=== PATIENT | female | born 1960 | race Caucasian/White ===

== ENCOUNTER 2020-09-14 18:38 | Inpatient (IN) | payer SELFPAY ==
--- NOTE | 2020-09-14 21:12 | RAD REPORT ---
EXAM DESCRIPTION: RAD - Chest Single View - 09/14/2020 9:05 pm CLINICAL HISTORY: Cough;SOB Chest pain. COMPARISON: CHEST SINGLE VIEW dated 09/28/2013; CTANGIO CHEST FOR PE dated 09/28/2013 FINDINGS: Portable technique limits examination quality. A large right pleural effusion is noted. The left lung is grossly clear. The heart is upper limit nor mal in size. No displaced fractures.
[2020-09-14 21:46] LABS: SARS-COV-2 RT PCR NEGATIVE (NEGATIVE)
[2020-09-14] MEDS ORDERED: CEFTRIAXONE/SWI 1gm 1 GM/10 ML SYR ONE (22:04)
[2020-09-14] MEDS ORDERED: NA CHLORIDE 0.9% 250 ML ONE (22:04)
[2020-09-14] MEDS ORDERED: ONDANSETRON 4 MG/2 ML VIAL IV PRN (22:19)
--- NOTE | 2020-09-14 22:19 | ER ---
Nurse's Notes [facility] Name: Amie Joseph Age: 60 yrs Sex: Female : 1960 Arrival Date: 09/14/2020 Time: 18:40 Bed 7 Private MD: Diagnosis: Pleural effusion in conditions classified elsewhere Presentation: 09/14 18:49 Chief complaint: Patient states: Cough for 3 weeks. SOB with exertion for 2-3 weeks. No ll1 fever. Coronavirus screen: Client denies travel out of the [place] in the last 14 days. cough unrelated to allergies, difficulty breathing, Client presents with at least one sign or symptom that may indicate coronavirus-19. Standard/surgical mask placed on the client. The client reports previous COVID testing was negative. Ebola Screen: Patient denies travel to an Ebola-affected area in the 21 days before illness onset. Initial Sepsis Screen: Does the patient meet any 2 criteria? HR > 90 bpm. No. Patient's initial sepsis screen is negative. Does the patient have a suspected source of infection? Yes: Productive cough/pneumonia. Risk Assessment: Do you want to hurt yourself or someone else? Patient reports no desire to harm self or others. Onset of symptoms was August 21, 2020. 18:49 Method Of Arrival: Ambulatory ll1 18:49 Acuity: JACEK 3 ll1 Triage Assessment: 22:30 General: Appears in no apparent distress. comfortable, Behavior is calm, cooperative. mg2 Respiratory: Reports shortness of breath Onset: The symptoms/episode began/occurred gradually, the patient has mild shortness of breath. Historical: - Allergies: 18:49 No Known Drug Allergies; ll1 - PMHx: 18:49 None; ll1 - PSHx: 18:49 Cholecystectomy; Hysterectomy; ; ll1 - Immunization history:: Flu vaccine is not up to date. - Social history:: Smoking status: Patient denies any tobacco usage or history of. Screenin:21 Abuse screen: Denies threats or abuse. Denies injuries from another. Nutritional mg2 screening: No deficits noted. Tuberculosis screening: No symptoms or risk factors identified. Fall Risk IV access (20 points). Assessment: 21:00 General: Appears in no apparent distress. comfortable, Behavior is calm, cooperative. mg2 Pain: Denies pain. Neuro: Level of Consciousness is awake, alert, obeys commands, Oriented to person, place, time, situation. Cardiovascular: Rhythm is regular. Respiratory: Airway is patent Respiratory effort is even, unlabored, Respiratory pattern is regular, symmetrical. GI: No signs and/or symptoms were reported involving the gastrointestinal system. : No signs and/or symptoms were reported regarding the genitourinary system. EENT: No signs and/or symptoms were reported regarding the EENT system. Derm: Skin is intact, is healthy with good turgor, Skin is pink, warm \T\ dry. normal. Musculoskeletal: Circulation, motion, and sensation intact. Capillary refill < 3 seconds. 21:00 Respiratory: Breath sounds with crackles. mg2 22:20 General: Dr Wyatt came and spoke to the patient about the plan for admission and she mg2 agreed. Vital Signs: 18:49 BP 130 / 80; Pulse 102; Resp 18; Temp 98.3; Pulse Ox 96% ; Weight 83.91 kg; Height 5 ll1 ft. 4 in. (162.56 cm); Pain 3/10; 22:30 BP 129 / 78; Pulse 98; Resp 18; Temp 98; Pulse Ox 97% on R/A; mg2 18:49 Body Mass Index 31.75 (83.91 kg, 162.56 cm) ll1 ED Course: 18:40 Patient arrived in ED. rg4 18:48 Arm band placed on. ll1 18:52 Triage completed. ll1 19:00 Patient has correct armband on for positive identification. Placed in gown. Bed in low rr5 position. Call light in reach. Side rails up X2. quality assurance monitor on. Pulse ox on. NIBP on. 19:00 Warm blanket given. rr5 19:46 Igor Glasgow MD is Attending Physician. tw4 21:05 CXR XRAY In Process Unspecified. EDMS 21:24 Corey Ibrahim RN is Primary Nurse. rr5 22:17 No provider procedures requiring assistance completed. Inserted saline lock: 20 gauge mg2 in left antecubital area, using aseptic technique. Blood collected. Patient maintains SpO2 saturation greater than 95% on room air. 22:18 Jon Wyatt MD is Hospitalizing Provider. tw4 22:30 Patient admitted, IV remains in place. mg2 Administered Medications: 22:17 Drug: Rocephin - (cefTRIAXone) 1 grams Route: IVPB; Infused Over: 30 mins; Site: left mg2 antecubital; 22:30 Follow up: IV Status: Completed infusion mg2 22:30 Drug: AZITHromycin 500 mg Route: IVPB; Infused Over: 1 hrs; Site: left antecubital; rr5 23:30 Follow up: IV Status: Completed infusion; IV Intake: 250ml mg2 Intake: 23:30 IV: 250ml; Total: 250ml. mg2 Outcome: 22:18 Decision to Hospitalize by Provider. tw4 23:19 Admitted to Med/surg accompanied by tech, via wheelchair, room 219, with chart, Report rr5 called to [facility] 23:19 Condition: stable 23:19 Instructed on the need for admit. 23:27 Patient left the ED. rr5 Signatures: Dispatcher [employer] Amanda Marmolejo rg4 Igor Glasgow MD MD tw4 Krishna Shepherd RN RN mg2 Corey Ibrahim RN RN rr5 Tabby Adams RN RN ll1 Corrections: (The following items were deleted from the chart) 09/15 07:35 0103 22:20 General: Dr Wyatt came and spoke to the patient about the plan for mg2 admission and she agreed. mg2
--- NOTE | 2020-09-14 22:19 | EDPHYS ---
Physician Documentation [facility] Name: Amie Joseph Age: 60 yrs Sex: Female : 1960 Arrival Date: 09/14/2020 Time: 18:40 Bed 7 Private MD: ED Physician Igor Glasgow HPI: 09/15 06:47 This 60 yrs old Female presents to ER via Ambulatory with complaints of tw4 Cough, Shortness Of Breath. 06:47 The patient or guardian reports cough. Onset: The symptoms/episode began/occurred 3 tw4 week(s) ago, and became worse yesterday. Severity of symptoms: At their worst the symptoms were moderate, in the emergency department the symptoms are unchanged. Modifying factors: The symptoms are alleviated by nothing, the symptoms are aggravated by nothing. The patient has not experienced similar symptoms in the past. Historical: - Allergies: 09/14 18:49 No Known Drug Allergies; ll1 - PMHx: 18:49 None; ll1 - PSHx: 18:49 Cholecystectomy; Hysterectomy; ; ll1 - Immunization history:: Flu vaccine is not up to date. - Social history:: Smoking status: Patient denies any tobacco usage or history of. ROS: 09/15 06:47 Constitutional: Negative for fever, chills, and weight loss, Eyes: Negative for injury, tw4 pain, redness, and discharge, Cardiovascular: Negative for chest pain, palpitations, and edema, Abdomen/GI: Negative for abdominal pain, nausea, vomiting, diarrhea, and constipation, Back: Negative for injury and pain, MS/Extremity: Negative for injury and deformity, Skin: Negative for injury, rash, and discoloration, Neuro: Negative for headache, weakness, numbness, tingling, and seizure. Respiratory: Positive for cough, shortness of breath. Exam: 06:47 Constitutional: This is a well developed, well nourished patient who is awake, alert, tw4 and in no acute distress. Head/Face: Normocephalic, atraumatic. Chest/axilla: Normal chest wall appearance and motion. Nontender with no deformity. No lesions are appreciated. Cardiovascular: Regular rate and rhythm with a normal S1 and S2. No gallops, murmurs, or rubs. Normal PMI, no JVD. No pulse deficits. 06:47 Respiratory: mild respiratory distress is noted, Respirations: normal, Breath sounds: decreased breath sounds, are heard in the right middle lobe, right lower lobe, right posterior upper lobe, right posterior middle lobe and right posterior lower lobe. 06:47 Skin: Warm, dry with normal turgor. Normal color with no rashes, no lesions, and no tw4 evidence of cellulitis. MS/ Extremity: Pulses equal, no cyanosis. Neurovascular intact. Full, normal range of motion. Neuro: Awake and alert, GCS 15, oriented to person, place, time, and situation. Cranial nerves II-XII grossly intact. Motor strength 5/5 in all extremities. Sensory grossly intact. Cerebellar exam normal. Normal gait. Vital Signs: 09/14 18:49 BP 130 / 80; Pulse 102; Resp 18; Temp 98.3; Pulse Ox 96% ; Weight 83.91 kg; Height 5 ll1 ft. 4 in. (162.56 cm); Pain 3/10; 22:30 BP 129 / 78; Pulse 98; Resp 18; Temp 98; Pulse Ox 97% on R/A; mg2 18:49 Body Mass Index 31.75 (83.91 kg, 162.56 cm) ll1 MDM: 20:59 Patient medically screened. 09/15 06:48 Data reviewed: vital signs, nurses notes. Data interpreted: Pulse oximetry: tw4 Interpretation: normal. Counseling: I had a detailed discussion with the patient and/or guardian regarding: the historical points, exam findings, and any diagnostic results supporting the discharge/admit diagnosis. Special discussion: I discussed with the patient/guardian in detail that at this point there is no indication for admission to the hospital. It is understood, however, that if the symptoms persist or worsen the patient needs to return immediately for re-evaluation. 09/14 21:09 Order name: Blood Culture Adult (2) 09/14 21:09 Order name: BMP 09/14 21:09 Order name: CBC with Diff 09/14 21:09 Order name: Ckmb 09/14 21:09 Order name: CPK 09/14 21:09 Order name: D-Dimer 09/14 21:09 Order name: Hepatic Function 09/14 21:09 Order name: Lipase tw4 09/14 21:09 Order name: Magnesium tw4 09/14 21:09 Order name: NT PRO-BNP tw4 09/14 21:09 Order name: PT-INR tw4 09/14 21:09 Order name: Ptt, Activated tw4 09/14 20:12 Order name: CXR XRAY tw4 09/14 21:09 Order name: CT Chest For PE Angio tw4 09/14 21:09 Order name: Troponin (emerg Dept Use Only) tw4 09/14 21:09 Order name: EKG; Complete Time: 21:10 tw4 09/14 21:09 Order name: Lactate tw4 09/14 21:46 Order name: COVID-19/FLU A+B EDMS 09/14 22:22 Order name: CBC with Automated Diff EDMS 09/14 22:22 Order name: CBC with Automated Diff EDMS 09/14 22:22 Order name: Comprehensive Metabolic Panel EDMS 09/14 22:22 Order name: Comprehensive Metabolic Panel EDMS 09/14 22:22 Order name: Protime (+INR) EDMS 09/14 22:22 Order name: Protime (+INR) EDMS 09/14 22:25 Order name: Thoracentesis w/ US Guide EDMS 09/14 19:47 Order name: Droplet/Contact Precautions; Complete Time: 20:58 tw4 09/14 19:47 Order name: Labs collected and sent; Complete Time: 20:58 tw4 09/14 19:47 Order name: O2 Per Protocol; Complete Time: 20:59 tw4 09/14 21:09 Order name: Cardiac monitoring; Complete Time: 22:17 tw4 09/14 21:09 Order name: EKG - Nurse/Tech; Complete Time: 22:30 tw4 09/14 21:09 Order name: IV Saline Lock; Complete Time: 22:17 tw4 09/14 21:09 Order name: O2 Sat Monitoring; Complete Time: 22:17 tw4 09/14 22:22 Order name: CONS Pharmacy Consult EDVA 09/14 22:22 Order name: NPO EDMS Administered Medications: 09/14 22:17 Drug: Rocephin - (cefTRIAXone) 1 grams Route: IVPB; Infused Over: 30 mins; Site: left mg2 antecubital; 22:30 Follow up: IV Status: Completed infusion mg2 22:30 Drug: AZITHromycin 500 mg Route: IVPB; Infused Over: 1 hrs; Site: left antecubital; rr5 23:30 Follow up: IV Status: Completed infusion; IV Intake: 250ml mg2 Disposition: 09/14/20 22:18 Hospitalization ordered by Jon Wyatt for Inpatient Admission. Preliminary diagnosis is Pleural effusion in conditions classified elsewhere. - Bed requested for Telemetry/MedSurg (Inpatient). - Status is Inpatient Admission. rr5 - Condition is Stable. - Problem is new. - Symptoms have improved. Signatures: Dispatcher [employer] EDMS Erin Arriola RN RN mw Igor Glasgow MD MD tw4 Krishna Shepherd RN RN mg2 Corey Ibrahim RN RN rr5 Tabby Adams RN RN ll1 Corrections: (The following items were deleted from the chart) 20:32 19:47 CORONAVIRUS+MR.LAB.BRZ ordered. [facility] ED[facility] 20:32 19:47 Influenza Screen (A \T\ B)+BA.LAB.BRZ ordered. [facility] 20:58 19:47 Document PUI# ordered. [facility] 20:59 19:47 Notify Health Dept [phone]/ ordered. [facility] 22:13 21:25 CORONAVIRUS+MR.LAB.BRZ ordered. [facility] 22:32 22:18 Hospitalization Ordered by Jon Wyatt MD for Inpatient Admission. Preliminary diagnosis is Pleural effusion in conditions classified elsewhere. Bed requested for Telemetry/MedSurg (Inpatient). Status is Inpatient Admission. Condition is Stable. Problem is new. Symptoms have improved. tw4 23:27 22:32 09/14/2020 22:18 Hospitalization Ordered by Jon Wyatt MD for Inpatient rr5 Admission. Preliminary diagnosis is Pleural effusion in conditions classified elsewhere. Bed requested for Telemetry/MedSurg (Inpatient). Status is Inpatient Admission. Condition is Stable. Problem is new. Symptoms have improved. mw
[2020-09-14 22:20] LABS: Hematocrit 43.8 % (36.0-45.0); Lymphocytes % 17.6 % (15.3-44.8); MPV 8.5 fL (7.6-11.3); RBC Red Blood Cell Count 5.01 M/uL (3.86-4.86)
[2020-09-14 22:21] LABS: Absolute Lymphocytes (CBC) 1.8 K/uL (0.7-4.9); Basophils % 0.6 % (0-1.3)
[2020-09-14] MEDS ORDERED: AZITHROMYCIN 500 MG INJ IVPB ONE (22:22)
--- NOTE | 2020-09-14 22:26 | P.HP ---
Certification for Inpatient Patient admitted to: Inpatient With expected LOS: >2 Midnights Practitioner: I am a practitioner with admitting privileges, knowledge of patient current condition, hospital course, and medical plan of care. Services: Services provided to patient in accordance with Admission requirements found in Title 42 Section 412.3 of the Code of Federal Regulations Patient History Date of Service: 09/14/20 Reason for admission: Cough and shortness of breath History of Present Illness: Patient is 60 years of age admitted with right-sided new pleural effusion has been complaining of 3 week onset of cough shortness of breath some chest discomfort denies any fever chills no home the prior medical history as not take any medication does not follow up with a regular physician Allergies No Known Drug Allergies Allergy (Unverified 01/14/15 09:46) Unknown No Known Allergies Allergy (Uncoded 02/06/16 15:26) Unknown Home Medications: cloNIDine HCL [Catapres*] 0.1 mg PO DAILY 09/28/13 - Past Medical/Surgical History Diabetic: No -: HTN -: Hysterectomy -: Cholecystectomy - Social History Alcohol use: Yes CD- Drugs: No Caffeine use: Yes Review of Systems 10-point ROS is otherwise unremarkable Physical Examination - Vital Signs Temperature: 98.3 F Blood Pressure: 130/80 Pulse: 102 Respirations: 18 Pulse Ox (%): 96 - Physical Exam General: Alert, Oriented x3, Mild distress Neck: Supple Respiratory: Diminished (Diminished air entry on the right side with dull percussion) Cardiovascular: No edema, Regular rate/rhythm, Normal S1 S2 Gastrointestinal: Normal bowel sounds, Soft and benign Musculoskeletal: No clubbing, No swelling - Studies Laboratory Data (last 24 hrs) 09/14/20 22:00: WBC 10.0, Hgb 14.5, Hct 43.8, Plt Count 231 Assessment and Plan - Problems (Diagnosis) (1) Pleural effusion Current Visit: Yes Status: Acute Plan: Patient is 60 years of age admitted with cough shortness of breath for the past 3 weeks no prior medical history does not have a regular doctor she has a significant right-sided pleural effusion patient will need a thoracentesis so far as CBCs unremarkable other lab tests are pending patient is white virus negative - Advance Directives Does patient have a Living Will: No Does patient have a Durable POA for Healthcare: No
[2020-09-14 22:32] LABS: ALT/SGPT 17 U/L (12-78); AST/SGOT 15 U/L (15-37); Albumin 3.7 g/dL (3.4-5.0); Alkaline Phosphatase 82 U/L (45-117); BUN Blood Urea Nitrogen 9 mg/dL (7-18); Bicarbonate 29 mmol/L (21-32); Bilirubin Direct < 0.1 mg/dL (0-0.2); Bilirubin Total 0.2 mg/dL (0.2-1.0); CKMB Creatine Kinase MB 4.1 ng/mL (0.3-3.6); Creatine Phosphokinase 72 U/L (26-192); Glucose Level 93 mg/dL (74-106); Lipase 86 U/L (73-393); Magnesium 2.3 mg/dL (1.8-2.4); NT PRO-BNP 94 pg/mL (<125); Protein, Total 8.1 g/dL (6.4-8.2); Sodium Level 138 mmol/L (136-145); Troponin (Emerg Dept Use Only) < 0.02 ng/mL (0.0-0.045)
[2020-09-14 22:40] LABS: Protime INR 1.08
[2020-09-15 00:04] VITALS: BMI 32.1
[2020-09-15] MEDS: D5 0.45 NS 1,000 ML IV SCH ×2 (00:25→11:35)
[2020-09-15 04:45] LABS: Absolute Lymphocytes (CBC) 2.1 K/uL (0.7-4.9); Basophils % 0.6 % (0-1.3); Hematocrit 39.3 % (36.0-45.0); Lymphocytes % 21.7 % (15.3-44.8); MPV 8.6 fL (7.6-11.3)
[2020-09-15 05:09] LABS: Protime INR 1.07
[2020-09-15 05:16] LABS: ALT/SGPT 17 U/L (12-78); AST/SGOT 16 U/L (15-37); Albumin 3.2 g/dL (3.4-5.0); Alkaline Phosphatase 74 U/L (45-117); BUN Blood Urea Nitrogen 7 mg/dL (7-18); Bicarbonate 27 mmol/L (21-32); Bilirubin Total 0.3 mg/dL (0.2-1.0); Glucose Level 108 mg/dL (74-106); Potassium 4.1 mmol/L (3.5-5.1); Protein, Total 7.2 g/dL (6.4-8.2); Sodium Level 139 mmol/L (136-145)
[2020-09-15] MEDS ORDERED: INFLUENZA VACCINE (for 3y+) 0.5 ML DOSE IMVAC ONE (10:00)
--- NOTE | 2020-09-15 10:29 | EKG ---
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
--- NOTE | 2020-09-15 10:47 | RAD REPORT ---
EXAM DESCRIPTION: CT Angiography Chest With Intravenous Contrast CLINICAL HISTORY: The patient is 60 years old and is Female; pneumonia TECHNIQUE: Axial computed tomographic angiography images of the chest with intravenous contrast. S agittal and coronal reformatted images were created and reviewed. This CT exam was performed using one or more of the following dose reduction techniques: automated exposure control, adjustment of t he mA and/or kV according to patient size, and/or use of iterative reconstruction technique. MIP reconstructed images were created and reviewed. COMPARISON: CTA of the chest September 28, 2013 FINDINGS: PULMONARY ARTERIES: The main pulmonary arteries and proximal segmental branches opacify normally and are without filling defect. Remainder of the pulmonary vessels are inadequately evaluate d secondary to motion artifact. AORTA: No acute findings. No thoracic aortic aneurysm. LUNGS: Associated collapse of the right upper lobe and atelectasis within the right middle and r ight lower lobes is noted. The right upper lobe is heterogeneous in appearance. The left lung is cl ear. No mass. PLEURAL SPACE: A large right pleural effusion is present. No pneumothorax. HEART: Unremarkable. No cardiomegaly. No significant pericardial effusion. No evidence of RV dysfunction. MEDIASTINUM: The mediastinum is shifted to the left. BONES/JOINTS: Mild multilevel degenerative change of the spine is present. No acute fracture. No dislocation. SOFT TISSUES: Unremarkable. LYMPH NODES: Unremarkable. No enlarged lymph nodes. GALLBLADDER AND BILE DUCTS: Surgical clips are present in the right upper quadrant, consistent w ith previous cholecystectomy. IMPRESSION: 1. The main pulmonary arteries and proximal segmental branches opacify normally and ar e without filling defect. Remainder of the pulmonary vessels are inadequately evaluated secondary to motion artifact. 2. Large right pleural effusion with associated compressive atelectasis throughout the right lung. The right upper lobe appears to be slightly heterogeneous. Necrotic pneumonia and/or underlying mass are within the differential. Electronically signed by: Adeola Jones MD 09/14/2020 11:20 PM RN MDS COORDINATOR Due to temporary technical issues with the PACS/Fluency reporting system, reports are being signed by the in house radiologist without review as a courtesy to ensure prompt reporting. The interpreting r adiologist is fully responsible for the content of the report.
--- NOTE | 2020-09-15 11:27 | RAD REPORT ---
EXAM DESCRIPTION: RAD - Chest Single View - 09/15/2020 11:22 am CLINICAL HISTORY: POST THORACENTESIS Chest pain. COMPARISON: Chest Single View dated 09/14/2020; CHEST SINGLE VIEW dated 09/28/2013; Chest For Pe Angio dated 09/14/2020 FINDINGS: Inspiratory and expiratory projections worse performed. No evidence of postprocedure pneumothorax. The right pleural effusion previously noted has significan tly reduced in size. There is airspace opacity in the right mid lower lung which could represent unde rlying pneumonia or mass.
--- NOTE | 2020-09-15 11:27 | RAD REPORT ---
EXAM DESCRIPTION: US - Thoracentesis w/ US Guide - 09/15/2020 10:29 am CLINICAL HISTORY: Pleural effusion. Right-sided pleural effusion COMPARISON: No comparisons FINDINGS: Preoperative diagnosis: Right pleural effusion Post operative diagnosis: Same Conscious Sedation: None. Estimated blood loss: Minimal Specimens:A small volume of fluid was sent for requested lab studies. The patient was placed in the upright recumbent position and the right posterior chest was prepped an d draped in the usual sterile fashion. 1% Lidocaine was infiltrated into the soft tissues for local anesthesia. Under sonographic guidance, a thoracentesis needle and 6 Turkmen catheter was advanced in to the right pleural space. Approximately 2.1 liters yellow fluid was aspirated. Samples were sent to pathology for requested analysis. The patient tolerated the procedure without immediate complication and transferred to the floor in stable condition. IMPRESSION: Successful ultrasound-guided thoracentesis as detailed.
[2020-09-15] MEDS: MORPHINE 2 MG/ML SYR IV PRN ×2 (11:40→22:27)
[2020-09-15 13:57] LABS: Body Fluid Source PLEURAL; Color of fluid Yellow (COLORLESS)
[2020-09-15 13:58] LABS: Appearance CLEAR (CLEAR); Body Fluid WBC 3132 /mm^3
--- NOTE | 2020-09-15 15:31 | P.PN ---
Subjective Date of Service: 09/15/20 Chief Complaint: Cough and shortness of breath Patient has no complain. She denies shortness of breath. She states she feels fine. Physical Examination - Vital Signs Temperature: 98.7 F Blood Pressure: 136/70 Pulse: 90 Respirations: 18 Pulse Ox (%): 95 - Physical Exam General: Alert, In no apparent distress Neck: Supple, JVD not distended Respiratory: Diminished (On the right, no crackles.) Cardiovascular: No edema, Regular rate/rhythm, Normal S1 S2 Gastrointestinal: Normal bowel sounds, Soft and benign, Non-distended, No tenderness Musculoskeletal: No swelling, No tenderness Integumentary: No rashes Neurological: Normal speech, Normal strength at 5/5 x4 extr - Studies Laboratory Data (last 24 hrs) 09/14/20 22:00: PT 12.7 H, INR 1.08, APTT 25.6 09/14/20 22:00: WBC 10.0, Hgb 14.5, Hct 43.8, Plt Count 231 09/14/20 22:00: Sodium 138, Potassium 4.0, BUN 9, Creatinine 0.71, Glucose 93, Magnesium 2.3, Total Bilirubin 0.2, AST 15, ALT 17, Alkaline Phosphatase 82, Lipase 86 Assessment And Plan - Current Problems (Diagnosis) (1) Pleural effusion Current Visit: Yes Status: Acute (2) Chest pain Current Visit: No Status: Active (3) Hypertension Current Visit: Yes Status: Acute - Plan Cause of pleural fluid is unknown. No cardiomegaly on the CT chest. Status post thoracentesis. Follow up pleural fluid analysis and culture. Lung mass or pneumonia not ruled out. Will start antibiotics and repeat imaging tomorrow.
[2020-09-15] MEDS ORDERED: Levofloxacin 750mg IV 750 MG/150 ML BAG IV SCH (16:00)
[2020-09-16 01:15] VITALS: O2SAT 95
[2020-09-16] MEDS: D5 0.45 NS 1,000 ML IV SCH ×2 (01:40→06:05)
[2020-09-16 05:47] LABS: Absolute Lymphocytes (CBC) 1.5 K/uL (0.7-4.9); Basophils % 0.6 % (0-1.3); Hematocrit 39.9 % (36.0-45.0); Lymphocytes % 16.2 % (15.3-44.8); MPV 8.6 fL (7.6-11.3); RBC Red Blood Cell Count 4.51 M/uL (3.86-4.86)
[2020-09-16 05:56] LABS: Magnesium 2.2 mg/dL (1.8-2.4)
[2020-09-16] MEDS: MORPHINE 2 MG/ML SYR IV PRN (06:09)
--- NOTE | 2020-09-16 06:46 | RAD REPORT ---
EXAM DESCRIPTION: Ilene Pa And Lat (2 Views)09/16/2020 6:06 am CLINICAL HISTORY: Pleural effusion COMPARISON: September 15, 2020 FINDINGS: No change in a small to moderate right pleural effusion 8 centimeter medial right lung opacity could represent pulmonary edema or probably less likely mass a nd should be followed. Mild additional bilateral interstitial opacities may represent interstitial pulmonary edema or pneumo elzbieta. Heart is normal size
[2020-09-16 12:04] VITALS: BP 115/55; TEMP 98.8
--- NOTE | 2020-09-16 22:29 | P.DS ---
Admission Date: 09/14/20 Discharge Date: 09/16/20 Disposition: ROUTINE DISCHARGE Discharge Condition: GOOD Reason for Admission: Cough and shortness of breath Procedures: CXR (09/14): large R pleural effusion. Left lung is grossly clear. heart is upper limit normal in size CTA Chest (09/14): large R pleural effusion w/ compressive atelectasis throughout the R lung. RUL appears to be slightly hterogeneous. Necrotic pneumonia and/or underlying mass are within the differential. Main PA and proximal segmental branches without filling defect. Remainder of pulm vessels are inadequately evaluated secondary to motion artifact. Thoracentesis (09/15): 2.1 L yellow fluid aspirated without complications CXR (09/15): R pleural effusion significantly reduce in size. airspace opacity in R mid lower lung, could represent pneumonia or mass CXR (09/16): no change in small-moderate R pleural effusion. 8cm medial R lung opacity could represent pulmonary edema or probably less likely mass. mild additional bilateral insterstitial opacities may represent pulmonary edema or pneumonia. Problem List: R pleural effusion Hypertension Brief History of Present Illness: 60yo F, presented with 3 week onset of cough, SOB, and some chest discomfort. She was found to have a new, large right sided pleural effusion and requiring oxygen supplementation. Hospital Course: Patient was admitted, underwent thoracentesis yielding 2.1 L yellow fluid with samples sent to pathology / lab for further analysis. Initial results were negative for infectious etiology. She was breathing much more comfortably but st ill requriing oxygen after the thoracentesis. Her case was briefly reviewed with pulmonology, and they recommended discharge home with home oxygen and Augmentin for 1 week. She is to f/u with Pulmonology in the next 1-2 weeks where they will review the pleural fluid samples (send outs). Vital Signs/Physical Exam: Temp Pulse Resp BP Pulse Ox 98.8 F 83 16 115/55 L 94 09/16/20 12:00 09/16/20 12:00 09/16/20 12:00 09/16/20 12:00 09/16/20 12:00 General: Alert, In no apparent distress, Oriented x3 Respiratory: Diminished (at R base, otherwise clear) Cardiovascular: No edema, Regular rate/rhythm Gastrointestinal: Soft and benign, No tenderness Integumentary: No tenderness/swelling Neurological: Normal speech, Normal affect Laboratory Data at Discharge: WBC 9.4 K/uL (4.3-10.9) 09/16/20 05:30 Hgb 13.0 g/dL (12.0-15.0) 09/16/20 05:30 Hct 39.9 % (36.0-45.0) 09/16/20 05:30 Plt Count 213 K/uL (152-406) 09/16/20 05:30 PT 12.6 SECONDS (9.5-12.5) H 09/15/20 04:10 INR 1.07 09/15/20 04:10 APTT 25.6 SECONDS (24.3-36.9) 09/14/20 22:00 Sodium 138 mmol/L (136-145) 09/16/20 05:30 Potassium 4.0 mmol/L (3.5-5.1) 09/16/20 05:30 BUN 7 mg/dL (7-18) 09/16/20 05:30 Creatinine 0.69 mg/dL (0.55-1.3) 09/16/20 05:30 Glucose 121 mg/dL (74-106) H 09/16/20 05:30 Magnesium 2.2 mg/dL (1.8-2.4) 09/16/20 05:30 Total Bilirubin 0.3 mg/dL (0.2-1.0) 09/15/20 04:10 AST 16 U/L (15-37) 09/15/20 04:10 ALT 17 U/L (12-78) 09/15/20 04:10 Alkaline Phosphatase 74 U/L (45-117) 09/15/20 04:10 Lipase 86 U/L (73-393) 09/14/20 22:00 Home Medications: Amox/Clavulanate [Augmentin 875-125 Tab] 875 mg PO BID 7 Days #14 tab 09/16/20 traMADol HCL [Ultram*] 50 mg PO Q6H PRN #10 tab 09/16/20 New Medications: Amox/Clavulanate [Augmentin 875-125 Tab] 875 mg PO BID 7 Days #14 tab traMADol HCL [Ultram*] 50 mg PO Q6H PRN #10 tab PRN Reason: Pain Patient Discharge Instructions: Follow up with Pulmonology (Dr. Wyatt) in 1-2 weeks to review your labs that were sent out. New prescriptions - augmentin (antibiotic) twice a day for 7 days, and tramadol for pain. Follow up with your PCP as well in the next few weeks. Diet: Regular Activity: No lifting more than 10 lbs (for 1 week) Followup: Jon Wyatt MD [ACTIVE - CAN ADMIT] - 1-2 Weeks (Follow up in office. Call to schedule an appointment.) Time spent managing pt's care (in minutes): 40
== END 2020-09-16 12:12 | disposition home or self-care (01) | DRG 188 ==
LOC: ER 18:38 → ERHOLD 22:20 → 2ND 22:55
PROVIDERS: ADMIT Internal Medicine Sleep Medicine; ATTEND Hospitalist
PROC: 0W993ZZ Drainage of Right Pleural Cavity, Percutaneous Approach (ICD-10-PCS; principal; 2020-09-15)
DX: J90 Pleural effusion, not elsewhere classified (principal); I10 Essential (primary) hypertension; Z90.49 Acquired absence of other specified parts of digestive tract; Z90.710 Acquired absence of both cervix and uterus; Z79.899 Other long term (current) drug therapy; Z20.828 Contact with and (suspected) exposure to other viral communicable diseases
CPT/HCPCS: 0240U; 32555; 36415; 71045; 71046; 71275; 80048; 80053; 80076; 82550; 82553; 83605; 83690; 83735; 83880; 84484; 85025; 85379; 85610; 85730; 87015; 87040; 87070; 87102; 87116; 87206; 88108; 88305; 89050; 93005; 94760; 96365; 96375; 99285; J0456; J0696; J2270; J7050; J7799; Q9967

== ENCOUNTER 2020-10-14 16:41 | Emergency (ER) | payer SELFPAY ==
[2020-10-14] MEDS ORDERED: FENTANYL CITR 100 MCG/2 ML ONE (20:22)
[2020-10-14] MEDS ORDERED: ONDANSETRON 4 MG/2 ML VIAL ONE (20:22)
--- NOTE | 2020-10-14 20:32 | RAD REPORT ---
EXAM DESCRIPTION: RAD - Chest Single View - 10/14/2020 8:07 pm CLINICAL HISTORY: Cough;SOB COMPARISON: Two view chest September 16 TECHNIQUE: AP portable chest image was obtained 10/14/2020 8:07 pm . FINDINGS: Large right pleural effusion is present occupying the majority of the right hemithorax. Th is has substantially enlarged since the prior examination. Trachea remains in the midline. No measura ble pleural effusion on the left. There is a small amount of aerated lung parenchyma in the upper rig ht chest. Heart size is stable. Right heart border is obscured by the pleural fluid. No pneumothorax. No acute bony abnormality seen. No acute aortic findings suspected. IMPRESSION: Large right pleural effusion occupying majority of the right hemithorax. This has substa ntially enlarged since September.
[2020-10-14 20:55] LABS: Absolute Lymphocytes (CBC) 2.2 K/uL (0.7-4.9); Basophils % 0.7 % (0-1.3); Hematocrit 43.9 % (36.0-45.0); Lymphocytes % 16.5 % (15.3-44.8); MPV 8.5 fL (7.6-11.3); Protime INR 0.99; RBC Red Blood Cell Count 5.05 M/uL (3.86-4.86)
[2020-10-14 21:13] LABS: ALT/SGPT 13 U/L (12-78); AST/SGOT 11 U/L (15-37); Albumin 3.4 g/dL (3.4-5.0); Alkaline Phosphatase 80 U/L (45-117); BUN Blood Urea Nitrogen 7 mg/dL (7-18); Bicarbonate 27 mmol/L (21-32); Bilirubin Direct < 0.1 mg/dL (0-0.2); Bilirubin Total 0.3 mg/dL (0.2-1.0); Glucose Level 89 mg/dL (74-106); Magnesium 2.2 mg/dL (1.8-2.4); NT PRO-BNP 68 pg/mL (<125); Potassium 4.1 mmol/L (3.5-5.1); Protein, Total 7.8 g/dL (6.4-8.2); Sodium Level 138 mmol/L (136-145); Troponin (Emerg Dept Use Only) < 0.02 ng/mL (0.0-0.045)
--- NOTE | 2020-10-14 21:18 | EDPHYS ---
Physician Documentation [facility] Name: Amie Joseph Age: 60 yrs Sex: Female : 1960 Arrival Date: 10/14/2020 Time: 16:43 Bed 14 Private MD: ED Physician Roman Law HPI: 10/14 18:43 This 60 yrs old Female presents to ER via Ambulatory with complaints of cp Shortness Of Breath, Side Pain. 18:43 The patient has shortness of breath with light activity. Onset: The symptoms/episode cp began/occurred gradually. Duration: The symptoms are continuous, and are steadily getting worse. Associated signs and symptoms: Pertinent positives: right side lateral lower chest and right lateral upper abdomen pain. 18:43 The patient has experienced a previous episode, last month, but today's symptoms are cp not as bad as this previous episode, patient reports she was diagnosed with a right side pleural effusion. Historical: - Allergies: 18:36 No Known Allergies; ca1 - PSHx: 18:36 Cholecystectomy; Hysterectomy; ; ca1 - Immunization history:: Pneumococcal vaccine is not up to date, Flu vaccine is not up to date. - Social history:: Smoking status: Patient denies any tobacco usage or history of. ROS: 18:50 Constitutional: Negative for body aches, chills, fever, poor PO intake. cp 18:50 Eyes: Negative for injury, pain, redness, and discharge. cp 18:50 Cardiovascular: Positive for chest pain, of the right lateral chest, Negative for edema. 18:50 Respiratory: Positive for cough, with white sputum, dyspnea on exertion, shortness of breath, on exertion. Negative for wheezing. 18:50 Abdomen/GI: Positive for abdominal pain, of the right upper abdomen and right upper lateral abdomen, Negative for nausea, vomiting, and diarrhea. 18:50 Back: Negative for injury or acute deformity. 18:50 : Negative for urinary symptoms. 18:50 Neuro: Negative for altered mental status, headache, weakness. 18:50 All other systems are negative. Exam: 18:53 Constitutional: The patient appears in no acute distress, alert, awake, cp non-diaphoretic, non-toxic, well developed, well nourished, uncomfortable. 18:53 Head/Face: Normocephalic, atraumatic. cp 18:53 Eyes: Periorbital structures: appear normal, Conjunctiva: normal, no exudate, no injection, Sclera: no appreciated abnormality, Lids and lashes: appear normal, bilaterally. 18:53 ENT: External ear(s): are unremarkable, Nose: is normal, Mouth: Lips: moist, Oral mucosa: pink and intact, moist, Posterior pharynx: Airway: no evidence of obstruction, patent. 18:53 Chest/axilla: Inspection: normal, Palpation: crepitus, is not appreciated, tenderness, that is moderate, of the right lower lateral chest. 18:53 Cardiovascular: Rate: normal, Rhythm: regular, Edema: is not appreciated, JVD: is not appreciated. 18:53 Respiratory: the patient does not display signs of respiratory distress, Respirations: labored breathing, that is mild, intercostal retractions, are absent, shallow respirations, that is mild, Breath sounds: decreased breath sounds, that are severe, are heard in the right posterior middle lobe and right posterior lower lobe, stridor, is not appreciated, Respiratory rate: 19 18:53 Abdomen/GI: Inspection: abdomen appears normal, Bowel sounds: active, all quadrants, Palpation: soft, in all quadrants, moderate abdominal tenderness, in the right upper quadrant and lateral right abdomen, rebound tenderness, is not appreciated, involuntary guarding, is not appreciated. 18:53 Skin: no rash present. 18:53 Neuro: Orientation: to person, place \T\ time. Mentation: is normal. Vital Signs: 18:24 BP 141 / 100; Pulse 96; Resp 22; Pulse Ox 97% on R/A; ll2 18:25 BP 141 / 100; Pulse 93; Resp 19 S; Temp 98.1(O); Pulse Ox 96% on R/A; Weight 83.91 kg ca1 (R); Height 5 ft. 4 in. (162.56 cm) (R); Pain 8/10; 19:30 BP 139 / 94; Pulse 91; Resp 18; Pulse Ox 95% on R/A; ll2 20:37 BP 112 / 97; Pulse 93; Resp 24; Pulse Ox 95% on R/A; ll2 18:25 Body Mass Index 31.75 (83.91 kg, 162.56 cm) ca1 MDM: 18:43 Patient medically screened. cp 19:30 Differential diagnosis: Myocardial Infarction pneumonia, Pneumothorax pulmonary edema, cp Pulmonary Embolism Sepsis Unstable Angina pleural effusion. 20:45 Physician consultation: Evens OLIVEIRA was contacted at 20:40, regarding admission, cp to the telemetry unit. after a discussion of the case, a recommendation for transfer for higher level of care is made, reports DR Wyatt requests transfer for VATS procedure due to recurrent right lung pleural effusion . 21:15 Data reviewed: vital signs, nurses notes, lab test result(s), EKG, radiologic studies, cp plain films, I have discussed the patient's presentation/case with the attending Emergency Department Physician; and as a result, I will administer antibiotics Zosyn, transfer patient. 22:10 Physician consultation: was contacted at 22:10, regarding regarding transfer, to [facility]. patient's condition, accepting physician will be DR Garcia, cardiothoracic surgeon. 22:15 Counseling: I had a detailed discussion with the patient and/or guardian regarding: the cp historical points, exam findings, and any diagnostic results supporting the discharge/admit diagnosis, lab results, radiology results, the need to transfer to another facility, for higher level of care, [facility] does not immediately have the required specialist. 10/14 19:20 Order name: Basic Metabolic Panel cp 10/14 19:20 Order name: CBC with Diff 10/14 19:20 Order name: LFT's cp 10/14 19:20 Order name: Magnesium cp 10/14 19:20 Order name: NT PRO-BNP cp 10/14 19:20 Order name: PT-INR; Complete Time: 21:13 cp 10/14 19:20 Order name: Troponin (emerg Dept Use Only); Complete Time: 21:15 cp 10/14 19:21 Order name: Basic Metabolic Panel; Complete Time: 21:15 EDMS 10/14 19:21 Order name: CBC with Automated Diff; Complete Time: 21:13 EDMS 10/14 21:13 Interpretation: Normal except: WBC 13.30; RBC 5.05; NEUT A 9.8. cp 10/14 19:21 Order name: Liver (Hepatic) Function; Complete Time: 21:15 EDMS 10/14 21:15 Interpretation: Normal except: AST 11; GLOB 4.4; A/G 0.8. cp 10/14 19:21 Order name: Magnesium; Complete Time: 21:15 EDMS 10/14 19:21 Order name: NT PRO-BNP; Complete Time: 21:15 EDMS 10/14 21:15 Order name: Blood Culture Adult (2) 10/14 21:15 Order name: Lactate 10/14 19:20 Order name: XRAY Chest (1 view); Complete Time: 20:37 10/14 19:20 Order name: Cardiac monitoring 10/14 19:20 Order name: EKG - Nurse/Tech 10/14 19:20 Order name: IV Saline Lock 10/14 19:20 Order name: Labs collected and sent 10/14 19:20 Order name: O2 Per Protocol 10/14 19:20 Order name: O2 Sat Monitoring 10/14 20:39 Order name: CT Chest For PE Angio 10/14 21:15 Order name: Procalcitonin 10/14 21:16 Order name: Blood Culture EDMS Administered Medications: 20:40 Drug: fentaNYL (PF) 25 mcg Route: IVP; Site: right antecubital; ll2 21:40 Follow up: Response: No adverse reaction ll2 20:40 Drug: Zofran (Ondansetron) 4 mg Route: IVP; Site: right antecubital; ll2 21:40 Follow up: Response: No adverse reaction ll2 22:11 Drug: Zosyn 3.375 grams Route: IVPB; Infused Over: 60 mins; Site: left antecubital; ll2 23:20 Follow up: Response: No adverse reaction; IV Status: Completed infusion; IV Intake: ll2 100ml Disposition: 10/14/20 21:17 Transfer ordered to [facility]. Diagnosis are Pleural effusion in other conditions classified elsewhere - recurrent, Right Lung, Shortness of breath. - Reason for transfer: Higher level of care. - Accepting physician is DR Garcia. - Condition is Stable. - Problem is an ongoing problem. - Symptoms have improved. Addendum: 10/20/2020 19:17 Co-signature as Attending Physician, Roman cottrell a2 Signatures: Dispatcher [employer] EDMS Evens Colón, PROSPER-C MANAGER [employer]1 Darien Narayan PA PA cp Alzahri, Mohammad, MD MD ma2 Fariba Johnson RN RN ca1 Jessica Vincent RN RN ll2 Corrections: (The following items were deleted from the chart) 10/14 21:21 21:17 10/14/2020 21:17 Transfer ordered to [facility]. cp Diagnosis is Pleural effusion in other conditions classified elsewhere. Reason for transfer: Higher level of care. Accepting physician is Doctor. Condition is Stable. Problem is an ongoing problem. Symptoms have improved. cp 22:13 21:21 10/14/2020 21:17 Transfer ordered to [facility]. cp Diagnosis is Pleural effusion in other conditions classified elsewhere - recurrent, Right Lung; Shortness of breath. Reason for transfer: Higher level of care. Accepting physician is Doctor. Condition is Stable. Problem is an ongoing problem. Symptoms have improved. cp 23:18 22:13 10/14/2020 21:17 Transfer ordered to [facility]. ll2 Diagnosis is Pleural effusion in other conditions classified elsewhere - recurrent, Right Lung; Shortness of breath. Reason for transfer: Higher level of care. Accepting physician is DR Garcia. Condition is Stable. Problem is an ongoing problem. Symptoms have improved. cp
--- NOTE | 2020-10-14 21:18 | ER ---
Nurse's Notes [facility] Name: Amie Joseph Age: 60 yrs Sex: Female : 1960 Arrival Date: 10/14/2020 Time: 16:43 Bed 14 Private MD: Diagnosis: Pleural effusion in other conditions classified elsewhere-recurrent, Right Lung;Shortness of breath Presentation: 10/14 18:25 Chief complaint: Patient states: Been coughing since August 2020. In the beginning of ca1 September they drained fluid from my R lung, I felt better. 2 - 3 days ago, SOB with exertion. Increasing coughing for days. Also has R side pain started 3 days ago. Coronavirus screen: Client denies travel out of the [place] in the last 14 days. cough unrelated to allergies, shortness of breath, Client presents with at least one sign or symptom that may indicate coronavirus-19. Standard/surgical mask placed on the client. Provider contacted for isolation considerations. Ebola Screen: Patient negative for fever greater than or equal to 101.5 degrees Fahrenheit, and additional compatible Ebola Virus Disease symptoms Patient denies exposure to infectious person. Patient denies travel to an Ebola-affected area in the 21 days before illness onset. No symptoms or risks identified at this time. Initial Sepsis Screen: Does the patient meet any 2 criteria? No. Patient's initial sepsis screen is negative. Does the patient have a suspected source of infection? No. Patient's initial sepsis screen is negative. Risk Assessment: Do you want to hurt yourself or someone else? Patient reports no desire to harm self or others. Onset of symptoms was October 14, 2020. 18:25 Method Of Arrival: Ambulatory ca1 18:25 Acuity: JACEK 3 ca1 Triage Assessment: 18:36 General: Appears in no apparent distress. comfortable, Behavior is calm, cooperative, ca1 appropriate for age. Pain: Complains of pain in posterior aspect of right lateral abdomen and anterior aspect of right lateral abdomen Pain does not radiate. Pain currently is 8 out of 10 on a pain scale. Quality of pain is described as squeezing, Pain began 2-3 days ago. Is intermittent. EENT: No signs and/or symptoms were reported regarding the EENT system. Neuro: Level of Consciousness is awake, alert, obeys commands, Oriented to person, place, time, situation. Cardiovascular: Heart tones S1 S2 present Capillary refill < 3 seconds Patient's skin is warm and dry. Rhythm is sinus rhythm. Respiratory: Reports shortness of breath on exertion since 2 - 3 days cough that is productive, Breath sounds are diminished in right posterior middle lobe and right posterior lower lobe Onset: The symptoms/episode began/occurred gradually, the patient has mild shortness of breath. GI: Abdomen is round non-distended, Bowel sounds present X 4 quads. Abd is soft and non tender X 4 quads. : No signs and/or symptoms were reported regarding the genitourinary system. Urine is cloudy. Derm: Skin is intact, is healthy with good turgor, Skin is pink, warm \T\ dry. Musculoskeletal: Circulation, motion, and sensation intact. Capillary refill < 3 seconds. Historical: - Allergies: 18:36 No Known Allergies; ca1 - PSHx: 18:36 Cholecystectomy; Hysterectomy; ; ca1 - Immunization history:: Pneumococcal vaccine is not up to date, Flu vaccine is not up to date. - Social history:: Smoking status: Patient denies any tobacco usage or history of. Screenin:38 Abuse screen: Denies threats or abuse. Denies injuries from another. Nutritional ca1 screening: No deficits noted. Tuberculosis screening: No symptoms or risk factors identified. Fall Risk IV access (20 points). Assessment: 18:38 Reassessment: see triage notes. Cardiovascular: Heart tones S1 S2 present Capillary ca1 refill < 3 seconds Patient's skin is warm and dry. 19:40 Reassessment: Patient and/or family updated on plan of care and expected duration. Pain ll2 level reassessed. Patient is alert, oriented x 3, equal unlabored respirations, skin warm/dry/pink. attempted to call report, asked to call back. 22:48 Reassessment: Patient and/or family updated on plan of care and expected duration. Pain ll2 level reassessed. Patient is alert, oriented x 3, equal unlabored respirations, skin warm/dry/pink. 23:30 Reassessment: Patient and/or family updated on plan of care and expected duration. Pain ll2 level reassessed. Patient is alert, oriented x 3, equal unlabored respirations, skin warm/dry/pink. Vital Signs: 18:24 BP 141 / 100; Pulse 96; Resp 22; Pulse Ox 97% on R/A; ll2 18:25 BP 141 / 100; Pulse 93; Resp 19 S; Temp 98.1(O); Pulse Ox 96% on R/A; Weight 83.91 kg ca1 (R); Height 5 ft. 4 in. (162.56 cm) (R); Pain 8/10; 19:30 BP 139 / 94; Pulse 91; Resp 18; Pulse Ox 95% on R/A; ll2 20:37 BP 112 / 97; Pulse 93; Resp 24; Pulse Ox 95% on R/A; ll2 18:25 Body Mass Index 31.75 (83.91 kg, 162.56 cm) ca1 ED Course: 16:43 Patient arrived in ED. ds1 18:21 Fariba Johnson RN is Primary Nurse. ca1 18:27 Darien Narayan PA is PHCP. cp 18:28 Roman Law MD is Attending Physician. cp 18:36 Triage completed. ca1 18:36 Arm band placed on right wrist. ca1 18:38 Patient has correct armband on for positive identification. Placed in gown. Bed in low ca1 position. Call light in reach. Side rails up X2. vehicle monitor technician on. Pulse ox on. NIBP on. Warm blanket given. 19:35 Report given to NINA Lopez. ca1 19:45 Inserted saline lock: 20 gauge in right antecubital area, using aseptic technique. ll2 20:09 XRAY Chest (1 view) In Process Unspecified. EDMS 21:[address] [facility] with Diya. Stated she would call back after checking.tt3 21:48 CT Chest For PE Angio In Process Unspecified. EDMS 22:09 Diay called back with their cardiothoracic surgeon to speak with JACKIE Dallas, tt3 regarding the transfer request. 23:20 No provider procedures requiring assistance completed. Patient transferred, IV remains ll2 in place. Administered Medications: 20:40 Drug: fentaNYL (PF) 25 mcg Route: IVP; Site: right antecubital; ll2 21:40 Follow up: Response: No adverse reaction ll2 20:40 Drug: Zofran (Ondansetron) 4 mg Route: IVP; Site: right antecubital; ll2 21:40 Follow up: Response: No adverse reaction ll2 22:11 Drug: Zosyn 3.375 grams Route: IVPB; Infused Over: 60 mins; Site: left antecubital; ll2 23:20 Follow up: Response: No adverse reaction; IV Status: Completed infusion; IV Intake: ll2 100ml Intake: 23:20 IV: 100ml; Total: 100ml. ll2 Outcome: 21:17 ER care complete, transfer ordered by MD. shah 23:18 Patient left the ED. ll2 23:20 Transferred by ground EMS to [facility]. ll2 23:20 Condition: stable 23:20 Instructed on the need for transfer. Signatures: Dispatcher [employer] EDMA Shalonda Stone ds1 Darien Narayan PA PA cp Acob, Cheryl RN RN ca1 Jessica Vincent RN RN ll2 Maninder Sterling tt3
[2020-10-14] MEDS ORDERED: PIPER/TAZO/NS 3.375gm 3.375 GM/100 ML BAG ONE (21:40)
[2020-10-14 23:44] VITALS: TEMP 98.1
[2020-10-14 23:45] VITALS: O2SAT 95
[2020-10-14 23:47] VITALS: BP 112/97
--- NOTE | 2020-10-15 10:58 | RAD REPORT ---
EXAM DESCRIPTION: CT Angiography Chest With Intravenous Contrast CLINICAL HISTORY: The patient is 60 years old and is Female; right side pleural effusion TECHNIQUE: Axial computed tomographic angiography images of the chest with intravenous contrast. T his CT exam was performed using one or more of the following dose reduction techniques: automated e xposure control, adjustment of the mA and/or kV according to patient size, and/or use of iterative re construction technique. MIP reconstructed images were created and reviewed. Oblique reformatted images were created and reviewed. DLP: 416 mGy*cm COMPARISON: CTA chest dated 09/14/2020. FINDINGS: PULMONARY ARTERIES: Unremarkable. No pulmonary embolism. AORTA: No acute findings. No thoracic aortic aneurysm. LUNGS: See below. PLEURAL SPACE: Unchanged large right pleural effusion/atelectasis. Associated interlobular septal thickening and right lung base opacity. No pneumothorax. HEART: Unremarkable. No cardiomegaly. No significant pericardial effusion. No evidence of RV dysfunction. MEDIASTINUM: Leftward mediastinal shift. BONES/JOINTS: Diffuse osteopenia. No acute fracture. No dislocation. SOFT TISSUES: Unremarkable. LYMPH NODES: Unremarkable. No enlarged lymph nodes. IMPRESSION: 1. No pulmonary embolism. 2. Large right pleural effusion with questionable loculations and unchanged leftward mediastinal sh ift. Underlying consolidation cannot be excluded. Electronically signed by: Liu Alegria DO 10/14/2020 10:03 PM [employer] Due to temporary technical issues with the PACS/Fluency reporting system, reports are being signed by the in house radiologist without review as a courtesy to ensure prompt reporting. The interpreting r adiologist is fully responsible for the content of the report.
== END 2020-10-14 23:18 | disposition short-term general hospital (02) ==
LOC: ER 16:41
DX: J90 Pleural effusion, not elsewhere classified (principal)
CPT/HCPCS: 36415; 71045; 71275; 80048; 80076; 83735; 83880; 84145; 84484; 85025; 85610; 87040; 96365; 96375; 99285; J2405; J2543; J3010; Q9967; U0003

== ENCOUNTER 2020-12-01 20:50 | Emergency (ER) | payer SELFPAY ==
--- OUTSIDE RECORDS SUMMARY | 2020-12-01 20:53 | XMS REPORT | Continuity of Care Document ---
:1960 Author Organization [facility] t Address [address] [place] [address] Care Team Providers Name Role Phone Radha IBARRA Attending Clinician Albert Sewell MD Attending Clinician ALBERT SEWELL Attending Clinician Unavailable Jak Quick MD Attending Clinician Jennifer Sommer Attending Clinician Unavailable ALBERT SEWELL Admitting Clinician Unavailable Payers Payer Name Policy Type Policy Effective Date Expiration Date Sour ce Number SPECIAL [address] [facility] HANDLINGSELF PAY 00:00:00 - Medica l OP DIAGNSTC IMGING Center [id number] 2020-P resent Problems Condition Condition Condition Status Onset Resolution Last Treating Co mments Source Name Details Category Date Date Treatment Clinician Date Malignant Malignant Disease Active [facility] - effusion effusion 00:00: Medica l s/p R VATS s/p R VATS 00 Ce nter pleural pleural biopsy, biopsy, PleurX PleurX catheter catheter placement placement 10/18/2020 10/18/2020 Allergies, Adverse Reactions, Alerts This patient has no known allergies or adverse reactions. Family History Family Member Diagnosis Comments Start Date Stop Date Source Natural father COPD [facility] Maternal grandfather Drug abuse [facility] Social History Social Habit Start Date Stop Date Quantity Comments Source History SDOH [facility] - Alcohol Std Drinks Medica l Center History SDOH [facility] - Alcohol Binge Medical Ce ter Sex Assigned At [facility] Alcohol intake 2020-10-20 2020-10-20 Ex-drinker [facility] Chet es - 00:00:00 00:00:00 (finding) [facility] Tobacco use and 2020-10-20 2020-10-20 Never used [facility] Mariam guerin - exposure 00:00:00 00:00:00 Medical Center History SDOH 2020-10-15 2020-10-15 [address] [facility] [address] [facility] - Alcohol Frequency 00:00:00 00:00:00 Medical Center Smoking Status Start Date Stop Date Source Never smoker [facility] M edical Center Medications Ordered Filled Start Stop Current Ordering Indication Dosage Frequency Signature Comments Components Source Medication Medication Date Date Medication? Clinician (SIG) Name Name benzonatate Yes 100mg Take [address] (TESSALON) 2-07 mg by [facility] - 100 MG 15:40: mouth 3 Medical capsule 28 (three) Center times daily as needed for Cough. acetaminoph 2020- No 650mg Take [address] en 10-19 tablets [facility] - (TYLENOL) 00:00: 23:59 (650 mg Medi nathen 325 MG 00 :00 total) by Center tablet mouth every 6 (six) hours for 14 days. gabapentin 2020- No 200mg [id number] Take [address] (NEURONTIN) 10-19 [id number] capsules [facility] - 100 MG 00:00: 23:59 3D (200 mg Medical capsule 00 :00 total) by Center mouth 3 (three) times daily for 14 days. ibuprofen 2020- No 400mg [id number] Take [address] (ADVIL,MOTR 10-19 [id number] tablet [facility] - IN) 400 MG 00:00: 23:59 3D (400 mg Med ical tablet 00 :00 total) by Center mouth 3 (three) times daily for 10 days. traMADoL 2020- No 50mg Take [address] (ULTRAM) 50 10-19 tablet (50 L ukes - mg tablet 00:00: 23:59 mg total) Me dical 00 :00 by mouth Center every 6 (six) hours for 7 days. Max Daily Amount: 200 mg Vital Signs Vital Name Observation Time Observation Value Comments Source Systolic blood 2020-10-19 12:00:00 94 mm[Hg] [facility] Diastolic blood 2020-10-19 12:00:00 58 mm[Hg] [facility] Heart rate 2020-10-19 12:00:00 90 /min [facility] Body temperature 2020-10-19 12:00:00 36.61 Hannah [facility] Respiratory rate 2020-10-19 12:00:00 18 /min [facility] Oxygen saturation in 2020-10-19 12:00:00 96 /min [facility] Arterial blood by Medical Ce nter Pulse oximetry Body weight 2020-10-17 05:25:00 82.373 kg [facility] BMI 2020-10-17 05:25:00 31.17 kg/m2 [facility] Body height 2020-10-15 11:11:00 162.6 cm [facility] Procedures Procedure Date / Time Performed Performing Clinician Sour e XR CHEST 1 VIEW 2020-10-17 18:53:00 Derek Souza [facility] PORTABLE/BEDSIDE [facility] TISSUE EXAM 2020-10-17 15:40:00 Keshawn Sewell [facility] CYTOLOGY REQUEST 2020-10-17 15:36:29 Keshawn Sewellncer [facility] CYTOLOGY 2020-10-17 15:36:00 Keshawn Sewell [facility] THORACOSCOPY 2020-10-17 14:31:00 Keshawn Sewell [facility] (VATS),BIOPSY OF PLEURA [facility] INSERTION,PLEURX 2020-10-17 14:31:00 Keshawn Sewell [facility] CATHETER [facility] ABORH, MANUAL 2020-10-17 14:09:00 Peyton Doherty [facility] TYPE AND SCREEN 2020-10-17 13:53:00 Keshawn Sewell [facility] CT BRAIN WITH & WITHOUT 2020-10-16 17:07:00 Ewa Bhakta [facility] CONTRAST [facility] CT ABDOMEN/PELVIS WITH 2020-10-15 17:47:00 Ewa Bhakta [facility] CONTRAST [facility] SARS-COV2/RT-PCR ([facility] & 2020-10-15 16:44:00 Derek Souza [facility] - REF LABS) [facility] 2D ECHO W/ DOPPLER 2020-10-15 14:23:00 Ry[facility]yler hospitalEwa [facility] (CW/PW/COLOR) [facility] BASIC METABOLIC PANEL 2020-10-15 05:21:00 Neyda Ravi [facility] (7) [facility] HEPATIC FUNCTION PANEL 2020-10-15 05:21:00 Trav [facility] HEMOGLOBIN A1C 2020-10-15 05:21:00 [facility] MAGNESI[facility] 2020-10-15 05:21:00 [facility] PHOSPHORUS 2020-10-15 05:21:00 Trav [facility] CBC W/PLT COUNT & AUTO 2020-10-15 05:21:00 Trav [facility] PROTHROMBIN TIME/INR 2020-10-15 05:20:00 Neyda Ravi I [facility] ECG 12-LEAD 2020-10-15 04:48:55 [facility] XR CHEST 1 VIEW 2020-10-15 04:22:00 [facility] Plan of Care Planned Activity Planned Date Details Comments Source Future Scheduled 2020-05-13 INFLUENZA VACCINE [facility] - Test 00:00:00 (#1) [code = Medical Center INFLUENZA VACCINE (#1)] Future Scheduled 2012 SHINGLES VACCINES ([address] [facility] - Test 00:00:00 of 2) [code = [facility] SHINGLES VACCINES (1 of 2)] Future Scheduled [address] [facility] Test 00:00:00 (procedure) [code = [facility] 52904750] Future Scheduled [address] [facility] Test 00:00:00 malignant neoplasm Medical C enter of cervix (procedure) [code = 398826549] Future Scheduled 1981 DTAP/TDAP/TD [facility] Test 00:00:00 VACCINES (1 - Tdap) [facility] [code = DTAP/TDAP/TD VACCINES (1 - Tdap)] Future Scheduled [address] [facility] - Test 00:00:00 SCREENING [code = [facility] nt HEPATITIS C SCREENING] Future Scheduled [address] [facility] - Test 00:00:00 malignant neoplasm Medical C enter of breast (procedure) [code = 104455336] Future Scheduled [address] [facility] - Test 00:00:00 malignant neoplasm Medical C enter of colon (procedure) [code = 629268383] Encounters Start End Encounter Admission Attending Care Care Encounter Source Date/Time Date/Time Type Type Clinicians Facility Department ID 2020-11-06 2020-11-06 Office RHIANNON Sewell [id number] 14:12:20 16:46:04 Visit Keshawn AMBULATOR [id number] Y [id number] Results Test Description Test Time Test Comments Results Result Comments Source Tissue Exam 2020-11-17 13:59:00 Test Item Value Reference Range Interpretation Comme nts Case Report (test code = 104) Surgical Pathology Report Case: [id number] Authorizing Provider: Keshawn Sewell MD Collected: 10/17/2020 03:40 PM Ordering Location: [facility] Received: 10/17/2020 03:48 PM PERIOPERATIVE SERVICES Pathologist: Pauly Quick MD Specimens: A) - Pleura, Right Corinal Pleura B) - Pleura, Right Corinal Pluera ADDENDUM 2 (test code = 3382) q9wbpPTaNYXmoQN5JgMwSRNxe3xho4FgmEFmj GF oQDvezQQihaFpuj35nBQ2vV44NI8vDJCkYbT8XU YdxnG1Rre5CHBsSBZcfBUkP948u3sdy4tuqtJqh PA2bDwfGRRmHUYqIVfwQEFgZfJuDZdlciYgOESv ayL3mIZwrlNcVHhcRoGwp2V0UFQfwB8rvpTfe5B 5JEPwq3PmmVWef5QqJTZdcKRfc81hoYW5JSW5jq TyKALup5SnYEXlYALuFiUfO4Gnt21nI4GeOPHba 9ZwnZ6tlAWkRwSssZZySIZchuZDCNRPEGS8LFtd UQFtoTTnJMNPAzKqWMX6GEZmz18kFDMzwcHOR0A SUAT2r55vLVkaITDpYCZlVDXsOLJhJg11RWOjeR YgbAHtMPAsacHBS2SDQRC6t57gNQvjPNHuJCTrE YKzSBNnRx31EORnqOZktGXmPUXpeeMPS0CRSTD1 o86wPxFrMQf2YL6mUGLmZTKsVEUtKX1skRCBUXH vT1NiQEllQHWaYFsORjOAbT7pIHYgSD85yDPsJQ 85sMS9sI4mgmHgRYQpMLFnUSLzNQJMd0HxWXP9L CI0IXXgkYQhQMFXJoQnSPjtizDpUMGpWQPiWJOr ICAgICAgICAgICAgICAgICAgICAgIERFVEVDVEV GXVBkRTWpYZZkEPglRRKtcNEpQPUQYdWeG0CrCV XFRMMbclUeE8JvTT02UtNJj9PuZQZ0GHH2RVAxF G6eO4Q1mZBjSOorZKLiMlSOEhMWsJZwdVkkurgj IZRtEUXxHLVfZGSfMPDaDIJgOYZsBG4ocHKOZCY hM7MiFAozAIViLPsHYWZhBNRgOU9eKG2limY3RZ MoSTNcMSPkDBGtNIVXi0ScGXX3FLL8RBQawVAtL BKlmlmeBDToMZHlKOCmMVCrWKMqGZS1PMVvPENb x5Pjlm7rOZGaULRjshYoNi3aWLT0neUpBANtFCT 3IRgewn1mLWVziw6= ADDENDUM (test code = 3381) t4farRXoVIHacEG2VoOpYVXur6jue7KciNGwmUF xYJmbqLRduiIlqs28xDK8cQ94HC3lXZJrNdZ5PF JmroT4Hbb1BAMoOLPiyHGqQ083r8lzj1lggmOzc DR0mPyaWYVaHTRoETgsHSNiXpPjWYiwtwVsIHXq kpM7cGWbayExBZzjBiCyu6A3FHVvwH0bulDxi3S 5YZUsa0NncVBpc0AoCSOIWVZtqC9ufV6ra7CdhD 2peRAsSo7zwHXaLQF2OH1ru0lgxd8gpBSkJLzeF e0gRDDixbgqsx3lxDHeAIGxsaXBZGUIVCF8OZrw cAOhn5R3YMtsRKSyrjKUQBwuOUPlBrLWPvBadP4 dZXw3OMnMH0pxMWyCDpEAT0pCDlJntBUeLAY7pL 5bMQOxt4StxvFgn94rO0XjjeW2DCXyHKUgiVNzU YdrgGZdz4g4wYrrLpdoCGKhyjxpPBRpJQzvNMRa ZZYwTODvvLCnP4jsTXVsB7FjwaXtXYTiqH1qcYR tp3NyFcMcbGbfjnZrNHUzcCzyCdltFAX9 DIAGNOSIS (test code = 3220) n8zgmNOiFGMfy3enGQRdqCHySgBtPmXwGeYdFc p cdWMxIHtccnRmMVxlcGljOTIwMFxhbnNpXHNwbH EzG5DjbmngXHfoJB0uAT0wtQpxnSQefKPeQFCxJ hKkl9hjs935kVMbm9liMUXIjzlyqZs7fUonC70y t8R2CgwqR38cjHKdWRqfwXQxxqjkmuEnRRWpECF SFJRWPErsFfcNVFUiG8QXHC2QSRwaQIzZHKVRI5 30CLSefvVbUHFsTCSHZe1UODBHNL5AHZMuN8SVG 0LEKZcUYFTZAqNCFU5RKRHNIC9JNjvfXMHBDAKP V47XMC6RYJsoVRXndDCaHWBsKBKHYQJEJYkpEhb YXGMhC3NQDA1CPHlgYBeKXVVTT605TCKsneXfER MlQNOZUj0BPRICQC4JPJEyT6JYA8DOXSpFTJXTG nLvXXORRzRHWgvVYRJIRBpEBPGdK08ZABUINRwh zDCepWxcoqSoPGtcj2PmICnsZOMpHG9dgDacDZM lBP0tRSYnC8wnzR4duir9VjAgZWCuZxK1KCOqve K3Xns3ZMGpRHzpe8pls8IrKDHqBLc9tNrrKcVvB IZom1dzqvIzEbFkORPyUICbSWHymKWdC760w9az k7dwnhSeoHR4RCUbOGW8WHqxssDhkmK3PQynoAT oWuU4QNqispYqOOttkgAeleXrBfk9AQNwI263LR B1kIrwg5usKHQ0SAIrKGBgYwFoCa3qaRWfG321M QZkHLKEWJLtxZk7STZlsqDkfmDkrVANm001R028 r4phTYQdftXhtBqApzbdz2tlJ303VGYhkRRknyZ sYlKzESHscLIveKG5BWEuER5mokfjJLktSMveDS ZldbB4THAjbYDsC8EbCTBiWR4fofefSUN5AFkxA IGfMGC6NcSgITYsx9Kpjdw3IuClpq2crv00KMF0 f5IwhKysLAG5SAF7SzRrLk1hsOKuMECdKF5gExD vpTXuDHAjou21rNfwYNxcKUI6EKWyjxHau4Srh3 sqMxXvntStK5bpR8IlOOAlZKWyDRJsSdDrqjNqx 9Dai1MwuMUpmKe0i0buFTTzWHOxlPtgy1txPPW4 SMUplLRfX2bafA2hWWHaGC9uulokj1ecWHceWVd zIHEnbXE2gqF4VNDkkDMlJ2NcsD9gZKHlWPwfXF Fubcv4WwUqZi6tyNXyfZvfSPpkPxpwLSszGSTar mNvbnRccGduZGVjXHBsYWluXHBsYWluXGYwXGZz MjRccWxcbGFuZzEwMzNcaGljaFxmMVxkYmNoXGY pTVfzL2yrBkXcYzMtAcj4SVUeiWDeUULoCux3NE WktQZcGWVMmDcowO2pJDVeoXbvaL3aeME7JBIhe tZlqJTPlT8oRDIPxH7xEcC8ZiKrEwB4OQw9VpKl cGFyfX0= COMMENT (test code = 3359) z0tfqWDgKIYblXQ8KrRvDQBqs1bbi0IyuFQzbWQ eZMlusXFceuIozr63gYX3qW44IX0mWJOxNnZ9UM DtyjR2Les1RKMlUBZmdKWlV610n6fld8mefeNno KF2sYnbIJYjKHAiHCqjHXGsIyPoK4hyzapjIGyq F40mpcBuHQUen40jmBDucwJxj06yUQ2cXFBpOMU hcn0= CPT Code(s) (test code = 3357) w1urcQBtQYOtcSU0GjDkHXCnj5vbm0FmqQIj cGF iOHnnxVWsacBdvy84nWE3cT01ZG4dHGPiMvY3ZF JsmuK2Dmd4YEFyHYFsoORsI403s2lhj0fcgrOcu EJ8hCalZKCuYXDfKWqpWTKnIoJrPIvgCDAaPAZb VJH4NLErLMjnRRciTYBqXJq5YvHvMXygGByqIDo zMTNccGFyfQ== CLINICAL HISTORY (test code = 3356) l7lwvQOrXHAwbGO3PmUyPJRfb6etk0C sdHBncGF fLZqylZXfhhQaqm85aHL1fX27CZ2wMMItVkK1QV TheyP7Hio9VWSoEGEetMZfA090b3oeq5qxlePwf FN1lQjoHPKpFRRyWNxtALAhQpPlRFLrs8OaNJqv S00ot4lyHgMpNVkmvNOqOVWgJwRdtH8lYIYlqc0 = SPECIMEN SOURCE (test code = 3377) u2rqiVAxBLWxfYA5OkVgEZYvs5ree6Na dHBncGF oMEjmrRCoxzZnzc31lOD5tC14II8yYDLmWuV3KP FbfpG6Zwo3IPCePMQgaJIoF213i5dre8eqqlYol AI5tGvhUAVoWCWjATdvUKSpUxCqGU7zATolnUCw LgGOKcIQaFA4wzTqmDFovV== GROSS DESCRIPTION (test code = 3366) v0ngyUGeLLEkbIQ5OsMdRBIju8xem2 BsdHBncGF kUJmenJSoitUjzx66nLC5oD17DI8uQMHxFeW4FZ IkhgB7Grf3IQBwAPOgjHKyT524s9nim6dkdqNlt JQ7tAhyXVTuDWTlVBtsDBKmZvJjPU7bAtQxWYj1 NCWvYoUgy2ggKv1lZKbknBApi8SboiI1eMGbMZB vutM0hJAjzCoexkPgayUemHcxLQQwig3flL2zCE TrWqVtvQlsp8GwVLLsAUefZS32lb6wGXggBDDkg oV9SS7gQTM5ulDyKERtZiS2IDIfAMW6MEVeDcUp rV5hROghZVZmJ10yTVMwDTVivRIjzbUgXnzihJQ xJqDheVAcUpHhX96lDKFctC21Z6qkgTUhgLJiof YsJOMog1FtLAWuv0n2iMF2gDIqtVGzO1PuKHMtm gLcl98sa5Vek75eqGB7wYZteFZsBWNiDBPbqTPq iF3usyUlqbNqihExauZvdAGcaCCgoBT2WHDiq9q 6uOAsa71dAQCulrJbx69oOR3lINJqOzUfgKuqa7 TcFCTyhrIhip60KW5vt5MxkJewhpFvrpJuiOU0j J8dFAEhMJQoHPZ3Co7kxUHnZSCfb9VzeMBzpSWa UN42LDPnH8Rlg54osE8nHhDKLC8nAI3RA2NpXNX jgirmLAWxHd5wZxYtDLb1RUPyiM4tPs9emSIcrB 5axCTpMAhfZEU9rEOgUHAmTDKnATEmKJ79G1Wra sFwMOocDLFiLUKvaI3xVP05bXIrmyZtqnGplVYu aWNhbCByZWNvcmQgbnVtYmVyIGFuZCAicGxldXJ uAuQpkpAbfqwdLKY4HQ4ql4xdvHUjt45aiQV1lU RavPHlYpXuE30xpeGsTHQyfnmlclirzU8vi7f6M FCwwz2fVNTrTjI5jyZvFyHdV34duQ9gGGqtkcCk PFHtIaVNwAZpaMX4ZYZeGN53mPHwwWjngK9eR9Z kb0A5hEMmFyYjwFztc1ZkuIYWIm5qPX6NB9RsQI Bhcn0= INTRAOPERATIVE CONSULTATION (test code = x8ugnMByJUEgw LQ5SpTfXSQrk8lcd9ReePYkoDM 3369) tZOslbZQosjRpvq58yQN4aZ93OM6bNWMmCuY0HM AuduJ3Phf9UWEmESBavQRmK497p4gym1cjnpEle RE4kTeeYUEhPUQiZBdeXSIsBrZiFqUHGzHFJVUZ A4SJK66cDAjWZ73BJ2uFMnTnyEBpUFYCGRBgQNE WCVRVXNosWcaLYNNoVYNRR5UHVBwlxOEzOIXnOR 7qTDMACRjHOW1WZM3AC5GPHMEZTnHJCU4YVEBMQ V4DLW8SXJUTHQuKGC9BVKhrM1ZEDQuGNp4tLOPS RUwLYN9XFJjyONSVVTEXEKelHaURZLIFJQVMOJN pjsMlNBDwXBMoVMZBE3VkHZVJDNRHTM1XDmloGY UjkMTeMOIjrHNsi9SfIVVxzU4giPHxFMT0DRJkF mIOjDZzvW7bQ0CNKs21WUE4RFD7IFCyrT4pFfFt cuQCDQBiEHgwChTpVZ8vTUYhll8= MICROSCOPIC DESCRIPTION (test code = k5pxoJEfMZBduJC8PzNsQEQkx7lqz4 [facility] 3371) kYNqxzNMffdBjvg44eES7vK93MV4oPOAoPbM8NN CopfU2Xdr8YBIuGOHbuNFhY519i9bdu0lzezTgk RT6pQojAQXsKGDhOZcwHUMcGpKbMUVbIl7ptMWh LlxwYXJ9 SPECIAL STUDIES (test code = 3376) n7cvfYKsTNNgxHK8RyFkKTVgl2mdb9Oo dHBncGF uPOjmlABtshItnb04jCO1wE39MA8tKGWyHwY0KQ JsybL7Cxk9LNJzQGPmlNUjZ139QRMiMXVotLepc gb1eD92GMFgkK2faBFwZWw8SUYcdfWfgWyrbJ1c KpXcXrFjWcSWmZEkxU98JUDmkoM2TDAfn26hn6G bjMagcgFsZVFiMMhhS3z5XSYcXGSdJJZ2h7Yid7 DqpS2irT3psLtvkZ5jcZKmdTZ3nmkll7Kxo2PuC 2lhbCBzdGFpbnMuXHBhciBXdDEtbmVnYXRpdmVc lMQcQERecOWhuOyrkU5nkjIoBAQjpzLjkJIcFQO mNBHzFEUcCUwikGc1DCuyAHTwQX5STlGihD4szY CbfvGrlQRyWFGZWcCgCNOoc5b3fBLbHGYdgDQeq PAzCDDbulQwEEEfqQZqca8xhaQ5DSXpe4c5qLNi VIIoetXMj635ho5pGKPkqTWmyyWUzTShbJ8jPOe qADveNNpupVZxEClhe9niUUVhn7q7sEIoQWSjfo Edp6ylMPbmfrQkPQZryBRcxJLwBDEkm23tVCizy AwudUdgEROwu1QaqSqsv3ZuVvOePObfy6JgQ10l fHCasMNbeDdtKRNkaqWcHSGln19yw7vzIGVfSqP 1pGBciRE2uPKgoPJvx6AtvOsgGCOhf4neJPTwco 9zgougwQDba1ChqS8mjcldHAynhGYeveVdATLtz 3y8qCNfNISiOHFxHNczvQf2DUDta281qt4wuaP7 rXRjBTQ9SWzcDBJlPJTbyoMgLVKirQFlvNUdPFL pvoByZHNwlmJUhZ13ob5zqZC8u3PiGN9bu2BrkX I2PXIlyxdrPWqgyVGxiJlhYcI0BXTdyVRiPm9nn KNfHTW8CGQrfQblucAVzW0eBDTaMNd0ZBAdJeUc MbjepsSSBOZrA4TyTOMvtqEmlsplSPK5dJ5ux3h 6VTquFc2gHRGxldnxj4zzvjXegDNrz9RfGSXkqu Vbj6PaQLSdbhYpxSOoSZNbaxLnzn1nhrKkHIUxN WIyR2VecfzybPaefdE6ISToMXInuTFewKpoUWXf TQm7SXsvpgLck6ApInNvnoCbmCXvrxFeML7qDNC glKYztwVlTDL5BIFyYVJBDbFyRGKfq1JxCY0bRV EneKwuTZDwzQ4ou9VuAAAji23nFBVnHNOKCEYfz GFzIGRldGVybWluZWQgdGhhdCBzdWNoIGNsZWFy IV2iFFUjqeUbcKGzr3ZxvZIpnjBpu1RiraUhLLM sOTC8LyJGnWAbjHAejRAcxhC2s1VvGZZxysCxwP wjqJGqkLYhfHVzk9Lmaf2gSKZuu9esjCzqQC5xn QEfSUZsSLywodPbNXBvnwAlquGuu0XfH9P5jG5s IEpzn1GvTc9gSGXtw2EbytXjIrYBuFvpBSfdYj3 qDLDwvwfvzRVeS3HoxVqmuAVrGJFzHHJhJMIpLK UFzZunzJXvsPAVAVNcodV0a8Y4KAhlpNCvejEjX R56BRDlLZ6gcTFdcZYcj9HcACq3YLXoT3qNZA29 OPdkDONlvILjgXgsmHEsHJPgYILkybGyix8kfIg hbYIjh66hgPU8yGE1CCDzrR9pG3KbHZfnZy9lGP OsrcimgCCdzJmiDo3lnLAdfN== Gross assessment was performed at (test [facility] enter, code = 2777) Department of Pathology, [address] [place] [id number], Technical component was performed at [facility] er, (test code = 2778) Department of Pathology, [address] [place] [address], Professional component was performed at [facility] enter, (test code = 2779) Department of Pathology, [address] [place] [address], [facility] [id number] 13:59:00Surgical Pathology Report Case: [id number] Authorizing Provider: Keshawn Sewell MD Collected: 10/17/2020 03:40 PM Ordering Location: [facility] Received: 10/17/2020 03:48 PM PERIOPERATIVE SERVICES Pathologist: Pauly Quick MD Specimens: A) - Pleura, Right Corinal Pleura B) -Pleura, Right Corinal Pluera This addendum is being issued to report results of additional tests performed at [facility]. RESULT: EGFR Mutation EGFR Exon 18 Not DetectedEGFR Exon 19 Not DetectedEGFR Exon 20 T790M Not DetectedEGFR Exon 20 Other Mutations Not DetectedEGFR Exon 21 DETECTED ROS1 Gene Rearrangement: Not Detected (Negative)BRAF Mutation; Not DetectedALK Rearrangement: Not DetectedPlease see attached scannedreport for further details. Addendum electronically signed by Pauly Quick MD on 11/17/2020 at 1:59 PMThis addendum is being issued to report results of PDL-1 immunostain performed at [facility].RESULT: Immunostain for PDL-1 (22C3 clone): HIGH EXPRESSION Tumor Proportion Score: 50% Intensity: 2+ Please see attached scanned report for further details.Addendum electronically signed by Pauly Quick MD on 11/13/2020 at 12:22 PMA. PLEURA, RIGHT CARINAL, EXCISION:- ADENOCARCINOMA SUGGESTIVE OF LUNG PRIMARY (SEE COMMENT)B. PLEURA, RIGHT CARINAL, EXCISION:- ADENOCARCINOMA SUGGESTIVE OF LUNG PRIMARY (SEE COMMENT) Signing Pathologist Direct Phone Line: [phone] signed byHannah Mendoza MD on 10/25/2020 at 3:09 PMClinical correlation is recommended.05970 X 2, 28380, 80199, 80005 X 4, 46744Teckr diagnosis: Pleura effusionA. Pleura; B. PleuraA. Received fresh for intraoperative consultation are two canas-pink soft tissue fragments. The first measures 1.3 x 0.5 x 0.3 cm. The second measures 0.8 x 0.4 x 0.2 cm. A touch prep is performed with the larger portion of soft tiss ue. The specimen is entirely submitted with bone portions of soft tissue for frozen section evaluation and resubmitted for permanent section in FSA1. MP/plB. Received in formalin labeled with the patient's name, accession number and medical record number and "pleura" are nine canas-white soft tissue fragments ranging in size from 0.7 to 1.2 cm in aggregate. Submitted entirely in cassette B1 through B2. MP/plFROZEN SECTION DIAGNOSIS: FSA1. PLEURA, RIGHT, BIOPSY: - MALIGNANT NEOPLASM; FINAL PENDING ADDITIONAL STUDIES. ADDITIONAL MATERIAL REQUESTED FOR PERMANENT.This was reported by Dr. Ruiz CVOR-9 at 4:05 p.m. on Oct 17, 2020. Performed.The interpretation of this case included the use ofimmunohistochemistry or special stains.Aq6-esnbrwkzZynzpqodlf-yqqkepmhF4-40- lfjqmnzpWCQ36-oqzklhumTEO5- Positive, diffuse Mucicarmine: positiveControl Slides Examined: In-house known positive controls were evaluated along with the test tissue. These control slides run alongside of the patients sample show appropriate staining. Internal positive and negative controls when available are evaluated Immunohistochemistry technical testing was performed at [facility], Pathology Laboratory where it was developed and its performance characteristics were determined. It has not been cleared or approved by the U.S. Food and Drug Administration. The FDA has determined that such clearance or approval is not necessary. The test is used for clinical purposes. It should not be regarded asinvestigational or for research. This laboratory is certified under the Clinical Laboratory Improvement Amendments of 1988 (CLIA-88) as qualified to perform high complexity clinical laboratory testing.[facility], Department of Pathology, [address] [place] [id number], [facility], [address] [place] [id number], [facility], [address] [place] [id number], [id number] 11:55:00 Test Item Value Reference Range Interpretation Comments Case Report (test code Medical Cytology = 104) Report Case: [id number] Authorizing Provider: Keshawn Sewell MD Collected: 10/17/2020 03:36 PM Ordering Location: [address] Received: 10/20/2020 11:27 AM Service Pathologist: Kevon Ott MD Specimen: Pleural, Right DIAGNOSIS (test code = [id number] 3220) Lyw0lkw5GnoEHfxRFhESrw wPWhhtCgbs27pOA9uX96WA 5oMXPiTkT4EQCkdpL0Csh5 KZOjXLNrkOOvC168o0uhw6 hdiwDxfPK9zCjxLWIbKUHk YWluXGZzMjAgUklHSFQgUE eEIFPFZBMQTJQEWHSxF9iZ O5JIVZ7OFRIVNHHNGWbCWJ GUX8QXRJdgtJwoYRYkDUBn GAJCF5uYYUNCLFEYIhQGDZ eGJ04JNjTLHYBcedTpHPDy EPIRM7LWYFQPNEXEGNAUGb FLCJULLNYILFLBI2ZVJfOQ Is9PLRxiLM9KOOTLD36WRD RJQkxFIFdJVEggTFVORyBB WTSAL0UNYlHZYk1BWZbaCS RhMdWnIdx7IMNvhTCgXYKj Jin1RUZmdFTqTSSOwUxylE 5cRJMzgOuvjR1vaIC0YKHk djDkoPMGbN0zPSHTkE4tWq T4OmRsGkO0HUC8SLHaeHPd fQ== COMMENT (test code = j2uhyAPyLWNppFL7QySrEV 3356) Ocw0gtc2QicGTadRSmTTrm fWAcvjPnnr18bYK5vV50NH 7oSPQvUcP7MIVnigG3Otv2 GOLaQLMbpJUuS691d0vef0 sitdTffFI5uZhyONJyCHHb YWluXGZzMjAgVGhlIGltbX Syy4Myg9MtyEIhc3PaW8Bv oWRpVHMatj3kFJAmlD4uqW K1XMBewbRRZ2CMGEpCQZQc dHQqbwtxCdzdJYKWBw0tDN ATL9SnMdMvtEVqJX6LP0WE CINNTPU8OCiwjQ5vShFpD3 RxfbS3bS2mhpynE2BHOTYc UWQYFdnxH8EQUiCqEMPDMW 03FDHQCLFnYIyqZ2XPAHUp FZnGKGSxACG3FEpoIiPky3 luIEEuXHBhciBUaGUgTXVj cELjso9ntbVot0IkiB3peL MaqlAuMXYbeaJzcJ8wvTec YNG8uG1uSPImkNjpDfPxGO AenjFBuVCyk0Ajx0LjECI4 dsuqF9WuOJUsnKznzY5meA LyZFHdTMWgEH9oGYZdKIHv cn0= CPT Code(s) (test code l9hwdLYmRKRywHA8WtUqEL = 3357) Bxq1pon6EozZMatAXhEDal vQTilkVdql70rTK2xO53IF 6pRXBjRgL9JRYagtH3Sdo2 HIWtTCUxxFAcA578a7chn6 koelFvvSW4tPaqFLJkLWHw YWluXGZzMjAgODgxMDgsID n8EoS3KIU8OGW6LzlgDHwd NDEgeCAxMSwgODgzMTNccG FyfQ== CLINICAL DATA (test j9wkyZFuWZSyvWV1EiSyTJ code = 3355) Nqk2chp1QssJNdnPViAFqj jOLtrlFoff40lEI9tG46EZ 3kMIUgJfY3FUZegiN3Osh0 SVNzMZVamYBvX161e1udl8 wtprSusQP7zCyzVVTlZIZl YWluXGZzMjAgUmlnaHQgcG dndECfzVBmGwW9a2ftoqfg cHJldmlvdXMgcGxldXJhbC UddBUnXBEcfDXahK1jtALp tQ70KPSuhAAmfBzjTK13LF HcmUmmGZCpi32ijNR1AV81 EMrleXddzBM6UPX7BEIoQq GfAIYtrQ7gsDEmEMBvmb2= SPECIMEN SOURCE (test d3zzlXUtMAMtvMY5IgVsGE code = 3377) Gzb4vxw1CbzZRjdOQyWKan lZXlckFoeh31aPF9iD33IZ 2bGZPrCbM6GNJkquP6Hmx6 MTHsIEKjxYQpJ962x7bof7 svolFdvXA3lIslWIYpMPSk YWluXGZzMjAgUklHSFQgUE xFVVJBTCBGTFVJRFxwYXJ9 GROSS DESCRIPTION (test w7jwdHJsXKPojTM2FjRuDS code = 3366) Iav0dsz1XhvOBanODqRJsh xUUliyZwys27fYF2mA50RE 3lVRIpMlE8PPMtxyA2Bvf2 WNTrAKGauWLhM425t8cbz4 fzpgUplWU1sXcqSQUyFQUe YWluXGZzMjAgMjQwMCBtbH HrWhIii49pZzh9mIH4UWIb L3j2h3ShvM0bMBOeTTpdRR Xlt9RtBImVMgdyDBQngIrs ZGlvbiBiYWcpXHBhcn0= MICROSCOPIC DESCRIPTION c6nrmGKfSKDmyAS6QrYwJM (test code = 3371) Qnq7uen6UdfBMalNXqDYcr wHZgwgZsvk51aQK2eF45OB 8vVMYrEkK2ARUpcvO7Msv9 KRYoKOAynQZkM163b0swv5 wanuFzbKX6rPmzYCIzGTGp IRsvUQNqAvCcOSBaUs3glY VkLiBccGFyfQ== STATEMENT OF ADEQUACY Satisfactory (test code = 2757) SPECIAL STUDIES (test s5akrWOvDASlh9xaWFHqfV code = 3376) FuZzEwMzNcZnRuYmpcdWMx IXtzoaNwHRhpt6TyS0NqAl AwMFxhbnNpXGRlZmxhbmcx OUSyYNT8ixMwCAEeEJvrPE DeRHwyUd2siUVqcJluCvSz QPDaj0xnzoAKmlysvUc4c4 vhOCTtEvD1sPQcUWbjV6aw yiBlvVIxN8JfeMWsjCy3m4 gnXoKrMcS8uOXdJGsfX3ni huHpcBWoWBWiYUh0qG65QE XfiG5sgLIaBYfpioNzVpS8 JOqcZQMwMsF0CBVbsOPiMW QwX4ikODLpIJhiBLKaBLog hGUzEIP5wGjnr7P9hKAwsF DvbWdbVpRgBzYyPdEGl1Xg BUg7oArcU8KvQSQhHaY8bG QgUGFyYWdyYXBoIEZvbnQ7 yJfffdYis11eoOLpSYDbZJ IfSyIfrQkjEUDqTTHVk3Am jKeaNYE2nCi9eGubBrexFE L4Gop9RN9uqj83kph5nUsz KTHgfnrxPwM1JOzeHATstg qwRJi6HDizAKMgdKV9JHAl eWYsZ4TiTWXeGP1unxu3TL C9OGraJEDdLfK0RJDrhVBm ZJXvsIubOKjrb475CUF8Oc ZlOR4nE6App3F3wN4mhPGe TZFruURnHqKqBIPigq9etH YtROdph4LnNES0cdZ2xGEw rDVmNTVlLT68Veoxx2KaTo dmk3GtL34ytMF3DTbtm2vg ZT3xJmH7elDdSRbik9jceW 4lSqU0IUymFO0oCZ4uPIEc qU1fimugJFTmYvQikgnrVL NhwBwzqeUlSh4csHeoEMN2 EBcyH1ilcU8bQjP7IQkyK2 qxoZ3jHVa0OZlefUH2LHTp jM2jBX4mifvfq7dtPPorHQ doQSVvthA0zwO5MLDjjWGp A8WorT2rNFOlIH7pyeyuc6 clROX0XAfvEBPtHTM9SvLn SJXqs4Ntbym4WqSlv6FhrT ZbSKsgL25hp600BKWxvxWx K9rnwAPqgaecxIXujpdhHN alafO5KTGpHMAjVLzlLJJa XGZzMjJcbGFuZzEwMzNcaG ljaFxmMVxkYmNoXGYxXGxv F7byEuNpW0BlOTIaIoEtBP daYUpsbDJagLPbeLW0hJ6s OR5gTURegXQoB6ZfGJGqql TwjVIaSIR0qGJkcYIwFO8z LYgbhOHxp0clb4QdZ0nmjA nisER5NK3pOROxAQFvNCio g2DjeC9uZoypsESmppwtFN xmczIyXGxhbmcxMDMzXGhp B5ftUrSbVMYuaJzcNYdrh9 NoXGYxXGNmMlxmczIyXGx0 cmNoXHBhclxwYXJccGxhaW 4rKnKaTaDlLaefKV0dLTKu X2arwKVsCPIbDNMmZ1wsZh WsbZ2ohXvlJBdbKdTcMxQz AjZVv662ii5dSDIwlNOvit MKrUIftP4kNTglHOfbOFay aCWxWKyyr4viMOPwj0t3pQ IdRRKbfhZkl0xlAKyjzjHe PYVrcCPnmZTrLLIdr24wXK wouNhtfGrbKQRiz4QjrVmk x9SnSeRjXSrcm2XbY81umW JvbCBzbGlkZXMgcnVuIGFs m49fk9mdJUSkKzL5zIKurJ E9aARqqHEzg4HqsBhwSWUt b9qsZUTvnj5taenfiRAdx1 ItrD2zmddwCEdcbUDqxiQh ZXNmz6u9ePHdDUCaLTAmBE efpNm5ULWiz411jr0yvuQ6 dKOnZLD3XIewWZLpFWKtmq UgZXZhbHVhdGVkXHBsYWlu XGYxXGZzMjJcbGFuZzEwMz NcaGljaFxmMVxkYmNoXGYx CGfnY8ipVkWmX3VzVOUxWj ZdrHGuT0bzyBRiTDZdRFsg XGYxXGZzMjJcbGFuZzEwMz NcaGljaFxmMVxkYmNoXGYx NKgoQ6lrUzRfK5BlETRpNh IgIFxwbGFpblxmMVxmczIy HKqibhsnVVYjXKcsI1nzCh FwVNGhhXgbUSvxy3QbIXQe BEPwBbormoXcSOl1mvWpAH BhclxwbGFpblxmMVxmczIy OYakhaojUGZkYUimZ0ciXr SpMIFvqHfxFPccm1HvPPMx XGNmMlxmczIyIEltbXVub2 uws1YbW1tguLnfxSL4CXDe P5pzpJEvkBA5WOS8dW7lHG yxhkUoCUDdv4LsPBDgWFIm BdM7dJ7iBRC0MwIUhApsBA BsYWluXGYxXGZzMjJcbGFu ZzEwMzNcaGljaFxmMVxkYm GqKNBwCJjcW4jrJtTlH4Bg ARJaKdFcfZhzYQcqCRy1Ho xwbGFpblxmMVxmczIyXGxh wyxnSFUoTUmaZ9fuScXwVH ZirVkoBLkcq9FnLHDdVAEr MlxmczIyIHMgTWVkaWNhbC QKYA92IGAePUEoeGpzuI1n kMHVNYBdlvR2u5T0QJboAD JrIOb9XTjoanWwRRXxoJ1d HGEwRE6eXVv1gkZtUXCut3 UfPN3eRWIdoMHcSVE6ZQWe k9SbL9Ecv1DrBBNyETDhzh 3kalZrXdXKzJZtVVZbgm92 DKYwWU5iE2uiSBQlHGUnai FemHVdo9CjTYOtgEP8fSSs HC4FVkKHz33gKADlHCPZgy TyKKVurGqykPU1jkA9xD6y LiBUaGUgRkRBIGhhcyBkZX Jwdv0ippRkZPHnDEZjd7Di vLMyfISgevAkK3Ftp8NzZH Vzzy85GMlldMGqgh46KG9g X0Yyg0YooI8wJJeuOXTeh7 FscJBoaLLtEGJlh5IgY6mw gajtUMwgmKNkgP7xIZXuST v7CJIfq2WrASKeu5DuSgCk lpQtMKPeJLQhSETkuT17UL P2eNdjvGbquvTxRX9tVWFt yqSyBKRqMZWxrM0rYAghio NgUSXpqkQ3c4Z9LMgjUJRl iwTyIwlnPFH8dvPknzK7uW WsW8rlqfzlUPyvRVZxr6Cm zJ0mvEKSoCGad0PnvBHnqX BEcJFwBU0lnhYqPQ1eMFI3 ODggKENMSUEtODgpIGFzIH V9MUrgJypqFCK1csNgCPAu c4AyQQsgH3laY25twYopcB u3aXQvdIelnZAsnDPsMGWa bmG3l1W9JLHcv3MefjlhGF BsYWluXGYyXGZzMjJcbGFu ZzEwMzNcaGljaFxmMlxkYm NtMAZvURgnV6ktIwWqTlMs CvcjZXH5jT== Gross assessment was [facility] performed at ([facility], = 2777) Department of Pathology, [address] [place] [address], Technical component was [facility] performed at ([facility], = 2778) Department of Pathology, [address] [place] [address], Professional component [facility] was performed at ([facility], code = 2779) Department of Pathology, [address] [place] [address], [facility]21[facility] 11:55:00Medical Cytology Report Case: [id number] Aut horizing Provider: Keshawn Sewell MD Collected: 10/17/2020 03:36 PM Ordering Location: [address] Received: 10/20/2020 11:27 AM Service Pathologist: Kevon Ott MD Specimen: Pleural, Right RIGHT PLEURAL FLUID (CYTOSPINS AND CELL BLOCK): - POSITIVE FOR MALIGNANCY POORLY DIFFERENTIATED ADENOCARCINOMA, MOST COMPATIBLE WITH LUNG ADENOCARCINOMA Signing Pathologist Direct Phone Line: [phone] signed by Kevon Ott MD on 10/23/2020 at 11:55 AMPreliminary result electronically signed by Kevon Ott MD on 10/21/2020 at 1:51 PMThe immunoprofile suggests adenocarcinoma:POSITIVE staining: TTF-1, MOC-31NEGATIVE staining: Calretinin, KAHLIL 3, ER, GCDFP, PAX- 8, S-100, CDX-2, WT-1, p40, Napsin A.The Mucicarmine stain is negative in the tumor cells. Please see surgical pathology case [id number], [id number], 52298, 30703 x 11, 44252Eqomm pleural effusion, previous pleural fluid cytology showed malignant cells, consistent with metastatic carcinoma RIGHT PLEURAL [id number] mls brown fluid; 4 cytospins, cell block (A2) (collodion bag)Performed. SatisfactoryThe interpretation of this case included the use of immunohistochemistry or special stains.Control Slides Examined: In-house known positive controls were evaluated along with the test tissue. These control slides run alongside of the patients sample show appropriate staining. Internal positive and negative controls when available are evaluated Immunohistochemistry technical testing was performed at [facility], Pathology Laboratory where it was developed and its performance characteristics were determined. It has not been cleared or approved by the U.S. Food and Drug Administration. The FDAhas determined that such clearance or approval is not necessary. The test is used for clinical purposes. It should not be regarded as investigational or for research. This laboratory is certified underthe Clinical Laboratory Improvement Amendments of 1988 (CLIA-88) as qualified to perform high complexity clinical laboratory testing.[facility], Department of Pathology, [address] [place] [address], [facility] of [facility]ology, [address] [place] [address], [facility], Department of [facility]ology, [address] [place] [address], ZPPIEPDU [id number] 13:00:00 Test Item Value Reference Range Interpretation Comments Cytology (test code = See Separate Report 2629) [facility]ST, 1 VIEW, NON [id number] 02:24:00 Reason for exam:->s/p pleurx catheter placementShould this be performed at the bedside?->Yes [facility] 1960 Sex: FFINAL REPORT History: Status post Pleurx catheter placement. Comparis on: 10/15/2020 Findings: A single view of the chest is submitted. The cardiomediastinal contours are unremarkable. A large right pleural effusion has significantly decreased in size after placement of aright chest tube. Opacity in the right lung may reflect a combination of layering effusion and atelectasis. Pneumonitis should be excluded clinically. The left lung is clear. There is no pneumothoraxor acute bony abnormality. Signed: Parmjit [facility] Verified Date/Time: 10/18/2020 02:24:00 XR chest 1 view portable / [id number] 02:24:00 Interface, External Ris In - 10/18/2020 2:26 AM CSTFINAL REPORT History: Status post Pleurx catheter placement. Comparison: 10/15/2020 Findings: A single view of the chest is submitted. The cardiomediastinal contours are unremarkable. A large right pleural effusion has significantly decreased in size after placement of a right chest tube. Opacity in the right lung may reflect a combination of layering effusion and atelectasis. Pneumonitis should be excluded clinically. The left lung is clear. There is no pneumothorax or acute bony abnormality. Signed: Parmjit Still MDReport Verified Date/Time: 10/18/2020 02:24:00 [facility] 2020-10-17 15:01:00 Test Item Value Reference Range Interpretation Comments Ab Scrn (test code = 890-4) NEGATIVE peg ABO Grouping (test code = 2588) AB Rh Factor (test code = 2589) POS [facility] HospitalABORH, [id number] 14:22:00 Test Item Value Reference Range Interpretation Comments ABO Grouping (test code = 2588) AB Rh Factor (test code = 2589) POS [facility] HospitalCT, BRAIN, [id number] 20:23:00Unlisted Reason for Exam - Click Yes and Enter Reason Below->No [facility] 1960 Sex: FFINAL REPORT CT, BRAIN, WITHOUT \\T\\ WITH CONTRAST INDICATION: Unlisted Reason for Exam TECHNIQUE: Pre and postcontrast axial imaging was obtained from the vertex to the skull base. Axial images were reconstructed using a bone algorithm. DOSE REDUCTION: Dose modulation, iterative reconstruction, and/or weight-based adjustment of the mA/kV was utilized to reduce the radiation dose to as low as reasonably achievable. COMPARISON: Data Conversion Operator images from attempted MRI 10/15/2020 FINDINGS: Intracranial: No intracranial hemorrhage or abnormal extra- axial collection. No evidence of acute territorial infarct. No mass effect. No hydrocephalus. No abnormal postcontrast enhancement. Osseous structures: No fracture. No suspicious lesion. There is a 2 mm linear metallic density and better aerated within the left frontal scalp, likely accounting for the artifact is seen on attempted MRI images. Paranasal sinuses and mastoid air cells: No evidence of sinusitis. Mastoids are clear. Orbital contents: Globes are intact. IMPRESSION: 1.No acute intracranial hemorrhage, mass effect, or CT evidence of territorial infarct.2.Linear 2 mm metallic density embedded within the left frontal scalp likely accounts for the artifact seen on attempted MRI. Signed: Teressa Espinoza Verified Date/Time: 10/16/2020 20:23:04 CT brain without & with IV [id number] 20:23:00Interface, External Ris In - 10/16/2020 8:[address], BRAIN, WI THOUT \\T\\ WITH CONTRAST INDICATION: Unlisted Reason for Exam TECHNIQUE: Pre and postcontrast axial imaging was obtained from the vertex to the skull base. Axial images were reconstructed using a bone algorithm. DOSE REDUCTION: Dose modulation, iterative reconstruction, and/or weight-based adjustment of the mA/kV was utilized to reduce the radiation dose to as low as reasonably achievable. COMPARISON:Data Conversion Operator images from attempted MRI 10/15/2020 FINDINGS: Intracranial: No intracranial hemorrhage or abnormal extra-axial collection. No evidence of acute territorial infarct. No mass effect. No hydrocephalus. No abnormal postcontrast enhancement. Osseous structures: No fracture. No suspicious lesion. Thereis a 2 mm linear metallic density and better aerated within the left frontal scalp, likely accounting for the artifact is seen on attempted MRI images. Paranasal sinuses and mastoid air cells: No evidence of sinusitis. Mastoids are clear. Orbital contents: Globes are intact. IMPRESSION: 1.No acute intracranial hemorrhage, mass effect, or CT evidence of territorial infarct.2.Linear 2 mm metallic density embedded within the left frontal scalp likely accounts for the artifact seen on attempted MRI. Signed: Teressa Espinoza Verified Date/Time: 10/16/2020 20:23:04 [facility] CT, [id number] 08:19:00Unlisted Reason for Exam - Click Yes and Enter Reason Below->YesUnlisted Reason for Exam->preop planningWill this procedure require oral contrast?->No [facility] : 1960 Sex: FFINAL REPORT TECHNIQUE: CT of the abdomen and pelvis WITH intravenous contrast and WITHOUT oral contrast. Dose modulation, iterative reconstruction, and/or weight-based adjustment of the mA/kV was utilized to reduce the radiation dose to as low as reasonably achievable. INDICATION: Preoperative planning. COMPARISON: None. FINDINGS: LOWER THORAX: Partially visualized massive right- sided pleural effusion with collapse of the right lung. There is leftward shift of the mediastinum. There is left basilar atelectasis.. HEPATOBILIARY: No focal hepatic lesions. Prior cholecystectomy.. No biliary ductal dilatation.SPLEEN: No splenomegaly.PANCREAS: No focal masses or ductal dilatation. ADRENALS: No adrenal nodules.KIDNEYS/URETERS: No hydronephrosis, stones, or solid mass lesi ons.PELVIC ORGANS/BLADDER: Prior hysterectomy. Hyperdense material within the urinary bladder likelyrelated to excretion of previously administered intravascular contrast.. PERITONEUM/RETROPERITONEUM:Trace free intraperitoneal fluid..LYMPH NODES: No lymphadenopathy.VESSELS: Mild atherosclerotic changes in the abdominal aorta. No evidence of aneurysmal dilation.. GI TRACT: No distention or wall thickening. Appendix is normal. There is colonic diverticulosis without CT evidence of acute diverticulitis BONES AND SOFT TISSUES: Degenerative changes in the spine with mild levoconvex curvature of the spine at the thoracolumbar junction.. No suspicious osseous lesion.. IMPRESSION:Massive right-sided pleural effusion with collapse of the right lung.. No acute intra-abdominal or intrapelvic adenopathy. Colonic diverticulosis without CT evidence of acute diverticulitis. Trace free pelvic fluid. Signed: Debo Martinez MDReport Verified Date/Time: 10/16/2020 08:19:04 Reading Location: [facility] Diagnostic Imaging Reading Room - [place] [id number] abdomen/pelvis with IV [id number] 08:19:00Interface, External Ris In - 10/16/2020 8:21 AM CSTFINAL REPORT TECHNIQUE: CT of the abdomen and pelvis WITH intravenous contrast and WITHOUT oral contrast. Dose modulation, iterative reconstruction, and/or weight-based adjustment of the mA/kV was utilized to reduce the radiation dose to as low as reasonably achievable. INDICATION: Preoperative planning. COMPARISON: None. FINDINGS: LOWER THORAX: Partially visualized massive right-sided pleural effusion with collapse of the right lung. There is leftward shift of the mediastinum. There is left basilar atelectasis.. HEPATOBILIARY: No focal hepatic lesions. Prior cholecystectomy.. No biliary ductal dilatation.SPLEEN: No splenomegaly.PANCREAS: No focal masses or ductal dilatation. ADRENALS: No adrenal nodules.KIDNEYS/URETERS: No hydronephrosis, stones, or solid mass lesions.PELVIC ORGANS/BLADDER: Prior hysterectomy. Hyperdense material within the urinary bladder likely related to excretion of previously administered intravascular contrast.. PERITONEUM/RETROPERITONEUM: Trace free intraperitoneal fluid..LYMPH NODES: No lymphadenopathy.VESSELS: Mild atherosclerotic changes in the abdominal aorta. No evidence of aneurysmal dilation.. GI TRACT: No distention or wall thickening. Appendix is normal. There is colonic diverticulosis without CT evidence of acute diverticulitis BONES AND SOFT TISSUES: Degenerative changes in the spine with mild levoconvex curvature of the spine at the thoracolumbar junction.. No suspicious osseouslesion.. IMPRESSION:Massive right-sided pleural effusion with collapse of the right lung.. No acuteintra-abdominal or intrapelvic adenopathy. Colonic diverticulosis without CT evidence of acute diverticulitis. Trace free pelvic fluid. Signed: Debo Martinez MDReport Verified Date/Time: 10/16/2020 08:19:04 Reading Location: [facility] Diagnostic Imaging Reading Room - [place] [address] [facility] Echo W/Doppler(CW/PW/Color)2020-10-16 07:42:56Ejection FractionSLEH ECHO HEARTLAB MKCKESSON CPACSInterface, External Ris In - 10/16/2020 7:43 AM CSTTransthoracic Echocardiography Report (TTE) Demographics Patient Name KAYKAY FERRIS Date of Study 10/15/2020 CARLOS Gender Female Visit Number [id number] Race Unknown Room Number 1154 Number Date of 1960 Referring Physician Ewa Bhakta NP Age 60 year(s) [employer] Home [employer] Carol Charles, [facility] Interpreting Yasmany Lopez MD Physician Procedure Type of Study TTE procedure:2DECHO W DOPPLE R(CW/PW/COLOR) (Routine) Indications:Pre-op.Clinical HistoryAFIB, DM, HTN, Stroke, Thyroid disease, Pleural effusionHGB 13.6HCT 44.0 %Height: 64 inches Weight: 82.55 kg (182 lbs) BSA: 1.88 m^2 BMI: 31.24 kg/m^2HR: 98 bpm BP: 136/69 mmHg Summary The left ventricle is chamber size (by PSLAX dimension) is normal (female - LVIDd 3.8-5.2cm) . Mild septal hypertrophy is present. All of the LV segments contract normally . Estimated LVEF by qualitative assessment is normal (>60%) . Grade 1 diastolic dysfunction (impaired relaxation and low-normal LA pressure). Estimated peak systolic PA pressure is 40-45 mmHg . Signature Findings Technical Quality: Good visualization Left Ventricle The left ventricle is chamber size (by PSLAX dimension) is normal (female - LVIDd 3.8-5.2cm) . Mild septal hypertrophy is present. All of the LV segments contract normally . Estimated LVEF by qualitative assessment is normal (>60%) . Grade 1 diastolic dysfunction (impaired relaxation and low-normal LA pressure). Left Atrium LA size isnormal (16- 34 ml/m2) . Right Ventricle The right ventricular chamber size and systolic function are within normal limits. Right Atrium RA size is normal. Aortic Valve Normal AoV structure. Mitral Valve Normal MV structure. Tricuspid Valve TV structure is normal. A trace of tricuspid regurgitation. Estimated peak systolic PA pressure is 40-45 mmHg . Pulmonic Valve Normal PV structure and function by limited views and Doppler. Pericardium Nopericardial effusion is visualized. IVC/SVC/PA/PV/Pleural The estimated RA pressure by IVC dynamics 5-10mmHg . A right pleural effusion is noted. Chambers/Structures Left Atrium LA Dimension: 3.12 cm LA Area: 15.85 cm^2 LA Volume: 41.4 ml LA Vol. Index: 22 ml/m^2 Left Ventricle LVIDd: 4.35 cm LVEDV:73.81 ml LVIDs: 3.2 cm LV Septum Diastolic: 1.24 cm LV PW Diastolic: 1.01 cm LV FS: 26.4 % LVOT Diameter: 1.92 cm Aorta Ao Root S of Amisha.: 3.14 cm Doppler/Quantitative Measurements Mitral Valve MV Peak E-Wave: 0.65 m/s MV Peak A-Wave: 0.76 m/s E/A Ratio: 0.86 Peak Gradient: 1.71 mmHg Deceleration Time: 194.6 msec MV Man. Peak: Aortic Valve Peak Velocity: 1.44 m/s Mean Velocity: 0.91 m/s Peak Gradient: 8.28 mmHg Mean Gradient: 4.06 mmHg AV Area (continuity): 2.91 cm^2 AV VTI: 21.74 cm AV DVI: 1 LVOT Peak Velocity: 1.35 m/s Peak Gradient: 7.31 mmHg Mean Velocity: 0.76 m/s Mean Gradient: 3 mmHg LVOT Diameter: 1.92 cm LVOT VTI: 21.84 cm LVOT Area: 2.9 cm^2 LVOT SV:63.2 ml LVOT CO: 6.19 l/min LVOT CI: 3.29 l/min/m^2 Tricuspid Valve TR Velocity: 2.82 m/s TR Gradient: 31.91 mmHgMorningside HospitalECG 12 lead 2020-10-16 07:12:53Interface, External Ris In - 10/16/2020 7:12 AM CSTVentricular Rate 96 BPMAtrial Rate 96 BPMP-R Interval 124 msQRS Duration 96 msQ-T Interval 360 msQTC Calculation(Bazett) 454 msP [place] 40 degreesR [place] 43 degreesT [place] 77 degreesNormal sinus rhythm with sinus arrhythmiaNormal ECGNo previous ECGs availableConfirmed by MD KODY, YASMANY Reagan ([id number]) on 10/16/2020 7:12:49 [facility]Asymptomatic ONLY[facility] 2020-10-15 21:51:00 Test Item Value Reference Range Interpretation Comments SARS-COV2/RT-PCR Negative Not Detected, (test code = Negative, See 91727-6) external report for linked test SARS-COV-2 [facility] PERFORMING LAB (test code = 18358-8) LINDSAY (test code = Negative result for this LINDSAY) test determines that SARS-CoV-2 RNA was not present in the specimen above the Limit of Detection (LOD). However, Negative results do not preclude SARS-CoV-2 infection and should not be used as the sole basis for treatment or patient management decisions. Negative results must be combined with clinical observations, patient history, and epidemiological information. A false negative result may occur if a specimen is improperly collected, transported or handled. A false negative result should be considered if patient's recent exposures or clinical presentation indicate that COVID-19 (SARS-CoV-2) is likely and diagnostic tests for other causes of illness are negative. Re-testing should be considered in cases of suspected false negatives. The limit of detection for this assay is 800 copies/mL. This SARS CoV-2 test is a real-time RT-PCR test intended for the qualitative detection of nucleic acid from SARS-CoV-2 in a nasopharyngeal swab specimen collected from individuals suspected of COVID-19 by their healthcare provider. This test has not been Food and Drug Administration (FDA) cleared or approved. This is a modified version of an approved Emergency Use Authorization (EUA) and is in the process of review by the FDA. Once authorized by the FDA, the issued EUA will be effective until the declaration that circumstances exist justifying the authorization of the emergency use of in vitro diagnostic tests for detection and/or diagnosis of COVID-19 is terminated under Section 564(b)(2) of the Act or the EUA is revoked under Section 564(g) of the Act. Fact Sheet for Healthcare Providers:https://www.[employer]/sites/default/f chandrika/product/documents/F act_Sheet_HC_Providers_L swt_XLWQ-AhX-4.pdf Fact Sheet for Healthcare Patients:https://www.[employer]/sites/default/fi les/product/documents/Fa ct_Sheet_Patients_Lyra_S ARS-CoV-2.pdf Performing Laboratory:[facility] [place] [address] [facility] ([facility])2020-10-15 21:51:00 Test Item Value Reference Range Interpretation Comments SARS-COV2/RT-PCR (test Negative Not Detected, Negative, code = 3564125) See external report for linked test SARS-COV-[address] [facility] (test code = 7583956) Negative result for this test determines that SARS-CoV-2 RNA was not present in the specimen above the Limit of Detection (LOD). However, Negative results do not preclude SARS-CoV-2 infection and should not be used as the sole basis for treatment or patient management decisions. Negative results mustbe combined with clinical observations, patient history, and epidemiological information. A false negative result may occur if a specimen is improperly collected, transported or handled. A false negative result should be considered if patient's recent exposures or clinical presentation indicate that COVID-19 (SARS-CoV-2) is likely and diagnostic tests for other causes of illness are negative. Re-testing should be considered in cases of suspected false negatives.The limit of detection for this assay is 800 copies/mL.This SARS CoV-2 test is a real-time RT-PCR test intended for the qualitative detection of nucleic acid from SARS-CoV-2 in a nasopharyngeal swab specimen collected from individuals susp ected of COVID-19 by their healthcare provider.This test has not been Food and Drug Administration (FDA) cleared or approved. This is a modified version of an approved Emergency Use Authorization (EUA) and is in the process of review by the FDA. Once authorized by the FDA, the issued EUA will be effective until the declaration that circumstances exist justifying the authorization of the emergency use of in vitro diagnostic tests for detection and/or diagnosis of COVID-19 is terminated under Section 564(b)(2) of the Act or the EUA is revoked under Section 564(g) of the Act.Fact Sheet for Healthcare Providers:https://www.[employer]/sites/default/files/product/documents/Fact_Shee h_CP_Xogwbfcec_Guks_CKGH-XvC-0.pdfFact Sheet for Healthcare Patients:https://www.[employer]/sites/default/files/product/ documents/Lacf_Sobac_Dvvlmfyt_Qria_OJHA-OuU-4.pdfPerforming Laboratory:[facility], [place] [address]Ixfoqqmnir A1c 2020-10-15 09:19:00 Test Item Value Reference Range Interpretation Comments Hemoglobin A1C (test code = 4548-4) 5.8 % 4.3-6.1 Lab Interpretation (test code = Normal 89178-1) [facility] HospitalHEMOGLOBIN [id number] 09:19:00 Test Item Value Reference Range Interpretation Comments HEMOGLOBIN A1C (BEAKER) (test code = 5.8 % 4.3-6.1 368) RAD, CHEST, 1 VIEW, NON [id number] 07:47:00Reason for exam:->pleural effusionIs the patient ?->NoShould this be performed at the b edside?->Yes[facility] : 1960 Sex: FFINAL REPORT RAD, CHEST, 1 VIEW, NON DEPT INDICATION: pleural effusion COMPARISON: None FINDINGS: Portable frontal view of the chest. IMPRESSION: Support Lines: None Lungs and pleura: Near complete opacification of the right hemithorax. Left lung is clear. No pneumothorax.Heart and mediastinum: Visible contours are unremarkable.Additional findings: None. Signed: JR Rowley Robert MDReport Verified Date/Time: 10/15/2020 07:47:34 Reading Location: [facility] Radiology Reading Room Basic metabolic [id number] 07:10:00 Test Item Value Reference Range Interpretation Comments Sodium (test code = 137 meq/L 665-248 1122-2) Potassium (test code = 4.1 meq/L 3.5-5.1 2823-3) Chloride (test code = 104 meq/L 98-107 2075-0) CO2 (test code = 26 meq/L 22-29 8-9) BUN (test code = 6 mg/dL 7-21 L 3094-0) Creatinine (test code 0.64 mg/dL 0.57-1.25 = 2160-0) Glucose (test code = 96 mg/dL 70-105 2345-7) Calcium (test code = 8.7 mg/dL 8.4-10.2 20858-0) EGFR (test code = 95 mL/min/1.73 [place] [address]-2) NOT ACCURATE CREATININE CLEARANCE IN PREDICTING GLOMERULAR FILTRATION RATE . ESTIMATED GFR I S NOT APPLICABLE FOR DIALYSIS PATIENTS. LINDSAY (test code = LINDSAY) Community Relations Assistant ID - EDASI Lab Interpretation Abnormal (test code = 80444-6) [facility] [id number] 07:10:00 Test Item Value Reference Range Interpretation Comments Protein, Total (test 6.7 See_Comment [Autom ated code = 2885-2) message] The system which generated this result transmit spencer reference range : 6.0 - 8.3 gm/dL . The reference range was not u sed to interpret th is result as normal/abnormal . Albumin (test code = 3.5 g/dL 3.5-5 68844-4) Total Bilirubin (test 0.4 mg/dL 0.2-1.2 code = 1975-2) Bilirubin, Direct 0.2 mg/dL 0.1-0.5 (test code = 1967-7) Alkaline Phosphatase 67 U/L 40-150 (test code = 6768-6) AST (test code = 9 U/L 5-34 1920-8) ALT (test code = 7 U/L 6-55 1742-6) LINDSAY (test code = LINDSAY) Community Relations Assistant ID - EDASI Lab Interpretation Normal (test code = 46764-2) [facility]10:00 Test Item Value Reference Range Interpretation Comments Magnesium (test code = 1.9 mg/dL 1.6-2.6 48630-6) LINDSAY (test code = LINDSAY) Community Relations Assistant ID - EDASI Lab Interpretation (test Normal code = 08762-5) [facility] 07:10:00 Test Item Value Reference Range Interpretation Comments Phosphorus (test code = 3.7 mg/dL 2.3-4.7 2777-1) LINDSAY (test code = LINDSAY) Community Relations Assistant ID - EDASI Lab Interpretation (test Normal code = 77618-6) [facility]OLIC [id number] 07:10:00 Test Item Value Reference Range Interpretation Comments SODIUM (BEAKER) 137 meq/L 136-145 (test code = 381) POTASSIUM (BEAKER) 4.1 meq/L 3.5-5.1 (test code = 379) CHLORIDE (BEAKER) 104 meq/L 98-107 (test code = 382) CO2 (BEAKER) (test 26 meq/L 22-29 code = 355) BLOOD UREA NITROGEN 6 mg/dL 7-21 L (BEAKER) (test code = 354) CREATININE (BEAKER) 0.64 mg/dL 0.57-1.25 (test code = 358) GLUCOSE RANDOM 96 mg/dL 70-105 (BEAKER) (test code = 652) CALCIUM (BEAKER) 8.7 mg/dL 8.4-10.2 (test code = 697) EGFR (BEAKER) (test 95 mL/min/1.73 ESTIMA SPENCER GFR IS code = 1092) sq m NOT ACCURATE CREATININE CLEARANCE IN PREDICTING GLOMERULAR FILTRATION RATE . ESTIMATED GFR I S NOT APPLICABLE FOR DIALYSIS PATIEN TS. Community Relations Assistant ID - [id number] 07:10:00 Test Item Value Reference Range Interpretation Comments MAGNESIUM (BEAKER) (test code = 1.9 mg/dL 1.6-2.6 627) Community Relations Assistant ID - [id number] 07:10:00 Test Item Value Reference Range Interpretation Comments PHOSPHORUS (BEAKER) (test code = 3.7 mg/dL 2.3-4.7 604) Community Relations Assistant ID - EDASIHEPATIC FUNCTION [id number] 07:10:00 Test Item Value Reference Range Interpretation Comments TOTAL PROTEIN (BEAKER) (test code = 6.7 gm/dL 6.0-8.3 770) ALBUMIN (BEAKER) (test code = 1145) 3.5 g/dL 3.5-5.0 BILIRUBIN TOTAL (BEAKER) (test code 0.4 mg/dL 0.2-1.2 = 377) BILIRUBIN DIRECT (BEAKER) (test 0.2 mg/dL 0.1-0.5 code = 706) ALKALINE PHOSPHATASE (BEAKER) (test 67 U/L 40-150 code = 346) AST (SGOT) (BEAKER) (test code = 9 U/L 5-34 353) ALT (SGPT) (BEAKER) (test code = 7 U/L 6-55 347) Community Relations Assistant ID - EDASIProthrombin time/[id number] 06:59:00 Test Item Value Reference Interpretation Comments Range Protime (test code = 12.8 See_Comment [Autom ated 5902-2) message] The system which generated this result transmitted reference range : 11.9 - 14.2 seconds. The reference range was not used to interpret this result as normal/abnormal . INR (test code = 0.99 See_Comment [Automated 7575-6) message] The system which generated this result transmitted reference range : <=5.90. The reference range was not used to interpret this result as normal/abnormal . LINDSAY (test code = Effective 02/07/2019: LINDSAY) PT Reference Range ChangeNew: 11.9-14.2 Previous: 11.7-14.7 RECOMMENDED COUMADIN/WARFARIN INR THERAPY RANGESSTANDARD DOSE: 2.0-3.0 Includes: PROPHYLAXIS for venous thrombosis, systemic embolization; TREATMENT for venous thrombosis and/or pulmonary embolus.HIGH RISK: Target INR is 2.5-3.5 for patients wiht mechanical heart valves. Lab Interpretation Normal (test code = 86891-3) [facility]PROTHROM[facility] [id number] 06:59:00 Test Item Value Reference Range Interpretation Comments PROTIME (BEAKER) (test code = 12.8 seconds 11.9-14.2 759) INR (BEAKER) (test code = 370) 0.99 <=5.90 Effective 02/07/2019: PT Reference Range ChangeNew: 11.9-14.2 Previous: 11.7- 14.7RECOMMENDED COUMADIN/WARFARIN INR THERAPY RANGESSTANDARD DOSE: 2.0-3.0 Includes: PROPHYLAXIS for venous thrombosis, systemic embolization; TREATMENT for venous thrombosis and/or pulmonary embolus.HIGH RISK: Target INR is2.5-3.5 for patients wiht mechanical heart valves.CBC with platelet count + automated [id number] 06:49:00 Test Item Value Reference Range Interpretation Comments WBC (test code = 6690-2) 9.7 See_Comment [A utomated message] The system [employer] generated this result transmitted ref erence range: 3.5 - 10 .5 K/L. The refe rence range was not u sed to interpret this result as normal/abnor mal. RBC (test code = 789-8) 4.85 See_Comment [Au tomated message] The system [employer] generated this result transmitted ref erence range: 3.93 - 5 .22 M/L. The refe rence range was not u sed to interpret this result as normal/abnor mal. MCHC (test code = 786-4) 30.9 See_Comment L [A utomated message] The system [employer] generated this result transmitted ref erence range: 32.2 - 3 5.5 GM/DL. The refe rence range was not u sed to interpret this result as normal/abnor mal. Hematocrit (test code = 44.0 % 34.1-44.9 4544-3) MCV (test code = 787-2) 90.7 fL 79.4-94.8 MCH (test code = 785-6) 28.0 pg 25.6-32.2 RDW (test code = 788-0) 12.9 % 11.7-14.4 Platelets (test code = 261 See_Comment [Aut omated message] 777-3) The system [employer] generated this result transmitted ref erence range: 150 - 45 0 K/CU MM. The referen ce range was not u sed to interpret this result as normal/abnor mal. MPV (test code = 9.9 fL 9.4-12.3 97338-3) nRBC (test code = 413) 0 See_Comment [Aut omated message] The system [employer] generated this result transmitted ref erence range: 0 - 0 /1 00 WBC. The refere nce range was not u sed to interpret this result as normal/abnor mal. % Neutros (test code = 63 % 429) % Lymphs (test code = 24 % 430) % Monos (test code = 10 % 431) % Eos (test code = 432) 2 % % Baso (test code = 437) 1 % # Neutros (test code = 6.16 See_Comment H [Aut omated message] 670) The system [employer] generated this result transmitted ref erence range: 1.56 - 6 .13 K/L. The refe rence range was not u sed to interpret this result as normal/abnor mal. # Lymphs (test code = 2.35 See_Comment [Auto mated message] 414) The system [employer] generated this result transmitted ref erence range: 1.18 - 3 .74 K/L. The refe rence range was not u sed to interpret this result as normal/abnor mal. # Monos (test code = 0.94 See_Comment H [Autom ated message] 415) The system [employer] generated this result transmitted ref erence range: 0.24 - 0 .36 K/L. The refe rence range was not u sed to interpret this result as normal/abnor mal. # Eos (test code = 416) 0.18 See_Comment [Au tomated message] The system [employer] generated this result transmitted ref erence range: 0.04 - 0 .36 K/L. The refe rence range was not u sed to interpret this result as normal/abnor mal. # Baso (test code = 417) 0.05 See_Comment [A utomated message] The system [employer] generated this result transmitted ref erence range: 0.01 - 0 .08 K/L. The refe rence range was not u sed to interpret this result as normal/abnor mal. Immature 0 % 0-1 Granulocytes-Relative (test code = 2801) Lab Interpretation (test Abnormal code = 23379-0) [facility] [place] W/PLT COUNT & AUTO [id number] 06:49:00 Test Item Value Reference Range Interpretation Comments WHITE BLOOD CELL COUNT (BEAKER) 9.7 K/ L 3.5-10.5 (test code = 775) RED BLOOD CELL COUNT (BEAKER) 4.85 M/ L 3.93-5.22 (test code = 761) HEMOGLOBIN (BEAKER) (test code = 13.6 GM/DL 11.2-15.7 410) HEMATOCRIT (BEAKER) (test code = 44.0 % 34.1-44.9 411) MEAN CORPUSCULAR VOLUME (BEAKER) 90.7 fL 79.4-94.8 (test code = 753) MEAN CORPUSCULAR HEMOGLOBIN 28.0 pg 25.6-32.2 (BEAKER) (test code = 751) MEAN CORPUSCULAR HEMOGLOBIN CONC 30.9 GM/DL 32.2-35.5 L (BEAKER) (test code = 752) RED CELL DISTRIBUTION WIDTH 12.9 % 11.7-14.4 (BEAKER) (test code = 412) PLATELET COUNT (BEAKER) (test 261 K/CU MM 150-450 code = 756) MEAN PLATELET VOLUME (BEAKER) 9.9 fL 9.4-12.3 (test code = 754) NUCLEATED RED BLOOD CELLS 0 /100 WBC 0-0 (BEAKER) (test code = 413) NEUTROPHILS RELATIVE PERCENT 63 % (BEAKER) (test code = 429) LYMPHOCYTES RELATIVE PERCENT 24 % (BEAKER) (test code = 430) MONOCYTES RELATIVE PERCENT 10 % (BEAKER) (test code = 431) EOSINOPHILS RELATIVE PERCENT 2 % (BEAKER) (test code = 432) BASOPHILS RELATIVE PERCENT 1 % (BEAKER) (test code = 437) NEUTROPHILS ABSOLUTE COUNT 6.16 K/ L 1.56-6.13 H (BEAKER) (test code = 670) LYMPHOCYTES ABSOLUTE COUNT 2.35 K/ L 1.18-3.74 (BEAKER) (test code = 414) MONOCYTES ABSOLUTE COUNT (BEAKER) 0.94 K/ L 0.24-0.36 H (test code = 415) EOSINOPHILS ABSOLUTE COUNT 0.18 K/ L 0.04-0.36 (BEAKER) (test code = 416) BASOPHILS ABSOLUTE COUNT (BEAKER) 0.05 K/ L 0.01-0.08 (test code = 417) IMMATURE GRANULOCYTES-RELATIVE 0 % 0-1 PERCENT (BEAKER) (test code = 6837)
[2020-12-01 23:45] LABS: Protime INR 2.81
[2020-12-01 23:53] LABS: Absolute Lymphocytes (CBC) 1.3 K/uL (0.7-4.9); Hematocrit 35.1 % (36.0-45.0); Lymphocytes % 17.6 % (15.3-44.8); MPV 8.5 fL (7.6-11.3); RBC Red Blood Cell Count 4.12 M/uL (3.86-4.86)
[2020-12-02] LABS: ALT/SGPT 15 U/L (12-78); AST/SGOT 9 U/L (15-37); Albumin 2.5 g/dL (3.4-5.0); Alkaline Phosphatase 94 U/L (45-117); BUN Blood Urea Nitrogen 6 mg/dL (7-18); Bicarbonate 29 mmol/L (21-32); Bilirubin Direct < 0.1 mg/dL (0-0.2); Bilirubin Total 0.2 mg/dL (0.2-1.0); Glucose Level 100 mg/dL (74-106); Magnesium 2.1 mg/dL (1.8-2.4); NT PRO-BNP 202 pg/mL (<125); Potassium 3.8 mmol/L (3.5-5.1); Protein, Total 7.5 g/dL (6.4-8.2); Sodium Level 140 mmol/L (136-145)
--- NOTE | 2020-12-02 02:28 | ER ---
Nurse's Notes [facility] Name: Amie Joseph Age: 60 yrs Sex: Female : 1960 Arrival Date: 12/01/2020 Time: 20:51 Bed 6 Private MD: Diagnosis: Pleural condition, unspecified-Right Presentation: 12/01 21:01 Chief complaint: Patient states: R chest tube since 2020 for lung CA. Tube ll1 stopped draining last Tuesday, hasn't gotten it to drain properly since. Slight pain, no SOB. Coronavirus screen: Client denies travel out of the [place] in the last 14 days. At this time, the client does not indicate any symptoms associated with coronavirus-19. Ebola Screen: Patient denies travel to an Ebola-affected area in the 21 days before illness onset. Initial Sepsis Screen: Does the patient meet any 2 criteria? HR > 90 bpm. No. Patient's initial sepsis screen is negative. Does the patient have a suspected source of infection? Yes: Other: chest tube. Risk Assessment: Do you want to hurt yourself or someone else? Patient reports no desire to harm self or others. Onset of symptoms was November 27, 2020. 21:01 Method Of Arrival: Ambulatory ll1 21:01 Acuity: JACEK 3 ll1 Triage Assessment: 23:00 Respiratory: Reports shortness of breath Onset: The symptoms/episode began/occurred wh gradually, the patient reports symptoms have resolved. Historical: - Allergies: 21:04 No Known Drug Allergies; ll1 - PMHx: 21:04 lung CA; ll1 - PSHx: 21:04 Cholecystectomy; Hysterectomy; ; ll1 - Immunization history:: Flu vaccine is not up to date. - Social history:: Smoking status: Patient denies any tobacco usage or history of. - Family history:: not pertinent. Screenin:00 Abuse screen: Denies threats or abuse. Denies injuries from another. Nutritional wh screening: No deficits noted. Tuberculosis screening: No symptoms or risk factors identified. Fall Risk None identified. Assessment: 23:00 General: Appears in no apparent distress. Behavior is calm, cooperative, appropriate wh for age. Pain: Denies pain. Neuro: Level of Consciousness is awake, alert, obeys commands, Oriented to person, place, time, situation, Appropriate for age. Cardiovascular: Heart tones S1 S2 Rhythm is regular. Respiratory: Airway is patent Respiratory effort is even, unlabored, Respiratory pattern is regular, symmetrical, Breath sounds are diminished. Respiratory: Chest tube in left chest. GI: Abdomen is flat, non-distended. : No signs and/or symptoms were reported regarding the genitourinary system. EENT: No signs and/or symptoms were reported regarding the EENT system. Derm: Skin is intact, is healthy with good turgor, Skin is pink, warm \T\ dry. normal. Musculoskeletal: Circulation, motion, and sensation intact. 12/02 00:17 Reassessment: Notified Provider regarding order for Chest tube to be connected to suction, Pt chest tube is not compatible with our suction system and Pt just asked family member to bring the suction system here, MD aware. 01:30 Reassessment: Patient appears in no apparent distress at this time. Patient and/or family updated on plan of care and expected duration. Pain level reassessed. Patient is alert, oriented x 3, equal unlabored respirations, skin warm/dry/pink. 02:30 Reassessment: Patient appears in no apparent distress at this time. Patient and/or family updated on plan of care and expected duration. Pain level reassessed. Patient is alert, oriented x 3, equal unlabored respirations, skin warm/dry/pink. Vital Signs: 12/01 21:01 BP 108 / 76; Pulse 106; Resp 18; Temp 97.6; Pulse Ox 100% ; Weight 78.02 kg; Height 5 ll1 ft. 4 in. (162.56 cm); Pain 4/10; 12/02 00:25 BP 112 / 64; Pulse 93; Resp 18; Pulse Ox 96% on R/A; 02:00 BP 118 / 78; Pulse 73; Resp 18; Pulse Ox 96% on R/A; 12/01 21:01 Body Mass Index 29.52 (78.02 kg, 162.56 cm) ll1 ED Course: 12/01 20:51 Patient arrived in ED. cl3 21:03 Triage completed. ll1 21:04 Arm band placed on. ll1 23:00 Patient has correct armband on for positive identification. Bed in low position. Call light in reach. Side rails up X 1. monitoring manager on. Pulse ox on. NIBP on. 23:00 Inserted saline lock: 20 gauge in left antecubital area, using aseptic technique. Blood collected. 23:01 Roman Law MD is Attending Physician. [facility] 23:04 Ariel De Oliveira, RN is Primary Nurse. 23:56 XRAY Chest (1 view) In Process Unspecified. EDMS 03 01:17 CT Chest W/ Con In Process Unspecified. EDMS 02:36 No provider procedures requiring assistance completed. IV discontinued, intact, bleeding controlled, No redness/swelling at site. Administered Medications: No medications were administered Outcome: 02:28 Discharge ordered by . [facility] 02:37 Discharged to home ambulatory. 02:37 Condition: stable 02:37 Discharge instructions given to patient, Instructed on discharge instructions, follow up and referral plans. POC Demonstrated understanding of instructions, follow-up care, POC 02:37 Patient left the ED. Signatures: Dispatcher [employer] EDMT Ariel De Oliveira, RN RN Roman Law MD MD ma2 Krishna Shepherd, RN RN mg2 Leobardo Adams cl3 Tabby Adams RN RN ll1 Corrections: (The following items were deleted from the chart) 02:36 01:56 Pulse 73bpm; Resp 18bpm; Pulse Ox 96% RA; mg2
--- NOTE | 2020-12-02 02:28 | EDPHYS ---
Physician Documentation [facility] Name: Amie Joseph Age: 60 yrs Sex: Female : 1960 Arrival Date: 12/01/2020 Time: 20:51 Bed 6 Private MD: ED Physician Roman Law HPI: 12/01 23:52 This 60 yrs old Female presents to ER via Ambulatory with complaints of Chest ma2 Tube not Draining. 12/02 02:21 Onset: The symptoms/episode began/occurred gradually. Onset: The symptoms/episode ma2 began/occurred 1 day(s) ago. Associated signs and symptoms: Pertinent negatives: productive cough, dizziness, fever, loss of consciousness, nausea. Severity of symptoms: At their worst the symptoms were moderate in the emergency department the symptoms are unchanged. The patient has not experienced similar symptoms in the past. patient has right sided pleural effusion, with lung ca, was at [facility] 2 weeks ago and had a chest tube placed and she has been draining 200-400 ml of purulent discharge twice a week since then at home. she is here today because the tube is not draining today, she want to know if it is obstructed or if the effusion is cleared, she does not have any pain or sob or any new symptoms. she states that her breathing today is better compared to last few days. . Historical: - Allergies: 12/01 21:04 No Known Drug Allergies; ll1 - PMHx: 21:04 lung CA; ll1 - PSHx: 21:04 Cholecystectomy; Hysterectomy; ; ll1 - Immunization history:: Flu vaccine is not up to date. - Social history:: Smoking status: Patient denies any tobacco usage or history of. - Family history:: not pertinent. ROS: 12/02 02:21 Constitutional: Negative for fever, chills, and weight loss. ma2 All other systems are negative. Exam: 02:21 Constitutional: This is a well developed, well nourished patient who is awake, alert, ma2 and in no acute distress. Head/Face: Normocephalic, atraumatic. Eyes: Pupils equal round and reactive to light, extra-ocular motions intact. Lids and lashes normal. Conjunctiva and sclera are non-icteric and not injected. Cornea within normal limits. Periorbital areas with no swelling, redness, or edema. ENT: Nares patent. No nasal discharge, no septal abnormalities noted. Tympanic membranes are normal and external auditory canals are clear. Oropharynx with no redness, swelling, or masses, exudates, or evidence of obstruction, uvula midline. Mucous membranes moist. Neck: Trachea midline, no thyromegaly or masses palpated, and no cervical lymphadenopathy. Supple, full range of motion without nuchal rigidity, or vertebral point tenderness. No Meningismus. Chest/axilla: Normal chest wall appearance and motion. Nontender with no deformity. No lesions are appreciated. Cardiovascular: Regular rate and rhythm with a normal S1 and S2. No gallops, murmurs, or rubs. Normal PMI, no JVD. No pulse deficits. Respiratory: Lungs have equal breath sounds bilaterally, clear to auscultation and percussion. No rales, rhonchi or wheezes noted. No increased work of breathing, no retractions or nasal flaring. chest tube is in good conditioin, i have flushed the tube wtih ns and it is going through with no obstruction Abdomen/GI: Soft, non-tender, with normal bowel sounds. No distension or tympany. No guarding or rebound. No evidence of tenderness throughout. Back: No spinal tenderness. No costovertebral tenderness. Full range of motion. Skin: Warm, dry with normal turgor. Normal color with no rashes, no lesions, and no evidence of cellulitis. MS/ Extremity: Pulses equal, no cyanosis. Neurovascular intact. Full, normal range of motion. Neuro: Awake and alert, GCS 15, oriented to person, place, time, and situation. Cranial nerves II-XII grossly intact. Motor strength 5/5 in all extremities. Sensory grossly intact. Cerebellar exam normal. Normal gait. Vital Signs: 12/01 21:01 BP 108 / 76; Pulse 106; Resp 18; Temp 97.6; Pulse Ox 100% ; Weight 78.02 kg; Height 5 ll1 ft. 4 in. (162.56 cm); Pain 10; 12/02 00:25 BP 112 / 64; Pulse 93; Resp 18; Pulse Ox 96% on R/A; wh 02:00 BP 118 / 78; Pulse 73; Resp 18; Pulse Ox 96% on R/A; wh 03/22 21:01 Body Mass Index 29.52 (78.02 kg, 162.56 cm) ll1 MDM: 12/01 23:01 Patient medically screened. [facility] 12/02 02:21 Differential diagnosis: Bronchitis CHF exacerbation, pneumonia, Pneumothorax reactive ma2 airway disease. Data reviewed: vital signs, nurses notes. Counseling: I had a detailed discussion with the patient and/or guardian regarding: the historical points, exam findings, and any diagnostic results supporting the discharge/admit diagnosis, the presence of at least one elevated blood pressure reading (>120/80) during this emergency department visit, the need for outpatient follow up. ED course: ct is non critical shows tube in good location however there is multiloculated effusion and likely the pocket that has the tube in is drained. she does not have symptoms or signs of pneumonia, she will call [facility] tomorrow and follow up with them for further evaluation. vs wnl no emergent condition at this time . 12/01 23:01 Order name: Basic Metabolic Panel [facility] 12/01 23:01 Order name: CBC with Diff [facility] 12/01 23:01 Order name: LFT's [facility] 12/01 23:01 Order name: Magnesium [facility] 12/01 23:01 Order name: NT PRO-BNP; Complete Time: 02:28 [facility] 12/01 23:01 Order name: PT-INR; Complete Time: 23:55 [facility] 12/01 23:01 Order name: XRAY Chest (1 view) [facility] 12/01 23:01 Order name: EKG; Complete Time: 23:02 [facility] 12/01 23:01 Order name: Cardiac monitoring; Complete Time: 23:24 [facility] 12/01 23:02 Order name: Basic Metabolic Panel; Complete Time: 02:28 EDMS 12/01 23:02 Order name: CBC with Automated Diff; Complete Time: 23:55 EDFL 12/01 23:02 Order name: Liver (Hepatic) Function; Complete Time: 02:28 EDMS 12/01 23:02 Order name: Magnesium; Complete Time: 02:28 EDMS 12/01 23:48 Order name: CT Chest W/ Con [facility] 12/01 23:01 Order name: EKG - Nurse/Tech; Complete Time: 23:24 [facility] 12/01 23:01 Order name: IV Saline Lock; Complete Time: 23:24 [facility] 12/01 23:01 Order name: Labs collected and sent; Complete Time: 23:24 [facility] 12/01 23:01 Order name: O2 Per Protocol; Complete Time: 23:24 [facility] 12/01 23:01 Order name: O2 Sat Monitoring; Complete Time: 23:24 nc2 Administered Medications: No medications were administered Disposition: 12/02/20 02:28 Discharged to Home. Impression: Pleural condition, unspecified - Right . - Condition is Stable. - Discharge Instructions: Pleural Effusion. - Medication Reconciliation Form, Thank You Letter, Antibiotic Education, Prescription Opioid Use form. - Follow up: Private Physician; When: Tomorrow; Reason: Continuance of care. Signatures: Dispatcher [employer] EDAriel Aguirre RN RN Roman Law MD MD nc2 Tabby Adams RN RN ll1 Corrections: (The following items were deleted from the chart) 02:16 12/01 23:48 Suction ordered. [facility] 12/02 02:37 02:28 12/02/2020 02:28 Discharged to Home. Impression: Pleural condition, unspecified - wh Right . Condition is Stable. Forms are Medication Reconciliation Form, Thank You Letter, Antibiotic Education, Prescription Opioid Use. Follow up: Private Physician; When: Tomorrow; Reason: Continuance of care. nc2
[2020-12-02 02:43] VITALS: TEMP 97.6
[2020-12-02 02:44] VITALS: O2SAT 96
[2020-12-02 02:46] VITALS: BP 118/78
--- NOTE | 2020-12-02 06:20 | EKG ---
Test Date: 2020-12-01 Test Time: 22:15:19 Irrigator Overhead: MEASUREMENT RESULTS: Intervals: Rate: 97 AL: 136 QRSD: 94 QT: 356 QTc: 452 [place]: P: 41 AL: 136 QRS: 58 T: 29 INTERPRETIVE STATEMENTS: Normal sinus rhythm Incomplete right bundle branch block Cannot rule out Inferior infarct, age undetermined Cannot rule out Anterior infarct, age undetermined Abnormal ECG Compared to ECG 09/14/2020 22:17:46 Myocardial infarct finding now present T-wave abnormality no longer present Electronically Signed On 12-02-20 06:19:13 CDT by Saulo Agustin
--- NOTE | 2020-12-02 07:50 | RAD REPORT ---
EXAM DESCRIPTION: RAD - Chest Single View - 12/01/2020 11:56 pm CLINICAL HISTORY: chest tube not draining COMPARISON: Portable November 11 TECHNIQUE: AP portable chest image was obtained 12/01/2020 11:56 pm . FINDINGS: Right-sided chest tube is in place. Tip is in the medial right lung base. Right-sided pleu ral and parenchymal opacification are not substantially different from the comparison. Trachea is in the midline. Left lung field is clear of an acute lung parenchymal process. Heart and vasculature are normal. No pneumothorax is present. No acute bony abnormality seen. No acute aortic findings suspect ed. IMPRESSION: Right-sided chest tube is in place with tip in the medial right lung base. Pleural and parenchymal opacification are present. With the pleural components more pronounced in the right base and right apex. These collections may be loculated.
--- NOTE | 2020-12-02 11:40 | RAD REPORT ---
EXAM DESCRIPTION: CT - Thorax W/ Con - 12/02/2020 6:56 am CLINICAL HISTORY: Chest tube not draining, ? Positioning TECHNIQUE: Contiguous axial images obtained through the chest following the uneventful administratio n of IV contrast. Coronal and sagittal reformatted images provided. This exam was performed according to our departmental dose-optimization program, which includes autom ated exposure control, adjustment of the mA and/or kV according to patient size and/or use of iterati ve reconstruction technique. COMPARISON: 10/14/2020 FINDINGS: Lungs: Right-sided volume loss. Heterogeneous consolidation throughout the right upper lob e. There are scattered gas foci within the area of consolidation. Additional consolidative changes, l inear opacities and interstitial thickening within the right middle and lower lobes. Right-sided airw ays are mildly attenuated. Left basilar subsegmental atelectasis/pleural parenchymal scar. Pleura: Significant interval decrease in size of the right pleural effusion, now small to moderate wi th loculated components, mild wall thickening and scattered gas foci. A right-sided chest tube termin ates at the posterior basilar aspect of the pleural space. Small left pleural effusion new from the p rior. No pneumothorax. Heart and pericardium: The heart is enlarged. Small pericardial effusion. Mediastinum and aye: Mildly enlarged mediastinal lymph nodes measuring up to 13 mm in short axis. Lower neck and chest wall: Unremarkable Vessels: Unremarkable Upper abdomen: Unremarkable Bones: Multilevel spondylosis. No acute fracture. IMPRESSION: 1. Significant interval decrease in size of the right pleural effusion, now small to m oderate with loculated components, mild wall thickening and scattered gas foci. A right-sided chest t ube terminates at the posterior basilar aspect of the pleural space. 2. Heterogeneous consolidation throughout the right upper lobe with scattered gas foci. Additional consolidative changes, linear opacities and interstitial thickening within the right middle and lower lobes. Findings may be related to combination of atelectasis and/or infiltrate. Superimposed necroti zing pneumonia within the right upper lobe is not excluded. Additionally, given the volume loss and a irway attenuation, underlying malignancy cannot be excluded. 3. Small left pleural effusion new from the prior. 4. Other findings as above. Electronically signed by: Houston Magallanes MD 12/02/2020 1:52 AM CDT Due to temporary technical issues with the PACS/Fluency reporting system, reports are being signed by the in house radiologists without review as a courtesy to insure prompt reporting. The interpreting radiologist is fully responsible for the content of the report.
== END 2020-12-02 02:37 | disposition home or self-care (01) ==
LOC: ER 20:50
DX: T85.698A Other mechanical complication of other specified internal prosthetic devices, implants and grafts, initial encounter (principal); C34.90 Malignant neoplasm of unspecified part of unspecified bronchus or lung
CPT/HCPCS: 36415; 71045; 71260; 80048; 80076; 83735; 83880; 85025; 85610; 93005; 99284; Q9967

== ENCOUNTER 2020-12-22 11:40 | Emergency (ER) | payer OTHER, SELFPAY ==
--- OUTSIDE RECORDS SUMMARY | 2020-12-22 11:42 | XMS REPORT | Continuity of Care Document ---
:1960 Author Organization [facility] t Address [address] [place] [address] Care Team Providers Name Role Phone SYSTEM, NOT IN Attending Clinician Unavailable Radha IBARRA Attending Clinician Albert Sewell MD Attending Clinician ALBERT SEWELL Attending Clinician Unavailable Jak Quick MD Attending Clinician Jennifer Sommer Attending Clinician Unavailable ALBERT SEWELL Admitting Clinician Unavailable Payers Payer Name Policy Type Policy Effective Date Expiration Date Sour ce Number SPECIAL 1234 2020 [facility] HANDLINGSELF PAY 00:00:00 - Medica l OP DIAGNSTC IMGING Center [id number] 2020-P resent Problems Condition Condition Condition Status Onset Resolution Last Treating Co mments Source Name Details Category Date Date Treatment Clinician Date 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 Family History Family Member Diagnosis Comments Start Date Stop Date Source Natural father COPD [facility] Maternal grandfather Drug abuse [facility] Social History Social Habit Start Date Stop Date Quantity Comments Source Sex [facility] History SDOH [facility] St[facility] Dr[facility] History SDOH [facility] Alcohol Binge Medical Ce ter Tobacco use and 2020-10-20 2020-10-[address] [facility] - exposure 00:00:00 00:[facility]:00 [facility] Center Alcohol intake 2020-10-20 2020-10-20 [facility] History SDOH 2020-10-15 2020-10-[address] [facility] - Alcohol Frequency 00:00:00 00:00:00 Medical Center Smoking Status Start Date Stop Date Source Never smoker [facility] Medications Ordered Filled Start [...] for 14 days. gabapentin 2020- No 200mg [id number] Take [address] (NEURONTIN) 10-19- [id number] [facility] - 100 MG 00:00: 23:59 3D (200 mg Medical capsule 00 :00 total) by Center mouth 3 (three) times daily for 14 days. ibuprofen 2020- No 400mg [id number] Take [address] (ADVIL,MOTR 10-19 [id number] tablet [facility] - [place]) 400 MG 00:00: [...] Source Systolic blood 2020-10-19 12:00:00 94 mm[Hg] [facility] Diastolic blood 2020-10-19 12:00:00 58 mm[Hg] [facility] Heart rate 2020-10-19 12:00:00 90 /min [facility] Body temperature 2020-10-19 12:00:00 36.61 Hannah [facility] Respiratory rate 2020-10-19 12:00:00 18 /min [facility] Oxygen saturation in 2020-10-19 12:00:00 96 /min [facility] Arterial blood by Medical Ce nter Pulse oximetry Body weight 2020-10-17 05:25:00 82.373 kg [facility] BMI 2020-10-17 05:25:00 31.17 kg/m2 [facility] Body height 2020-10-15 11:11:00 162.6 cm [facility] Procedures Procedure Date / Time Performed Performing Clinician Sour e XR CHEST 1 VIEW 2020-10-17 18:53:00 Derek Souza [facility] PORTABLE/BEDSIDE [facility] TISSUE EXAM 2020-10-17 15:40:00 Keshawn Sewell [facility] CYTOLOGY REQUEST 2020-10-17 15:36:[address] [facility] CYTOLOGY 2020-10-17 15:36:00 Keshawn Sewell [facility] THORACOSCOPY 2020-10-17 14:31:00 Keshawn Sewell [facility] (VATS),BIOPSY OF PLEURA [facility] INSERTION,PLEURX 2020-10-17 14:31:00 Keshawn Sewell [facility] CATHETER [facility] ABORH, MANUAL 2020-10-17 14:09:00 Peyton Doherty [facility] TYPE AND SCREEN 2020-10-17 13:53:00 Keshawn Sewell [facility] CT BRAIN WITH & WITHOUT 2020-10-16 17:07:00 Ewa Bhakta [facility] CONTRAST [facility] CT ABDOMEN/PELVIS WITH 2020-10-15 17:47:00 Ewa Bhakta [facility] CONTRAST [facility] SARS-COV2/RT-PCR ([facility] & 2020-10-15 16:44:00 Derek Souza [facility] - REF LABS) [facility] 2D ECHO W/ DOPPLER 2020-10-15 14:23:00 Ewa Bhakta [facility] (CW/PW/COLOR) [facility] BASIC METABOLIC PANEL 2020-10-15 05:21:00 Neyda Ravi [facility] (7) [facility] HEPATIC FUNCTION PANEL 2020-10-15 05:21:00 [facility]EM[facility]C 2020-10-15 05:21:00 [facility] MAGNESIUM 2020-10-15 05:21:00 Neyda Ravi [facility] PHOSPHORUS 2020-10-15 05:21:00 [facility] CBC W/PLT COUNT & AUTO 2020-10-15 05:21:00 Neyda Ravi [facility] PROTHROMBIN TIME/INR 2020-10-15 05:20:00 Neyda Ravi [facility] ECG 12-LEAD 2020-10-15 04:48:55 [facility] CHEST 1 VIEW 2020-10-15 04:22:00 Neyda Ravi [facility]/BEDSIDE Medical Center PERMANENT LAB REPORT - 2020-10-15 00:00:00 Provider, Default [facility] SCAN Scanning [facility] Plan of Care Planned Activity Planned Date Details Comments Source Future Scheduled 2021-05-[address] [facility] - Test 00:00:00 (Season Ended) [code Medical Center = INFLUENZA VACCINE (Season Ended)] Future Scheduled 2012 SHINGLES VACCINES ([address] [facility] - Test 00:00:00 of 2) [code = Medical Center SHINGLES VACCINES (1 of 2)] Future Scheduled [address] [facility] Test 00:00:00 (procedure) [code = [facility] 80900501] Future Scheduled [address] [facility] Test 00:00:00 malignant neoplasm Medical C enter of cervix (procedure) [code = 135469702] Future Scheduled 1981 DTAP/TDAP/TD [facility] 00:[facility]:00 VACCINES (1 - Tdap) [facility] [code = DTAP/TDAP/TD VACCINES (1 - Tdap)] Future Scheduled [address] [facility] - Test 00:00:00 SCREENING [code = [facility] nt HEPATITIS C SCREENING] Future Scheduled [address] [facility] - Test 00:00:00 malignant neoplasm Medical C enter of breast (procedure) [code = 545762940] Future Scheduled [address] [facility] - Test 00:00:00 malignant neoplasm Medical C enter of colon (procedure) [code = 969088654] Encounters Start End Encounter Admission Attending Care Care Encounter Source Date/Time Date/Time Type Type Clinicians Facility Department ID 2020-12-04 Outpatient SYSTEM, [facility] [id number] 21:57:16 PROVIDER Aniket solo floyd 2020-11-06 2020-11-06 Office RHIANNON Sewell [id number] 14:12:20 16:46:04 Visit Keshawn AMBULATOR [id number] Y [id number] Results Test Description Test Time Test Comments Results Result Comments Source Tissue Exam 2020-12-02 11:53:00 Test Item Value Reference Range Interpretation Comme nts Case Report (test code = 104) Surgical Pathology Report Case: [id number] Authorizing Provider: Keshawn Sewell MD Collected: 10/17/2020 03:40 PM Ordering Location: [facility] Received: 10/17/2020 03:48 PM PERIOPERATIVE SERVICES Pathologist: Pauly Quick MD Specimens: A) - Pleura, Right Corinal Pleura B) - Pleura, Right Corinal Pluera ADDENDUM 3 (test code = 3383) f4fobMPdCDZuxEN8TaJaAHMat3kvp1TskXDqn GF xCTfavQTopzDfew37qZK3yB25AA4fINDtHtF1GP CrrjV0Wru6MOWzSQUbxSQsF927j9qkm8frbkTun KA2bBjsZCInCZXkLIegZCKaJgLqLHaxjaVoINNf wvU3vJZkipAim2U3ZXWdlO8dxsSfh5D8NRIkZIy 5zM5jKXwfpzTeaHr0rcavdEWfFa2qlTTbBNK5NL 6ji0luzk7itLEaYBvcBc8hSETdrhpnsr9eGOIyg lxwYXIgUkVTVUxUUzpccGFyXHBhciBNRVQgRXhv vtQrYIJYWHvapCkcseWUlcLfcYFaxsGfFQ2alLF CNYTtC0LuGN6ctIUeQNICM4l3LJJtoDZpDVHjLc i7OFNuFr35CHHcuPHehRHfLvlbSODjBzRETRw7M BJpvWHkNCShJqm4LFJpHk44CIFmgUMjnYNrIqvw FWDjKaKTWxIjxLAuMTXaAqg5XMTiaNTgFG7meNQ ISSHpN5RvAR0qxVSjIY5DXqewLIQaAbe5LJAsbF FrGITgRkVEf7VgTNF6RTV1GBPiLRFftlOPXGZGI 1y6BIQszDKlLMVkOhm3VXDlQt57EJXapZLzkNVs SdmyFWSrRlJDWOLdEom9FNKdoNHxQILdNkLBl9N pTYC8KCA0MPElERJuvfIXP2PzGDPnDdb0QPVhbI ZmEBQzXjZTx4ZgZJM2MZU2ZJWiBBJazjcdYCJeM ZuaTNPeVSPbQGUgmYUuH2ukHCNbU5KvtnJjQQZa mX0qcDMci7DcZiLvjWwdytFlNYCmnHiqOkOixHJ yfQ== ADDENDUM 2 (test code = 3382) j7keyPKmMTSocQQ5MyKkAWFtt3pza9LnuHIyd GF nYPbukPBjujEzrq56kQM3hB16NQ8fYTDuAgS5UC FvzpU6Dfz3ASQbBNWodYJbO835t4snd0avhvHxm XV4iSvcSDBkJPMaRMfhVHEpOqSaMJinpzSwILAz ptA0wBGnrmVbFPovFtQyu6K1UUVuaL8narVrx9S 8SPXmp0RogOKpb9LhEDKsrKFpf46kmIG1ZGD2op AgDCDiu8XvAXRxVMPcZsHmU6Ehe26wF9ZvVVEnv 5SpjO5ciNSpXfKofWFjBTTlnxSFJADJBMD6IKeb YTHkmVNyAPBRRrBwCWR5GFBgx63qLMWlisYTY0J VUJF1h78rGUztROBpPVTfYWQhEEVbYb32SRQyoY FldZElEKZawvTJW7PAORA4y08rSQyhAKLdZOBdK OEdZAJqUg01FCRgmLVptGLfIHMxghXMC2WROQW8 m65xWqKuEEs2HF7jIHSuWPFuJMIsZL4gzEVJAAX bI1DdQRquJLJjJTzSYxMJgE7cIIPvHJ82zPAoEX 86gIZ9nS0vqjGtMDBpHZUfZFUxSPBWv2XgJGS3D OB8MZDqlTRoCVWQOpHbOJntzrGsTDMlTKVjLBKx ICAgICAgICAgICAgICAgICAgICAgIERFVEVDVEV JRBOlAPQqVOIjBEaeTFWdkCGdINDIArPuP1EhUE OLKESyafIoB3YpYB56HwRDf9VoWFK6TLS3RJWxI H4qB9G7aFSoPGilIOXsNdLEMdFVnVSiuFrtepse ZAOsOCBfYDMoHZZxDMQmBAByAXOhAQ8prFMDSJK mE6JeQOoxNFIsQPiAAIXyGKSxFV5rDL6sloU1MW CvHGYgGPPpBGDvUGLRo7TvRVJ5UFZ0WFBhoXXrD WTtorkaTPAfESNmFRQrWURwBONvQCS7KFJaSOXw t1Usmj7hFUIyTQIztkWmGw5yGNB2qqYcTOCaEUB 0YScnqc5cWPFtka8= ADDENDUM (test code = 3381) w2kctPGoEBAiyBZ6CyJvPOQft2asr2KsuLSixRH bMKljzZYdddYjfg64jOH2aE01MS3bDSKlArI4KE HpooN5Ofj9CSLySTWxwUTvF527k9hbc7yjjhDju AX0iIdiISWqZUVrJLejCRUxDwIaCOonyoPdXZKu jeL5uWDerrPtXUfxKaQfa1X4GTEnaP5bpmIwk9V 8ZBEja4CpnRIbb5ZzUXYNYKSffZ2mwO6nh2DhcV 1crOWrGo3ytTRoVNX5QC3vc6jiwx2xqAFwXRagH u8hGDDxwighnz2nhUNeZJEkfkKYQLEMFRQ7ADzr dMShm9C6QDdjRLNwbhLEKUblOJSpSkMFGmAfcT5 uYDd5ABmSD9tpEUeLHwXSD0sCEwFohOTkOME2kE 7uJABds0TdefBxv80oL7IvwdV3XZMuMSEwhTIcI VtwvSHvm0k9cMpeDidxNNLxeesjDZRtMKdrAIOe LVSuLNWrbKHzZ7owVGTxQ4GzwdHhVJBcwN7fsQG nc2HhGeEdnNfhzhXqIZVnnYwaOffnAGG7 DIAGNOSIS (test code = 3220) x7werZTiELWwm2sdXLTutQNzVtOcYqUjFpEuRh p cdWMxIHtccnRmMVxlcGljOTIwMFxhbnNpXHNwbH DgP2SggqrfHCuuDI9fPT0ctLcgfWZtsQDuAIUzW gVhj7wde668iMTfu8unXMKEvqitzTl8iEleS67w f6Q2SnnrH95toMBxXQrijBAhtkoxfsSuQZJmCWU IYJSBJPvaIpqUMFTtL3XMIT1FONkpKBrVIDNMV2 48LLOdiuBfBHNcZJALUp4SLTVDVV9RKYWdR4HSS 3ANUUbLVXFDLpYNBD0IEMKLON4JWkroLJCBZARS H85UXR4UYQksDGBilJXiPXPsESPAZWAXYUidGgj BVCQrH9LLUE9WBJkhYSrYZCXWS425QZNiicIvLD TxUHSKGf0FBRAJCC5YTCDaD6SAV0MIDLtLYBHFM hXmOOSKCuFWOneNWHLXEBbFZJUgX62VLSZWPZne zGHkwMudfsDdVVcov8CeKZtjGZQvTB1jmGbeKVQ pXM4oGAHwU3mczE7wvyb4LtGyCONuTfK4DXMbqt S7Ioq6LPGtCRjjz2afs1RvFDCpIQi8oEedJrZpN SGej7ftzfCsHjHxLOLnAHWtVBSooTXhN355l9hx l3jvusBylJB6OSUhDCL3JAcskvCvznS7DKjwqWM nAiE7WTohisZvDYbwgoJvbwYmQxi2UVNwT096OM L4dTgwu4wrGDJ5QINmBFYqMwZbQo9ekTVjM004K QKvURFNMKVwnCd3POTshjVaglVufRRMg403K039 g1alKUMeuoZdgSbQqxxop4rdN716SADnmJWzwlU iTvSlZLJaaFPxkVJ3KJZkIP0houuuUAnaPQqtVA NnogB0ZSTopMWmF4PgGPEeMS7bcsteOAD8BPmjR IGwQSV7OwMnJQZnq3Hrznb7YcBlwt6xde09NAN8 b2BqgXhlNZN2NRX8PmPdJi7jeTRpHFTfTU4vJvT ddIFlIODleh94nCqvVLxrPPB1DWBvghArf5Yfp8 arUwKuohYzM3viY4KbNGKiREPwCNIuLoGpliUgh 0Rdp6JqvTJabGy2x0feVIXrNZPrnKbzo9pwIHE1 XRKukJTxW0ppbZ1zOTPwLO1znfccp8blNFjeCNe xHXUpgIZ7pgP6JFJcvRGuH9NzkU3lZAMpELawFW Ylmai8NjCmCr1frRQntJslXYmyYqhbBZxnLWAoq mNvbnRccGduZGVjXHBsYWluXHBsYWluXGYwXGZz MjRccWxcbGFuZzEwMzNcaGljaFxmMVxkYmNoXGY oFMtsZ5lsTrOkJwUwDxr0ZKPblZIdKFQqKox4CQ YmdTRrIMFDzUiyjS2vXPJycYrflZ1ewPB1ERPtb sEdcCFRgQ6tGBBCwJ0hAbY3IaLzSiM0HOs3UgOc cGFyfX0= COMMENT (test code = 3359) n5gdmTSdMABysCS8DlMmUJTnw9xbf5RbjHCheGU iJDmesVRjfmTzom58wJI8pK09KT1rBWWsWbP0LB FwbvX2Mex1AAIfWWHqtMMfW658m3eoe1wrfwUdo IT2vCekTXWvQNGpLYreVINwXbRwR5wjjtqdNTsq Q72amoCvTWNyb60klYHudbFvu04zMT8bSVXyPAR hcn0= CPT Code(s) (test code = 3357) b7ciiNFiNTVnaSQ7KgNrMHBsc1vlk2DrlERo cGF vLGspnJUlmuUqvc40iDY0zN32GN5mSHFhNmA7OH EttbX3Twl4TUDaIKGyoAFxL333y7kfd4foqhQpv RL9kYadBXHgVNHcEImnZHJnZbIjYTogRPKqITPs EXD0IIRpEDkiXYiyUDLdSQy9QuMoLTsuGLoqYCz zMTNccGFyfQ== CLINICAL HISTORY (test code = 3356) p8sfnVFlUVTwbEG4ZzCyXDEql6tco2I sdHBncGF hKKagvXAoblOaxr19iVL7uR96RK7zTWAyUlU2NQ HhpxS8Jqo7VPJtFWEncIDaU219j0igb7tofrXkm WB1pMgrUSIuRHZzFMfzTHVbKwUsDNIvk8UkRSyq T17fs1gbDrJoOTlsqWSgTMIyUcVnuR5oJQYsds2 = SPECIMEN SOURCE (test code = 3377) l4yzvUApFEObyQC3PfSvYTRun7cgw9Ri dHBncGF aPZfzoQMrlkGdho95jQP7gS50CM7jTXNkExR9CK BqelJ0Rte9GEUhNWQylXNuC746w0qzg9qowtYfl XH9bItxXEDeWSRkHHccXPLtWkOfVA4dWTebfHKa HmVKKrZRqFE1yzHnsUDaqT== GROSS DESCRIPTION (test code = 3366) w1ktcNYdMKNehTJ0UfWfQVPwg5xgt7 BsdHBncGF sOVujjVQsjeRvcm52qTK8aN41SP1uCDKwDpC0AU QrkvI7Anb1JZZzXJQelBIbT469e1men9wgajFcu ZP9hSnlEEZpHIJuUUxdROEjHeGrHL9mNoBuVXu6 AFDxPbUvz2xoIc3cKJbvcRGhh8PgjaR6bPTvUOK obbW0aRKbwRwulpLfvqEkkRahGFZpfh9coN9xQZ OoBcCppAcrz1DqSNLtFSesRW78th9pYTroSAVmg yX7IL4xAKU8ikJbTIWySyC3QPFcHCE7WIRiWmGb sE1jKQboUFTdZ37kAUMjHWKdlSFfhfSvQhubcRU cFzEjfDXeZoGbQ30xKRGqnE95S9zhdTKqnUNzmb HnNYJlg1GjAXIzo5y8rSE2aMZgaIVvH1LpQDCqy oYai89qq1Zkj78fsKS2lTOryFWwINRzYWHweLFj mO0cxpYjlqPsdbBtdwClwHAqfPZaqLM9ONGkb9u 5xZXwf57pXXEgdpRmx86aXL2nOBArJkHtiSwhj7 QcXDBykjOurg79NX1tk6KvsAncsbGeboTwdZQ7x D2cHTHvRWJbFIR1Cc1muMYnQLPzd8NwlKCiwNAv HD01TCGmN9Jij76lxE5eZhBASV1vAC3KT3KbMAJ fcrigKNZoNs7dByThQHi2WRUkvY9yIt3zxGLilN 1riHLhOGwlVWP7fZRaIDRkPFLtZGUbQW05A1Str jHuASkkCECeLCDnxL7dIB52jGUposRzuqKdqZHe aWNhbCByZWNvcmQgbnVtYmVyIGFuZCAicGxldXJ nLiFhgxPrfvsePHF6VK9ew5limPXxe19hcLX6bT OubDKmIpXoV39udgMaOXAicepfcidbzY5wb7p8P JWmpr0sFQOhGyV9iiIcQsSqN35qnA7sHJeigbUt SJPfWuBFrDDbwMN0KCYuNW38hYLkvKmbvS1zE6L zh7B4uNEcUsRlxQkgj6DryDZZHe4wFT0AN4FrFI Bhcn0= INTRAOPERATIVE CONSULTATION (test code = m1eqnKYtPWBls US6KlMuPSWnp7jjz5CvnTBzfJS 3369) iLQolnAYajlScfc83dVT9dJ16JW3tWQRzXiH0KC IqirP5Yeb6SJZnPMCyhUPdR378u4oxg4vjgaKle NR6uIrgYGErAAMzQZnfHVMpCwVkWdYUKdSBCSIW K1AWB05rARzUM56ZB2jYRwSfpXZsYIEGHJKzEGJ UOEZNOChvAswNDCScYKRHX2RTNGcpiKQzZGQmXZ 2pLKJPZZzJQD4IOV0MZ1ZVHSFHPwYFYU5BBGFPS A4ILN0IRLHOQIxZHU9KHHrtQ9KSUOsGUr9tAKBM JIoDDT3VJQgbQCSNUXIOWMulLmUXODLGNWPCTRS hhaAfMYJdNYRvEMVCW4NoQNRMCLFSAZ4ATrtdHC AnoLFaPKXvkYXsv8IvDFOidR2ajSIsFUE2QENsF lGRhTUlgJ9vF9OAFb92GUB2OGC5HPNuwD9jAzDj lxJRLEOzTAflFtMeAF3kQZMbyj3= MICROSCOPIC DESCRIPTION (test code = u9ajsZQlLPXalOI0KeAnRUEsm9xbe7 BsdHBncGF 3371) aQQnncPRnviEpnd73tVZ3fZ29XD1mIMAeQzY3NO AbakX4Hpj3YSVuQMNzbMQaW919j4pwp0oraiUty ZZ6sHczDGLvSQTmXAyaRQDdDaJiPWOlYs5ldKQf LlxwYXJ9 SPECIAL STUDIES (test code = 3376) e4mpwBAgLGAltGW9MbGhACFin2lkc4Bi dHBncGF dFGmgqMMiqzNobn04yFY1jE49DW2tJKAwWuW3QG YdppQ2Maq0USSmNRLcmSSqU578SCUnVSEirZuhu hx7fP16GHOviG4heWQvPVc8NYTgvlLrnIsyrA0t UnJfNnBgOrUWtKTprP68ZDAnghW1QMOad81xt6I iuUzissPtFWThEWrgF4r4TTStPGXoGFA1c9Fkr7 PocS3hvC1sqEmbnT9jgUMomBF0snecz6Udf0JcW 2lhbCBzdGFpbnMuXHBhciBXdDEtbmVnYXRpdmVc rFJqOUIryDEdbOkdeF4gylXqOTDtcvJzwHPjXPP sLQXfFEWvCBhawRp5AQujDKSdXT8CGfIgqD3iqM FaesSqzEBdJHUOOeOcIBSss6x5oURaNNVqvXHks FAnXFIeimVgOJLzgQHtmo2zncK4RHLsb1g3oZLo NBEppeVPx395uw0qKQBhrIPjchLJiQVyxL1oQMm aOVtvVOcanLNpJOcca4rkQNGpx1q9hZSpPBXtkh Uid9rqNExmwsVwJPUnjMDboFIsVABfs89hGXeog WusrTpoWHThu2VmnLfxy7MgPwMiEMxyh7JuF65a aBUduUUcrRahHBHkatKbERKqp68lo4onLTQmOfM 8bEKwuKR1aQTqqRGya3HfmSunUDVin6kfJGEjiy 6vwswntXGbo9QajD3xsadvNNyqvLSuzfWuSBAuh 0b0oSFnHOXaWAGdTUxuvLi8QYJzd582nt7qtuM7 iUCzJFG4PUiwKSEvPNNxohTzPOGcwQHptPMgVXJ pghWnJWIdnvXLaC68eb2ibJV8d3TeFS1wn4OkoX U7BSKtjkjaTQramFCfiZumYnF1VKUoqDMoPj3hl YFrEIW3YGCilMokmiQSoA9tJBDsFBv1MNLnIbJu OjaneoMCVOGlO7DfXQUjbqActsrbLLW1jO9rj4c 5JXkeDl5mLUIhdrovs6axdtSyxDFod5QcZLGihv Etu0KfYOJnooNxmOYsRVAdvpAvoc1kpxAzNMPdN HWnN2WeonqwjLjubvJ0DNKxSACljGVulHwiCPYs EIk6DLvbptLhk8ZvYbTrmyDbfPPazqSzTI6fXQU rxYNehuBsOKM5KWWyPVFUYzKfNCTxj1UtYB9eMH GuzLuyETSkvB1rl0FaLNCdx38bZXTkGACJGRUda GFzIGRldGVybWluZWQgdGhhdCBzdWNoIGNsZWFy RW2lPHCzvnDkjENjh9RxgQZzukUam2ReywIhUYG zAEQ4NySUdKFofFWicYTccvR0p4YwRGOpglNhqG otvLOlgCZyjRNdq4Yygx4vGVLfs1htgAdfOR3mq BGtMHYeIMmzdtBmWWOzxuYyanMbi1DnL1X5wW5q CFryb4QuKj3eQMAkt9QrmpAaLyKZzRmyXPajSz5 bTULjloipqJVjM4XpbPvfbXFoVHFgYNRxDJNvJO YViSpzyWUucFWKIJQebvX7x4V6DTtldCVrxwXuH M52TFVhDQ9vaXYkyRYtv2BsUDc3EGRkZ2aSIY21 RUtvUAUznGQjnPteaTYtMOXyBOCbtbKsij9neUb gpKGhp72hmLJ6rEB9PUJqqU2yC9OnKEyxOq9sMP ZyjcwewCEplMkcBt9kvYWbdC== Gross assessment was performed at (test [facility] enter, code = 2777) Department of Pathology, [address] [place] [address], Technical component was performed at [facility] er, (test code = 2778) Department of Pathology, [address] [place] [id number], Professional component was performed at [facility] enter, (test code = 2779) Department of Pathology, [address] [place] [address], [id number] 11:53:00Surgical Pathology Report Case: [id number] Authorizing Provider: Keshawn Sewell MD Collected: 10/17/2020 03:40 PM Ordering Location: [facility] Received: 10/17/2020 03:48 PM PERIOPERATIVE SERVICES Pathologist: Pauly Quick MD Specimens: A) - Pleura, Right Corinal Pleura B) -Pleura, Right Corinal Pluera This addendum is issued to report additional results, performed at [facility]. RESULTS:MET Exon 14 DeletionAnalysis Not Detected.ALK Not Detected.NRG1 Not Detected.NTRK1 Not Detected.NTRK2 Not Detected.NTRK3 Not Detected.RET Not Detected.ROS1 Not Detected.Please see attached scanned report for further details. Addendum electronically signed by Pauly Quick MD on 12/02/2020 at 11:53 AMThis addendum is being issued to report results of additional tests performed at [facility]. RESULT: EGFR Mutation EGFR Exon 18 Not DetectedEGFR Exon 19 Not DetectedEGFR Exon 20 T790M Not DetectedEGFR Exon 20 Other Mutations Not DetectedEGFR Exon 21 DETECTED ROS1 Gene Rearrangement: Not Detected (Negative)BRAF Mutation; Not DetectedALK Rearrangement: Not DetectedPlease see attached scanned report for further details. Addendum electronically signed by Pauly Quick MD on 11/17/2020 at 1:59 PMThis addendum is being issued to report results of PDL-1 immunostain performed at [facility].RESULT: Immunostain for PDL-1 (22C3 clone): HIGH EXPRESSION Tumor ProportionScore: 50% Intensity: 2+ Please see attached scanned report for further details.Addendum electronically signed by Pauly Quick MD on 11/13/2020 at 12:22 PMA. PLEURA, RIGHT CARINAL, EXCISION:- ADENOCARCINOMA SUGGESTIVE OF LUNG PRIMARY (SEE COMMENT)B. PLEURA, RIGHT CARINAL, EXCISION:- ADENOCARCINOMA SUG GESTIVE OF LUNG PRIMARY (SEE COMMENT) Signing Pathologist Direct Phone Line: [phone] signed by Hannah Mendoza MD on 10/25/2020 at 3:09 PMClinical correlation is recommended.43396 X 2, 05775, 36123, 73025 X 4, [id number] diagnosis: Pleura effusionA. Pleura; B. PleuraA. Received fresh for intraoperative consultation are two canas-pink soft tissue fragments. The first measures 1.3 x 0.5 x 0.3 cm. The second measures 0.8 x 0.4 x 0.2 cm. A touch prep is performed with the larger portion of soft tissue. The specimen is entirely submitted with bone [...] DIAGNOSIS: FSA1. PLEURA, RIGHT, BIOPSY: - MALIGNANT NEOPLA SM; FINAL PENDING ADDITIONAL STUDIES. ADDITIONAL MATERIAL REQUESTED FOR PERMANENT.This was reported by Dr. Mendoza to [facility] at 4:05 p.m. on Oct 17, 2020. Performed.The interpretation of this case included the use of immunohistochemistry or special stains.Yj8-kkydrkmbFhcvgjkgvb-unippmxxK6-40- cdgjqdyzXHZ34-htfkrteuMEB0- Positive, diffuse Mucicarmine: positiveControl Slides Examined: In-house known positive controls were evaluated along with the test tissue. These control slides run alongside of the patients sample show appropriate staining. Internal positive and negative controls when available are evaluated Immunohistochemistry technical testing was performed at [facility], Pathology Laboratory where it was developed and its performance characteristics were determined. It has not been cleared or approved by the U.S. Food and Drug Administration. The FDA has determined that such clearance or approval is not necessary. The test is used for clinical purposes. It shouldnot be regarded as investigational or for research. This laboratory is certified under the Clinical Laboratory Improvement Amendments of 1988 (CLIA-88) as qualified to perform high complexity clinical laboratory testing.[facility], Department of Pathology, [address] [place] [address], [facility], [address] [place] [address], Ncvbqf[facility], Department of Pathology, [address] [place] [address], [id number] 11:55:00 Test Item Value Reference Range Interpretation Comments Case Report (test code Medical Cytology = 104) Report Case: [id number] Authorizing Provider: Keshawn Sewell MD Collected: 10/17/2020 03:36 PM Ordering Location: [address] Received: 10/20/2020 11:27 AM Service Pathologist: Kevon Ott MD Specimen: Pleural, Right DIAGNOSIS (test code = b0xdrWFtMRZiiOW1LpHeVM 3220) Nzp0jxu2WxgIMitXNmXByt oGBasfFqtn60qKJ2iR05DL 4eFANhOzF1KSGawxV4Omd6 PKHmZAMwqBTzQ703u1nyu4 egxkKgeUA8mRjmVMLjNCXz YWluXGZzMjAgUklHSFQgUE rJXFGFNSYDCHPDXEPwO4nU U8WTYX8LCASTASPAQAxHRK QPU5TMEFobwAvnEMWiJAHl CRLRE2iDAXTTESPBItFVIR fPP85NAtKVRZZwvuHlUAIb UDTAI9EEIZZXTIYZDSGJMs PVWUFILTHBXEETF8CPCqZS Ck3JYYkbJN5TKPJNS02HXQ RJQkxFIFdJVEggTFVORyBB BEGFQ6CPGyRKYl0IJQzuDB MbZrHvMvp6RPNzvUXkGXQt Pvv4QIGzzXEjWMDHwRhjpY 8fMHThwLjbsP4bcFN7SGVb awOsyMESmI1aHWJIoC6rJa Z5OkJbIvE9ZBE7FGAxqGYc fQ== COMMENT (test code = h5itkJNhZJTwaXP0ReIoQW 6180) Muc5jlu3AfmYJcgWRwYAjp dUKetlVsge15fSR8pG38AR 0nIOZsAbM5RMYaspJ4Pyq6 ZDEwZIXqpMDxU523q6geu8 axlcKbvLU9yIqqJFBpPJZb YWluXGZzMjAgVGhlIGltbX Cqx3Tne8BqpKUdf1OrA2Cj wYZyVOWhay1tMIHwxN7efQ X2QUUxytEJC8XMSLgXPKPs kAZickhrGfxeQNSAEr3wSQ GKN2BxZbOpcYCyZE4SF3SX KIDPUYD9GEfqgU6pCiIrM0 NuvwB3oH4hksilZ3IYILLr VWLSChmmT1KHZqOqKJSOQL 49CMGJHQSwDMruR0OKYXQd YCqNKJOqPOJ1ULshCtFqz7 luIEEuXHBhciBUaGUgTXVj qKGdqg9pifKha1OeiF2eiY FvjjFcQRZchbVpuT6riLyf SKJ7nT4qHKXzcNwjIzBiHI YgmtPHbTUdu6Xit8SzFHX3 eokpK3HjZNZmgCoshD9xeT UgTELnBHXvKW3iFURfWWNh cn0= CPT Code(s) (test code e3araJKnVXOshNX9HmZtOS = 3357) Hbu8dvo2EvyFFalQUhELuh dKZvepXjud66kWD4wO52YM 1jPQXpXgU0OGJjjqQ2Bsv9 XOWaNHWocNGrD198y5ano6 odnlKahCW5zSuvFHVdMNKr YWluXGZzMjAgODgxMDgsID k3KxT2FZS7AYZ1JbmoHOmo NDEgeCAxMSwgODgzMTNccG FyfQ== CLINICAL DATA (test y2rsfKLoRARdhAM1NbLxLU code = 3355) Jsc8jeg8UklJIqtHBcHPph mIQnurOxbl48tJJ3pK66YW 5aQVSiRyQ8KMXxohU7Fbl1 KEPkURFzzQWeU962h0oeg3 zdxqQtnPA8nLlsVCPyDTSu YWluXGZzMjAgUmlnaHQgcG qsrWMrtLBmZaK2w7pbhpdj cHJldmlvdXMgcGxldXJhbC ImbIUzHTHljSJbmA8wxVVk rL38VIZikWCwlQxrNX29VT ZvbZzfHGLyp81vxRJ8DP11 WDgehQxoaSM0JTV1HCXyId SwKZBosU7ypCUcKXLtgx2= SPECIMEN SOURCE (test l9xadYInJROzlVY5YnQdIK code = 3377) Osm1bro1YulALvdFYfIGib oGNrxvWqsh87iBR8qJ60JK 8iZQPeKdC9TFZzfpL0Oxj3 LZVvHQPbkGDxY165i4vle5 nvfsFkpFH0oCzaXLHmZHWm YWluXGZzMjAgUklHSFQgUE xFVVJBTCBGTFVJRFxwYXJ9 GROSS DESCRIPTION (test u4fsrBCsNRQvpYF6OtPeHW code = 3366) Gfm3jwx0RanMNgrZWhHZyr bABwtwYrdv97wNV7qW35PJ 5jFOSgFjC0ADHdobQ1Wpq3 CKDvOZDfdGRsY995h4acc5 rthnImzUY3rXyaVKTaCJNr YWluXGZzMjAgMjQwMCBtbH DoAaVif15lYiz4eFW0UKMf C5d9m3QhbZ7pOUXkMEzgMN Qrc6PqRAqEQoueVFGonPwl ZGlvbiBiYWcpXHBhcn0= MICROSCOPIC DESCRIPTION o3rdyRBqSACfhRC1LnIfME (test code = 3371) Jqq3smj6ViuSLjtMZaOSxn bXZwdtTwzo57eLI5hC92UG 9bBOJkCuQ0PVLiwwI3Heu1 LKHeVBEbbLBlT693v7kpu5 uxreKcnFL3oXciIWIaBGGc JZwaBMGzCvGyWGQtNl0etZ VkLiBccGFyfQ== STATEMENT OF ADEQUACY Satisfactory (test code = 2757) SPECIAL STUDIES (test k1treTIcLBBnd1weOSPodA code = 3376) FuZzEwMzNcZnRuYmpcdWMx HGimmaQfIRqwe6AtJ0XtYb AwMFxhbnNpXGRlZmxhbmcx QDHlMGN7veCiLNCkOGznWF UsIVcbAr7bjGWguGeoQbRb XNKtj5hpghCGynijoJq1h7 ypLRQiVrD7tWIeFJosN5bo naDrcHYiM1HfaITmuFx6o1 zaDnEvDtR7eKFuICgfB1sn pnHaaWDdWZMsMAz9iH15PT GrqX8xgEIaCJmrwhOuMtQ4 MSqvEKGmAvE3TITnzQJiXE UyW9uzTCZaYZhhCKQlAMbe nQFhKDC7kZkoe3X4xLFhkZ OjiMfuQnHeCtGcIlBSr9Od VLr0jKoxO9LqVWTbUnD9gX QgUGFyYWdyYXBoIEZvbnQ7 kEyxkzOvm71cvIZyLUXkXZ ScLvByzTwkIUDmVJDOe1Sz cEgkJBL5cYz1yPdcYzizQB M5Cuh5ZI5nik71wga9oToi OULsexbpXjV8QFnzEVVlby gqDRz7GLueSAKsyHX4BUWi zWWbD9JsTQCmKL2hoiv9OX X4REhoJNCzPzI2XSImwBNv JZJezCjmHYjqg288IFF6Ns UeAX7oC6Mba9F1dD0jfBHk VNYzwIVzWzGyEMMsql3dyL AlTSqpi0OoFWA8txO0oNSv oJWaNLFlAV40Bkvmo2KpAj pjv0KlM07cjCO5MIbsd7qe ET3zTpU5tqOcIVruq4rloB 9pWiU6EVysWR2vCM1rZTEm eK7rpjifABCjTcEcfvyqWN NixQjppcVeHa7dvFkwIJS2 AGrdG8zwkV6sSeQ9AMlzT9 drpT9aLBi9JItmwNP2XWRy wL5xOH2xilckk3mgZKfkVR upGCJzdnS8ntJ2GPTytXUv K8MtqX5iXHXmUJ0bguxgr1 bpBWX4LKiaRECvSYG2AhYg RNVrn8Atlao8ZaBaj1LrqS RvVCunH97uq183OADmccFz P6raaUIvbfaczYVqyhfjZW mscwS8BXZoUSSuJJblLQTi XGZzMjJcbGFuZzEwMzNcaG ljaFxmMVxkYmNoXGYxXGxv Y8zwDrHpH6NsVQHjJuWjJF epJPpiyREucPLtyAV7tX8m RF9lONUbvUYaS6CtHIThtb UbyMIyYJJ9wQZniWLcGX9a CYnlhJQji2jlm4KvV1smcV jzxFF2BF0jXOBtFOYmHWdb e3BkkM7vNfgexBVlbjecUH xmczIyXGxhbmcxMDMzXGhp T7vlPfEpJEEthIilAKwfd1 NoXGYxXGNmMlxmczIyXGx0 cmNoXHBhclxwYXJccGxhaW 9aAyVmGgFoBctzUR7mNUVw T2nopCXoBVFuAGWpS2iiIu KsjE0uoVomKCrfHqHbEbVm WyAAu984cr7kIRAvtVXnve UJnAKgdJ6dEEouGAdrQWbt yKIgJUjag1uzXDPtj4u9hV KoIJGzkhIkw5dpCDarxgJx AHZsaLAezXGqIOAio89uEJ hffPsiwSuaSNAeg8VomLvg q6SrGgBcYNgko6ZlL87hjR JvbCBzbGlkZXMgcnVuIGFs d80qt2elGWJpUwH7cIDwgW Q7xSEceKMtv0EbgLcgNDDj x9gySDTyza3bwkumgRDaz7 EytU8ccbzxYNokvEMicvPg FNMwi6r2zKFoHDHcKOViIA nooHh6CNRgv095cz8nsuB4 iNHdNCD7WQviEVVpDACxft UgZXZhbHVhdGVkXHBsYWlu XGYxXGZzMjJcbGFuZzEwMz NcaGljaFxmMVxkYmNoXGYx RVfcV8mtDhWoT7ZgZQYpHa TsuVZrT9rylEXxPDOqZLkf XGYxXGZzMjJcbGFuZzEwMz NcaGljaFxmMVxkYmNoXGYx PKkkS8rtEdLcU1OeSSLaAf IgIFxwbGFpblxmMVxmczIy GMddtkjcSWJdLVpwU5tfBi ZgYFKssNrdETyvm6CdFKSd QEUuHzldezEtNDn2voZdYY BhclxwbGFpblxmMVxmczIy ETprnzovWXCbQYztM0kfIt HjZNBcxYfaWEnmd9RoNRWj XGNmMlxmczIyIEltbXVub2 uqs1MtQ0xuvBqotZT5JRHs Z0fvhDDheUZ2NIE9lI1xIP aezcOxWCHkk8HyXGOoOIPl CeV4xW4dNCU8HwPJoVecKI BsYWluXGYxXGZzMjJcbGFu ZzEwMzNcaGljaFxmMVxkYm AcNIGuRKjaF2qwQsZhU9Vv AAGbIfBssDxmGUreFUv5Iv xwbGFpblxmMVxmczIyXGxh vhcdEFImNWbdE6ctQrNxOJ OnxEfpSVxmi1JjXUThLMAy MlxmczIyIHMgTWVkaWNhbC JVLR86CJZhTYSxjEurxU8m pFLFDGKmloX6r1O7YBcsJZ YlFHc3WNyowbQwWBRszA2t UBXtMU4xNKi5eqCgVLOoj2 LnPN6fHCObpRJoZAS2LYBh y1NoM6Fdg1LyOMCaMSHime 9vowHwUjWFjATwPIBuhr96 USKhZL4pD9mpHMOmBNOqrx XiqEGea3CrVLTldET9cEQs JS8MLbZOv90yLOYaMOFMoo BwWYPtoFqezMP2hzI1nC0d LiBUaGUgRkRBIGhhcyBkZX Saek3xdyGqFHYkBBIrz6Pg hPXfzOZfvxCpK2Wqu8LkZM Wktd99FSeloJYyji76CE4p Z6Mem2EweB6pIQfrMFVfo4 WbqAYcdEXlUVLyc4JnP1uv yaebSWtodJLeqZ9aAURtBH o2ODPmy1GpEMAsf5SyWgCv mzDaYMZaPXFvWCPcuU82RF M2vKwucUlsepCfAQ9wWSAf quIaXRHjQHPctK5lGVjkdt BeWDDpbhT8x6R1WXliZBFa jzDcWxoySUO5jiMdcxO9dE PtZ6bzyoviTNymWIEjm1Pu xW0orABKzTXfw0DqqPAudO UWwEXyJE8jrsOrZQ6mFCQ1 ODggKENMSUEtODgpIGFzIH X6CJowCfkhABT5jeZkXEUb z9OoCIhyP4uaA78jbXgddT t4lBBriVugrHVzmIXpIPAi joI7h4T0AUBtx5KycekhOT BsYWluXGYyXGZzMjJcbGFu ZzEwMzNcaGljaFxmMlxkYm JvZNEhFTfnO8dcZzJpZbCq TaneRFX8gX== Gross assessment was [facility] performed at ([facility], = 2777) Department of Pathology, [address] [place] [address], Technical component was [facility] performed at ([facility], = 2778) Department of Pathology, [address] [place] [address], Professional component [facility] was performed at ([facility], code = 2779) Department of Pathology, [address] [place] [address], [facility] 11:55:00Medical Cytology Report Case: [id number] Aut horizing Provider: Keshawn Sewell MD Collected: 10/17/2020 03:36 PM Ordering Location: [address] Received: 10/20/2020 11:27 AM Service Pathologist: Kevon Ott MD Specimen: Pleural, Right RIGHT PLEURAL FLUID (CYTOSPINS AND CELL BLOCK): - POSITIVE FOR MALIGNANCY POORLY DIFFERENTIATED ADENOCARCINOMA, MOST COMPATIBLE WITH LUNG ADENOCARCINOMA Signing Pathologist Direct Phone Line: [phone] signed by Kevon Ott MD on 10/23/2020 at 11:55 AMPreliminary result electronically signed by Kevon Ott MD on 10/21/2020 at 1:51 PMThe immunoprofile suggests adenocarcinoma:POSITIVE staining: TTF-1, MOC-31NEGATIVE staining: Calretinin, KAHLIL 3, ER, GCDFP, PAX- 8, S-100, CDX-2, WT-1, p40, Napsin A.The Mucicarmine stain is negative in the tumor cells. Please see surgical pathology case [id number], [id number], 72327, 01237 x 11, 88904Jxdgx pleural effusion, previous pleural fluid cytology showed malignant cells, consistent with metastatic carcinoma RIGHT PLEURAL XRVPI1990 mls brown fluid; 4 cytospins, cell block (A2) (collodion bag)Performed. SatisfactoryThe interpretation of this case included the use of immunohistochemistry or special stains.Control Slides Examined: In-house known positive controls were evaluated along with the test tissue. These control slides run alongside of the patients sample show appropriate staining. Internal positive and negative controls when available are evaluated Immunohistochemistry technical testing was performed at [facility], Pathology Laboratory where it was developed and [...] qualified to perform high complexity clinical laboratory testing.[facility], Department of Pathology, [address] [place] [address], [facility], [facility] of [facility]ology, [address] [place] [address], [facility], [facility] of [facility]ology, [address] [place] [address], JCABZYQD [id number] 13:00:00 Test Item Value Reference Range Interpretation Comments Cytology (test code = See Separate Report 2629) [facility]ST, 1 VIEW, NON [id number] 02:24:00 Reason for exam:->s/p pleurx catheter placementShould this be performed at the bedside?->Yes [facility] 1960 [...] no pneumothoraxor acute bony abnormality. Signed: Parmjit Still Verified Date/Time: 10/18/2020 02:24:00 XR chest 1 view portable / [id number] 02:24:00 Interface, External Ris In - 10/18/2020 [...] Parmjit Still MDReport Verified Date/Time: 10/18/2020 02:24:00 [facility] 2020-10[facility]17 15:01:00 Test Item Value Reference Range Interpretation Comments Ab Scrn (test code = 890-4) NEGATIVE peg ABO Grouping (test code = 2588) AB Rh Factor (test code = 2589) POS [facility] HospitalABORH, [id number] 14:22:00 Test Item Value Reference Range Interpretation Comments ABO Grouping (test code = 2588) AB Rh Factor (test code = 2589) POS [facility] HospitalCT, BRAIN, [id number] 20:23:00Unlisted Reason for Exam - Click Yes [...] to as low as reasonably achievable. COMPARISON: Key Worker images from attempted MRI 10/15/2020 FINDINGS: Intracranial: [...] 20:23:04 CT brain without & with IV [id number] 20:23:00Interface, External Ris In - 10/16/2020 8:25 [...] dose to as low as reasonably achievable. COMPARISON:Key Worker images from attempted MRI 10/15/2020 FINDINGS: Intracranial: [...] Signed: Teressa Espinoza Verified Date/Time: 10/16/2020 20:23:04 [facility] CT, [id number] 08:19:00Unlisted Reason for Exam - Click Yes and Enter Reason Below->YesUnlisted Reason for Exam->preop planningWill this procedure require oral contrast?->No [facility] : 1960 [...] MDReport Verified Date/Time: 10/16/2020 08:19:04 Reading Location: [facility] Diagnostic Imaging Reading Room - [place] [address] CT abdomen/pelvis with IV [id number] 08:19:00Interface, External Ris In - 10/16/2020 8:21 [...] MDReport Verified Date/Time: 10/16/2020 08:19:04 Reading Location: [facility] Diagnostic Imaging Reading Room - [place] [address] [facility]2D Echo W/Doppler(CW/PW/Color)2020-10-16 07:42:56Ejection FractionSLE ECHO HEARTLAB MKCKESSON CPACSInterface, External Ris In - 10/16/2020 7:43 AM CSTTransthoracic Echocardiography Report (TTE) Demographics Patient Name KAYKAY FERRIS Date of Study 10/15/2020 CARLOS Gender Female Visit Number [id number] Race Unknown Room Number 1154 Number Date of 1960 Referring Physician Ewa Bhakta NP Age 60 year(s) [employer] Carol Charles RDCS Interpreting Yasmany Lopez MD Physician Procedure Type [...] TR Velocity: 2.82 m/s TR Gradient: 31.91 mmHgEl Camino HospitalECG 12 lead 2020-10-16 07:12:53Interface, External Ris In - 10/16/2020 7:12 AM CSTVentricular Rate 96 BPMAtrial Rate 96 BPMP-R Interval 124 msQRS Duration 96 msQ-T Interval 360 msQTC Calculation(Bazett) 454 msP [place] 40 degreesR [place] 43 degreesT [place] 77 degreesNormal sinus rhythm with sinus arrhythmiaNormal ECGNo previous ECGs availableConfirmed by MD KODY, YASMANY Reagan ([id number]) on 10/16/2020 7:12:49 [facility] (Asymptomatic ONLY) 2020-10-15 21:51:00 Test Item Value Reference Range Interpretation Comments SARS-COV2/RT-PCR Negative Not Detected, (test code = Negative, See 63775-2) external report for linked test SARS-COV-2 [facility] PERFORMING LAB (test code = 58497-4) LINDSAY (test code = Negative result for [...] of the Act. Fact Sheet for Healthcare Providers:https://www.[employer]l.[employer]/sites/default/f chandrika/product/documents/F act_Sheet_HC_Providers_L yin_WDTX-YaM-3.pdf Fact Sheet for Healthcare Patients:https://www.[employer]/sites/default/fi les/product/documents/Fa ct_Sheet_Patients_Lyra_S ARS-CoV-2.pdf Performing Laboratory:[facility] [place] [address] [facility] ([facility])2020-10-15 21:51:00 Test Item Value Reference Range Interpretation Comments SARS-COV2/RT-PCR (test Negative Not Detected, Negative, code = 9126875) See external report for linked test SARS-COV-2 PERFORMING LAB [facility] (test code = 1574893) Negative result for this test determines that [...] 564(g) of the Act.Fact Sheet for Healthcare Providers:https://www.[employer].com/sites/default/files/product/documents/Fact_Shee u_DR_Ewvyoinpk_Vjfx_OQVK-TeJ-5.pdfFact Sheet for Healthcare Patients:https://www.[employer].com/sites/default/files/product/ documents/Ltkm_Bcahj_Wxjjjlfx_Enmz_DQXA-KoS-3.pdfPerforming Laboratory:[facility], [place] [address]Yjacsvvrvw A1c 2020-10-15 09:19:00 Test Item Value Reference Range Interpretation Comments Hemoglobin A1C (test code = 4548-4) 5.8 % 4.3-6.1 Lab Interpretation (test code = Normal 92308-8) [facility] HospitalHEMOGLOBIN [id number] 09:19:00 Test Item Value Reference Range Interpretation Comments HEMOGLOBIN A1C (BEAKER) (test code = 5.8 % 4.3-6.1 368) RAD, CHEST, 1 VIEW, NON [id number] 07:47:00Reason for exam:->pleural effusionIs the patient ?->NoShould [facility]?->[facility] : 1960 Sex: [...] MDReport Verified Date/Time: 10/15/2020 07:47:34 Reading Location: [facility] Radiology Reading Room Basic metabolic [id number] 07:10:00 Test Item Value Reference Range Interpretation Comments Sodium (test code = 137 meq/L 672-402 3500-2) Potassium (test code = 4.1 meq/L 3.5-5.1 2823-3) Chloride (test code = 104 meq/L 98-107 2075-0) CO2 (test code = 26 meq/L 22-29 2028-9) BUN (test code = 6 mg/dL 7-21 L 3094-0) Creatinine (test code 0.64 mg/dL 0.57-1.25 = 2160-0) Glucose (test code = 96 mg/dL 70-105 2345-7) Calcium (test code = 8.7 mg/dL 8.4-10.2 13797-0) EGFR (test code = 95 mL/min/1.73 [place] [address]-7) NOT ACCURATE CREATININE CLEARANCE IN PREDICTING GLOMERULAR FILTRATION RATE . ESTIMATED GFR I S NOT APPLICABLE FOR DIALYSIS PATIENTS. LINDSAY (test code = LINDSAY) Stna ID - EDASI Lab Interpretation Abnormal (test code = 26204-3) [facility] HospitalHepatic function [id number] 07:10:00 Test Item Value Reference Range Interpretation Comments Protein, Total (test 6.7 See_Comment [Autom ated code = 2885-2) message] The system which generated this result transmit spencer reference range : 6.0 - 8.3 gm/dL . The reference range was not u sed to interpret th is result as normal/abnormal . Albumin (test code = 3.5 g/dL 3.5-5 25085-2) Total Bilirubin (test 0.4 mg/dL 0.2-1.2 code = 1974-2) Bilirubin, Direct 0.2 mg/dL 0.1-0.5 (test code = 1967-7) Alkaline Phosphatase 67 U/L 40-150 (test code = 6768-6) AST (test code = 9 U/L 5-34 1920-8) ALT (test code = 7 U/L 6-55 1742-6) LINDSAY (test code = LINDSAY) Stna ID - EDASI Lab Interpretation Normal (test code = 23985-8) [facility] HospitalMagnesium2021-02-03 07:10:00 Test Item Value Reference Range Interpretation Comments Magnesium (test code = 1.9 mg/dL 1.6-2.6 73928-9) LINDSAY (test code = LINDSAY) Stna ID - EDASI Lab Interpretation (test Normal code = 83852-2) [facility] HospitalPhosphorus2021-02-03 07:10:00 Test Item Value Reference Range Interpretation Comments Phosphorus (test code = 3.7 mg/dL 2.3-4.7 2777-1) LINDSAY (test code = LINDSAY) Stna ID - RENU Lab Interpretation (test Normal code = 85775-6) [facility] HospitalMAGNESIUM2021-02-03 07:10:00 Test Item Value Reference Range Interpretation Comments MAGNESIUM (BEAKER) (test code = 1.9 mg/dL 1.6-2.6 627) Stna ID - [id number] 07:10:00 Test Item Value Reference Range Interpretation Comments PHOSPHORUS (BEAKER) (test code = 3.7 mg/dL 2.3-4.7 604) Stna ID - RENUHEPATIC FUNCTION [id number] 07:10:00 Test Item Value Reference Range Interpretation [...] (test code = 7 U/L 6-55 347) Stna ID - RENUBASIC METABOLIC [id number] 07:10:00 Test Item Value Reference Range Interpretation [...] S NOT APPLICABLE FOR DIALYSIS PATIEN TS. Stna ID - EDASIProthrombin time/[id number] 06:59:00 Test Item Value Reference Interpretation Comments Range Protime (test code = 12.8 See_Comment [Autom ated 5902-2) message] The system which generated this result transmitted reference range : 11.9 - 14.2 seconds. The reference range was not used to interpret this result as normal/abnormal . INR (test code = 0.99 See_Comment [Automated 6301-6) message] The system which generated this result [...] valves. Lab Interpretation Normal (test code = 76158-9) [facility] HospitalPROTHROMBIN TIME/[id number] 06:59:00 Test Item Value Reference Range Interpretation [...] heart valves.CBC with platelet count + automated ipsv1003-72-30 06:49:00 Test Item Value Reference Range Interpretation Comments WBC (test code = 6690-2) 9.7 See_Comment [A utomated message] The system Presentain generated this result transmitted ref erence range: 3.5 - 10 .5 K/L. The refe rence range was not u sed to interpret this result as normal/abnor mal. RBC (test code = 789-8) 4.85 See_Comment [Au tomated message] The system Presentain generated this result transmitted ref erence range: 3.93 - 5 .22 M/L. The refe rence range was not u sed to interpret this result as normal/abnor mal. MCHC (test code = 786-4) 30.9 See_Comment L [A utomated message] The system Presentain generated this result transmitted ref erence range: [...] See_Comment [Aut omated message] 777-3) The system Presentain generated this result transmitted ref erence range: 150 - 45 0 K/CU MM. The referen ce range was not u sed to interpret this result as normal/abnor mal. MPV (test code = 9.9 fL 9.4-12.3 51411-4) nRBC (test code = 413) 0 See_Comment [Aut omated message] The system Presentain generated this result transmitted ref erence range: [...] H [Aut omated message] 670) The system Presentain generated this result transmitted ref erence range: 1.56 - 6 .13 K/L. The refe rence range was not u sed to interpret this result as normal/abnor mal. # Lymphs (test code = 2.35 See_Comment [Auto mated message] 414) The system Presentain generated this result transmitted ref erence range: 1.18 - 3 .74 K/L. The refe rence range was not u sed to interpret this result as normal/abnor mal. # Monos (test code = 0.94 See_Comment H [Autom ated message] 415) The system Presentain generated this result transmitted ref erence range: 0.24 - 0 .36 K/L. The refe rence range was not u sed to interpret this result as normal/abnor mal. # Eos (test code = 416) 0.18 See_Comment [Au tomated message] The system Presentain generated this result transmitted ref erence range: 0.04 - 0 .36 K/L. The refe rence range was not u sed to interpret this result as normal/abnor mal. # Baso (test code = 417) 0.05 See_Comment [A utomated message] The system Presentain generated this result transmitted ref erence range: 0.01 - 0 .08 K/L. The refe rence range was not u sed to interpret this result as normal/abnor mal. Immature 0 % 0-1 Granulocytes-Relative (test code = 2801) Lab Interpretation (test Abnormal code = 96583-1) [facility] W/PLT COUNT & AUTO [id number] 06:49:00 Test Item Value Reference Range Interpretation [...] % 0-1 PERCENT (BEAKER) (test code = 2801) PERMANENT LAB REPORT - [id number] 00:00:00Ordered by an unspecified provider.[facility]
--- NOTE | 2020-12-22 13:38 | RAD REPORT ---
EXAM DESCRIPTION: RAD - Chest Single View - 12/22/2020 1:23 pm CLINICAL HISTORY: Chest pain;Dyspnea, known lung cancer COMPARISON: CT chest December 02, portable chest December 01 TECHNIQUE: AP portable chest image was obtained 12/22/2020 1:23 pm . FINDINGS: Lung volumes are relatively low particularly of the right hemithorax. This is a pattern si milar to comparison. Chest tube remains in the right lung base. Extensive apical, lateral and lung ba se opacification present. Right hemithorax opacification is not clearly different than represents a c ombination of pleural fluid, atelectatic lung and mass lesion. Slight right shift of the trachea is present. No overall shifting in the mediastinum. No new mass or infiltrate in the left lung field. Heart size is normal. Pulmonary vasculature within normal limits. No pneumothorax. IMPRESSION: Extensive right hemithorax pleural and parenchymal opacification stable from December 01. O verall chest is not significantly different from December 02 imaging. Chest tube remains in the right lung base.
[2020-12-22 13:45] LABS: Absolute Lymphocytes (CBC) 1.5 K/uL (0.7-4.9); Basophils % 0.5 % (0-1.3); Hematocrit 29.7 % (36.0-45.0); Lymphocytes % 9.4 % (15.3-44.8); MPV 8.4 fL (7.6-11.3)
[2020-12-22 13:48] LABS: Protime INR 1.64
[2020-12-22 13:51] LABS: Urine Blood Negative (Negative); Urine Glucose Negative (Negative); Urine Protein 2+ (Negative); Urine Specific Gravity >=1.030 (1.005-1.030); Urine pH 5.5 (5.0-7.0)
[2020-12-22 14:01] LABS: ALT/SGPT 52 U/L (12-78); AST/SGOT 131 U/L (15-37); Albumin 2.3 g/dL (3.4-5.0); Alkaline Phosphatase 121 U/L (45-117); BUN Blood Urea Nitrogen 9 mg/dL (7-18); Bicarbonate 25 mmol/L (21-32); Bilirubin Direct 0.2 mg/dL (0-0.2); Bilirubin Total 0.4 mg/dL (0.2-1.0); Glucose Level 136 mg/dL (74-106); Lipase 64 U/L (73-393); Magnesium 2.2 mg/dL (1.8-2.4); NT PRO-BNP 225 pg/mL (<125); Potassium 4.2 mmol/L (3.5-5.1); Protein, Total 7.8 g/dL (6.4-8.2); Sodium Level 134 mmol/L (136-145); Troponin (Emerg Dept Use Only) < 0.02 ng/mL (0.0-0.045)
[2020-12-22] MEDS ORDERED: ASPIRIN 81 MG CHEWABLE TABLET ONE (14:12)
[2020-12-22] MEDS ORDERED: NA CHLORIDE 0.9% 1,000 ML ONE (14:12)
[2020-12-22] MEDS ORDERED: FAMOTIDINE 20 MG/2 ML VIAL IV ONE (14:12)
--- NOTE | 2020-12-22 14:43 | EDPHYS ---
Physician Documentation [facility] Name: Amie Joseph Age: 60 yrs Sex: Female : 1960 Arrival Date: 12/22/2020 Time: 11:42 Bed 2 Private MD: YAHAIRA Physician Darien Will HPI: 12/22 14:35 This 60 yrs old Female presents to ER via Wheelchair with complaints of Chest delicia Pain, Shortness Of Breath, hx of lung cancer. 14:35 This 60 yrs old Female presents to ER via Wheelchair with complaints of Chest delicia Pain, Shortness Of Breath, hx of lung cancer. 14:35 The patient or guardian reports chest pain that is located primarily in the anterior delicia chest wall. Onset: this morning. The pain does not radiate. Associated signs and symptoms: Pertinent positives: cough, shortness of breath. The chest pain is described as a pressure. Duration: The patient or guardian reports a single episode, that is still ongoing, but improving. Severity of pain: At its worst the pain was mild in the emergency department the pain has improved. The patient has experienced similar episodes in the past, multiple times. Historical: - Allergies: 11:56 No Known Allergies; ca1 - PMHx: 11:56 Lung CA; ca1 - PSHx: 11:56 Cholecystectomy; Hysterectomy; ; ca1 - Immunization history:: Adult Immunizations not up to date. - Social history:: Smoking status: Patient denies any tobacco usage or history of. - Family history:: not pertinent. ROS: 14:35 Constitutional: Negative for fever, chills, and weight loss, Eyes: Negative for injury, delicia pain, redness, and discharge, ENT: Negative for injury, pain, and discharge, Neck: Negative for injury, pain, and swelling, Abdomen/GI: Negative for abdominal pain, nausea, vomiting, diarrhea, and constipation, Back: Negative for injury and pain, : Negative for injury, bleeding, discharge, and swelling, MS/Extremity: Negative for injury and deformity, Skin: Negative for injury, rash, and discoloration, Neuro: Negative for headache, weakness, numbness, tingling, and seizure, Psych: Negative for depression, anxiety, suicide ideation, homicidal ideation, and hallucinations, Allergy/Immunology: Negative for hives, rash, and allergies, Endocrine: Negative for neck swelling, polydipsia, polyuria, polyphagia, and marked weight changes, Hematologic/Lymphatic: Negative for swollen nodes, abnormal bleeding, and unusual bruising. 14:35 Cardiovascular: Positive for chest pain, of the chest. 14:35 Respiratory: Positive for shortness of breath, at rest. Exam: 14:35 Constitutional: This is a well developed, well nourished patient who is awake, alert, delicia and in no acute distress. Head/Face: Normocephalic, atraumatic. Eyes: Pupils equal round and reactive to light, extra-ocular motions intact. Lids and lashes normal. Conjunctiva and sclera are non-icteric and not injected. Cornea within normal limits. Periorbital areas with no swelling, redness, or edema. ENT: Nares patent. No nasal discharge, no septal abnormalities noted. Tympanic membranes are normal and external auditory canals are clear. Oropharynx with no redness, swelling, or masses, exudates, or evidence of obstruction, uvula midline. Mucous membranes moist. Neck: Trachea midline, no thyromegaly or masses palpated, and no cervical lymphadenopathy. Supple, full range of motion without nuchal rigidity, or vertebral point tenderness. No Meningismus. Chest/axilla: Normal chest wall appearance and motion. Nontender with no deformity. No lesions are appreciated. Cardiovascular: Regular rate and rhythm with a normal S1 and S2. No gallops, murmurs, or rubs. Normal PMI, no JVD. No pulse deficits. Abdomen/GI: Soft, non-tender, with normal bowel sounds. No distension or tympany. No guarding or rebound. No evidence of tenderness throughout. Back: No spinal tenderness. No costovertebral tenderness. Full range of motion. Female : Normal external genitalia. Skin: Warm, dry with normal turgor. Normal color with no rashes, no lesions, and no evidence of cellulitis. MS/ Extremity: Pulses equal, no cyanosis. Neurovascular intact. Full, normal range of motion. Neuro: Awake and alert, GCS 15, oriented to person, place, time, and situation. Cranial nerves II-XII grossly intact. Motor strength 5/5 in all extremities. Sensory grossly intact. Cerebellar exam normal. Normal gait. Psych: Awake, alert, with orientation to person, place and time. Behavior, mood, and affect are within normal limits. 14:35 Respiratory: mild respiratory distress is noted, Respirations: no acute changes, is not noted, Breath sounds: decreased breath sounds, that are moderate, are heard in the right upper lobe, right middle lobe, right lower lobe, right posterior upper lobe, right posterior middle lobe and right posterior lower lobe. 14:45 ECG was reviewed by the Attending Physician. delicia Vital Signs: 11:50 BP 112 / 75; Pulse 120; Resp 20; Temp 98.1(TE); Pulse Ox 90% on R/A; Weight 63.5 kg ca1 (R); Height 5 ft. 4 in. (162.56 cm) (R); Pain 7/10; 11:50 Pulse Ox 94% on 2 lpm NC; ca1 12:18 BP 115 / 93; Pulse 122; Resp 28 S; Pulse Ox 96% on 2 lpm NC; jl7 14:05 BP 114 / 82; Pulse 117; Resp 19 S; Pulse Ox 98% on 2 lpm NC; jl7 15:00 BP 110 / 86; Pulse 114; Resp 21 S; Pulse Ox 96% on 2 lpm NC; jl7 16:00 BP 117 / 26; Pulse 113; Resp 19; Pulse Ox 96% on 2 lpm NC; jl7 17:00 BP 119 / 88; Pulse 109; Resp 21 S; Pulse Ox 95% on 2 lpm NC; jl7 18:04 BP 127 / 93; Pulse 111; Resp 17 S; Pulse Ox 96% on 2 lpm NC; jl7 11:50 Body Mass Index 24.03 (63.50 kg, 162.56 cm) ca1 MDM: 12:06 Patient medically screened. delicia 14:38 Differential diagnosis: abnormal EKG, coronary artery disease chest wall pain, delicia pericarditis, pneumonia, pneumothorax, pulmonary embolus, stable angina, unstable angina. HEART Score: History: Slightly Suspicious (0), ECG: Non specific repolarization disturbance / LBTB / PM (1), Age: > 45 and < 65 years (1), Risk Factors: 1 or 2 risk factors (1), [+ Family HX] Troponin: < or = 1 x Normal Limit (0). The patient was given aspirin in the Emergency Department. The patient's deep vein thrombosis risk score was calculated as follows: Total Score: 0. This patient was found to be at low risk for a deep vein thrombosis by using the Well's assessment criteria. The patient's pulmonary embolism risk score was calculated as follows: the patients heart rate is greater than 100 beats per minute (1.5 Pts) malignancy Total Score: 3-6 points. This patient was found to be at moderate risk for a pulmonary embolism by using the Well's assessment criteria. JOSSIE Risk Score: 1- Known CAD, TOTAL SCORE = 3. Data reviewed: vital signs, nurses notes, lab test result(s), EKG, radiologic studies. Data interpreted: monitor and storage bin tender: rate is 117 beats/min, rhythm is regular. Test interpretation: by ED physician or midlevel provider: ECG, plain radiologic studies. Counseling: I had a detailed discussion with the patient and/or guardian regarding: the historical points, exam findings, and any diagnostic results supporting the discharge/admit diagnosis, lab results, radiology results, the need for further work-up and treatment in the hospital. 12/22 12:30 Order name: Basic Metabolic Panel [facility] 12/22 12:30 Order name: CBC with Diff [facility] 12/22 12:30 Order name: LFT's; Complete Time: 14:11 [facility] 12/22 12:30 Order name: Magnesium; Complete Time: 14:11 [facility] 12/22 12:30 Order name: NT PRO-BNP; Complete Time: 14:11 [facility] 12/22 12:30 Order name: PT-INR; Complete Time: 14:11 [facility] 12/22 12:30 Order name: Troponin (emerg Dept Use Only); Complete Time: 14:11 [facility] 12/22 12:30 Order name: Lipase; Complete Time: 14:11 [facility] 12/22 12:30 Order name: Blood Culture Adult (2) [facility] 12/22 12:30 Order name: Basic Metabolic Panel; Complete Time: 14:11 [facility] 12/22 12:30 Order name: CBC with Automated Diff; Complete Time: 14:11 [facility] 12/22 13:22 Order name: Type And Screen; Complete Time: 16:37 [facility] 12/22 13:51 Order name: Urine Dipstick-Ancillary; Complete Time: 14:11 [facility] 12/22 11:56 Order name: EKG; Complete Time: 11:57 [facility] 12/22 11:56 Order name: EKG - Nurse/Tech; Complete Time: 12:00 [facility] 12/22 12:30 Order name: XRAY Chest (1 view); Complete Time: 14:11 [facility] 12/22 12:30 Order name: Cardiac monitoring; Complete Time: 13:08 [facility] 12/22 12:30 Order name: IV Saline Lock; Complete Time: 13:51 [facility] 12/22 12:30 Order name: Labs collected and sent; Complete Time: 13:51 [facility] 12/22 12:30 Order name: O2 Per Protocol; Complete Time: 13:08 [facility] 12/22 14:10 Order name: SARS-COV-2 RT PCR; Complete Time: 14:11 [facility] 12/22 12:30 Order name: O2 Sat Monitoring; Complete Time: 13:08 [facility] 12/22 12:30 Order name: Urine Dipstick-Ancillary (obtain specimen); Complete Time: 14:04 [facility] EC:45 Rate is 115 beats/min. Rhythm is regular. QRS [place] is Normal. NM interval is normal. [facility] QRS interval is normal. QT interval is normal. No Q waves. T waves are Normal. No ST changes noted. Clinical impression: Sinus tachycardia and No evidence of ischemia. Interpreted by me. Reviewed by me. Administered Medications: 14:01 Drug: NS 0.9% 1000 ml Route: IV; Rate: 125 ml/hr; Site: right wrist; jl7 14:56 Follow up: IV Status: Infusion continued upon admission 14:03 Drug: Aspirin Chewable Tablet 324 mg Route: PO; jl7 14:55 Follow up: Response: No adverse reaction 7 14:03 Drug: Pepcid (famotidine) 20 mg Route: IVP; Site: right wrist; jl7 14:55 Follow up: Response: No adverse reaction 7 14:03 Drug: NS 0.9% 500 ml Route: IV; Rate: bolus; Site: right wrist; jl7 14:56 Follow up: Response: No adverse reaction; IV Status: Completed infusion; IV Intake: jl7 500ml 14:45 Drug: Xopenex 1.25 mg Route: Inhalation; jl7 15:00 Follow up: Response: No adverse reaction jl7 14:45 Drug: AtroVENT (ipratropium) Aerosol 0.5 mg Route: Inhalation; jl7 15:00 Follow up: Response: No adverse reaction jl7 14:45 Drug: SOLU-Medrol 125 mg Route: IVP; Site: right wrist; jl7 15:00 Follow up: Response: No adverse reaction jl7 14:50 Drug: levofloxacin 500 mg Volume: 100 ml; Route: IVPB; Infused Over: 60 mins; Site: jl7 right wrist; 15:50 Follow up: Response: No adverse reaction; IV Status: Completed infusion jl7 Disposition: 12/22/20 15:16 Transfer ordered to [facility]. Diagnosis are Chest pain, unspecified, Dyspnea, Pleural effusion in conditions classified elsewhere, Malignant pleural effusion, Urinary tract infection, site not specified. - Reason for transfer: Higher level of care. - Accepting physician is TO [facility]. - Condition is Fair. - Problem is new. - Symptoms have improved. Signatures: Dispatcher [employer] EDMS Darien Will MD MD cha Leal, Jahala RN RN jl7 Fariba Johnson RN RN ca1 Corrections: (The following items were deleted from the chart) 13:25 12:31 CORONAVIRUS+MR.LAB.BRZ ordered. [facility] 15:15 14:42 Hospitalization Ordered by Alex Piper DO for Inpatient Admission. Preliminary delicia diagnosis is Other chest pain; Dyspnea; Pleural effusion in conditions classified elsewhere; Malignant pleural effusion. Bed requested for Telemetry/MedSurg (Inpatient). Status is Inpatient Admission. Condition is Fair. Problem is new. Symptoms have improved. delicia 16:22 15:16 12/22/2020 15:16 Transfer ordered to [facility]. [facility] Diagnosis is Chest pain, unspecified; Dyspnea; Pleural effusion in conditions classified elsewhere; Malignant pleural effusion. Reason for transfer: Higher level of care. Accepting physician is TO [facility]. Condition is Fair. Problem is new. Symptoms have improved. delicia 18:50 16:22 12/22/2020 15:16 Transfer ordered to [facility]. jl7 Diagnosis is Chest pain, unspecified; Dyspnea; Pleural effusion in conditions classified elsewhere; Malignant pleural effusion; Urinary tract infection, site not specified. Reason for transfer: Higher level of care. Accepting physician is TO [facility]. Condition is Fair. Problem is new. Symptoms have improved. delicia
--- NOTE | 2020-12-22 14:43 | ER ---
Nurse's Notes [facility] Name: Amie Joseph Age: 60 yrs Sex: Female : 1960 Arrival Date: 12/22/2020 Time: 11:42 Bed 2 Private MD: Diagnosis: Chest pain, unspecified;Dyspnea;Pleural effusion in conditions classified elsewhere;Malignant pleural effusion;Urinary tract infection, site not specified Presentation: 12/22 11:50 Chief complaint: Patient's son or daughter states: Diagnosed with Lung Cancer in ca1 September 2020. She's been having trouble breathing this morning then she started having chest pains off and on since this morning. Coronavirus screen: Client denies travel out of the [place] in the last 14 days. difficulty breathing, shortness of breath, Client presents with at least one sign or symptom that may indicate coronavirus-19. Standard/surgical mask placed on the client. Provider contacted for isolation considerations. Ebola Screen: Patient negative for fever greater than or equal to 101.5 degrees Fahrenheit, and additional compatible Ebola Virus Disease symptoms Patient denies exposure to infectious person. Patient denies travel to an Ebola-affected area in the 21 days before illness onset. No symptoms or risks identified at this time. Initial Sepsis Screen: Does the patient meet any 2 criteria? No. Patient's initial sepsis screen is negative. Does the patient have a suspected source of infection? No. Patient's initial sepsis screen is negative. Risk Assessment: Do you want to hurt yourself or someone else? Patient reports no desire to harm self or others. Onset of symptoms was December 22, 2020. 11:50 Method Of Arrival: Wheelchair ca1 11:50 Acuity: JACEK 2 ca1 Historical: - Allergies: 11:56 No Known Allergies; ca1 - PMHx: 11:56 Lung CA; ca1 - PSHx: 11:56 Cholecystectomy; Hysterectomy; ; ca1 - Immunization history:: Adult Immunizations not up to date. - Social history:: Smoking status: Patient denies any tobacco usage or history of. - Family history:: not pertinent. Screenin:18 Abuse screen: Denies threats or abuse. Denies injuries from another. Nutritional jl7 screening: No deficits noted. Tuberculosis screening: No symptoms or risk factors identified. 13:30 Fall Risk IV access (20 points). Total Goff Fall Scale indicates No Risk (0-24 pts). jl7 Assessment: 12:21 General: Appears in no apparent distress. uncomfortable, Behavior is calm, cooperative, jl7 appropriate for age. Pain: Complains of pain in xyphoid area Pain does not radiate. Pain currently is 0 out of 10 on a pain scale. at worst was 7 out of 10 on a pain scale. Quality of pain is described as pressure, Pain began gradually, Is intermittent. Neuro: Level of Consciousness is awake, alert, obeys commands, Oriented to person, place, time, situation. Cardiovascular: Heart tones present Patient's skin is warm and dry. Respiratory: Airway is patent Respiratory effort is even, unlabored, Respiratory pattern is symmetrical, tachypnea Breath sounds are clear bilaterally. EENT: Oral mucosa is dry. Derm: Skin is dry, Skin is pale, Skin temperature is warm. 13:00 Reassessment: Patient appears in no apparent distress at this time. No changes from jl7 previously documented assessment. Patient and/or family updated on plan of care and expected duration. Pain level reassessed. Patient is alert, oriented x 3, equal unlabored respirations, skin warm/dry/pink. 14:00 Reassessment: Patient appears in no apparent distress at this time. No changes from jl7 previously documented assessment. Patient and/or family updated on plan of care and expected duration. Pain level reassessed. Patient is alert, oriented x 3, equal unlabored respirations, skin warm/dry/pink. 15:00 Reassessment: Patient appears in no apparent distress at this time. No changes from jl7 previously documented assessment. Patient and/or family updated on plan of care and expected duration. Pain level reassessed. Patient is alert, oriented x 3, equal unlabored respirations, skin warm/dry/pink. 16:00 Reassessment: Patient appears in no apparent distress at this time. No changes from jl7 previously documented assessment. Patient and/or family updated on plan of care and expected duration. Pain level reassessed. Patient is alert, oriented x 3, equal unlabored respirations, skin warm/dry/pink. 17:00 Reassessment: Patient appears in no apparent distress at this time. No changes from jl7 previously documented assessment. Patient and/or family updated on plan of care and expected duration. Pain level reassessed. Patient is alert, oriented x 3, equal unlabored respirations, skin warm/dry/pink. 18:04 Reassessment: Pt laying in bed with eyes closed, respirations even and unlabored, no jl7 signs of distress noted at this time. Vital Signs: 11:50 BP 112 / 75; Pulse 120; Resp 20; Temp 98.1(TE); Pulse Ox 90% on R/A; Weight 63.5 kg ca1 (R); Height 5 ft. 4 in. (162.56 cm) (R); Pain 7/10; 11:50 Pulse Ox 94% on 2 lpm NC; ca1 12:18 BP 115 / 93; Pulse 122; Resp 28 S; Pulse Ox 96% on 2 lpm NC; jl7 14:05 BP 114 / 82; Pulse 117; Resp 19 S; Pulse Ox 98% on 2 lpm NC; jl7 15:00 BP 110 / 86; Pulse 114; Resp 21 S; Pulse Ox 96% on 2 lpm NC; jl7 16:00 BP 117 / 26; Pulse 113; Resp 19; Pulse Ox 96% on 2 lpm NC; jl7 17:00 BP 119 / 88; Pulse 109; Resp 21 S; Pulse Ox 95% on 2 lpm NC; jl7 18:04 BP 127 / 93; Pulse 111; Resp 17 S; Pulse Ox 96% on 2 lpm NC; jl7 11:50 Body Mass Index 24.03 (63.50 kg, 162.56 cm) ca1 ED Course: 11:42 Patient arrived in ED. am2 11:55 Triage completed. ca1 11:56 Arm band placed on right wrist. ca1 12:00 Oxygen administration via nasal cannula \T\ 2L/min Response to oxygen therapy: symptoms ca1 improved. 12:06 Darien Will MD is Attending Physician. [facility] 12:18 Jamshid Cosme RN is Primary Nurse. jl7 12:18 Patient has correct armband on for positive identification. Placed in gown. Bed in low jl7 position. Call light in reach. Side rails up X2. quality assurance monitor body on. Pulse ox on. NIBP on. 13:20 First set of blood cultures drawn by me. jl7 13:23 XRAY Chest (1 view) In Process Unspecified. EDMS 13:25 Initial lab(s) drawn, by me, sent to lab. Inserted saline lock: 20 gauge in left wrist, jl7 using aseptic technique. Blood collected. 13:25 Second set of blood cultures drawn by me, T\T\S collected, blood band applied to patient. jl7 14:41 Alex Piper DO is Hospitalizing Provider. delicia 15:58 initiated transfer to [facility]. bd 18:10 No provider procedures requiring assistance completed. Patient transferred, IV remains jl7 in place. intact, No redness/swelling at site. Administered Medications: 14:01 Drug: NS 0.9% 1000 ml Route: IV; Rate: 125 ml/hr; Site: right wrist; jl7 14:56 Follow up: IV Status: Infusion continued upon admission jl7 14:03 Drug: Aspirin Chewable Tablet 324 mg Route: PO; jl7 14:55 Follow up: Response: No adverse reaction jl7 14:03 Drug: Pepcid (famotidine) 20 mg Route: IVP; Site: right wrist; jl7 14:55 Follow up: Response: No adverse reaction jl7 14:03 Drug: NS 0.9% 500 ml Route: IV; Rate: bolus; Site: right wrist; jl7 14:56 Follow up: Response: No adverse reaction; IV Status: Completed infusion; IV Intake: jl7 500ml 14:45 Drug: Xopenex 1.25 mg Route: Inhalation; jl7 15:00 Follow up: Response: No adverse reaction jl7 14:45 Drug: AtroVENT (ipratropium) Aerosol 0.5 mg Route: Inhalation; jl7 15:00 Follow up: Response: No adverse reaction jl7 14:45 Drug: SOLU-Medrol 125 mg Route: IVP; Site: right wrist; jl7 15:00 Follow up: Response: No adverse reaction jl7 14:50 Drug: levofloxacin 500 mg Volume: 100 ml; Route: IVPB; Infused Over: 60 mins; Site: jl7 right wrist; 15:50 Follow up: Response: No adverse reaction; IV Status: Completed infusion jl7 Intake: 14:56 IV: 500ml; Total: 500ml. jl7 Outcome: 14:42 Decision to Hospitalize by Provider. delicia 15:16 ER care complete, transfer ordered by . delicia 18:10 Transferred by ground EMS to [facility], Transfer form completed. jl7 X-rays sent w/ patient. 18:10 Condition: stable 18:10 Discharge instructions given to patient, family, Instructed on the need for transfer, Demonstrated understanding of instructions. 18:50 Patient left the ED. jl7 Signatures: Dispatcher [employer] Jeri Nugent Corey, MD MD cha Leal, Jahala RN RN jl7 Aurora Gonzalez Cheryl RN RN ca1
[2020-12-22] MEDS ORDERED: LEVALBUTEROL 1.25 MG/3 ML NEB ONE (14:58)
[2020-12-22] MEDS ORDERED: IPRATROPIUM BROM 0.5MG/2.5ML ONE (14:58)
[2020-12-22] MEDS ORDERED: METHYLPREDNISOLONE 125 MG INJ ONE (14:58)
[2020-12-22] MEDS ORDERED: Levofloxacin500mg IV 500 MG/100 ML BAG IV ONE (14:59)
--- NOTE | 2020-12-22 18:24 | P.CNS ---
Date of Consult: 12/22/20 Reason for Consult: ER evaluation for possible admission Requesting Physician: Darien Will Primary Care Provider: Dr. Garcia [facility] Chief Complaint: Shortness of breath History of Present Illness: 60-year-old female with history of extensive lung cancer. Patient had been hospitalized at our facility for pleural effusion. In September patient required transfer for further evaluation. At that time she had a thoracotomy done. Pleurx catheter was placed. Since that time patient had been in the process of trying to be seen at [facility] [place]. Family has been removing fluid from the Pleurx catheter. But since November 21 no fluid has been able to be removed. Patient reported increasing shortness of breath. Patient came to the ER for evaluation. Patient presented to the emergency room. Chest x-ray showed opacification to the right side. White count 16. I was called to evaluate patient for possible admission. Allergies No Known Drug Allergies Allergy (Verified 09/15/20 08:00) Unknown No Known Allergies Allergy (Uncoded 02/06/16 15:26) Unknown Home medications list reviewed: Yes Home Medications: Amox/Clavulanate [Augmentin 875-125 Tab] 875 mg PO BID 7 Days #14 tab 09/16/20 traMADol HCL [Ultram*] 50 mg PO Q6H PRN #10 tab 09/16/20 - Past Medical/Surgical History Diabetic: No -: HTN -: Stage IV lung cancer -: Pleurx catheter to the right lung with prior pleural effusion -: Hysterectomy -: Cholecystectomy -: Pleurx catheter Psychosocial/ Personal History: Patient is a - Family History Father Family History: Reviewed- Non-Contributory - Social History Smoking Status: Never smoker Alcohol use: Yes CD- Drugs: No Caffeine use: Yes Place of Residence: Home Review of Systems General: Unremarkable Eyes: Unremarkable ENT: Unremarkable Respiratory: Shortness of Breath, SOB with Excertion, As per HPI Cardiovascular: Unremarkable Gastrointestinal: Unremarkable Genitourinary: Unremarkable Musculoskeletal: Unremarkable Integumentary: Unremarkable Neurological: Unremarkable Lymphatics: Unremarkable Physical Examination General: Alert, In no apparent distress, Oriented x3, Cooperative HEENT: Atraumatic Neck: Supple Respiratory: Other (Patient on Ventimask. Decreased respirations bilateral especially to the right side.) Cardiovascular: Normal pulses, Regular rate/rhythm Gastrointestinal: No masses, No rebound, No guarding Integumentary: No tenderness/swelling Neurological: Normal speech, Normal strength at 5/5 x4 extr, Normal tone, Normal affect Laboratory Data (last 24 hrs) 12/22/20 13:25: PT 19.0 H, INR 1.64 12/22/20 13:25: WBC 16.10 H, Hgb 9.6 L, Hct 29.7 L, Plt Count 530 H 12/22/20 13:25: Sodium 134 L, Potassium 4.2, BUN 9, Creatinine 0.56, Glucose 136 H, Magnesium 2.2, Total Bilirubin 0.4, AST 131 H, ALT 52, Alkaline Phosphatase 121 H, Lipase 64 L Conclusions/Impression: Impression: Dyspnea secondary to recurrent right pleural effusion with history of thoracotomy and Pleurx catheter Stage IV lung cancer COPD Plan: Patient was evaluated for possible admission. Due to her multiple medical problems and prior history of Pleurx catheter, patient was transferred to higher level facility to further evaluate. Patient would likely require thoracotomy and pleurodesis. Further evaluation a Pleurx catheter would need to be further evaluated. Case discussed in detail with ER physician who agreed with plan of care. Patient accepted to higher level of care facility. Time Spent Managing Pts care (In Minutes): 55
[2020-12-22 18:58] VITALS: TEMP 98.1
[2020-12-22 19:07] VITALS: BP 127/93; O2SAT 96
--- NOTE | 2020-12-23 16:37 | EKG ---
Test Date: 2020-12-22 Test Time: 12:00:07 Credit Control Administrator: DEEPALI MEASUREMENT RESULTS: Intervals: Rate: 115 MT: 126 QRSD: 82 QT: 336 QTc: 464 [place]: P: 46 MT: 126 QRS: 56 T: 46 INTERPRETIVE STATEMENTS: Sinus tachycardia Otherwise normal ECG Compared to ECG 12/01/2020 22:15:19 Sinus rhythm no longer present Incomplete right bundle-branch block no longer present Myocardial infarct finding no longer present Electronically Signed On 12-23-20 16:33:20 CDT by Saulo Agustin
== END 2020-12-22 18:50 | disposition short-term general hospital (02) ==
LOC: ER 11:40
DX: R07.89 Other chest pain (principal); J91.0 Malignant pleural effusion; N39.0 Urinary tract infection, site not specified; Z85.118 Personal history of other malignant neoplasm of bronchus and lung; Z20.822 Contact with and (suspected) exposure to COVID-19
CPT/HCPCS: 36415; 71045; 80048; 80076; 81003; 83690; 83735; 83880; 84484; 85025; 85610; 86850; 86900; 86901; 87040; 93005; 96361; 96365; 96375; 99285; J2930; J7030; U0003

== ENCOUNTER 2021-01-25 09:29 | Inpatient (IN) | payer OTHER, SELFPAY ==
--- OUTSIDE RECORDS SUMMARY | 2021-01-25 09:35 | XMS REPORT | Continuity of Care Document ---
:1960 Author Organization [facility] t Address [address] [place] [address] Care Team Providers Name Role Phone Pcp MD Primary Care Physician Unavailable SYSTEM, NOT IN Attending Clinician Unavailable Migue Samayoa MD Attending Clinician Allyson Street MD Attending Clinician Masoud Sewell MD Attending Clinician Codi Brunson MD Attending Clinician MIGUE SAMAYOA Attending Clinician Unavailable Janett IBARRA Attending Clinician Isamar Chawla Attending Clinician Unavailable Radha IBARRA Attending Clinician MASOUD SEWELL Attending Clinician Unavailable Jak Quick MD Attending Clinician Jennifer Sommer Attending Clinician Unavailable Codi BRUNSON Admitting Clinician Unavailable MASOUD SEWELL Admitting Clinician Unavailable Payers Payer Name Policy Type Policy Effective Date Expiration Date Sour ce Number SPECIAL [address] [facility] HANDLINGSELF PAY 00:00:00 - Medica l OP DIAGNSTC IMGING Center [id number] resent Problems Condition Condition Condition Status Onset Resolution Last Treating Co mments Source Name Details Category Date Date Treatment Clinician Date Paroxysmal Paroxysmal Disease Active [facility]T SVT [facility] - (supravent (supravent 00:00: Me dical ricular ricular 00 Center tachycardi tachycardi a) a) Malignant Malignant Disease Active [facility] pleural pleural 2-03 [facility] - effusion effusion 00:00: Medica l s/p R VATS s/p R VATS 00 Ce nter pleural pleural biopsy, biopsy, PleurX PleurX catheter catheter placement placement 10/18/2020 10/18/2020 Pericardia Pericardia Disease Active [facility] l effusion l effusion Jean kes - s/p FB, s/p FB, Medical robotic robotic Center assisted L assisted L thoracosco thoracosco pic pic perdicardi perdicardi al window al window 12/23/2020 12/23/2020 Pericardia Pericardia Disease Active [facility] - tamponade tamponade [facility] Shortness Shortness Disease Active [facility] of breath of breath [facility] Allergies, Adverse Reactions, Alerts This patient has no known allergies or adverse reactions. Family History Family Member Diagnosis Comments Start Date Stop Date Source Natural father COPD [facility] Social History Social Habit Start Date Stop Date Quantity Comments Source History [facility] - Alcohol Std Drinks [facility] History [facility] - Alcohol Binge [facility] ter Sex Assigned At [facility] Tobacco use and 2020-12-27 2020-12-27 Never used [facility] St kes - exposure 00:00:00 00:00:00 [facility] Alcohol intake 2020-12-27 2020-12-27 [facility]finding[facility] History SDOH 2020-10-15 2020-10-[address] [facility] - Alcohol Frequency 00:00:00 00:00:00 [facility] Smoking Status Start Date Stop Date Source [facility]oker [facility] Medications Ordered Filled Start Stop Current Ordering Indication Dosage Frequency Signature Comments Components Source Medication Medication Date Date Medication? Clinician (SIG) Name Name benzonatate Yes 100mg Take [address] (TESSALON) 4-19 mg by [facility] - 100 MG 23:35: mouth 3 Medical capsule 20 (three) Center times daily as needed for Cough. traMADoL Yes 50mg Take [address] (ULTRAM) 50 4-19 tablet (50 Jean kes - mg tablet 00:00: mg total) Med ical 00 by mouth Center every 8 (eight) hours as needed for pain. Max Daily Amount: 150 mg acetaminoph Yes 650mg Take [address] [address] en 12-29 tablets [facility] - (TYLENOL) 00:00: (650 mg Medic al 325 MG 00 total) by Center tablet mouth every 6 (six) hours. metoprolol 2020- Yes 12.5mg Take 0.[address] tartrate 12-29 tablets [facility] - (LOPRESSOR) 00:00: 23:59 (12.5 mg M edical 25 MG 00 :00 total) by Center tablet mouth every 8 (eight) hours for 30 days. gabapentin 2020- No 200mg [id number] Take [address] (NEURONTIN) 12-29- [id number] capsules [facility] - 100 MG 00:00: 23:59 3D (200 mg Medical capsule 00 :00 total) by Center mouth 3 (three) times daily for 14 days. gabapentin 2020- No 200mg [id number] Take [address] (NEURONTIN) 12-19 [id number] mg by [facility] - 100 MG 00:00: 00:00 3D mouth 3 Medical capsule 00 :00 (three) Center times daily. traMADoL 2020- No 50mg Take [address] (ULTRAM) 50 12-19 by mouth Chet es - mg tablet 00:00: 00:00 every 8 Medi nathen 00 :00 (eight) Center hours as needed for pain. acetaminoph 2020- No 650mg Take [address] en 10-19 tablets [facility] - (TYLENOL) 00:00: 23:59 (650 mg Medi nathen 325 MG 00 :00 total) by Center tablet mouth every 6 (six) hours for 14 days. gabapentin 2020- No 200mg Q.[id number] Take [address] (NEURONTIN) 10-19 [id number] capsules [facility] - 100 MG 00:00: 23:59 3D (200 mg Medical capsule 00 :00 total) by Center mouth 3 (three) times daily for 14 days. ibuprofen 2020- No 400mg Q.[id number] Take [address] (ADVIL,MOTR 10-19 [id number] tablet [facility] - IN) 400 MG 00:00: 23:59 3D (400 mg Med ical tablet 00 :00 total) by Center mouth 3 (three) times daily for 10 days. traMADoL No 50mg Take [address] (ULTRAM) 50 10-19 tablet (50 L ukes - mg tablet 00:00: 23:59 mg total) Me dical 00 :00 by mouth Center every 6 (six) hours for 7 days. Max Daily Amount: 200 mg Immunizations Ordered Immunization Filled Immunization Date Status Commen ts Source Name Name Pneumococcal 2020-12-27 Completed [facility] - Conjugate (Prevnar) 00:00:00 Medic al Center [facility] Vital Signs Vital Name Observation Time Observation Value Comments Source Systolic blood 2020-12-29 16:06:00 108 mm[Hg] [facility] Diastolic blood 2020-12-29 16:06:00 58 mm[Hg] [facility] Heart rate 2020-12-29 16:06:00 94 /min [facility] Body temperature 2020-12-29 16:06:00 36.17 Hannah [facility] Respiratory rate 2020-12-29 16:06:00 20 /min [facility] Oxygen saturation in 2020-12-29 16:06:00 93 /min [facility] Arterial blood by Medical Ce nter Pulse oximetry Body weight 2020-12-27 05:13:00 77.1 kg [facility] BMI 2020-12-27 05:13:00 29.18 kg/m2 [facility] Body height 2020-12-22 20:13:00 162.6 cm [facility] Procedures Procedure Date / Time Performed Performing Clinician Sour e XR CHEST 1 VIEW 2020-12-29 06:41:00 Ewa Bhakta [facility] PORTABLE/BEDSIDE Medical Center PHOSPHORUS 2020-12-29 04:20:00 Ewa Bhakta [facility] BASIC METABOLIC PANEL 2020-12-29 04:20:00 Ewa Bhakta [facility] () [facility] CBC W/PLT COUNT & AUTO 2020-12-29 04:20:00 Ewa Bhakta [facility] MAGNESIUM 2020-12-29 04:20:00 Ewa Bhakta [facility] (CELLAVISION MANUAL 2020-12-29 04:20:00 Ewa Bhakta I [facility] XR CHEST 1 VIEW 2020-12-28 06:47:00 Ewa Bhakta [facility]/BEDSIDE [facility] PHOSPHORUS 2020-12-28 05:42:00 Ewa Bhakta [facility] BASIC METABOLIC PANEL 2020-12-28 05:42:00 Ewa Bhakta [facility] () [facility] CBC W/PLT COUNT & AUTO 2020-12-28 05:42:00 Ewa Bhakta [facility] MAGNESIUM 2020-12-28 05:42:00 Ewa Bhakta [facility] PHOSPHORUS 2020-12-27 04:07:00 Ewa Bhakta [facility] BASIC METABOLIC PANEL 2020-12-27 04:07:00 Ewa Bhakta [facility] () [facility] CBC W/PLT COUNT & AUTO 2020-12-27 04:07:00 Ewa Bhakta [facility] MAGNESIUM 2020-12-27 04:07:00 Ewa Bhakta [facility] XR CHEST 1 VIEW 2020-12-27 00:21:00 Ewa Bhakta [facility]/BEDSIDE [facility] XR CHEST 1 VIEW 2020-12-26 13:05:[address] [facility] - PORTABLE/BEDSIDE Medical Center BLOOD GAS, ARTERIAL 2020-12-26 03:37:00 Dennis Sánchez Baltazar [facility] CBC W/PLT COUNT & AUTO 2020-12-26 03:36:00 Dennis Sánchezarat [facility] BASIC METABOLIC PANEL 2020-12-26 03:36:00 Dennis Sánchez Baltazar [facility] () [facility] MAGNESIUM 2020-12-26 03:36:00 SánchezDennis Baltazar [facility] PHOSPHORUS 2020-12-26 03:36:00 Ewa Bhakta [facility] XR CHEST 1 VIEW 2020-12-26 00:41:00 Ewa Bhakta [facility] PORTABLE/BEDSIDE [facility] TSH/FREE T4 IF INDICATED 2020-12-25 17:56:[address] [facility] CBC W/PLT COUNT & AUTO 2020-12-25 16:26:00 [facility]OLIC PANEL 2020-12-25 16:26:00 GonzaloManojDennis Baltazar [place] [id number]) [facility] MAGNESIUM 2020-12-25 16:26:00 [facility]Davidjacqueline [facility] BLOOD [facility]AS, ARTERIAL 2020-12-25 16:26:00 SánchezManoj godfreyDennis Baltazar [facility] CT CHEST WITHOUT IV 2020-12-25 12:16:00 Ewa Bhakta [facility] CBC W/PLT COUNT & AUTO 2020-12-25 03:06:00 SánchezManoj godfreyDennis Baltazar [facility] BASIC METABOLIC PANEL 2020-12-25 03:06:00 SánchezDennis godfrey Baltazar [facility] () [facility] MAGNESIUM 2020-12-25 03:06:00 Sánchez, [facility] BLOOD GAS, ARTERIAL 2020-12-25 03:06:00 Dennis Sánchez I [facility] PT/APTT 2020-12-25 03:06:00 Dennis Sánchez [facility] PHOSPHORUS 2020-12-25 03:06:00 Ewa Bhakta [facility] VANCOMYCIN LEVEL, TROUGH 2020-12-25 02:02:00 Nancy Joyner [facility] XR CHEST 1 VIEW 2020-12-25 00:22:00 Ewa Bhakta [facility] PORTABLE/BEDSIDE [facility] MAGNESIUM 2020-12-24 19:45:00 [facility] BASIC METABOLIC PANEL 2020-12-24 19:45:[address] [facility] ([address] [place] [address] PHOSPHORUS 2020-12-24 19:45:00 Ally Person [facility] XR CHEST 1 VIEW 2020-12-24 19:30:00 Ally Person [facility] PORTABLE/BEDSIDE [facility] URINALYSIS W/ REFLEX 2020-12-24 17:11:[address] [facility] - URINE CULTURE [facility] BLOOD GAS, ARTERIAL 2020-12-24 17:09:00 Dennis Sánchez [facility] POCT-GLUCOSE METER 2020-12-24 16:25:[address] [facility] CBC W/PLT COUNT & AUTO 2020-12-24 14:06:00 Dennis Sánchez [facility] BASIC METABOLIC PANEL 2020-12-24 14:06:00 Dennis Sánchez [facility] (7) [facility] MAGNESIUM 2020-12-24 14:06:00 Dennis Sánchez [facility] PT/APTT 2020-12-24 14:06:00 Dennis Sánchez [facility] POCT-GLUCOSE METER 2020-12-24 11:20:00 Jad [facility] POCT-GLUCOSE METER 2020-12-24 05:30:00 Jad [facility] CBC W/PLT COUNT & AUTO 2020-12-24 03:25:00 Dennis Sánchez [facility] BASIC METABOLIC PANEL 2020-12-24 03:25:00 Dennis Sánchez [facility] (7) [facility] MAGNESIUM 2020-12-24 03:25:00 [facility] BLOOD [facility], ARTERIAL 2020-12-24 03:25:00 Dennis Sánchez [facility] PT/APTT 2020-12-24 03:25:00 Dennis Sánchez [facility] PHOSPHORUS 2020-12-24 03:25:00 Ewa Bhakta [facility] (CELLAVISION MANUAL 2020-12-24 03:25:00 Dennis Sánchez [facility] XR CHEST 1 VIEW 2020-12-24 00:21:00 Ewa Bhakta [facility] PORTABLE/BEDSIDE [facility] POCT-GLUCOSE METER 2020-12-23 23:54:00 Jad [facility] BLOOD GAS, ARTERIAL 2020-12-23 19:20:00 Dennis Sánchez [facility] CBC (HEMOGRAM ONLY) 2020-12-23 19:11:00 Dennis Sánchez [facility] BASIC METABOLIC PANEL 2020-12-23 19:11:00 Dennis Sánchez [facility] (7) [facility] PHOSPHORUS 2020-12-23 19:11:00 Dennis Sánchez [facility] MAGNESIUM 2020-12-23 19:11:00 Dennis Sánchez [facility] PT/APTT 2020-12-23 19:11:00 Gnozalo [facility] CALCIUM, IONIZED 2020-12-23 19:11:00 Dennis Sánchez Baltazar [facility] XR CHEST 1 VIEW 2020-12-23 18:47:00 Gonzalo Dennis [facility] PORTABLE/BEDSIDE Medical Center FUNGUS CULTURE + SMEAR 2020-12-23 16:55:18 Keshawn Sewell [facility] AFB CULTURE + SMEAR 2020-12-23 16:55:18 Keshawn Sewell [facility] (NON-SPUTUM) [facility] BRONCHIAL CULTURE + GRAM 2020-12-23 16:55:18 Keshawn Sewell [facility] SPIN/CONCENTRATION 2020-12-23 16:55:00 Keshawn Sewell [facility] TISSUE EXAM 2020-12-23 16:48:00 Keshawn Sewell [facility] BRONCHOSCOPY 2020-12-23 14:36:00 Keshawn Sewell [facility] PROCEDURE W/ DAVINCI XI 2020-12-23 14:36:00 Keshawn Sewell [facility] THORACOSCOPY 2020-12-23 14:36:00 Keshawn Sewell [facility] (VATS),CREATION OF Medical Cente r PERICARDIAL WINDOW TYPE AND SCREEN, 2020-12-23 13:28:00 Kusum Fields [facility] es - AUTOMATED [facility] ECHO W CONTRAST & 2020-12-23 08:10:00 Brendon Arana [facility] - DOPPLER [facility] BASIC METABOLIC PANEL 2020-12-23 06:46:00 Lior Samayoa [facility] (7) [facility] CBC W/PLT COUNT & AUTO 2020-12-23 06:46:00 Lior Samayoa [facility] HEPATIC FUNCTION PANEL 2020-12-23 06:46:[address] Dan[address] [facility] CT CHEST WITHOUT IV 2020-12-23 02:35:00 DanitaLior [facility] CONTRAST [facility] ECG 12-LEAD 2020-12-22 22:46:23 DanitaLior [facility] SARS-COV2/INFLUENZA/RSV 2020-12-22 22:42:00 [facility] RT-PCR [facility] RAPID INFLUENZA A&B 2020-12-22 22:41:00 [facility] SCREEN [facility] RESPIRATORY PANEL [facility] 2020-12-22 22:41:00 [facility] BASIC METABOLIC PANEL 2020-12-22 22:33:00 Lior Samayoa [facility] (7) [facility] BLOOD CULTURE 2020-12-22 22:17:00 [facility] BLOOD CULTURE 2020-12-22 22:08:00 [facility] REPORT OF PROCEDURE - 2020-12-22 00:00:00 ProviderJet [facility] ENDOSCOPY SCAN Scanning [facility] XR CHEST 1 VIEW 2020-10-17 18:53:00 Derek Souza [facility] PORTABLE/BEDSIDE [facility] TISSUE EXAM 2020-10-17 15:40:00 Keshawn Sewell [facility] CYTOLOGY REQUEST 2020-10-17 15:36:29 Keshawn Sewell [facility] CYTOLOGY 2020-10-17 15:36:00 Keshawn Sewell [facility] THORACOSCOPY 2020-10-17 14:31:00 Keshawn Sewell [facility] - (VATS),BIOPSY OF PLEURA [facility] INSERTION,PLEURX 2020-10-17 14:31:00 Keshawn Sewell [facility] CATHETER [facility] ABORH, MANUAL 2020-10-17 14:09:00 Peyton Doherty [facility] TYPE AND SCREEN 2020-10-17 13:53:00 Keshawn Sewell [facility] CT BRAIN WITH & WITHOUT 2020-10-16 17:07:00 Ewa Bhakta Pending sale to [facility] CONTRAST [facility] CT ABDOMEN/PELVIS WITH 2020-10-15 17:47:00 Ewa Bhakta Pending sale to [facility] CONTRAST [facility] SARS-COV2/RT-PCR ([facility] & 2020-10-15 16:44:00 Derek Souza [facility] - REF LABS) [facility] 2D ECHO W/ DOPPLER 2020-10-15 14:23:00 Ewa Bhakta [facility] (CW/PW/COLOR) [facility] BASIC METABOLIC PANEL 2020-10-15 05:21:00 Neyda Ravi [facility] (7) [facility] HEPATIC FUNCTION PANEL 2020-10-15 05:21:00 Trav [facility] HEMOGLOBIN A1C 2020-10-15 05:21:00 Trav [facility] MAGNESIUM 2020-10-15 05:21:00 Neyda Ravi [facility] PHOSPHORUS 2020-10-15 05:21:00 [facility] W/PLT COUNT & AUTO 2020-10-15 05:21:00 Neyda Ravi [facility] DIFFERENTIAL [facility] PROTHROMBIN TIME/INR 2020-10-15 05:20:00 Neyda Ravi I [facility] ECG 12-LEAD 2020-10-15 04:48:55 Trav [facility] XR CHEST 1 VIEW 2020-10-15 04:22:00 Neyda Ravi [facility] PORTABLE/BEDSIDE Medical Center PERMANENT LAB REPORT - 2020-10-15 00:00:00 Provider, Jet [facility] SCAN [facility] Plan of Care Planned Activity Planned Date Details Comments Source Future Scheduled Test 2021-05-[address] [facility] - 00:[facility]:00 (Season Ended) [code = Medic al Center INFLUENZA VACCINE (Season Ended)] Future Scheduled Test 2021-02-[address] [facility] - 00:00:00 0-64 YRS (1 of 1 - Medical C enter PPSV23) [code = PNEUMOCOCCAL VACCINE 0-64 YRS (1 of 1 - PPSV23)] Future Scheduled Test 2012 SHINGLES VACCINES ([address] [facility] - 00:00:00 of 2) [code = SHINGLES Medic al Center VACCINES (1 of 2)] Future Scheduled Test [address] [facility] - 00:00:00 (procedure) [code = [facility] 19904230] Future Scheduled Test 1983 [facility] cervix (procedure) [code = 484892604] Future Scheduled Test 1981 DTAP/TDAP/TD VACCINES [facility] - 00:00:00 (1 - Tdap) [code = Medical C enter DTAP/TDAP/TD VACCINES (1 - Tdap)] Future Scheduled Test 1980 HEPATITIS C [facility]CREENING [facility] - 00:00:00 [code = HEPATITIS C [facility] SCREENING] Future Scheduled Test 1962 [facility] breast (procedure) [code = 467668499] Future Scheduled Test 1960 [facility] colon (procedure) [code = 974064810] Future Appointment 2021-01-28 Keshawn Sewell MD, [address] [facility] - 09:45:[address] [facility] Medical C enter Floor, [address], [place] [address] Future Appointment 2021-01-28 Keshawn Sewell MD, [address] [facility] - 09:45:[address] [facility] Medical C enter Floor, [address], [place] [address] Encounters Start End Encounter Admission Attending Care Care Encounter Source Date/Time Date/Time Type Type Clinicians Facility Department ID 2020-12-04 Outpatient SYSTEM, [facility] [id number] 21:57:16 PROVIDER Aniket floyd 2020-11-06 2020-11-06 Office RHIANNON Sewell [id number] 14:12:20 16:46:04 Visit Keshawn AMBULATOR [id number] Y [id number] Results Test Description Test Time Test Comments Results Result Comments Source Fungus culture + smear 2021-01-02 23:54:00 Test Item Value Reference Range Interpretation Comme nts Result (test code = 6463-4) 1+ Lidia species, not albicans A Fungus Smear (test code = 1406) No fungi seen Lab Interpretation (test code = 43426-7) [facility] [id number] 23:54:00 Test Item Value Reference Range Interpretation Comments CULTURE (BEAKER) A 1+ Lidia species, (test code = 1095) not albic ans FUNGUS SMEAR No fungi seen (BEAKER) (test code = 1406) CBC with platelet count + automated [id number] 08:22:00 Test Item Value Reference Range Interpretation Comments WBC (test code = 6690-2) 14.0 See_Comment H [A utomated message] The system [employer] generated this result transmitted ref erence range: 3.5 - 10 .5 K/L. The refe rence range was not u sed to interpret this result as normal/abnor mal. RBC (test code = 789-8) 3.52 See_Comment L [Au tomated message] The system [employer] generated this result transmitted ref erence range: 3.93 - 5 .22 M/L. The refe rence range was not u sed to interpret this result as normal/abnor mal. MCHC (test code = 786-4) 29.1 See_Comment L [A utomated message] The system [employer] generated this result transmitted ref erence range: 32.2 - 3 5.5 GM/DL. The refe rence range was not u sed to interpret this result as normal/abnor mal. Hematocrit (test code = 32.0 % 34.1-44.9 L 4544-3) MCV (test code = 787-2) 90.9 fL 79.4-94.8 MCH (test code = 785-6) 26.4 pg 25.6-32.2 RDW (test code = 788-0) 16.5 % 11.7-14.4 H Platelets (test code = 304 See_Comment [Aut omated message] 777-3) The system [employer] generated this result transmitted ref erence range: 150 - 45 0 K/CU MM. The referen ce range was not u sed to interpret this result as normal/abnor mal. MPV (test code = 10.0 fL 9.4-12.3 36094-4) nRBC (test code = 413) 0 See_Comment [Aut omated message] The system [employer] generated this result transmitted ref erence range: 0 - 0 /1 00 WBC. The refere nce range was not u sed to interpret this result as normal/abnor mal. Lab Interpretation (test Abnormal code = 75800-6) [facility] [id number] 08:22:00 Test Item Value Reference Range Interpretation Comments % Neutros (test code = 77 % 2816) % Lymphs (test code = 11 % 2817) % Monos (test code = 7 % 2818) % Baso (test code = 1 % 2820) % Bands (test code = 2 % 0-10 2826) % Atypical Lymphs (test 2 % 0-0 H code = 2829) # Neutros (test code = 10.78 K/ul 1.56-6.13 H 2830) # Lymphs (test code = 1.54 K/ul 1.18-3.74 2831) # Monos (test code = 0.98 K/uL 0.24-0.36 H 2832) # Baso (test code = 0.14 K/uL 0.01-0.08 H 2835) # Bands (test code = 0.28 K/uL 0-0.8 2840) # Atypical Lymphs (test 0.28 K/uL 0-0 H code = 2858) Total Counted (test 100 code = 1351) WBC Morphology (test Normal code = 487) Platelet Morphology Normal (test code = 486) Polychromasia (test 3+ many code = 478) Hypochromia (test code 1+ few = 963) Anisocytosis (test code 2+ moderate = 961) Microcytes (test code = 2+ moderate 965) Artifact (test code = Present 3432) Platelet Conc (test Adequate code = 3438) LINDSAY (test code = LINDSAY) Hedis Analyst ID - Karolina Boswell comments: Slide comments: Lab Interpretation Abnormal (test code = 37176-4) [facility] W/PLT COUNT & AUTO [id number] 08:22:00 Test Item Value Reference Range Interpretation Comments WHITE BLOOD CELL COUNT (BEAKER) 14.0 K/ L 3.5-10.5 H (test code = 775) RED BLOOD CELL COUNT (BEAKER) 3.52 M/ L 3.93-5.22 L (test code = 761) HEMOGLOBIN (BEAKER) (test code = 9.3 GM/DL 11.2-15.7 L 410) HEMATOCRIT (BEAKER) (test code = 32.0 % 34.1-44.9 L 411) MEAN CORPUSCULAR VOLUME (BEAKER) 90.9 fL 79.4-94.8 (test code = 753) MEAN CORPUSCULAR HEMOGLOBIN 26.4 pg 25.6-32.2 (BEAKER) (test code = 751) MEAN CORPUSCULAR HEMOGLOBIN CONC 29.1 GM/DL 32.2-35.5 L (BEAKER) (test code = 752) RED CELL DISTRIBUTION WIDTH 16.5 % 11.7-14.4 H (BEAKER) (test code = 412) PLATELET COUNT (BEAKER) (test 304 K/CU MM 150-450 code = 756) MEAN PLATELET VOLUME (BEAKER) 10.0 fL 9.4-12.3 (test code = 754) NUCLEATED RED BLOOD CELLS 0 /100 WBC 0-0 (BEAKER) (test code = 413) (CELLAVISION MANUAL DIFF)2020-12-29 08:22:00 Test Item Value Reference Range Interpretation Comments NEUTROPHILS - REL 77 % (CELLAVISION)(BEAKER) (test code = 2816) LYMPHOCYTES - REL 11 % (CELLAVISION)(BEAKER) (test code = 2817) MONOCYTES - REL 7 % (CELLAVISION)(BEAKER) (test code = 2818) BASOPHILS - REL 1 % (CELLAVISION)(BEAKER) (test code = 2820) BANDS - REL (CELLAVISION)(BEAKER) 2 % 0-10 (test code = 2826) ATYPICAL LYMPHOCYTES - REL 2 % 0-0 H (CELLAVISION)(BEAKER) (test code = 2829) NEUTROPHILS - ABS 10.78 K/ul 1.56-6.13 H (CELLAVISION)(BEAKER) (test code = 2830) LYMPHOCYTES - ABS 1.54 K/ul 1.18-3.74 (CELLAVISION)(BEAKER) (test code = 2831) MONOCYTES - ABS 0.98 K/uL 0.24-0.36 H (CELLAVISION)(BEAKER) (test code = 2832) BASOPHILS - ABS 0.14 K/uL 0.01-0.08 H (CELLAVISION)(BEAKER) (test code = 2835) BANDS - ABS (CELLAVISION)(BEAKER) 0.28 K/uL 0.00-0.80 (test code = 2840) ATYPICAL LYMPHOCYTES - ABS 0.28 K/uL 0.00-0.00 H (CELLAVISION)(BEAKER) (test code = 2858) TOTAL COUNTED (BEAKER) (test code 100 = 1351) WBC MORPHOLOGY (BEAKER) (test Normal code = 487) PLT MORPHOLOGY (BEAKER) (test Normal code = 486) POLYCHROMATOPHILLIC RBCS(BEAKER) 3+ many (test code = 478) HYPOCHROMIA (BEAKER) (test code = 1+ few 963) ANISOCYTOSIS (BEAKER) (test code 2+ moderate = 961) MICROCYTES (BEAKER) (test code = 2+ moderate 965) ARTIFACT (CELLAVISION)(BEAKER) Present (test code = 3432) PLATELET CONCENTRATION Adequate (CELLAVISION)(BEAKER) (test code = 3438) Hedis Analyst ID - Karolina Boswell comments: Slide comments:RAD, CHEST, 1 VIEW, NON [id number] 07:38:00Reason for exam:->Left VATS, pericardial windowIs the patient ?->NoShould this be performed at the bedside?->YesCH[facility] : 1960 Sex: FFINAL REPORT RAD, CHEST, 1 VIEW, NON DEPT INDICATION: Left VATS, peric ardial window COMPARISON: Prior day's exam FINDINGS: Portable frontal view of the chest. IMPRESSION: Support Lines: None Lungs and pleura: Opacification of the right hemithorax with airspace diseasein bilateral effusions are not significantly changed No pneumothorax.Heart and mediastinum: Obscuredby adjacent airspace diseaseAdditional findings: None. Signed: Kusum Brewer Verified Date/Time: 12/29/2020 07:38:32 Reading Location: [facility] Radiology Reading Room XR chest 1 view portable / [id number] 07:38:00 Interface, External Ris In - 12/29/2020 8:15 AM CDTFINAL REPORT RAD, CHEST, 1 VIEW, NON DEPT INDICATION: Left VATS, pericardial window COMPARISON: Prior day's exam FINDINGS: Portable frontal view of the chest. IMPRESSION: Support Lines: None Lungs and pleura: Opacification of the right hemithorax with airspace disease in bilateral effusions are not significantly changed No pneumothorax.Heart and mediastinum: Obscured by adjacent airspace diseaseAdditional findings: None. Signed: Kusum Brewer Verified Date/Time: 12/29/2020 07:38:32 Reading Location: [facility] Radiology Reading [facility] [id number] 06:20:00 Test Item Value Reference Range Interpretation Comments Sodium (test code = 138 meq/L 476-868 1495-2) Potassium (test code = 4.3 meq/L 3.5-5.1 Speci men slightly 2823-3) hemolyzed Chloride (test code = 100 meq/L 98-107 2075-0) CO2 (test code = 29 meq/L 22-29 2028-9) BUN (test code = 5 mg/dL 7-21 L 3094-0) Creatinine (test code 0.50 mg/dL 0.57-1.25 L Specim en slightly = 2160-0) hemolyzed Glucose (test code = 82 mg/dL 70-105 2345-7) Calcium (test code = 8.2 mg/dL 8.4-10.2 L 23610-0) EGFR (test code = 127 mL/min/1.73 [place] [address]-9) NOT ACCURATE CREATININE CLEARANCE IN PREDICTING GLOMERULAR FILTRATION RATE . ESTIMATED GFR I S NOT APPLICABLE FOR DIALYSIS PATIENTS. LINDSAY (test code = LINDSAY) Hedis Analyst ID - ADMIN Lab Interpretation Abnormal (test code = 96333-8) [facility]00 Test Item Value Reference Range Interpretation Comments Magnesium (test code = 1.8 mg/dL 1.6-2.6 Speci men 34363-8) slightly hemolyzed LINDSAY (test code = LINDSAY) Hedis Analyst ID - ADMIN Lab Interpretation Normal (test code = 11446-2) [facility] 06:20:00 Test Item Value Reference Range Interpretation Comments Phosphorus (test code 3.4 mg/dL 2.3-4.7 Specim en = 2777-1) slightly hemolyzed LINDSAY (test code = LINDSAY) Hedis Analyst ID - ADMIN Lab Interpretation Normal (test code = 64508-8) [facility] 06:20:00 Test Item Value Reference Range Interpretation Comments MAGNESIUM (BEAKER) 1.8 mg/dL 1.6-2.6 Specimen slightly (test code = 627) hemolyzed Hedis Analyst ID - [id number] 06:20:00 Test Item Value Reference Range Interpretation Comments PHOSPHORUS (BEAKER) 3.4 mg/dL 2.3-4.7 Specimen slightly (test code = 604) hemolyzed Hedis Analyst ID - ADMINBASIC METABOLIC [id number] 06:20:00 Test Item Value Reference Range Interpretation Comments SODIUM (BEAKER) 138 meq/L 136-145 (test code = 381) POTASSIUM (BEAKER) 4.3 meq/L 3.5-5.1 Specimen slightly (test code = 379) hemolyzed CHLORIDE (BEAKER) 100 meq/L 98-107 (test code = 382) CO2 (BEAKER) (test 29 meq/L 22-29 code = 355) BLOOD UREA NITROGEN 5 mg/dL 7-21 L (BEAKER) (test code = 354) CREATININE (BEAKER) 0.50 mg/dL 0.57-1.25 L Specimen slightly (test code = 358) hemolyzed GLUCOSE RANDOM 82 mg/dL 70-105 (BEAKER) (test code = 652) CALCIUM (BEAKER) 8.2 mg/dL 8.4-10.2 L (test code = 697) EGFR (BEAKER) (test 127 mL/min/1.73 ESTIM ATED GFR IS code = 1092) sq m NOT ACCURATE CREATININE CLEARANCE IN PREDICTING GLOMERULAR FILTRATION RATE . ESTIMATED GFR I S NOT APPLICABLE FOR DIALYSIS PATIEN TS. Hedis Analyst ID - ADMINRAD, CHEST, 1 VIEW, NON [id number] 10:34:00Reason for exam:->Left VATS, pericardial windowIs the patient ?->NoShould this be performed at the bedside?->Yes [facility] : 1960 Sex: FFINAL REPORT RAD, CHEST, 1 VIEW, NON DEPT TECHNIQUE: Frontal view(s) o f the chest. INDICATION: Left VATS, pericardial window. COMPARISON: Chest radiograph one day prior FINDINGS/IMPRESSION: Lines/Tubes: Unchanged catheter or wire projecting over the right lower hemithorax Lungs/pleura: No convincing change in right greater than left parenchymal opacities. Unchanged large right pleural effusion. Slightly increased small left pleural effusion. No pneumothorax. Heart and Mediastinum: Unchanged. Soft Tissues and Bones: Unchanged. Signed: Carly Art Verified Date/Time: 12/28/2020 10:34:52 Reading Location: [address] Ortho Consult Reading Room BASIC METABOLIC PANEL 2020-12-28 06:49:00 Test Item Value Reference Range Interpretation Comments SODIUM (BEAKER) 139 meq/L 136-145 (test code = 381) POTASSIUM (BEAKER) 3.9 meq/L 3.5-5.1 (test code = 379) CHLORIDE (BEAKER) 100 meq/L 98-107 (test code = 382) CO2 (BEAKER) (test 30 meq/L 22-29 H code = 355) BLOOD UREA NITROGEN 6 mg/dL 7-21 L (BEAKER) (test code = 354) CREATININE (BEAKER) 0.46 mg/dL 0.57-1.25 L (test code = 358) GLUCOSE RANDOM 96 mg/dL 70-105 (BEAKER) (test code = 652) CALCIUM (BEAKER) 8.1 mg/dL 8.4-10.2 L (test code = 697) EGFR (BEAKER) (test 140 mL/min/1.73 ESTIM ATED GFR IS code = 1092) sq m NOT ACCURATE CREATININE CLEARANCE IN PREDICTING GLOMERULAR FILTRATION RATE . ESTIMATED GFR I S NOT APPLICABLE FOR DIALYSIS PATIEN TS. Hedis Analyst ID - [id number] 06:49:00 Test Item Value Reference Range Interpretation Comments MAGNESIUM (BEAKER) (test code = 1.8 mg/dL 1.6-2.6 627) Hedis Analyst ID - [id number] 06:49:00 Test Item Value Reference Range Interpretation Comments PHOSPHORUS (BEAKER) (test code = 3.3 mg/dL 2.3-4.7 604) Hedis Analyst ID - EDASICBC W/PLT COUNT & AUTO [id number] 06:12:00 Test Item Value Reference Range Interpretation Comments WHITE BLOOD CELL COUNT (BEAKER) 11.9 K/ L 3.5-10.5 H (test code = 775) RED BLOOD CELL COUNT (BEAKER) 2.86 M/ L 3.93-5.22 L (test code = 761) HEMOGLOBIN (BEAKER) (test code = 7.7 GM/DL 11.2-15.7 L 410) HEMATOCRIT (BEAKER) (test code = 25.1 % 34.1-44.9 L 411) MEAN CORPUSCULAR VOLUME (BEAKER) 87.8 fL 79.4-94.8 (test code = 753) MEAN CORPUSCULAR HEMOGLOBIN 26.9 pg 25.6-32.2 (BEAKER) (test code = 751) MEAN CORPUSCULAR HEMOGLOBIN CONC 30.7 GM/DL 32.2-35.5 L (BEAKER) (test code = 752) RED CELL DISTRIBUTION WIDTH 15.9 % 11.7-14.4 H (BEAKER) (test code = 412) PLATELET COUNT (BEAKER) (test 306 K/CU MM 150-450 code = 756) MEAN PLATELET VOLUME (BEAKER) 10.1 fL 9.4-12.3 (test code = 754) NUCLEATED RED BLOOD CELLS 0 /100 WBC 0-0 (BEAKER) (test code = 413) NEUTROPHILS RELATIVE PERCENT 70 % (BEAKER) (test code = 429) LYMPHOCYTES RELATIVE PERCENT 15 % (BEAKER) (test code = 430) MONOCYTES RELATIVE PERCENT 10 % (BEAKER) (test code = 431) EOSINOPHILS RELATIVE PERCENT 2 % (BEAKER) (test code = 432) BASOPHILS RELATIVE PERCENT 0 % (BEAKER) (test code = 437) NEUTROPHILS ABSOLUTE COUNT 8.36 K/ L 1.56-6.13 H (BEAKER) (test code = 670) LYMPHOCYTES ABSOLUTE COUNT 1.77 K/ L 1.18-3.74 (BEAKER) (test code = 414) MONOCYTES ABSOLUTE COUNT (BEAKER) 1.23 K/ L 0.24-0.36 H (test code = 415) EOSINOPHILS ABSOLUTE COUNT 0.22 K/ L 0.04-0.36 (BEAKER) (test code = 416) BASOPHILS ABSOLUTE COUNT (BEAKER) 0.05 K/ L 0.01-0.08 (test code = 417) IMMATURE GRANULOCYTES-RELATIVE 2 % 0-1 H PERCENT (BEAKER) (test code = 2801) Blood Culture - Routine (Left Venipuncture)2020-12-27 23:00:00 Test Item Value Reference Range Interpretation Comments Result (test code = No growth in 5 days 6463-4) [facility]BL[facility] [id number] 23:00:00 Test Item Value Reference Range Interpretation Comments CULTURE (BEAKER) (test No growth in 5 days code = 1095) BLOOD [id number] 23:00:00 Test Item Value Reference Range Interpretation Comments CULTURE (BEAKER) (test No growth in 5 days code = 1095) RAD, CHEST, 1 VIEW, NON [id number] 05:39:00Reason for exam:->Left VATS, pericardial windowIs the patient ?->NoShould this be performed at the bedside?->Yes[facility] : 1960 Sex: FFINAL REPORT RAD, CHEST, 1 VIEW, NON DEPT INDICATION: Left VATS, peric ardial window COMPARISON: Prior day's exam FINDINGS: Portable frontal view of the chest. IMPRESSION: Support Lines: Stable. Lungs and pleura: Unchanged airspace and pleural opacities. No pneumothorax.Heart and mediastinum: Stable contours. Additional findings: None. Signed: Briseida Velásquez Verified Date/Time: 12/27/2020 05:39:47 Electronically signed by: Jose LONGO 12/27/2020 05:39 [id number] 04:54:00 Test Item Value Reference Range Interpretation Comments MAGNESIUM (BEAKER) 1.8 mg/dL 1.6-2.6 Specimen slightly (test code = 627) hemolyzed Hedis Analyst ID - [id number] 04:54:00 Test Item Value Reference Range Interpretation Comments PHOSPHORUS (BEAKER) 2.9 mg/dL 2.3-4.7 Specimen slightly (test code = 604) hemolyzed Hedis Analyst ID - EDASIBASIC METABOLIC [id number] 04:54:00 Test Item Value Reference Range Interpretation Comments SODIUM (BEAKER) 133 meq/L 136-145 L (test code = 381) POTASSIUM (BEAKER) 4.2 meq/L 3.5-5.1 Specimen slightly (test code = 379) hemolyzed CHLORIDE (BEAKER) 98 meq/L 98-107 (test code = 382) CO2 (BEAKER) (test 27 meq/L 22-29 code = 355) BLOOD UREA NITROGEN 6 mg/dL 7-21 L (BEAKER) (test code = 354) CREATININE (BEAKER) 0.44 mg/dL 0.57-1.25 L Specimen slightly (test code = 358) hemolyzed GLUCOSE RANDOM 105 mg/dL 70-105 (BEAKER) (test code = 652) CALCIUM (BEAKER) 8.1 mg/dL 8.4-10.2 L (test code = 697) EGFR (BEAKER) (test 147 mL/min/1.73 ESTIM ATED GFR IS code = 1092) sq m NOT ACCURATE CREATININE CLEARANCE IN PREDICTING GLOMERULAR FILTRATION RATE . ESTIMATED GFR I S NOT APPLICABLE FOR DIALYSIS PATIEN TS. Hedis Analyst ID - EDASICBC W/PLT COUNT & AUTO [id number] 04:24:00 Test Item Value Reference Range Interpretation Comments WHITE BLOOD CELL COUNT (BEAKER) 13.3 K/ L 3.5-10.5 H (test code = 775) RED BLOOD CELL COUNT (BEAKER) 2.97 M/ L 3.93-5.22 L (test code = 761) HEMOGLOBIN (BEAKER) (test code = 7.8 GM/DL 11.2-15.7 L 410) HEMATOCRIT (BEAKER) (test code = 26.5 % 34.1-44.9 L 411) MEAN CORPUSCULAR VOLUME (BEAKER) 89.2 fL 79.4-94.8 (test code = 753) MEAN CORPUSCULAR HEMOGLOBIN 26.3 pg 25.6-32.2 (BEAKER) (test code = 751) MEAN CORPUSCULAR HEMOGLOBIN CONC 29.4 GM/DL 32.2-35.5 L (BEAKER) (test code = 752) RED CELL DISTRIBUTION WIDTH 15.1 % 11.7-14.4 H (BEAKER) (test code = 412) PLATELET COUNT (BEAKER) (test 328 K/CU MM 150-450 code = 756) MEAN PLATELET VOLUME (BEAKER) 10.4 fL 9.4-12.3 (test code = 754) NUCLEATED RED BLOOD CELLS 0 /100 WBC 0-0 (BEAKER) (test code = 413) NEUTROPHILS RELATIVE PERCENT 72 % (BEAKER) (test code = 429) LYMPHOCYTES RELATIVE PERCENT 14 % (BEAKER) (test code = 430) MONOCYTES RELATIVE PERCENT 11 % (BEAKER) (test code = 431) EOSINOPHILS RELATIVE PERCENT 2 % (BEAKER) (test code = 432) BASOPHILS RELATIVE PERCENT 1 % (BEAKER) (test code = 437) NEUTROPHILS ABSOLUTE COUNT 9.58 K/ L 1.56-6.13 H (BEAKER) (test code = 670) LYMPHOCYTES ABSOLUTE COUNT 1.79 K/ L 1.18-3.74 (BEAKER) (test code = 414) MONOCYTES ABSOLUTE COUNT (BEAKER) 1.41 K/ L 0.24-0.36 H (test code = 415) EOSINOPHILS ABSOLUTE COUNT 0.21 K/ L 0.04-0.36 (BEAKER) (test code = 416) BASOPHILS ABSOLUTE COUNT (BEAKER) 0.06 K/ L 0.01-0.08 (test code = 417) IMMATURE GRANULOCYTES-RELATIVE 2 % 0-1 H PERCENT (BEAKER) (test code = 2801) Tissue [id number] 17:56:00 Test Item Value Reference Range Interpretation Comments Case Report (test code Surgical Pathology = 104) Report Case: [id number] Authorizing Provider: Keshawn Sewell MD Collected: 12/23/2020 04:48 PM Ordering Location: [facility] Received: 12/24/2020 08:22 AM PERIOPERATIVE SERVICES Pathologist: Hannah Mendoza MD Specimen: Pericardium DIAGNOSIS (test code = [id number] 3220) uZzEwMzNcZnRuYmpcdWMxIH tccnRmMVxlcGljOTIwMlxhb kJoCDFifNJxT3DfedclDWhe QH4nJV2nkGcgtSKtvLApWZW vLuLwl9mvb730sKIms0msCW HUflwoqIa4pRmhV00ul1V5H xksS30auZTvDFlpdGGnbanr czIwIFBFUklDQVJESVVNLCB CSDCCYy8NP53SNRVxSTIPCG NBUkRJQUwgQklPUFNZOlxwY ACaGE8aBHNSOWKoQN6NTEFD Lk5ERMKzYQ6VMJLWIPGNPQ4 MRLoEGKcqSwSFN4SLHbIsQX GCU2HREHfBANfdJ0SGNOSch GFyICAtIFJBUkUgREVUQUNI MYJtSOfTRNsHLXWEEAQSH9T HJKOULSgUNHcNFTXzN65QSR VOVClccGFyfXtccnRmMVxzc 1RoSHwyXOLvIB9ddKwyFUXn YX7fHVEaJ4uiuA3pmeo5BjM bLGLaRaW4PHVzbwC7Ccm1KG QaVBfjt0vww8HmOWKmRVf1q KprNcIgTUGjn9dolnIlQhJv CHXkVOEhKZNjyACtL075u5v hn5njokWlbKK0ZKKgYWM5PL kxdjBzkqS1OMvsvLLnUzC6F DtccmVkMFxncmVlbjBcYmx1 ARFjG765CIM2cFodq1sjKBI 0CGBdCSRuUgOpLm6ysVSsR4 73WEIbOQKKDBYfzBv8ZUKto oIozjZedGSLt292Y827c8dj HZLoszFnbDnVvorqd9whT30 9XHBhcGVydzEyMjQwXHBhcG KnhQG9NAPuSS2jrttrNFmtK SxdBKVdxeE3RUBkeCExW9Ej OCWmVL8hoesrPHS8FTruPHI qYPS9MkIrQKZqe3Lxggv4Ko Ttxn0cwx50DGM2b8AhrZjfH FP4TSM9UoAxTx3dfVPlQPLs LJ6gRjUwpGRuXHExpy34hMq pYSagICD4IFGpxzHxv8Crd9 eiGtAermVhX1kqT3PpRCMdW YEfPGJzVwSxcoVvh9Ijv2Mh gHIqeRd2g3wsKLYwGFFueYo qk1wcZJF6KCKtjFLjN8wgkK 3tKUJwSC0cbblap1hcYUgqQ JqdDBRkdST9unS1AQVgwEUs W4TdfR2wWRQuJEreDDJdkqe 2ZfMpPv0abUNfiZvsPMozZs twYWdlXHBnbmNvbnRccGduZ GVjXHBsYWluXHBsYWluXGYw XGZzMjRccWxcbGFuZzEwMzN caGljaFxmMVxkYmNoXGYxXG tqS0fpYyReFjLpGvb6XEMjx IDuKZJiEmm0GSKkyYWiNPCM qQeflC7rNYBojFwypV2mmYO 1CLHvcgTyfCQPbP3aTSWRcA 5qUbY0NvUxLoV4XEu6ZqYms GFyfX0= COMMENT (test code = f4gqrRPmQERdrMG4MaDwBPS 3359) qm8xxm6FboVMjzAHyBMchiZ YrmpOyqj18vFH4jF43FL2oU OSeFaW8PTLlcbX1Wft6EXRt BXZohSYjJ889q5pnj9jcyiW eoSF2kEayXYDwSCAnUPtlBM ZzMjAgUmFyZSBtaWxkbHkgY MU0bYsvBAdsJLT0JUXgYRMn K3RupXXnfL1uyMVnroRpKc2 aREPFTsFcv6LpeP9zMPdnRU opAFRzouRix7EogBRfsG2qP PF6OC0qsMnxopoqOLTzYDLs WM0sVH8pAYXgNBIja96fDVO bgL8oYThpgRjbfPB9mDJqyF igYDcsx9Corfajh5DbyAX5T EU2RRUxNpLrcH6nSWHjUW6k S8RcY1zkn36oMaFVKdY7dIM stGMyhAMznaMvWOpkSfc4dT QlrwPbROScwG70rIF2HJTtN Wz9OINdcgIlCXLxOV36JNSy qkXtlSZutV0zeRZcbWEeiY1 jfUoxar2qrOLzzX== CPT Code(s) (test code g0kraMXuGYFgcPW1QaIeDEU = 3357) fo6ofk5MokMNjjWCuCXrmbW QzgqEhxd73sVW0mG62DL5rB USeQnH8AKHoqkV6Inj2RQJw WOMjdDLmW982t5aei7qplkJ hcDA1gElnRPWkJTXwNVnaRM IeXcHiFMxaPJXwWUw6AfJiM sB5AHI5BBgeKKW2 CLINICAL HISTORY (test a5xjxSFnJNCxfKJ7FmXiTSO code = 3356) et5qdb3EfbMZcgFBzOPlqwH TybkIobd50uQL5bP49IA4yF ZFcPfD5UAMglrV9Lfj7GRXw RKTnjFLzQ711l5oqd6unwsX wlUQ9vIuuHMPmILAlUHyuMY ZzMjBcflIgTHVuZyBBZGVub yMGHUdwknDdjIIbZJ24CK5x gMgcceDwoIBufJG7voGwJWX jNlWscA7idzndMYKhpFKpob ZdMEmvPVZzlOKtf23riKArf Q== SPECIMEN SOURCE (test h2bkkOVyAPQojKV2BxSgSPB code = 3377) su3jjb6RjlPIhdQQqCLuesS IrycVvwn68eHW7uM25SD2lG EWhMgW4VLAlgyA6Lvq8IJDs OAOxjHSbX427r6txn9tullX eaFS3uLjyVSUqWUJfUXpeNI EmRqOxCUIftELfmwLjvM7sf GFyfQ== GROSS DESCRIPTION e1prcFFeUCGneWHhTvKyCOL (test code = 3366) gXMSjy1pnXZAnnSSnRfHeTw NcZnRuYmpcdWMxXGRlZmYwe 2rkk720nLKxu4euNOFsExD5 xZEqUUEyqBFsR264m1yeq2x soeMsgUR5OCQcDIO9XKixey RqadP8CWzhfXIvRpM5FSwti mSdPLlrkiGfwcRtIqi3OCIu D901SUL4fAxsq4ifYGI9INX zDTThFoLfMi3mkUFdP234UC ZwNUUJOPIoqPz8KNTfidSgy gBxfHTBx708J098k0fkQOWc opFvaKzWxreig3okB942NGR hcGVydzEyMjQwXHBhcGVyaD B8NUXjRY8ftyrnEbKqJX6er ikaIyPlCW4jynp0XvZwML4w cmdiNzIwXGhlYWRlcnkwXGZ ai1HrsuwdCQ8xZ1Tvk3V8sN 9maXRcZGVmdGFiNzIwXGZvc x7wlZOxXUtdp2UmCDY6suK7 bASrpLSkXDJgIY60Dnyra7P lDmzcTLK7VIRdaaFcf7Xcg7 wdAaLlmeThB0hjM8HkEATnT FBrSLRpHfVzyoCtb4Gxu6Ra dYGcaKr1n5ptYFLcZBWihHt rr0rhUNU4RZWhE3M3xPMmc4 qbOXheVKMqzGH9rqywFLkoT QEvueQ9bdfqWBnnFJZgcUJ3 bxcwCRsiSOKiRuV6ffdaTVz dVZVlSMZ6BWapy490TPA4ZU xzYmtwYWdlXHBnbmNvbnRcc GduZGVjXHBsYWluXHBsYWlu XGYwXGZzMjRccWxccGxhaW5 wNmLsAgJsXPzpHC2rJAYkH3 hdpNNqBUYcJRLiT3zyFeIbx J2jvTajWXwqjjFbIMSjPNLh P3WjnyIwTDNuDCYnHVoyDhL wOKRxa4h3zBL3jSNgnGD9oH EknFgxCjPkWJ7crLEmGC1sJ XymZDzbgpHzn9DxOA59sSYr ciBhbmQgInBlcmljYXJkaXV iLkNxknOuCOKvCfJ2JXOjMA K8FAWoQPDbwDU9AN7zyvEsY AElSwBluCogs4HcXLIkIQgm DR65VAC4Ec5loNJxPVLrjsB 9r6InGDqbXPKaHzrzKEQfhG XuUGYaIXsuMYEpM1EthT3xR F3KHnysQESxYUWNJ5DeD06t cGFyfQ== MICROSCOPIC t6dotMYbADOalAP7IpLaDRQ DESCRIPTION (test code zx9zvv4WhpEGwlBXmYExvgZ = 3371) EbsdZjxq59cPB1bH30LF2fJ BUuZcD7RJBlojR5Kmu7UPYn XOGuhCDsN190y2soz4ycnfB maXE4yGhuETUjNWYtENnhTS ArCdFtQTGdUv0fbOOzTokuR XJ9 SPECIAL STUDIES (test v5hgtQShSLVxzJR8LsOlJSZ code = 3376) hr3znc1ZvePMzmODhGDzdeG OcozThvp37pFW1bS46HG0cV OVzQsA1JEQssoE5Sjs9MOJh AFFydEKaY101ZBZfVARdtEl cfjx5fO81TKAfeG5tqMYnBW e3JQOjffVqbBqehL7aZaSvP oVwWhBCvBUhtD72SDJguoH0 CFIwp03ab0HjkStqnwBlAEU oHQkjE0f7CUNdOOSeBAX2e7 Gbs3VogJ5qoT1fwIoyuZ9gf YPvnOM4vchka3Ffi3SoM2ri bCBzdGFpbnMuXHBhciBUVEY yWIXxj0QwiKn5TYDssnBtVN JlIGRldGFjaGVkIGNlbGxzL wbdJWOkT4UvnuR2pR7axa6g b8AzxMr1HTvfBHSzS62hjKM vbCBTbGlkZXMgRXhhbWluZW T9BIGZxo0ic0BzLPEyip94i cOga3BdgNr7FPYwr902io4v xaR9VGCoTOT9KVj1NOUwBJF nwG8xAtE3pSAePIOtKUV2OM M4AUSrm7F9RX7oSIHiAWJnY TXazdLgu5lzo9luMZOfIQO5 hlJcmY8nL9UyEQQgm0XlrEm lIHBhdGllbnRzIHNhbXBsZS TjlD46YQZfjAFyyLHjIAUeS OG2OIrctZ5wAeKMjfXbxi8h lZFso6WfsVu7LNMtqcEspnX hXNCugrJgE42zjDJwlEDkq8 hlbiBhdmFpbGFibGUgYXJlI KZ7MDu7PCHvFPqvYFCdAFcy ZIEzOW9raX6iuNsndM5vwKQ qkPY6tpqfxSVskY7eB6GhUW Qdk7Dhhdeiz6ExBGIawkGmj g0vXXGwmTOEUOprw9KwS9Rt SMq0r5XzjLdtOCulEHr7GdA oNHDzbDJynNIRXQ22VERpXA NeeYpdiC4saYTQZKRowgH5i 4F3RUltYPEfNHe0SQrgquDs LKZghO9sBBGnDP1dYGv7guV oXDIww4BbQD5dAYJdhAMbVI U4MGMmy9HtN6Lqg0XmRLPiU MUafu6zkhZtOsMAgGYpRBYw bw22NVEuJP9hQ2vaWMSsPUN finFtoWRaa2XjBIHmnQJ0zN VrWK4KZgCTa83iLYYyAWNNq qRcNEDihGensVA3exU8gI1s LiBUaGUgRkRBIGhhcyBkZXR ibw1dliVzOJMbMDPvu8WgsR FzqZSzmbOuJ3Hdb8VmBQWzu e93WIdubNCjkf49PC4qU1Ut p8AvfI5jRFvdWYJtu1JubTU xjYIsEDWvp3QvE6xbbfwuKV fngDYhvR6vFFQiHFr8TJSle 1ArJJGyr1EkHhHgmeEqSTYl CVOjOBItmH36WLF2qRhwtBh nnzClJJ7sPXGvvzIxDKTtFQ KigD3qINanvhWuOLIsdaB1a 5R1YYuiCSEwvzJdWjgsLKC1 lbOqjeX9mMUzY6pgrmtpGVw gZVSrh9OyiG0klFPWoJRcs0 JyiCOctMGTeBMlNQ4qlgLwQ Z8wQMS9EPilMUDLWXRxVXif QBOkFHP6ZDpfHzfmLAD7sxO lOSCwp8XyJPxeU6pdL02xcR ctzEu9cDAjoWtolLCrtBVvE YOxbiB7c7Q9QRQbm6Whaswv XHBhcn0= Gross assessment was [facility] performed at ([facility], code = 2777) Department of Pathology, [address] [place] [address], [address] [facility] was performed at ([facility], code = 2778) Department of Pathology, [address] [place] [address], Professional component [facility] was performed at ([facility], code = 2779) Department of Pathology, [address] [place] [address], [facility] [id number] 17:56:00Surgical Pathology Report Case: [id number] Authorizing Provider: Keshawn Sewell MD Collected: 12/23/2020 04:48 PM Ordering Location: [facility] Received: 12/24/2020 08:22 AM PERIOPERATIVE SERVICES Pathologist: Hannah Mendoza MD Specimen: Pericardium PERICARDIUM, LAPAROSCOPIC PERICARDIAL BIOPSY: - ACUTE AND CHRONIC INFLAMMATION WITH REACTIVE MESOTHELIAL CELLS - RARE DETACHED MILDLY ATYPICAL CELLS (SEE COMMENT) Signing Pathologist Direct Phone Line: [phone] lectronically signed by Hannah Mendoza MD on 12/26/2020 at 5:56 PMRare mildly atypical detached cells positive for TTF1 stain (indicative of pulmonary origin) are seen and are concerning with patient's history of metastatic lung adenocarcinoma. If the pericardial fluid re-accumulates, it can be sent for cytology examination.[id number], [id number]. [id number] R [facility] [place], recurrent malignant pleural effusions, Pericardial effusionPericardiumA. Received fresh labeled with the patient's name, medical record number and "pericardium" is a 0.6 x 0.5 x 0.1 cm canas-red soft tissue fragment submitted in toto in A1.NESHA Zimmerman PA (ASCP)cmPerformed.The interpretation of this case included the use of immunohistochemistry or special stains.TTF1- positive in rare detached cells.Calretinin-positiveControl Slides Examined: In-house known positive controls were evaluated along with the test tissue. These control slides run alongside of the patients sample show appropriate staining. Internal positive and negativecontrols when available are evaluated Immunohistochemistry technical testing was performed at [facility], Pathology Laboratory where it was developed and its performance characteristics were determined. It has not been cleared or approved by the U.S. Food and Drug Administration.The FDA has determined that such clearance or approval is not necessary. The test is used for clinical purposes. It should not be regarded as investigational or for research. This laboratory is certified under the Clinical Laboratory Improvement Amendments of 1988 (CLIA-88) as qualified to perform high complexity clinical laboratory testing.[facility], Department of Pathology, [address] [place] [address], [facility], [facility] of [facility], [address] [place] [address], [facility]kgvezLos [facility], Department of Pathology, [address] [place], [place] [id number], OBV, CHEST, 1 VIEW, NON DEPT 2020-12-26 15:31:00Reason for exam:->L CT removal [facility] : 1960 Sex: FFINAL REPORT Chest AP portable Comparison exam: 12/26/2020 at 0230 hour s History provided: Left chest tube removal Extensive opacity within the right hemithorax is as described on CT performed yesterday. Mild atelectatic change within the left lower lobe. No pneumothorax.Signed: Raul Payne Verified Date/Time: 12/26/2020 15:31:51 Reading Location: [facility] Diagnostic Imaging Reading Room [place] [address] Bronchial culture + gram [id number] 09:25:00 Test Item Value Reference Range Interpretation Comments Result (test code = 6463-4) No growth Gram Stain Result (test No organisms seen code = 1123) [facility]AM [id number] 09:25:00 Test Item Value Reference Range Interpretation Comments CULTURE (BEAKER) (test code No growth = 1095) GRAM STAIN RESULT (BEAKER) 1+ WBCs (test code = 1123) GRAM STAIN RESULT (BEAKER) No organisms seen (test code = 53693) RAD, CHEST, 1 VIEW, NON [id number] 05:30:00Reason for exam:->Left VATS, pericardial windowIs the patient ?->NoShould this be performed at the bedside?->YesHO[facility]WO[facility] : 1960 Sex: FFINAL REPORT RAD, CHEST, 1 VIEW, NON DEPT INDICATION: Left VATS, peric ardial window COMPARISON: Prior day's exam FINDINGS: Portable frontal view of the chest. IMPRESSION: Support Lines: Stable. Lungs and pleura: Unchanged airspace and pleural opacities. No pneumothorax.Heart and mediastinum: Stable contours. Additional findings: None. Signed: Briseida Velásquez Verified Date/Time: 12/26/2020 05:30:44 Electronically signed by: Jose LONGO 12/26/2020 05:30 AMBlood gas, arterial: If A-Line only 2020-12-26 05:15:00 Test Item Value Reference Range Interpretation Comments pH, Arterial (test code 7.39 7.35-7.45 = 2744-1) pCO2, Arterial (test 50 See_Comment H [Autom ated message] code = 2019-8) The system [email or web address] generated this result transmit lizzy reference range : 35 - 45 mm Hg. The reference range was not used to interpret this result as normal/abnormal . pO2, Arterial (test 140 See_Comment H [Automa lizzy message] code = 2703-7) The system [employer] generated this result transmit lizzy reference range : 80 - 90 mm Hg. The reference range was not used to interpret this result as normal/abnormal . O2 Sat, Arterial (test 98.7 % 96-97 H code = 2708-6) HCO3, Arterial (test 30 mmol/L 21-29 H code = 1960-4) Base Excess, Arterial 4.5 mmol/L -2-3 H (test code = 1925-7) Patient Temperature 37.0 (test code = 8310-5) FIO2 (test code = 1819) 36 Lab Interpretation Abnormal (test code = 10665-6) [facility] [id number] 05:15:00 Test Item Value Reference Range Interpretation Comments PH ARTERIAL (BEAKER) (test code = 7.39 7.35-7.45 383) PCO2 ARTERIAL (BEAKER) (test code 50 mm Hg 35-45 H = 384) PO2 ARTERIAL (BEAKER) (test code = 140 mm Hg 80-90 H 385) O2 SATURATION ARTERIAL (BEAKER) 98.7 % 96.0-97.0 H (test code = 386) HCO3 ARTERIAL (BEAKER) (test code 30 mmol/L 21-29 H = 388) BASE EXCESS ARTERIAL (BEAKER) 4.5 mmol/L -2.0-3.0 H (test code = 387) PATIENT TEMPERATURE (BEAKER) (test 37.0 code = 1818) FIO2 (BEAKER) (test code = 1819) 36.0 BASIC METABOLIC [id number] 04:12:00 Test Item Value Reference Range Interpretation Comments SODIUM (BEAKER) 134 meq/L 136-145 L (test code = 381) POTASSIUM (BEAKER) 4.3 meq/L 3.5-5.1 (test code = 379) CHLORIDE (BEAKER) 99 meq/L 98-107 (test code = 382) CO2 (BEAKER) (test 26 meq/L 22-29 code = 355) BLOOD UREA NITROGEN 7 mg/dL 7-21 (BEAKER) (test code = 354) CREATININE (BEAKER) 0.45 mg/dL 0.57-1.25 L (test code = 358) GLUCOSE RANDOM 110 mg/dL 70-105 H (BEAKER) (test code = 652) CALCIUM (BEAKER) 7.7 mg/dL 8.4-10.2 L (test code = 697) EGFR (BEAKER) (test 143 mL/min/1.73 ESTIM ATED GFR IS code = 1092) sq m NOT ACCURATE CREATININE CLEARANCE IN PREDICTING GLOMERULAR FILTRATION RATE . ESTIMATED GFR I S NOT APPLICABLE FOR DIALYSIS PATIEN TS. Hedis Analyst ID - [id number] 04:08:00 Test Item Value Reference Range Interpretation Comments MAGNESIUM (BEAKER) (test code = 1.9 mg/dL 1.6-2.6 627) Hedis Analyst ID - [id number] 04:08:00 Test Item Value Reference Range Interpretation Comments PHOSPHORUS (BEAKER) (test code = 2.7 mg/dL 2.3-4.7 604) Hedis Analyst ID - EDASICBC W/PLT COUNT & AUTO [id number] 03:55:00 Test Item Value Reference Range Interpretation Comments WHITE BLOOD CELL COUNT (BEAKER) 14.2 K/ L 3.5-10.5 H (test code = 775) RED BLOOD CELL COUNT (BEAKER) 2.70 M/ L 3.93-5.22 L (test code = 761) HEMOGLOBIN (BEAKER) (test code = 7.3 GM/DL 11.2-15.7 L 410) HEMATOCRIT (BEAKER) (test code = 24.2 % 34.1-44.9 L 411) MEAN CORPUSCULAR VOLUME (BEAKER) 89.6 fL 79.4-94.8 (test code = 753) MEAN CORPUSCULAR HEMOGLOBIN 27.0 pg 25.6-32.2 (BEAKER) (test code = 751) MEAN CORPUSCULAR HEMOGLOBIN CONC 30.2 GM/DL 32.2-35.5 L (BEAKER) (test code = 752) RED CELL DISTRIBUTION WIDTH 14.6 % 11.7-14.4 H (BEAKER) (test code = 412) PLATELET COUNT (BEAKER) (test 261 K/CU MM 150-450 code = 756) MEAN PLATELET VOLUME (BEAKER) 10.2 fL 9.4-12.3 (test code = 754) NUCLEATED RED BLOOD CELLS 0 /100 WBC 0-0 (BEAKER) (test code = 413) NEUTROPHILS RELATIVE PERCENT 79 % (BEAKER) (test code = 429) LYMPHOCYTES RELATIVE PERCENT 9 % (BEAKER) (test code = 430) MONOCYTES RELATIVE PERCENT 10 % (BEAKER) (test code = 431) EOSINOPHILS RELATIVE PERCENT 1 % (BEAKER) (test code = 432) BASOPHILS RELATIVE PERCENT 0 % (BEAKER) (test code = 437) NEUTROPHILS ABSOLUTE COUNT 11.12 K/ L 1.56-6.13 H (BEAKER) (test code = 670) LYMPHOCYTES ABSOLUTE COUNT 1.29 K/ L 1.18-3.74 (BEAKER) (test code = 414) MONOCYTES ABSOLUTE COUNT (BEAKER) 1.37 K/ L 0.24-0.36 H (test code = 415) EOSINOPHILS ABSOLUTE COUNT 0.18 K/ L 0.04-0.36 (BEAKER) (test code = 416) BASOPHILS ABSOLUTE COUNT (BEAKER) 0.04 K/ L 0.01-0.08 (test code = 417) IMMATURE GRANULOCYTES-RELATIVE 1 % 0-1 PERCENT (BEAKER) (test code = 2801) TSH/Free T4 If [id number] 18:42:00 Test Item Value Reference Range Interpretation Comments TSH (test code = 1.470 See_Comment [Automated 78288-5) message] The system which generated this result transmit lizzy reference range : 0.350 - 4.940 uIU/mL. The reference range was not used to interpret this result as normal/abnormal . LINDSAY (test code = LINDSAY) Hedis Analyst ID - ADMIN Lab Interpretation Normal (test code = 24832-1) [facility] T[facility] IF [id number] 18:42:00 Test Item Value Reference Range Interpretation Comments THYROID STIMULATING HORMONE 1.470 uIU/mL 0.350-4.940 (BEAKER) (test code = 772) Hedis Analyst ID - ADMINBASIC METABOLIC [id number] 17:01:00 Test Item Value Reference Range Interpretation Comments SODIUM (BEAKER) 133 meq/L 136-145 L (test code = 381) POTASSIUM (BEAKER) 4.3 meq/L 3.5-5.1 (test code = 379) CHLORIDE (BEAKER) 100 meq/L 98-107 (test code = 382) CO2 (BEAKER) (test 24 meq/L 22-29 code = 355) BLOOD UREA NITROGEN 10 mg/dL 7-21 (BEAKER) (test code = 354) CREATININE (BEAKER) 0.51 mg/dL 0.57-1.25 L (test code = 358) GLUCOSE RANDOM 148 mg/dL 70-105 H (BEAKER) (test code = 652) CALCIUM (BEAKER) 8.1 mg/dL 8.4-10.2 L (test code = 697) EGFR (BEAKER) (test 124 mL/min/1.73 ESTIM ATED GFR IS code = 1092) sq m NOT ACCURATE CREATININE CLEARANCE IN PREDICTING GLOMERULAR FILTRATION RATE . ESTIMATED GFR I S NOT APPLICABLE FOR DIALYSIS PATIEN TS. Hedis Analyst ID - [id number] 17:01:00 Test Item Value Reference Range Interpretation Comments MAGNESIUM (BEAKER) (test code = 1.8 mg/dL 1.6-2.6 627) Hedis Analyst ID - DBBLOOD GAS, [id number] 16:51:00 Test Item Value Reference Range Interpretation Comments PH ARTERIAL (BEAKER) (test code = 7.42 7.35-7.45 383) PCO2 ARTERIAL (BEAKER) (test code 44 mm Hg 35-45 = 384) PO2 ARTERIAL (BEAKER) (test code = 155 mm Hg 80-90 H 385) O2 SATURATION ARTERIAL (BEAKER) 99.0 % 96.0-97.0 H (test code = 386) HCO3 ARTERIAL (BEAKER) (test code 28 mmol/L 21-29 = 388) BASE EXCESS ARTERIAL (BEAKER) 2.8 mmol/L -2.0-3.0 (test code = 387) PATIENT TEMPERATURE (BEAKER) (test 36.6 code = 1818) FIO2 (BEAKER) (test code = 1819) 36.0 CBC W/PLT COUNT & AUTO [id number] 16:41:00 Test Item Value Reference Range Interpretation Comments WHITE BLOOD CELL COUNT (BEAKER) 14.5 K/ L 3.5-10.5 H (test code = 775) RED BLOOD CELL COUNT (BEAKER) 3.11 M/ L 3.93-5.22 L (test code = 761) HEMOGLOBIN (BEAKER) (test code = 8.2 GM/DL 11.2-15.7 L 410) HEMATOCRIT (BEAKER) (test code = 27.9 % 34.1-44.9 L 411) MEAN CORPUSCULAR VOLUME (BEAKER) 89.7 fL 79.4-94.8 (test code = 753) MEAN CORPUSCULAR HEMOGLOBIN 26.4 pg 25.6-32.2 (BEAKER) (test code = 751) MEAN CORPUSCULAR HEMOGLOBIN CONC 29.4 GM/DL 32.2-35.5 L (BEAKER) (test code = 752) RED CELL DISTRIBUTION WIDTH 14.5 % 11.7-14.4 H (BEAKER) (test code = 412) PLATELET COUNT (BEAKER) (test 307 K/CU MM 150-450 code = 756) MEAN PLATELET VOLUME (BEAKER) 10.4 fL 9.4-12.3 (test code = 754) NUCLEATED RED BLOOD CELLS 0 /100 WBC 0-0 (BEAKER) (test code = 413) NEUTROPHILS RELATIVE PERCENT 82 % (BEAKER) (test code = 429) LYMPHOCYTES RELATIVE PERCENT 7 % (BEAKER) (test code = 430) MONOCYTES RELATIVE PERCENT 9 % (BEAKER) (test code = 431) EOSINOPHILS RELATIVE PERCENT 0 % (BEAKER) (test code = 432) BASOPHILS RELATIVE PERCENT 0 % (BEAKER) (test code = 437) NEUTROPHILS ABSOLUTE COUNT 11.89 K/ L 1.56-6.13 H (BEAKER) (test code = 670) LYMPHOCYTES ABSOLUTE COUNT 1.04 K/ L 1.18-3.74 L (BEAKER) (test code = 414) MONOCYTES ABSOLUTE COUNT (BEAKER) 1.29 K/ L 0.24-0.36 H (test code = 415) EOSINOPHILS ABSOLUTE COUNT 0.04 K/ L 0.04-0.36 (BEAKER) (test code = 416) BASOPHILS ABSOLUTE COUNT (BEAKER) 0.04 K/ L 0.01-0.08 (test code = 417) IMMATURE GRANULOCYTES-RELATIVE 1 % 0-1 PERCENT (BEAKER) (test code = 2801) CT, CHEST, WITHOUT [id number] 14:10:00Unlisted Reason for Exam - Click Yes and Enter Reason Below->YesUnlisted Reason for Exam->evalresidual effusion on [facility] : 1960 Sex: FFINAL REPORT CT of the Chest dated 12/25/2020 COMPARISON: December 23 CLINICAL INFORMATION: Unlisted Reason for Exameval residual effusion on R Comment: Axial images of the chest were obtained from thoracic inlet to the upper abdomen without intravenous contrast. This exam was performed according to our departmental dose-optimization program, which includes automated exposure control, adjustment of the mA and/or kV according to patient size and/or use of interactive reconstruction technique. Heart is normal in size. Previously noted large pericardial effusion has resolved. Great vessels are unremarkable. No adenopathy in the mediastinum or perihilar region. Trachea and mainstem bronchi are patent. There is persistent loculated pleural effusion or pleural thicken ing in the right hemithorax. Consolidation is seen in the right upper and right mid lobes. Nonspecific pulmonary parenchyma disease is seen in the right lower lobe. Nonspecific interstitial and groundglass pulmonary parenchyma disease is seen in the lingula and left lower lobe. There is trace left pleural effusion. A small left pneumothorax is present. Subcutaneous emphysema is seen in the left chestwall. Bilateral pigtail chest tubes are present. Visualized upper abdomen demonstrates no focal lesion. Impression: 1. Interval resolution previously noted pericardial effusion.2. Loculated pleural effusion or pleural thickening in the right hemithorax and trace left pleural effusion.3. Minimal left pn eumothorax and subcutaneous emphysema in left chest wall.4. Consolidation in the right upper and midlobe and nonspecific pulmonary parenchyma disease in the lingula, and both lower lobes. Signed: Carley Solis MDReport Verified Date/Time: 12/25/2020 14:10:09 Reading Location: [address] Body Reading Room CT chest without IV [id number] 14:10:00Interface, External Ris In - 12/25/2020 2:[address] of the Chest dated 12/25/2020 COMPARISON: December 23, 2020 CLINICAL INFORMATION: Unlisted Reason for Exameval residual effusion on R Comment: Axial images of the chest were obtained from thoracic inlet to the upper abdomen without intravenous contrast. This exam was performed according to our departmental dose-optimization program, which includes automated exposure control, adjustment of the mA and/or kV according to patient size and/or use of interactive reconstruction technique. Heart is normal in size. Previously noted large pericardial effusion has resolved. Great vessels are unremarkable. No adenopathy in the mediastinum or perihilar region. Trachea and mainstem bronchi are patent. There is persistent loculated pleural effusion or pleural thickening in the right hemithorax. Consolidation is seen in the right upper and right mid lobes. Nonspecific pulmonary parenchyma disease is seen in the right lower lobe. Nonspecific interstitial and groundglass pulmonary parenchyma disease is seen in the lingula and left lower lobe. There is trace left pleural effusion. A small left pneumothorax is present. Subcutaneous emphysema is seen in the left chest wall. Bilateral pigtail chest tubes are present. Visualized upper abdomen demonstrates no focal lesion. Impression: 1. Interval resolution previously noted pericardial effusion.2. Loculated pleural effusion or pleural thickening in the right hemithorax and trace left pleural effusion.3. Minimal left pneumothorax and subcutaneous emphysema in left chest wall.4. Consolidation in the right upper and mid lobe and nonspecific pulmonary parenchyma disease in thelingula, and both lower lobes. Signed: Carley Solis Verified Date/Time: 12/25/2020 14:10:09Reading Location: [facility] C013Y CT Body [facility], NON DEPT 2020-12-25 09:15:00Reason for exam:->Left VATS, pericardial windowIs the patient ?->NoShould this be performed at the bedside?->Yes [facility] : 1960 Sex: FFINAL REPORT Chest AP portable Comparison exam: 12/24/2020 History prov ided: Left VATS, pericardial window Right hemithorax remains largely opaque consistent with pleural and parenchymal disease described on CT performed 2 days ago. Left lung well aerated and grossly clear. Signed: Raul Payneort Verified Date/Time: 12/25/2020 09:15:02 Reading Location: [facility] Radiology Reading Room BASIC METABOLIC [id number] 04:49:00 Test Item Value Reference Range Interpretation Comments SODIUM (BEAKER) 134 meq/L 136-145 L (test code = 381) POTASSIUM (BEAKER) 4.3 meq/L 3.5-5.1 (test code = 379) CHLORIDE (BEAKER) 99 meq/L 98-107 (test code = 382) CO2 (BEAKER) (test 26 meq/L 22-29 code = 355) BLOOD UREA NITROGEN 10 mg/dL 7-21 (BEAKER) (test code = 354) CREATININE (BEAKER) 0.51 mg/dL 0.57-1.25 L (test code = 358) GLUCOSE RANDOM 125 mg/dL 70-105 H (BEAKER) (test code = 652) CALCIUM (BEAKER) 8.2 mg/dL 8.4-10.2 L (test code = 697) EGFR (BEAKER) (test 124 mL/min/1.73 ESTIM ATED GFR IS code = 1092) sq m NOT ACCURATE CREATININE CLEARANCE IN PREDICTING GLOMERULAR FILTRATION RATE . ESTIMATED GFR I S NOT APPLICABLE FOR DIALYSIS PATIEN TS. Hedis Analyst ID - CHAPARRO [id number] 04:49:00 Test Item Value Reference Range Interpretation Comments MAGNESIUM (BEAKER) (test code = 2.1 mg/dL 1.6-2.6 627) Hedis Analyst ID - CHAPARRO [id number] 04:49:00 Test Item Value Reference Range Interpretation Comments PHOSPHORUS (BEAKER) (test code = 2.4 mg/dL 2.3-4.7 604) Hedis Analyst ID - CHAPARRO [id number] 03:36:00 Test Item Value Reference Interpretation Comments Range Protime (test code = 18.6 See_Comment H [Autom ated 5902-2) message] The system which generated this result transmitted reference range : 11.9 - 14.2 seconds. The reference range was not used to interpret this result as normal/abnormal . INR (test code = 1.60 See_Comment [Automated 3271-6) message] The system which generated this result transmitted reference range : <=5.90. The reference range was not used to interpret this result as normal/abnormal . PTT (test code = 43.8 See_Comment H [Automated 10554-8) message] The system which generated this result transmitted reference range : 22.5 - 36.0 seconds. The reference range was not used to interpret this result as normal/abnormal . LINDSAY (test code = Effective 02/07/2019: LINDSAY) PT Reference Range ChangeNew: 11.9-14.2 Previous: 11.7-14.7 RECOMMENDED COUMADIN/WARFARIN INR THERAPY RANGESSTANDARD DOSE: 2.0-3.0 Includes: PROPHYLAXIS for venous thrombosis, systemic embolization; TREATMENT for venous thrombosis and/or pulmonary embolus.HIGH RISK: Target INR is 2.5-3.5 for patients wiht mechanical heart valves. Lab Interpretation Abnormal (test code = 45591-7) [id number] 03:36:00 Test Item Value Reference Range Interpretation Comments PROTIME (BEAKER) (test 18.6 seconds 11.9-14.2 H code = 759) INR (BEAKER) (test 1.60 See_Comment [Automat ed code = 370) message] The sy stem which generated this result transmitted reference range : <=5.90. The reference range was not used to interpret this result as normal/abnormal . PARTIAL THROMBOPLASTIN 43.8 seconds 22.5-36.0 H TIME (BEAKER) (test code = 760) Effective 02/07/2019: PT Reference Range ChangeNew: 11.9-14.2 Previous: 11.7- 14.7RECOMMENDED COUMADIN/WARFARIN INR THERAPY RANGESSTANDARD DOSE: 2.0-3.0 Includes: PROPHYLAXIS for venous thrombosis, systemic embolization; TREATMENT for venous thrombosis and/or pulmonary embolus.HIGH RISK: Target INR is2.5-3.5 for patients wiht mechanical heart valves.CBC W/PLT COUNT & AUTO [id number] 03:29:00 Test Item Value Reference Range Interpretation Comments WHITE BLOOD CELL COUNT (BEAKER) 12.1 K/ L 3.5-10.5 H (test code = 775) RED BLOOD CELL COUNT (BEAKER) 3.10 M/ L 3.93-5.22 L (test code = 761) HEMOGLOBIN (BEAKER) (test code = 8.1 GM/DL 11.2-15.7 L 410) HEMATOCRIT (BEAKER) (test code = 27.6 % 34.1-44.9 L 411) MEAN CORPUSCULAR VOLUME (BEAKER) 89.0 fL 79.4-94.8 (test code = 753) MEAN CORPUSCULAR HEMOGLOBIN 26.1 pg 25.6-32.2 (BEAKER) (test code = 751) MEAN CORPUSCULAR HEMOGLOBIN CONC 29.3 GM/DL 32.2-35.5 L (BEAKER) (test code = 752) RED CELL DISTRIBUTION WIDTH 14.3 % 11.7-14.4 (BEAKER) (test code = 412) PLATELET COUNT (BEAKER) (test 281 K/CU MM 150-450 code = 756) MEAN PLATELET VOLUME (BEAKER) 10.3 fL 9.4-12.3 (test code = 754) NUCLEATED RED BLOOD CELLS 0 /100 WBC 0-0 (BEAKER) (test code = 413) NEUTROPHILS RELATIVE PERCENT 84 % (BEAKER) (test code = 429) LYMPHOCYTES RELATIVE PERCENT 5 % (BEAKER) (test code = 430) MONOCYTES RELATIVE PERCENT 10 % (BEAKER) (test code = 431) EOSINOPHILS RELATIVE PERCENT 0 % (BEAKER) (test code = 432) BASOPHILS RELATIVE PERCENT 0 % (BEAKER) (test code = 437) NEUTROPHILS ABSOLUTE COUNT 10.11 K/ L 1.56-6.13 H (BEAKER) (test code = 670) LYMPHOCYTES ABSOLUTE COUNT 0.60 K/ L 1.18-3.74 L (BEAKER) (test code = 414) MONOCYTES ABSOLUTE COUNT (BEAKER) 1.18 K/ L 0.24-0.36 H (test code = 415) EOSINOPHILS ABSOLUTE COUNT 0.02 K/ L 0.04-0.36 L (BEAKER) (test code = 416) BASOPHILS ABSOLUTE COUNT (BEAKER) 0.02 K/ L 0.01-0.08 (test code = 417) IMMATURE GRANULOCYTES-RELATIVE 1 % 0-1 PERCENT (BEAKER) (test code = 2801) BLOOD GAS, [id number] 03:14:00 Test Item Value Reference Range Interpretation Comments PH ARTERIAL (BEAKER) (test code = 7.38 7.35-7.45 383) PCO2 ARTERIAL (BEAKER) (test code 50 mm Hg 35-45 H = 384) PO2 ARTERIAL (BEAKER) (test code = 117 mm Hg 80-90 H 385) O2 SATURATION ARTERIAL (BEAKER) 98.2 % 96.0-97.0 H (test code = 386) HCO3 ARTERIAL (BEAKER) (test code 29 mmol/L 21-29 = 388) BASE EXCESS ARTERIAL (BEAKER) 3.3 mmol/L -2.0-3.0 H (test code = 387) PATIENT TEMPERATURE (BEAKER) (test 37.0 code = 1818) FIO2 (BEAKER) (test code = 1819) 36.0 If A-Line onlyVancomycin level, [id number] 02:51:00 Test Item Value Reference Range Interpretation Comments Vancomycin Tr (test code = 6.8 ug/mL 10-20 L 4092-3) LINDSAY (test code = LINDSAY) Hedis Analyst ID - TENZIN L Lab Interpretation (test Abnormal code = 43702-3) [facility] HospitalVAN[facility]YCIN LEVEL, [id number] 02:51:00 Test Item Value Reference Range Interpretation Comments VANCOMYCIN TROUGH (BEAKER) (test 6.8 ug/mL 10.0-20.0 L code = 522) Hedis Analyst ID - TENZIN LRAD, CHEST, 1 VIEW, NON [id number] 21:10:00Reason for exam:->low output chest tube right side, worsening coughShould this be performed at the bedside?->Yes [facility] : 1960 Sex: FFINAL REPORT History: Low output from right-sided chest tube, worseni ng cough. Comparison: 12/24/2020 at 0207 hours The cardiomediastinal contours are stable. The lung volumes remain low. Right greater than left parenchymal and pleural opacities are unchanged. There is no pneumothorax. A mediastinal drain and bilateral chest tubes are stable in position. Signed: Ema Still MDReport Verified Date/Time: 12/24/2020 21:10:48 BASIC METABOLIC [id number] 20:07:00 Test Item Value Reference Range Interpretation Comments SODIUM (BEAKER) 135 meq/L 136-145 L (test code = 381) POTASSIUM (BEAKER) 4.3 meq/L 3.5-5.1 (test code = 379) CHLORIDE (BEAKER) 100 meq/L 98-107 (test code = 382) CO2 (BEAKER) (test 27 meq/L 22-29 code = 355) BLOOD UREA NITROGEN 11 mg/dL 7-21 (BEAKER) (test code = 354) CREATININE (BEAKER) 0.58 mg/dL 0.57-1.25 (test code = 358) GLUCOSE RANDOM 153 mg/dL 70-105 H (BEAKER) (test code = 652) CALCIUM (BEAKER) 8.3 mg/dL 8.4-10.2 L (test code = 697) EGFR (BEAKER) (test 107 mL/min/1.73 ESTIM ATED GFR IS code = 1092) sq m NOT ACCURATE CREATININE CLEARANCE IN PREDICTING GLOMERULAR FILTRATION RATE . ESTIMATED GFR I S NOT APPLICABLE FOR DIALYSIS PATIEN TS. Hedis Analyst ID - [id number] 20:07:00 Test Item Value Reference Range Interpretation Comments MAGNESIUM (BEAKER) (test code = 2.0 mg/dL 1.6-2.6 627) Hedis Analyst ID - [id number] 20:07:00 Test Item Value Reference Range Interpretation Comments PHOSPHORUS (BEAKER) (test code = 2.5 mg/dL 2.3-4.7 604) Hedis Analyst ID - BSUrinalysis w/Microscopic + Reflex to [id number] 17:37:00 Test Item Value Reference Range Interpretation Comments Color, UA (test code Yellow = 5778-6) Clarity, UA (test Hazy code = 5767-9) Specific Elliott, UA 1.036 1.001-1.035 H (test code = 5811-5) pH, UA (test code = 6.0 5.0-8.0 5803-2) Protein, UA (test 50 mg/dL Negative A code = 62264-0) Glucose, UA (test Negative Negative code = 365) Ketones, UA (test Negative Negative code = 2514-8) Bilirubin, UA (test Negative Negative code = 62657-1) Blood, UA (test code Negative Negative = 81282-6) Nitrite, UA (test Negative Negative code = 5802-4) Leukocytes, UA (test Negative Negative code = 5799-2) Urobilinogen, UA 2.0 mg/dL 0.2-1 H (test code = 41678-5) RBC, UA (test code = <1 See_Comment [Autom ated 50455-4) message] The system which generated this result transmit lizzy reference range : /HPF. The reference range was not used to interpret this result as normal/abnormal . WBC, UA (test code = 1 See_Comment [Autom ated 5821-4) message] The system which generated this result transmit lizzy reference range : /HPF. The reference range was not used to interpret this result as normal/abnormal . Mucus (test code = Few 8247-9) Squam Epithel, UA 3 See_Comment [Automate d (test code = 83573-1) messag e] The system which generated this result transmit lizzy reference range : /HPF. The reference range was not used to interpret this result as normal/abnormal . Hyaline Casts, UA 18 See_Comment [Automate d (test code = 97616-8) messag e] The system which generated this result transmit lizzy reference range : /LPF. The reference range was not used to interpret this result as normal/abnormal . Specimen Source (test code = 2795) LINDSAY (test code = LINDSAY) Hedis Analyst ID - [auto]Hedis Analyst ID - tech Lab Interpretation Abnormal (test code = 75068-6) [facility]/ REFLEX URINE [id number] 17:37:00 Test Item Value Reference Range Interpretation Comments COLOR (BEAKER) (test code = 470) Yellow CLARITY (BEAKER) (test code = 469) Hazy SPECIFIC GRAVITY UA (BEAKER) (test 1.036 1.001-1.035 H code = 468) PH UA (BEAKER) (test code = 467) 6.0 5.0-8.0 PROTEIN UA (BEAKER) (test code = 50 mg/dL Negative A 464) GLUCOSE UA (BEAKER) (test code = Negative Negative 365) KETONES UA (BEAKER) (test code = Negative Negative 371) BILIRUBIN UA (BEAKER) (test code = Negative Negative 462) BLOOD UA (BEAKER) (test code = 461) Negative Negative NITRITE UA (BEAKER) (test code = Negative Negative 465) LEUKOCYTE ESTERASE UA (BEAKER) Negative Negative (test code = 466) UROBILINOGEN UA (BEAKER) (test code 2.0 mg/dL 0.2-1.0 H = 463) RBC UA (BEAKER) (test code = 519) < /HPF WBC UA (BEAKER) (test code = 520) 1 /HPF MUCUS (BEAKER) (test code = 1574) Few SQUAMOUS EPITHELIAL (BEAKER) (test 3 /HPF code = 516) HYALINE CASTS (BEAKER) (test code = 18 /LPF 514) SOURCE(BEAKER) (test code = 2795) Hedis Analyst ID - [auto]Hedis Analyst ID - techBLOOD GAS, [id number] 17:15:00 Test Item Value Reference Range Interpretation Comments PH ARTERIAL (BEAKER) (test code = 7.42 7.35-7.45 383) PCO2 ARTERIAL (BEAKER) (test code 44 mm Hg 35-45 = 384) PO2 ARTERIAL (BEAKER) (test code = 146 mm Hg 80-90 H 385) O2 SATURATION ARTERIAL (BEAKER) 98.9 % 96.0-97.0 H (test code = 386) HCO3 ARTERIAL (BEAKER) (test code 28 mmol/L 21-29 = 388) BASE EXCESS ARTERIAL (BEAKER) 2.8 mmol/L -2.0-3.0 (test code = 387) PATIENT TEMPERATURE (BEAKER) (test 36.7 code = 1818) FIO2 (BEAKER) (test code = 1819) 36.0 If A-Line onlyPOC-Glucose [id number] 16:38:00 Test Item Value Reference Range Interpretation Comments POC-Glucose Meter (test 113 mg/dL 70-110 H : No rah RN/MD: code = 1538) TESTED AT [address], [address]: Hedis Analyst/Techni saúl ID = [id number] for ZURI NATH Lab Interpretation (test Abnormal code = 30663-0) [facility] [id number] 16:38:00 Test Item Value Reference Range Interpretation Comments POC-GLUCOSE METER 113 mg/dL 70-110 H : Notified RN/MD: (BEAKER) (test code = TESTED AT [facility] [id number]) [facility], [address]: Hedis Analyst/Techni saúl ID = [id number] for LAVON PINEDA BASIC METABOLIC [id number] 14:35:00 Test Item Value Reference Range Interpretation Comments SODIUM (BEAKER) 132 meq/L 136-145 L (test code = 381) POTASSIUM (BEAKER) 4.4 meq/L 3.5-5.1 (test code = 379) CHLORIDE (BEAKER) 99 meq/L 98-107 (test code = 382) CO2 (BEAKER) (test 25 meq/L 22-29 code = 355) BLOOD UREA NITROGEN 10 mg/dL 7-21 (BEAKER) (test code = 354) CREATININE (BEAKER) 0.55 mg/dL 0.57-1.25 L (test code = 358) GLUCOSE RANDOM 134 mg/dL 70-105 H (BEAKER) (test code = 652) CALCIUM (BEAKER) 8.1 mg/dL 8.4-10.2 L (test code = 697) EGFR (BEAKER) (test 114 mL/min/1.73 ESTIM ATED GFR IS code = 1092) sq m NOT ACCURATE CREATININE CLEARANCE IN PREDICTING GLOMERULAR FILTRATION RATE . ESTIMATED GFR I S NOT APPLICABLE FOR DIALYSIS PATIEN TS. Hedis Analyst ID - PINAYELI [id number] 14:35:00 Test Item Value Reference Range Interpretation Comments MAGNESIUM (BEAKER) (test code = 2.1 mg/dL 1.6-2.6 627) Hedis Analyst ID - TENZIN LPT/[id number] 14:24:00 Test Item Value Reference Range Interpretation Comments PROTIME (BEAKER) (test 18.1 seconds 11.9-14.2 H code = 759) INR (BEAKER) (test 1.54 See_Comment [Automat ed code = 370) message] The sy stem which generated this result transmitted reference range : <=5.90. The reference range was not used to interpret this result as normal/abnormal . PARTIAL THROMBOPLASTIN 32.9 seconds 22.5-36.0 TIME (BEAKER) (test code = 760) Effective 02/07/2019: PT Reference Range ChangeNew: 11.9-14.2 Previous: 11.7- 14.7RECOMMENDED COUMADIN/WARFARIN INR THERAPY RANGESSTANDARD DOSE: 2.0-3.0 Includes: PROPHYLAXIS for venous thrombosis, systemic embolization; TREATMENT for venous thrombosis and/or pulmonary embolus.HIGH RISK: Target INR is2.5-3.5 for patients wiht mechanical heart valves.CBC W/PLT COUNT & AUTO [id number] 14:16:00 Test Item Value Reference Range Interpretation Comments WHITE BLOOD CELL COUNT (BEAKER) 14.6 K/ L 3.5-10.5 H (test code = 775) RED BLOOD CELL COUNT (BEAKER) 3.25 M/ L 3.93-5.22 L (test code = 761) HEMOGLOBIN (BEAKER) (test code = 8.6 GM/DL 11.2-15.7 L 410) HEMATOCRIT (BEAKER) (test code = 29.0 % 34.1-44.9 L 411) MEAN CORPUSCULAR VOLUME (BEAKER) 89.2 fL 79.4-94.8 (test code = 753) MEAN CORPUSCULAR HEMOGLOBIN 26.5 pg 25.6-32.2 (BEAKER) (test code = 751) MEAN CORPUSCULAR HEMOGLOBIN CONC 29.7 GM/DL 32.2-35.5 L (BEAKER) (test code = 752) RED CELL DISTRIBUTION WIDTH 14.1 % 11.7-14.4 (BEAKER) (test code = 412) PLATELET COUNT (BEAKER) (test 334 K/CU MM 150-450 code = 756) MEAN PLATELET VOLUME (BEAKER) 9.9 fL 9.4-12.3 (test code = 754) NUCLEATED RED BLOOD CELLS 0 /100 WBC 0-0 (BEAKER) (test code = 413) NEUTROPHILS RELATIVE PERCENT 87 % (BEAKER) (test code = 429) LYMPHOCYTES RELATIVE PERCENT 4 % (BEAKER) (test code = 430) MONOCYTES RELATIVE PERCENT 8 % (BEAKER) (test code = 431) EOSINOPHILS RELATIVE PERCENT 0 % (BEAKER) (test code = 432) BASOPHILS RELATIVE PERCENT 0 % (BEAKER) (test code = 437) NEUTROPHILS ABSOLUTE COUNT 12.64 K/ L 1.56-6.13 H (BEAKER) (test code = 670) LYMPHOCYTES ABSOLUTE COUNT 0.52 K/ L 1.18-3.74 L (BEAKER) (test code = 414) MONOCYTES ABSOLUTE COUNT (BEAKER) 1.19 K/ L 0.24-0.36 H (test code = 415) EOSINOPHILS ABSOLUTE COUNT 0.03 K/ L 0.04-0.36 L (BEAKER) (test code = 416) BASOPHILS ABSOLUTE COUNT (BEAKER) 0.03 K/ L 0.01-0.08 (test code = 417) IMMATURE GRANULOCYTES-RELATIVE 1 % 0-1 PERCENT (BEAKER) (test code = 2801) POCT-GLUCOSE [id number] 11:33:00 Test Item Value Reference Range Interpretation Comments POC-GLUCOSE METER 124 mg/dL 70-110 H : Notified RN/MD: (ABIGAIL) (test code = TESTED AT [facility] 6720 1538) [facility], [address]: Hedis Analyst/Techni saúl ID = [id number] for Pa ppas, Tiffany RAD, CHEST, 1 VIEW, NON [id number] 10:39:00Reason for exam:->Left VATS, pericardial windowIs the patient ?->NoShould this be performed at the bedside?->YesHOLLYWOOD [facility]YSName: KAYKAY FERRIS : 1960 Sex: FFINAL REPORT CLINICAL HISTORY: Left VATS, pericardial window TECHNIQUE : 1 view of the chest. COMPARISON: 12/23/2020 IMPRESSION: Bilateral chest tubes are again seen. Thereis no definitive evidence for pneumothorax. Near-complete white out of the right hemithorax with pleural-parenchymal opacity is grossly unchanged. Bandlike opacities in the left lower lung zone are unchanged. The cardiomediastinal silhouette remains obscured. Signed: Francine Delcid MDReport Verified Date/Time: 12/24/2020 10:39:43 Reading Location: [facility] Radiology Reading Room SPIN/CONCENTRATION [id number] 07:47:00 Test Item Value Reference Range Interpretation Comments Concentration charged (test code = Done 2657) [facility] [id number] 07:47:00 Test Item Value Reference Range Interpretation Comments CONCENTRATION CHARGED (BEAKER) (test Done code = 2657) CBC W/PLT COUNT & AUTO [id number] 07:06:00 Test Item Value Reference Range Interpretation Comments WHITE BLOOD CELL COUNT (BEAKER) 21.6 K/ L 3.5-10.5 H (test code = 775) RED BLOOD CELL COUNT (BEAKER) 3.23 M/ L 3.93-5.22 L (test code = 761) HEMOGLOBIN (BEAKER) (test code = 8.5 GM/DL 11.2-15.7 L 410) HEMATOCRIT (BEAKER) (test code = 28.5 % 34.1-44.9 L 411) MEAN CORPUSCULAR VOLUME (BEAKER) 88.2 fL 79.4-94.8 (test code = 753) MEAN CORPUSCULAR HEMOGLOBIN 26.3 pg 25.6-32.2 (BEAKER) (test code = 751) MEAN CORPUSCULAR HEMOGLOBIN CONC 29.8 GM/DL 32.2-35.5 L (BEAKER) (test code = 752) RED CELL DISTRIBUTION WIDTH 13.9 % 11.7-14.4 (BEAKER) (test code = 412) PLATELET COUNT (BEAKER) (test 384 K/CU MM 150-450 code = 756) MEAN PLATELET VOLUME (BEAKER) 10.2 fL 9.4-12.3 (test code = 754) NUCLEATED RED BLOOD CELLS 0 /100 WBC 0-0 (BEAKER) (test code = 413) (CELLAVISION MANUAL DIFF)2020-12-24 07:06:00 Test Item Value Reference Range Interpretation Comments NEUTROPHILS - REL 88 % (CELLAVISION)(BEAKER) (test code = 2816) LYMPHOCYTES - REL 8 % (CELLAVISION)(BEAKER) (test code = 2817) MONOCYTES - REL 4 % (CELLAVISION)(BEAKER) (test code = 2818) NEUTROPHILS - ABS 19.01 K/ul 1.56-6.13 H (CELLAVISION)(BEAKER) (test code = 2830) LYMPHOCYTES - ABS 1.73 K/ul 1.18-3.74 (CELLAVISION)(BEAKER) (test code = 2831) MONOCYTES - ABS 0.86 K/uL 0.24-0.36 H (CELLAVISION)(BEAKER) (test code = 2832) TOTAL COUNTED (BEAKER) (test code 100 = 1351) WBC MORPHOLOGY (BEAKER) (test code Normal = 487) PLT MORPHOLOGY (BEAKER) (test code Normal = 486) POLYCHROMATOPHILLIC RBCS(BEAKER) 1+ few (test code = 478) HYPOCHROMIA (BEAKER) (test code = 1+ few 963) ANISOCYTOSIS (BEAKER) (test code = 1+ few 961) MICROCYTES (BEAKER) (test code = 1+ few 965) ARTIFACT (CELLAVISION)(BEAKER) Present (test code = 3432) PLATELET CONCENTRATION Adequate (CELLAVISION)(BEAKER) (test code = 3438) Hedis Analyst ID - Karolina Boswell comments: Slide comments:RAD, CHEST, 1 VIEW, NON [id number] 06:05:00Reason for exam:->pericardial window, left VATSIs the patient ?->NoShould this be performed at the bedside?->YesHOLLYWOOD COMM[facility]Name: KAYKAY FERRIS : 1960 Sex: FFINAL REPORT Chest one view. Clinical history: pericardial window, le ft VATS Comparison: Chest radiograph 10/17/2020. Technique: A single frontal view of the chest was obtained. Findings:There are bilateral chest tubes in satisfactory positions.The cardiomediastinal contours are stable. There is near complete opacification of the right hemithorax with airspace disease and loculated pleural effusion. There is a small airspace opacity in the left lung base. There is possible left apical pneumothorax. There is subcutaneous emphysema in the left lower chest wall.There is a moderate levoscoliosis of the lower thoracic spine.There are surgical clips in the right upper quadrant. Signed: Romain Arrieta Verified Date/Time: 12/24/2020 06:05:42 POCT- GLUCOSE [id number] 05:43:00 Test Item Value Reference Range Interpretation Comments POC-GLUCOSE METER 109 mg/dL 70-110 : TESTED A T [facility] 6720 [facility] (test code = [facility], 1538) [address]: Hedis Analyst/Techni saúl ID = [id number] for CH U, LI BASIC METABOLIC [id number] 04:17:00 Test Item Value Reference Range Interpretation Comments SODIUM (BEAKER) 135 meq/L 136-145 L (test code = 381) POTASSIUM (BEAKER) 4.7 meq/L 3.5-5.1 (test code = 379) CHLORIDE (BEAKER) 100 meq/L 98-107 (test code = 382) CO2 (BEAKER) (test 25 meq/L 22-29 code = 355) BLOOD UREA NITROGEN 14 mg/dL 7-21 (BEAKER) (test code = 354) CREATININE (BEAKER) 0.60 mg/dL 0.57-1.25 (test code = 358) GLUCOSE RANDOM 109 mg/dL 70-105 H (BEAKER) (test code = 652) CALCIUM (BEAKER) 8.2 mg/dL 8.4-10.2 L (test code = 697) EGFR (BEAKER) (test 103 mL/min/1.73 ESTIM ATED GFR IS code = 1092) sq m NOT ACCURATE CREATININE CLEARANCE IN PREDICTING GLOMERULAR FILTRATION RATE . ESTIMATED GFR I S NOT APPLICABLE FOR DIALYSIS PATIEN TS. Hedis Analyst ID - [id number] 04:17:00 Test Item Value Reference Range Interpretation Comments MAGNESIUM (BEAKER) (test code = 2.1 mg/dL 1.6-2.6 627) Hedis Analyst ID - [id number] 04:17:00 Test Item Value Reference Range Interpretation Comments PHOSPHORUS (BEAKER) (test code = 2.8 mg/dL 2.3-4.7 604) Hedis Analyst ID - ADMINPT/[id number] 04:05:00 Test Item Value Reference Range Interpretation Comments PROTIME (BEAKER) (test 18.0 seconds 11.9-14.2 H code = 759) INR (BEAKER) (test 1.53 See_Comment [Automat ed code = 370) message] The sy stem which generated this result transmitted reference range : <=5.90. The reference range was not used to interpret this result as normal/abnormal . PARTIAL THROMBOPLASTIN 33.7 seconds 22.5-36.0 TIME (BEAKER) (test code = 760) Effective 02/07/2019: PT Reference Range ChangeNew: 11.9-14.2 Previous: 11.7- 14.7RECOMMENDED COUMADIN/WARFARIN INR THERAPY RANGESSTANDARD DOSE: 2.0-3.0 Includes: PROPHYLAXIS for venous thrombosis, systemic embolization; TREATMENT for venous thrombosis and/or pulmonary embolus.HIGH RISK: Target INR is2.5-3.5 for patients wiht mechanical heart valves.BLOOD GAS, [id number] 03:54:00 Test Item Value Reference Range Interpretation Comments PH ARTERIAL (BEAKER) (test code = 7.43 7.35-7.45 383) PCO2 ARTERIAL (BEAKER) (test code 43 mm Hg 35-45 = 384) PO2 ARTERIAL (BEAKER) (test code = 92 mm Hg 80-90 H 385) O2 SATURATION ARTERIAL (BEAKER) 97.2 % 96.0-97.0 H (test code = 386) HCO3 ARTERIAL (BEAKER) (test code 28 mmol/L 21-29 = 388) BASE EXCESS ARTERIAL (BEAKER) 2.9 mmol/L -2.0-3.0 (test code = 387) PATIENT TEMPERATURE (BEAKER) (test 37.0 code = 1818) FIO2 (BEAKER) (test code = 1819) 36.0 If A-Line onlyPOCT-GLUCOSE [id number] 00:06:00 Test Item Value Reference Range Interpretation Comments POC-GLUCOSE METER 128 mg/dL 70-110 H : TESTED A T [facility] 6720 (BEAKER) (test code = [place], 1538) [address]: Hedis Analyst/Techni saúl ID = [id number] for CH U, LI BASIC METABOLIC [id number] 19:56:00 Test Item Value Reference Range Interpretation Comments SODIUM (BEAKER) 134 meq/L 136-145 L (test code = 381) POTASSIUM (BEAKER) 4.1 meq/L 3.5-5.1 (test code = 379) CHLORIDE (BEAKER) 99 meq/L 98-107 (test code = 382) CO2 (BEAKER) (test 25 meq/L 22-29 code = 355) BLOOD UREA NITROGEN 12 mg/dL 7-21 (BEAKER) (test code = 354) CREATININE (BEAKER) 0.64 mg/dL 0.57-1.25 (test code = 358) GLUCOSE RANDOM 143 mg/dL 70-105 H (BEAKER) (test code = 652) CALCIUM (BEAKER) 8.3 mg/dL 8.4-10.2 L (test code = 697) EGFR (BEAKER) (test 95 mL/min/1.73 ESTIMA LIZZY GFR IS code = 1092) sq m NOT ACCURATE CREATININE CLEARANCE IN PREDICTING GLOMERULAR FILTRATION RATE . ESTIMATED GFR I S NOT APPLICABLE FOR DIALYSIS PATIEN TS. Hedis Analyst ID - [id number] 19:56:00 Test Item Value Reference Range Interpretation Comments MAGNESIUM (BEAKER) (test code = 1.9 mg/dL 1.6-2.6 627) Hedis Analyst ID - [id number] 19:56:00 Test Item Value Reference Range Interpretation Comments PHOSPHORUS (BEAKER) (test code = 3.3 mg/dL 2.3-4.7 604) Hedis Analyst ID - [id number] 19:44:00 Test Item Value Reference Range Interpretation Comments PROTIME (BEAKER) (test 17.7 seconds 11.9-14.2 H code = 759) INR (BEAKER) (test 1.51 See_Comment [Automat ed code = 370) message] The sy stem which generated this result transmitted reference range : <=5.90. The reference range was not used to interpret this result as normal/abnormal . PARTIAL THROMBOPLASTIN 30.1 seconds 22.5-36.0 TIME (BEAKER) (test code = 760) Effective 02/07/2019: PT Reference Range ChangeNew: 11.9-14.2 Previous: 11.7- 14.7RECOMMENDED COUMADIN/WARFARIN INR THERAPY RANGESSTANDARD DOSE: 2.0-3.0 Includes: PROPHYLAXIS for venous thrombosis, systemic embolization; TREATMENT for venous thrombosis and/or pulmonary embolus.HIGH RISK: Target INR is2.5-3.5 for patients wiht mechanical heart valves.CBC (Hemogram only)2020-12-23 19:29:00 Test Item Value Reference Range Interpretation Comments WBC (test code = 6690-2) 23.6 See_Comment H [A utomated message] The system [employer] generated this result transmitted ref erence range: 3.5 - 10 .5 K/L. The refe rence range was not u sed to interpret this result as normal/abnor mal. RBC (test code = 789-8) 3.32 See_Comment L [Au tomated message] The system [employer] generated this result transmitted ref erence range: 3.93 - 5 .22 M/L. The refe rence range was not u sed to interpret this result as normal/abnor mal. MCHC (test code = 786-4) 30.0 See_Comment L [A utomated message] The system [employer] generated this result transmitted ref erence range: 32.2 - 3 5.5 GM/DL. The refe rence range was not u sed to interpret this result as normal/abnor mal. Hematocrit (test code = 29.0 % 34.1-44.9 L 4544-3) MCV (test code = 787-2) 87.3 fL 79.4-94.8 MCH (test code = 785-6) 26.2 pg 25.6-32.2 RDW (test code = 788-0) 13.9 % 11.7-14.4 Platelets (test code = 405 See_Comment [Aut omated message] 777-3) The system [employer] generated this result transmitted ref erence range: 150 - 45 0 K/CU MM. The referen ce range was not u sed to interpret this result as normal/abnor mal. MPV (test code = 10.0 fL 9.4-12.3 78292-7) nRBC (test code = 413) 0 See_Comment [Aut omated message] The system [employer] generated this result transmitted ref erence range: 0 - 0 /1 00 WBC. The refere nce range was not u sed to interpret this result as normal/abnor mal. Lab Interpretation (test Abnormal code = 39623-5) [facility] (HEMOGRAM ONLY)2020-12-23 19:29:00 Test Item Value Reference Range Interpretation Comments WHITE BLOOD CELL COUNT (BEAKER) 23.6 K/ L 3.5-10.5 H (test code = 775) RED BLOOD CELL COUNT (BEAKER) 3.32 M/ L 3.93-5.22 L (test code = 761) HEMOGLOBIN (BEAKER) (test code = 8.7 GM/DL 11.2-15.7 L 410) HEMATOCRIT (BEAKER) (test code = 29.0 % 34.1-44.9 L 411) MEAN CORPUSCULAR VOLUME (BEAKER) 87.3 fL 79.4-94.8 (test code = 753) MEAN CORPUSCULAR HEMOGLOBIN 26.2 pg 25.6-32.2 (BEAKER) (test code = 751) MEAN CORPUSCULAR HEMOGLOBIN CONC 30.0 GM/DL 32.2-35.5 L (BEAKER) (test code = 752) RED CELL DISTRIBUTION WIDTH 13.9 % 11.7-14.4 (BEAKER) (test code = 412) PLATELET COUNT (BEAKER) (test 405 K/CU MM 150-450 code = 756) MEAN PLATELET VOLUME (BEAKER) 10.0 fL 9.4-12.3 (test code = 754) NUCLEATED RED BLOOD CELLS 0 /100 WBC 0-0 (BEAKER) (test code = 413) BLOOD GAS, [id number] 19:26:00 Test Item Value Reference Range Interpretation Comments PH ARTERIAL (BEAKER) (test code = 7.37 7.35-7.45 383) PCO2 ARTERIAL (BEAKER) (test code 47 mm Hg 35-45 H = 384) PO2 ARTERIAL (BEAKER) (test code = 175 mm Hg 80-90 H 385) O2 SATURATION ARTERIAL (BEAKER) 99.1 % 96.0-97.0 H (test code = 386) HCO3 ARTERIAL (BEAKER) (test code 27 mmol/L 21-29 = 388) BASE EXCESS ARTERIAL (BEAKER) 1.1 mmol/L -2.0-3.0 (test code = 387) PATIENT TEMPERATURE (BEAKER) (test 36.9 code = 1818) FIO2 (BEAKER) (test code = 1819) 44.0 Calcium, [id number] 19:22:00 Test Item Value Reference Range Interpretation Comments Calcium, Ion (test code = 1994-3) 1.08 mmol/L 1.12-1.27 L pH, Blood (test code = 44559-4) 7.38 Lab Interpretation (test code = Abnormal 98567-9) [facility] [id number] 19:22:00 Test Item Value Reference Range Interpretation Comments CALCIUM IONIZED (BEAKER) (test 1.08 mmol/L 1.12-1.27 L code = 698) PH, BLOOD (BEAKER) (test code = 7.38 1810) ABORH, [id number] 14:48:00 Test Item Value Reference Range Interpretation Comments ABO Grouping (test code = 2588) AB Rh Factor (test code = 2589) POS [facility]Type and screen, [id number] 14:41:00 Test Item Value Reference Range Interpretation Comments Ab Scrn (test code = 890-4) [facility]IVE [facility]1 [facility] & [id number] 12:13:43 Ejection FractionSLEH ECHO HEARTLAB MKCKLINDA CPACSInterface, External Ris In - 12/23/2020 12:13 PM CDTTransthoracic Echocardiography Report (TTE) Demographics Patient Name KAYKAY FERRIS Date ofStudy 12/23/2020 CARLOS Gender Female Visit Number [id number] Race Unknown Room Number 1005 Number Date of 1960 Referring Physician BRENDON ARANA Age 60 year(s) Medical Practice Assistant Nichole Frausto [facility] Heading Maker Carol Charles, Interpreting Corey Alfredo [facility] Physician Procedure Type of Study TTE procedure:2DECHO W/CONTRAST & DOPPLER (STAT) Indications:Pericardial effusion.Clinical HistoryMalignant pleural effusion, s/p R VATS pleural biopsy, Asthma, A-fib, DM II,HTNHGB 9.3HCT 31.0 %Contrast Medium: Definity. Amount - 2 mlHeight: 64 inches Weight: 71.21 kg (157 lbs) BSA: 1.76 m^2 BMI: 26.95 kg/m^2HR: 115 bpm BP: 121/78 mmHg Summary A large pericardial effusion is present . Greatest pericardial end-diastolic size is approx. 4.5 cm. Pericardial tamponade physiology is suspected . The pericardial effusion appears circumferential . Care team aware and pericardial window is planned for today Signature Findings Left VentricleLV endocardium is well visualized with IV ultrasound enhancing agent. The left ventricle is chamber size (by vol index) is normal (female - LVED vol - 29-61ml/m2). No evidence of LV hypertrophy. All of the LV segments are moderately hypokinetic . Global LV systolic function moderately reduced . LVEF by Burt's method of disk assessment is moderately reduced (30-34%) . Grade 1 diastolic dysfunction (impaired relaxation and low-normal LA pressure). Left Atrium LA is well visualized. LA size is normal (16-34 ml/m2) . Right Ventricle RV chamber size is n ormal . RV collapse during early-diastole. Cardiac Tamponade is present. Right Atrium RA size is probably normal based on available views. Atrial Septum The interatrial septum is well visualized. Normal interatrial septum by available views. Aortic Valve Normal AoV structure. No evidence of aortic stenosis. No evidence of aortic regurgitation. Respiration variations present across Aortic valve (1.27 m/sec ~ 0.74 m/sec) . Mitral Valve Normal MV structure. Respiration variations present across Mitral valve (0.99 m/sec ~ 0.62 m/sec) . No evidence of mitral regurgitation. Tricuspid Valve TV structure is normal. A trace of tricuspid regurgitation. Estimated peak systolic PA pressure is 35-40 mmHg (borderline criteria for pulmonary hypertension) . Pulmonic Valve Normal PV structure and function by limited views and Doppler. Aorta Aortic root size (Sinus of Valsalva diameter) is normal. 2.7 cm Proximal ascending aorta size normal . 2.9 cm Pericardium A large pericardial effusion is present . Greatest pericardial end-diastolic size is approx. 4.5 cm. Pericardial tamponade physiology is suspected . The pericardial effusion appears circumferential . IVC/SVC/PA/PV/Pleural The inferior vena cava size is dilated without collapse. The estimated RA pressure by IVC dynamics >20mmHg . Chambers/Structures Left Atrium LA Dimension: 3.06 cm LA Area: 13.75 cm^2 LA Volume: 40.26 ml LA Vol. Index: 23 ml/m^2 Left Ventricle LVIDd: 3.51 cm LVEDV:51.29 ml LV Septum Diastolic: 1.05 cm LV PW Diastolic: 0.97 cm LVEDV Burt's:74.92 ml LVESV Burt's:48.76 ml LVEF Burt's: 34.9 % LVEDVI: 43 ml/m^2 LVESVI: 28 ml/m^2 LVOT Diameter: 2.37 cm Right Ventricle RVOT VTI: 13.48 c m Aorta Ao Root S of Amisha.: 2.72 cm Ascending Aorta: 2.99 cm Doppler/Quantitative Measurements Mitral Valve MV Peak E-Wave: 0.44 m/s MV Peak A-Wave: 0.78 m/s E/A Ratio: 0.56 Peak Gradient: 0.76 mmHg Deceleration Time: 104.9 msec MV Man. Peak: Tissue Doppler E' Lateral Velocity: 0.07 m/s E/E': 6.11 Aortic Valve Peak Velocity: 1 m/s Mean Velocity: 0.69 m/s Peak Gradient: 3.98 mmHg Mean Gradient: 2.11 mmHg AV Area (continuity): 4.26 cm^2 AV VTI: 14.23 cm AV DVI: 0.97 LVOT Peak Velocity: 0.89 m/s Peak Gradient: 3.13 mmHg Mean Velocity: 0.61 m/s Mean Gradient: 1.73 mmHg LVOT Diameter: 2.37 cm LVOT VTI: 13.75 cm LVOT Area: 4.41 cm^2 LVOT SV:60.63 ml LVOT CO: 6.97 l/min LVOT CI: 3.96 l/min/m^2 Tricuspid Valve TR Velocity: 2.18 m/s TR Gradient:19.01 mmHgSan Antonio Community HospitalCT, CHEST, WITHOUT [id number] 08:56:00Unlisted Reason for Exam - Click Yes and Enter Reason Below->NoHOLLYWOOD COMMUNITY [facility]OSPITAL OF VAN NUYSName: BARRINGTON KAYKAY CARLOS : 1960 Sex: FFINAL REPORT TECHNIQUE: CT of the chest WITHOUT intravenous contrast. Dose modulation, iterative reconstruction, and/or weight-based adjustment of the mA/kV was utilized to reduce the radiation dose to as low as reasonably achievable. INDICATION: 60-year-old woman with shortness of breath. COMPARISON: Chest radiograph 10/17/2020. FINDINGS: ABSENCE OF INTRAVENOUS CONTRAST DECREASES SENSITIVITY FOR DETECTION OF FOCAL LESIONS AND VASCULAR PATHOLOGY. LINES/TUBES: Right pleural drainage catheter in place. LUNGS AND AIRWAYS: Central airways are patent. Tiny tracheal diverticulum arises from the right posterolateral wall. Consolidation and volume loss of the entire right upper lobe with curvilinear lucencies which may represent ectatic airways or cystic/cavitary spaces. Con solidative opacities in the right middle and right lower lobes. Atelectasis scattered in the left lung. 4 mm noncalcified nodule in the left upper lobe (axial lung window series image 18). PLEURA: Small loculated right pleural effusion contains trace amount of air. Small layering left pleural effusion. HEART AND MEDIASTINUM: Visualized thyroid gland is normal. Mildly prominent 1.2 cm right lower paratracheal lymph node. Heart is normal in size. Large pericardial effusion measures up to 4 cm in thickness and likely contains debris. BONES AND SOFT TISSUES: No acute osseous abnormalities. Soft tissuesare unremarkable. UPPER ABDOMEN: Focal fatty infiltration in the liver along the falciform ligament.Prior cholecystectomy. IMPRESSION:Consolidation and volume loss of the right upper lobe may represent a combination of atelectasis, pneumonia, and neoplasm. Lucencies within the right upper lobe may represent bronchiectasis or cystic/cavitary spaces. Consolidative opacities in the right middle and right lower lobes may also represent pneumonia and/or atelectasis. Loculated hydropneumothorax on the right with small fluid component and trace air component. Small left pleural effusion. Large pericardial effusion. Indeterminate mildly prominent right mediastinal lymph node. Signed: Caitlyn Thomas MDReport Verified Date/Time: 12/23/2020 08:56:27 Reading Location: [facility] Diagnostic Imaging Reading Room- [place] [address] Hepatic function [id number] 07:47:00 Test Item Value Reference Range Interpretation Comments Protein, Total (test 7.3 See_Comment Specime n slightly code = 2885-2) hemolyzed [Automated message] The system which generated this result transmit lizzy reference range : 6.0 - 8.3 gm/dL . The reference range was not u sed to interpret th is result as normal/abnormal . Albumin (test code = 3.0 g/dL 3.5-5 L Specime n slightly 07719-4) hemolyzed Total Bilirubin (test 0.3 mg/dL 0.2-1.2 Specim en slightly code = 1974-2) hemolyzed Bilirubin, Direct 0.2 mg/dL 0.1-0.5 Specimen s lightly (test code = 1968-7) hemolyz ed Alkaline Phosphatase 122 U/L 40-150 (test code = 6768-6) AST (test code = 52 U/L 5-34 H Specimen sl ightly 1920-8) hemolyzed ALT (test code = 36 U/L 6-55 Specimen sl ightly 1742-6) hemolyzed LINDSAY (test code = LINDSAY) Hedis Analyst ID Sisi Wong Lab Interpretation Abnormal (test code = 91273-0) [facility] METABOLIC [id number] 07:47:00 Test Item Value Reference Range Interpretation Comments SODIUM (BEAKER) 132 meq/L 136-145 L (test code = 381) POTASSIUM (BEAKER) 4.9 meq/L 3.5-5.1 Specimen slightly (test code = 379) hemolyzed CHLORIDE (BEAKER) 96 meq/L 98-107 L (test code = 382) CO2 (BEAKER) (test 24 meq/L 22-29 code = 355) BLOOD UREA NITROGEN 9 mg/dL 7-21 (BEAKER) (test code = 354) CREATININE (BEAKER) 0.57 mg/dL 0.57-1.25 Specimen slightly (test code = 358) hemolyzed GLUCOSE RANDOM 131 mg/dL 70-105 H (BEAKER) (test code = 652) CALCIUM (BEAKER) 8.8 mg/dL 8.4-10.2 (test code = 697) EGFR (BEAKER) (test 109 mL/min/1.73 ESTIM ATED GFR IS code = 1092) sq m NOT ACCURATE CREATININE CLEARANCE IN PREDICTING GLOMERULAR FILTRATION RATE . ESTIMATED GFR I S NOT APPLICABLE FOR DIALYSIS PATIEN TS. Hedis Analyst ID - CHAPARRO MHEPATIC FUNCTION [id number] 07:47:00 Test Item Value Reference Range Interpretation Comments TOTAL PROTEIN (BEAKER) 7.3 gm/dL 6.0-8.3 Speci men slightly (test code = 770) hemolyzed ALBUMIN (BEAKER) (test 3.0 g/dL 3.5-5.0 L Speci men slightly code = 1145) hemolyzed BILIRUBIN TOTAL 0.3 mg/dL 0.2-1.2 Specimen sli ghtly (BEAKER) (test code = hemoly zed 377) BILIRUBIN DIRECT 0.2 mg/dL 0.1-0.5 Specimen sl ightly (BEAKER) (test code = hemoly zed 706) ALKALINE PHOSPHATASE 122 U/L 40-150 (BEAKER) (test code = 346) AST (SGOT) (BEAKER) 52 U/L 5-34 H Specimen slightly (test code = 353) hemolyzed ALT (SGPT) (BEAKER) 36 U/L 6-55 Specimen slightly (test code = 347) hemolyzed Hedis Analyst ID - CHAPARRO [facility] W/PLT COUNT & AUTO [id number] 07:10:00 Test Item Value Reference Range Interpretation Comments WHITE BLOOD CELL COUNT (BEAKER) 10.5 K/ L 3.5-10.5 (test code = 775) RED BLOOD CELL COUNT (BEAKER) 3.55 M/ L 3.93-5.22 L (test code = 761) HEMOGLOBIN (BEAKER) (test code = 9.3 GM/DL 11.2-15.7 L 410) HEMATOCRIT (BEAKER) (test code = 31.0 % 34.1-44.9 L 411) MEAN CORPUSCULAR VOLUME (BEAKER) 87.3 fL 79.4-94.8 (test code = 753) MEAN CORPUSCULAR HEMOGLOBIN 26.2 pg 25.6-32.2 (BEAKER) (test code = 751) MEAN CORPUSCULAR HEMOGLOBIN CONC 30.0 GM/DL 32.2-35.5 L (BEAKER) (test code = 752) RED CELL DISTRIBUTION WIDTH 13.8 % 11.7-14.4 (BEAKER) (test code = 412) PLATELET COUNT (BEAKER) (test 452 K/CU MM 150-450 H code = 756) MEAN PLATELET VOLUME (BEAKER) 9.9 fL 9.4-12.3 (test code = 754) NUCLEATED RED BLOOD CELLS 0 /100 WBC 0-0 (BEAKER) (test code = 413) NEUTROPHILS RELATIVE PERCENT 85 % (BEAKER) (test code = 429) LYMPHOCYTES RELATIVE PERCENT 8 % (BEAKER) (test code = 430) MONOCYTES RELATIVE PERCENT 6 % (BEAKER) (test code = 431) EOSINOPHILS RELATIVE PERCENT 0 % (BEAKER) (test code = 432) BASOPHILS RELATIVE PERCENT 0 % (BEAKER) (test code = 437) NEUTROPHILS ABSOLUTE COUNT 8.90 K/ L 1.56-6.13 H (BEAKER) (test code = 670) LYMPHOCYTES ABSOLUTE COUNT 0.79 K/ L 1.18-3.74 L (BEAKER) (test code = 414) MONOCYTES ABSOLUTE COUNT (BEAKER) 0.64 K/ L 0.24-0.36 H (test code = 415) EOSINOPHILS ABSOLUTE COUNT 0.04 K/ L 0.04-0.36 (BEAKER) (test code = 416) BASOPHILS ABSOLUTE COUNT (BEAKER) 0.02 K/ L 0.01-0.08 (test code = 417) IMMATURE GRANULOCYTES-RELATIVE 1 % 0-1 PERCENT (BEAKER) (test code = 2801) ECG 12 [id number] 06:39:02Interface, External Ris In - 12/23/2020 6:39 AM CDTVentricular Rate 110 BPMAtrial Rate 110 BPMP-R Interval 128 msQRS Duration 88 msQ-T Interval 338 msQTC Calculation(Bazett) 457 msP Hawkins 25 degreesR Hawkins 31 degreesT Hawkins 35 degreesSinus tachycardiaNonspecific T wave abnormalityAbnormal ECGWhen compared with ECG of 15-OCT-2020 04:48,ST elevation now present in Inferior leadsNonspecific T wave abnormality now evident in Inferior leadsNonspecific T wave abnormality, worse in Lateral leadsConfirmed by Christiana IBRAHIM MD, YASMANY Reagan ([id number]) on 12/23/2020 6:38:57 [facility] [id number] 03:16:00 Test Item Value Reference Range Interpretation Comments SODIUM (BEAKER) 134 meq/L 136-145 L This is a co rrected (test code = 381) result. Pr evious result was 120 meq/L on 021 at 0000 CDT POTASSIUM (BEAKER) 4.1 meq/L 3.5-5.1 (test code = 379) CHLORIDE (BEAKER) 90 meq/L 98-107 L (test code = 382) CO2 (BEAKER) (test 24 meq/L 22-29 code = 355) BLOOD UREA NITROGEN 8 mg/dL 7-21 (BEAKER) (test code = 354) CREATININE (BEAKER) 0.59 mg/dL 0.57-1.25 (test code = 358) GLUCOSE RANDOM 168 mg/dL 70-105 H (BEAKER) (test code = 652) CALCIUM (BEAKER) 9.1 mg/dL 8.4-10.2 (test code = 697) EGFR (BEAKER) (test 105 mL/min/1.73 ESTIM ATED GFR IS code = 1092) sq m NOT ACCURATE CREATININE CLEARANCE IN PREDICTING GLOMERULAR FILTRATION RATE . ESTIMATED GFR I S NOT APPLICABLE FOR DIALYSIS PATIEN TS. Hedis Analyst ID - DBInstrument error. Repeat Lytes, Informed b#[id number] Panel [id number] 02:17:00 Test Item Value Reference Interpretation Comments Range Human Metapneumovirus Not detected Not detected, (test code = 78836-6) Equivocal Rhinovirus (test code Not detected Not detected, = 97760-7) Equivocal INFLUENZA A (NO Previous SUBTYPE) (test code = SARS/F JEAN/RSV 64414-9) result within 24 hours. Please recollect after 24 hours from previous collection time. Influenza A subtype H1 (test code = 11341-5) Influenza A Subtype H3 (test code = 88249-4) Influenza A Subtype H1-2009 (test code = 80585-7) Influenza B (test Previous code = 25616-9) SARS/FLU/RSV result within 24 hours. Please recollect after 24 hours from previous collection time. Respiratory Syncytial Previo us Virus (test code = SARS/FLU/ RSV 17719-2) result within 24 hours. Please recollect after 24 hours from previous collection time. Parainfluenza Virus 1 Not detected Not detected, (test code = 42913-0) Equivocal Parainfluenza Virus 2 Not detected Not detected, (test code = 44174-1) Equivocal Parainfluenza virus 3 Not detected Not detected, (test code = 41689-5) Equivocal Parainfluenza Virus 4 Not detected Not detected, (test code = 76629-7) Equivocal Adenovirus (test code Not detected Not detected, = 23006-7) Equivocal Coronavirus 229E Not detected Not detected, (test code = 23367-1) Equivocal Coronavirus HKU1 Not detected Not detected, (test code = 94553-1) Equivocal Coronavirus NL63 Not detected Not detected, (test code = 90006-8) Equivocal Coronavirus OC43 Not detected Not detected, (test code = 93367-6) Equivocal Bordetella Pertussis Not detected Not detected, (test code = 30270-2) Equivocal Chlamydophila Not detected Not detected, Pneumoniae (test code Equivocal = 79047-4) Mycoplasma Pneumoniae Not detected Not detected, (test code = 44188-4) Equivocal LINDSAY (test code = LINDSAY) Other viruses and bacteria not targeted by this PCR panel cannot be excluded; therefore clinical correlation and follow up of serology, culture results, and other molecular studies is required. The results are not intended to be used as the sole means for clinical diagnosis or patient management decisions. This sample was tested at the [facility] Molecular Diagnostics Laboratory using the TabloArray Respiratory Panel. It is FDA cleared and has been verified and approved by the [facility] Molecular Diagnostics Laboratory for clinical use on nasopharyngeal swab specimens. The performance of the FilmArray RP has not been established in individuals who received influenza vaccine. Recent administration of a nasal influenza vaccine may cause false positive results for Influenza A and/orInfluenza B. [facility] [id number] 02:17:00 Test Item Value Reference Range Interpretation Comments HUMAN METAPNEUMOVIRUS Not detected Not detected, (BEAKER) (test code = Equivocal 2683) RHINOVIRUS (BEAKER) Not detected Not detected, (test code = 2684) Equivocal INFLUENZA A (BEAKER) Previou s (test code = 2685) SARS/FLU/ RSV result within 2 4 hours. Please recollect after 24 hours from previous collection time . INFLUENZA A (NO SUBTYPE) (test code = 3606) INFLUENZA A SUBTYPE H1 (BEAKER) (test code = 2686) INFLUENZA A SUBTYPE H3 (BEAKER) (test code = 2687) INFLUENZA A SUBTYPE H1-2009 (BEAKER) (test code = 3198) INFLUENZA B (BEAKER) Previou s (test code = 2688) SARS/FLU/ RSV result within 2 4 hours. Please recollect after 24 hours from previous collection time . RESPIRATORY SYNCYTIAL Previo us VIRUS (BEAKER) (test SARS/FL U/RSV code = 3199) result within 2 4 hours. Please recollect after 24 hours from previous collection time . PARAINFLUENZA VIRUS 1 Not detected Not detected, (BEAKER) (test code = Equivocal 2691) PARAINFLUENZA VIRUS 2 Not detected Not detected, (BEAKER) (test code = Equivocal 2692) PARAINFLUENZA VIRUS 3 Not detected Not detected, (BEAKER) (test code = Equivocal 2693) PARAINFLUENZA VIRUS 4 Not detected Not detected, (BEAKER) (test code = Equivocal 3200) ADENOVIRUS (BEAKER) Not detected Not detected, (test code = 2694) Equivocal CORONAVIRUS 229E Not detected Not detected, (BEAKER) (test code = Equivocal 3201) CORONAVIRUS HKU1 Not detected Not detected, (BEAKER) (test code = Equivocal 3202) CORONAVIRUS NL63 Not detected Not detected, (BEAKER) (test code = Equivocal 3203) CORONAVIRUS OC43 Not detected Not detected, (BEAKER) (test code = Equivocal 3204) BORDETELLA PERTUSSIS Not detected Not detected, (BEAKER) (test code = Equivocal 3205) CHLAMYDOPHILA Not detected Not detected, PNEUMONIAE (BEAKER) Equivocal (test code = 3206) MYCOPLASMA PNEUMONIAE Not detected Not detected, (BEAKER) (test code = Equivocal 3207) Other viruses and bacteria not targeted by this PCR panel cannot be excluded; therefore clinical correlation and follow up of serology, culture results, and other molecular studies is required. The results are not intended to be used as the sole means for clinical diagnosis or patient management decisions. This sample was tested at the [facility] Molecular Diagnostics Laboratory using the V-Key Respiratory Panel. It is FDA cleared and has been verified and approved by the [facility] Molecular Diagnostics Laboratory for clinical use on nasopharyngeal swab specimens.The performance of the FilmArrayRP has not been established in individuals who received influenza vaccine. Recent administration ofa nasal influenza vaccine may cause false positive results for Influenza A and/orInfluenza B.Rapid Influenza A&B [id number] 00:48:00 Test Item Value Reference Range Interpretation Comments Rapid Influenza A Antigen Negative Negative, Inconclusive (test code = 64315-5) Rapid influenza B Antigen Negative Negative, Inconclusive (test code = 15088-4) Lab Interpretation (test code Normal = 04845-1) [facility]B [id number] 00:48:00 Test Item Value Reference Range Interpretation Comments RAPID INFLUENZA A AG (BEAKER) Negative Negative, Inconclusive (test code = 1622) RAPID INFLUENZA B AG (BEAKER) Negative Negative, Inconclusive (test code = 1623) SARS-CoV2/Influenza/RSV RT-PCR (Symptomatic ONLY)2020-12-23 00:04:00 Test Item Value Reference Range Interpretation Comments SARS-COV2/RT-PCR (test Negative Negative code = 97685-1) Influenza A RT-PCR Negative Negative (test code = 81840-8) Influenza B RT-PCR Negative Negative (test code = 11795-3) RSV by RT-PCR (test Negative Negative Performa nce of the code = 10199-5) Xpert Xpress SARS-CoV-2/Flu/ RSV test has only been established in nasopharyngeal swab specimens. Use of the Xpert Xpress SARS-CoV-2/Flu/ RSV test with other spec imen types has not b een assessed and performance characteristics are unknown. As wi th any molecular test, mutations withi n the targeted geneti c regions identif ied by the Xpert Xpres s SARS-CoV-2/Flu/ RSV test could affect pr ronny and/or probe bi nding resulting in fa ilure to detect the pres ence of virus or the vi hiral being detected less predictably.Neg ative results do not preclude SARS-CoV-2, Inf luenza A/B, or RSV inf ection and should not be used as the sole bas is for treatment or ot her patient managem ent decisions. Res ults from the Xpert Xpress SARS-CoV-2/Flu/ RSV test should be corre lated with the clinic al history, epidemiological data, and other data available to th e clinician evalu ating the patient. I nvalid test results ma y occur from improper s pecimen collection; clark lure to follow the tomasz mmended sample collecti on, handling, and s torage procedures; shannon hnical error. False ne gative results may occ ur if virus is presen t at levels below th e analytical limi t of detection (LOD: 131 copies/mL). Vi ral nucleic acid ma y persist in vivo , independent of virus viability. Dete ction of analyte target( s) does not imply that the corresponding v irus(es) are infectious or are the causative a gents for clinical sy mptoms. Recent patient exposure to FluMist or other live attenuated influenza vacci nemo may cause inaccurat e positive result s.This test has been authorized by [employer] MENESES under an EUA for use by authorized laboratories. This test is only au thorized for the duratio n of the declaration vern t circumstances e xist justifying the authorization o f emergency use o f in vitro diagnosti c tests for detection a nd/or diagnosis of CO VID-19 under Section 5 64(b)(1) of the Federal Food, Drug and Cosmet ic Act, 21 U.S.C. 360bbb-3(b)(1), unless the authorizati on is terminated or r evoked sooner. Fact Sh eet for Healthcare Prov iders: https://www.[employer] /Documents/Xper t%20Xpre ss%80ICNE-LsY-9 -Flu-RSV /3024508%20Rev .%20B%20 HCP%20Fact%20Sh eet.pdf Fact Sheet for Healthcare Nicole ents: https://www.[employer] /Documents/Xper t%20Xpre ss%50FVTE-DtO-9 -Flu-RSV /3024507%20Rev .%20B%20 Patient%20Fact% 20Sheet. pdf Lab Interpretation Normal (test code = 07856-5) [facility]/RSV [id number] 00:04:00 Test Item Value Reference Range Interpretation Comments SARS-COV2/RT-PCR Negative Negative (test code = 6451171) INFLUENZA A RT-PCR Negative Negative (test code = 9898105) INFLUENZA B RT-PCR Negative Negative (test code = 0010968) RSV RT-PCR (test Negative Negative Performanc e of the Xpert code = 0055855) Xpress SARS- CoV-2/Flu/RSV test has only b een established in nasopharyngeal swab specimens. Use of the Xpert Xpress SARS-CoV-2/Flu/ RSV test with other spec imen types has not been as sessed and performance characteristics are unknown. As wi th any molecular test, mutations within the targ eted genetic regions identified by t Xpert Xpress SARS-CoV -2/Flu/RSV test could affe ct primer and/or probe bi nding resulting in fa ilure to detect the pres ence of virus or the vi hiral being detected less predictably.Neg ative results do not preclude SARS-CoV-2, Inf luenza A/B, or RSV inf ection and should not be u sed as the sole basis for treatment or other patien t management deci sions. Results from e Xpert Xpress SARS-CoV -2/Flu/RSV test should be correlated with the clinic al history, epidem iological data, and other data available to e clinician evalu ating the patient. Inval id test results may occ ur from improper specim en collection; clark lure to follow the tomasz mmended sample collecti on, handling, and s torage procedures; shannon hnical error. False ne gative results may occ ur if virus is presen t at levels below e analytical limi t of detection (LOD: 131 copies/mL). Vi ral nucleic acid ma y persist in vivo, indepe ndent of virus viability . Detection of an alyte target(s) does not imply that the corres ponding virus(es) are i nfectious or are the caus ative agents for clin ical symptoms. Rece nt patient exposure to Flu Mist or other live atte nuated influenza vacci nemo may cause inaccurat e positive results.This te st has been authorized by FDA under an EUA fo r use by authorized labo ratories. This test is on ly authorized for the duration of the declaration vern t circumstances e xist justifying the authorization o f emergency use o f in vitro diagnostic test s for detection and/o r diagnosis of CO VID-19 under Section 5 64(b)(1) of the Federal Food, Drug and Cosmetic Ac t, 21 U.S.C. 360bbb -3(b)(1), unless the auth orization is terminated o r revoked sooner.Fact She et for Healthcare Prov iders: https://www.[employer].com/D ocuments/Xpert% 20Xpress%2 8RWYK-DhM-3-Flu -RSV/302-4 508%20Rev.%20B% 20HCP%20Fa ct%20Sheet.pdfF act Sheet for Healthcare Patients: https://www.[employer].com/D ocuments/Xpert% 20Xpress%2 7YSQY-XpL-4-Flu -RSV/302-4 507%20Rev.%20B% 20Patient% 20Fact%20Sheet. pdf [id number] 00:00:00Ordered by an unspecified provider.[facility] [id number] 11:53:00Surgical Pathology Report Case: [id number] Authorizing Provider: Keshawn Sewell MD Collected: 10/17/2020 03:40 PM Ordering Location: [facility] Received: 10/17/2020 03:48 PM PERIOPERATIVE SERVICES Pathologist: Pauly Quick MD Specimens: A) - Pleura, Right Corinal Pleura B) -Pleura, Right Corinal Pluera This addendum is issued to report additional results, performed at [facility]. RESULTS:MET Exon 14 DeletionAnalysis Not Detected.ALK Not Detected.NRG1 Not Detected.NTRK1 Not Detected.NTRK2 Not Detected.NTRK3 Not Detected.RET Not Detected.ROS1 Not Detected.Please see attached scanned report for further details. Addendum electronically signed by Pauly Quick MD on 12/02/2020 at 11:53 AMThis addendum is being issued to report results of additional tests performed at [facility]. RESULT: EGFR Mutation EGFR Exon 18 Not [...] report results of PDL-1 immunostain performed at [facility].RESULT: Immunostain for PDL-1 (22C3 clone): HIGH EXPRESSION Tumor ProportionScore: 50% Intensity: 2+ Please see attached scanned report for further details.Addendum electronically signed by Pauly Quick MD on 11/13/2020 at 12:22 PMA. PLEURA, RIGHT CARINAL, EXCISION:- ADENOCARCINOMA SUGGESTIVE OF LUNG PRIMARY (SEE COMMENT)B. PLEURA, RIGHT CARINAL, EXCISION:- ADENOCARCINOMA SUG GESTIVE OF LUNG PRIMARY (SEE COMMENT) Signing Pathologist Direct Phone Line: [phone] signed by Hannah Mendoza MD on 10/25/2020 at 3:09 PMClinical correlation is recommended.79773 X 2, 33899, 87844, 57641 X 4, 88490Wszqk diagnosis: Pleura effusionA. Pleura; B. PleuraA. Received [...] included the use of immunohistochemistry or special stains.Uz5-eiojyeplIqrhvfxnyv-aokobmulG9-40- lseyggfiOMB17-wlukecnrZPZ2- Positive, diffuse Mucicarmine: positiveControl Slides Examined: In-house known positive controls were evaluated along with the test tissue. These control slides run alongside of the patients sample show appropriate staining. Internal positive and negative controls when available are evaluated Immunohistochemistry technical testing was performed at [facility], Pathology Laboratory where it was developed and [...] qualified to perform high complexity clinical laboratory testing.[facility], Department of Pathology, [address] [place] [address], [facility], [address] [place] [address], [facility]dzgeeLos [facility], Department of [facility], [address] [place] [id number], [id number] 11:55:00 Test Item Value Reference Range Interpretation Comments Case Report (test code Medical Cytology = 104) Report Case: [id number] Authorizing Provider: Keshawn Sewell MD Collected: 10/17/2020 03:36 PM Ordering Location: [address] Received: 10/20/2020 11:27 AM Service Pathologist: Kevon Ott MD Specimen: Pleural, Right DIAGNOSIS (test code = j0gcaUNfFZXvsNP0ToGkMR 3220) Kpr4wam8CxyPHkwBOzRWpd bHYdlhBfma09oQA4hW19ZD 5eAVOpOlI5MNFwfaS7Hru3 AMOvOIKmfWYdL853u9zud3 fkicXbuFP5aYmbBIIhGBVd YWluXGZzMjAgUklHSFQgUE qMJRCMWMTRRSHFDJUxI5oN B0IYCN0FWWSGDRPSQHiFIQ WGW6RCZGvcyYpiEWOoGBRs YHFCR6mUTSMJFQMVNbOWCS bST66WPlXWLLToosDxWLAv RPWHH5DBJSWZATBBDEGDPb MCTRFAUSNYEKFIE8UHZlGQ Cz3WOQpkFX6LBNRQI74PXR RJQkxFIFdJVEggTFVORyBB DBXLM9GZEuUBFo6CESpkUD FtXkGoBcz5BVXyzLNzXNLv Oip1TZBiqBMxOXBJcPtsuM 3cXONboKzhwV7qnVB7RJVk pzVdxFRIsN0cOVEIrJ7iAi C6TcNkDuV0FWO1WRDriMMs fQ== COMMENT (test code = i9fukVUeSPXhqBJ1XkLcYQ 3358) Pcp1cwp8ZvvZKkpLOvNFtx aLIbvlKezy71aKD6yN89UQ 7bKLAxMbZ7IWLhtjP2Jbj2 UVRsUPMhzDKaS837i4boj5 wuqwCwlKH6cOzcFRBwAQXa YWluXGZzMjAgVGhlIGltbX Uhc3Qhp7BglBLrz6VyI2Hp lTUoRKErzw8mUHCzhG1wbW Q6STPdtlQNJ8RXAYjSHDAu jQNjhjkeSuuyHPTJBn1rMU WUO0BwOzBrwWQtWD4YG5CZ YTBSKNO2BDgowE3vJlRlM5 OdojM1bF6zabhwO4EIULBl NHVJVjufK9UBOwGxESKNWH 83EACCIMIpXUwoE8VUEOFz MKwGRIZpLFE9DJnxTbCja0 luIEEuXHBhciBUaGUgTXVj tRKjpl1hdmKbn6UkvK5jkH WmzlKhGSMcvfMqqC3vvJqx XRS8pN1jXYJfoOicXiEmNX NwazYZbBZzn4Mhx8EkUPO2 svveI2FnTVNjoRmipF2snO PkLUYsSWOnTE8lKLJkKOMe cn0= CPT Code(s) (test code h8tpiVFqBLDqwPJ4QnQnAA = 3352) Pmk9vbn3EsmTAonJAjKNdi wEBcueWung99dLO0cJ09SW 7fIFTkPzL5RKWbxiJ4Pky9 WHDmQWOfdITzG484s2rzo6 jhsbCjdIM2jLhtFRPsZEOk YWluXGZzMjAgODgxMDgsID s7RzY4AOY3CLA0WrwiKKaz NDEgeCAxMSwgODgzMTNccG FyfQ== CLINICAL DATA (test j5dqoQNbDIEcsVI2FcXfJI code = 3355) Isy9ess0WaaPXdxWHlQCrt lHWdlvWvgf43mMG8zT07KJ 5iNSLzLnP9UKNdrkW2Xoc7 ABXqDMWizBFmU658v9iag4 tumtYalYN6sXblTNFvUJEs YWluXGZzMjAgUmlnaHQgcG zmnCRynMQdFwE1j1qcivch cHJldmlvdXMgcGxldXJhbC RblGHcKOUqlLUwtX0epPXm cU75HHKavJEnpQjuMM38FG IutNvvIVUfk93kqTT6QY42 HEanbKyrcHA7FRM0YLWjTc NeQMQniW7jcTCbDCOhcu3= SPECIMEN SOURCE (test h8bxxBOwCXNqmEZ0MyEzNJ code = 3377) Nmp6hld3SijWAdwUIwKTvx cWKzqrPxjn94oDO0pD84SW 0cLWGmHuZ1SCVoveR9Sao6 JHHsFKUnjGKlK488p8qbp9 hlhsJrlEV7mGevIYAnPASs YWluXGZzMjAgUklHSFQgUE xFVVJBTCBGTFVJRFxwYXJ9 GROSS DESCRIPTION (test w7nifWIfUKEpoWF5GaUwIZ code = 3366) Qgy4qyo7LpvXOtuZZtELwb vWHpeaBpaf92vYK2yO01RU 9fIERpYzD7DARtxlX5Zey6 FONoGCEjuGEgG526h0euv8 abgvEczHS8qQwpNRBrUORz YWluXGZzMjAgMjQwMCBtbH AxOsWrw26tKog2iJU5JRTg H9d8s0GtgU7tUQBxIGluJI Jhb9OfGRxCMbdcPHApmXpu ZGlvbiBiYWcpXHBhcn0= MICROSCOPIC DESCRIPTION n6rrdQFlLCLglWZ6TaDfBV (test code = 3371) Xdj4cys8OzwFDmxFHoTCid mYXjlyUrxc02fOQ3vW11VO 2cXBRkGbT4MXAibcT7Pqw5 TASdTDWouQUjG018c5dzj5 tegwJsjDI7dImkLOJtCUQt WApiUQOkTwTyHBUpRj1ymD VkLiBccGFyfQ== STATEMENT OF ADEQUACY Satisfactory (test code = 2757) SPECIAL STUDIES (test i1yhlKDmIYNre2ehJULntA code = 3376) FuZzEwMzNcZnRuYmpcdWMx RIrcnqTjBCdgf6HiK2TaMx AwMFxhbnNpXGRlZmxhbmcx UWYcQMJ5wnZzVFRpBDmtET NwFZgiPw7kqOWnkKsdEcPy ALOwx2mlcjOShluihJr7f8 xxBEMcAoG8oAXrCOuoJ5fz wcZqoSEaR9JacVJynWv3u1 oaNxKhYxD4bRWnHFleP7hj fbYdqEWnCVWiLKz9lP18PV FroK7fyJFlXBpxlrBmJcF8 XKzfFBFeXlJ2RGAycBPcGO PbT2syEMXeHMzdNJDvEDud eBReTGZ8cCyyo0S7hKFqcL UerAsxLaEwVnVbVoJPw1Ud MHq5oQwoF1JyBJZiQjB2bE QgUGFyYWdyYXBoIEZvbnQ7 iQgksdGir27cqHTgZFSmOG KmIxUobTzjDOIlBPJUh0Rv qHsbAAH6sSl2gAkyQmwnWA Y6Ilu5QC0zwt80olu8vDxx JUFxmtmfPfR6OAyeMMTtjn ofKGe7BVfcPWWqfXC2PSNk dTHdN8TpIFGhQZ6qyrn2JI B7GNwwZGEeTxY8TPZasTMf BMDioHovXKlmg687BVZ7Zu JlCJ6fH9Tmn7I1oL1tnXUq FIJrtOWiPnKhEFSknq3nnY DuRVjvj5BpXSO5qzE1kSFx xLOdJWLwOO20Lycwg1UiNu let2TpT05liVW8IWmyr5kw JO7nSxD8cuPuIPlfb6raoX 6kGwC9URcvLK6xNL1vJPAa uC4yjfjqGAYkGyIahntmBS RjaSpcevVbXd0zeOpgMQW1 KVorZ1iunY4hSrF9ENngD3 zpzF1nAPb0TDhayHM4XPDs iC7uYB7rqepov0qqIVcfBZ lgYYXgzdJ6fsY4JNGsbJRr U9FxoK4hNUDgYQ7gpuhrv4 seQDU3HDgpLPUkQIM6KvQe NDUnf7Jvdyt3AyXbg9WuiJ PgUJsgA77pd192MYWzbjMb V0msrIArkkslrEHwcjenMG bsvvQ8DVNpRIEvNKgeYHPi XGZzMjJcbGFuZzEwMzNcaG ljaFxmMVxkYmNoXGYxXGxv C0lyIuZlO1KtJXRcEvUtDY lxIYwfaRBfhTAwcRP2wE0a EU6cFGFrzMAaT0GoDCRuar CnzLKaGFB5aXAukQJjFE1g VHtaoEKgi9flm2AcJ9shsU kqdSJ2CG5zISScCEVkYXwb s2ZcpL9lDlawhQTdtoiyTI xmczIyXGxhbmcxMDMzXGhp W9xfUcQdSIUfyErdOKgld3 NoXGYxXGNmMlxmczIyXGx0 cmNoXHBhclxwYXJccGxhaW 7rZpUqEpDePsbfBI8qYZWs X5bvgYObEORxPEHbZ9alWk QifI2vzVemSZxvBsOeDtQu HvPPr994qk9zVGJtmVRjek TTjDOmhK8wCOfaIAarFHwa dCJbEBptl9haZSFzv4a8zX CpQKQlxzQfw7ruRCxwmaMw HDAubMWyrLPoSGJoq02mME mytGfxnAtoPYOub1HgoDsc n7InXaPzMFuml5BeU62qoX JvbCBzbGlkZXMgcnVuIGFs y82ks9mdMTAgOjS0xJWzdT Y7mWYloPRjc4KybVmxFZIm f7obYSXbhp2xtznekFCkf3 NkjV8krohrDMjwwPJkdxTy EGCjp8k6sJUdDSRtDZBbUF gbgBd3KACjp414oq8xtoH7 yFYlSZJ4FZwxGFYdDMLwhu UgZXZhbHVhdGVkXHBsYWlu XGYxXGZzMjJcbGFuZzEwMz NcaGljaFxmMVxkYmNoXGYx FQcjZ2vhYhKuD0KyQKPqAd SpxCCaW6agzROsGURdRXbc XGYxXGZzMjJcbGFuZzEwMz NcaGljaFxmMVxkYmNoXGYx YQekS3cbHbIhF1ApOOKhFb IgIFxwbGFpblxmMVxmczIy AVcjbxlvCPKeLNdnT5voIb RqIIDvoCeeCPepb2GsSEJb YDAjSrgcpsJuEPi7rpOfZY BhclxwbGFpblxmMVxmczIy NHujtvdtXXQuJLxxB5loJm PgEMFviDxrRImtp6IdBKGb XGNmMlxmczIyIEltbXVub2 lgv5TxE9oxxTbvqED0QBOf A2deqWZiwZC8MYY7nJ5tJK acaiHgZVJdb4KhFHOdRMMm OeS6fA8sNQN3KqXJiTsuRH BsYWluXGYxXGZzMjJcbGFu ZzEwMzNcaGljaFxmMVxkYm PiTFUlGDpoX0pnArPxR5Jv CERkOeVbrQhdCAyoMJu5Jx xwbGFpblxmMVxmczIyXGxh riflNHXeLLblF6jqMwQfQF ExaVlpNSdpo3BxJCKrEFJr MlxmczIyIHMgTWVkaWNhbC FUUA70HCOyVEXnmXoolW3k bPMHPFFijeJ2o4O6MCloUI KrPJb1XZjfunTrQIMdcX6e AIGcPD3vWDz7igWmEMHjx6 LdTY2aEHBorBIcGTT5TTAp u4KiM2Tmp8XzXBFiXGTomu 6payQaCgSGtJEePEEhdl89 YNGnAW7cM3hgEATeVIRzne LuuZLzt1SgKHHotAY1gTHu YT7NXoRIk40xACYsFAQOfl EuUOZljPdxtBC9ywO4vO5b LiBUaGUgRkRBIGhhcyBkZX Mtnb6vfdNnIHOsTKJfa9Vu iHDfwSNlzoTiP0Unh6EwVY Bepl70PPrcuVGznp38MM9f Y1Trm8GmpQ6nQCblEQKwe3 GqwUBpyLDaWDFwq9OoE6hj lgflKGfhmIFviZ6zFYJsEK v2LCAhs8MpXSHfv1UlHuJq gwDyPXSqCPHlZEYvwL08MQ W0nIzpkPggdmDsIL5jFRAs jyEuHWLvGLIjsT3gBAozul BbLSAclfL2h9C5VYapEZZz aiUaTultJBM6phEegvK5wI JnU4xsyzpaHKasWHKox5Lw wU2bcPQWoYRjn2KatESndO SYyRFqEI8bfdGdOT4kVPG5 ODggKENMSUEtODgpIGFzIH R7BGvlDsgeYDR8kmXjOQHv z9JdESdyN0joZ39lgRayrS f0gLIitEfjlMYcbRTzHRVx zqY4h2K0BYSyg9TreoclIM BsYWluXGYyXGZzMjJcbGFu ZzEwMzNcaGljaFxmMlxkYm QjCMUwGSqiX0iaSkJhFuFh UhfqFXH4oM== Gross assessment was [facility] performed at ([facility], = 2777) Department of Pathology, [address] [place] [address], Technical component was [facility] performed at ([facility], = 8758) Department of Pathology, [address] [place], [place] [id number], Professional component [facility] was performed at ([facility], code = 2779) Department of Pathology, [address] [place], [place] [address], [facility] 11:55:00Medical Cytology Report Case: [id number] Aut horizing Provider: Keshawn Sewell MD Collected: 10/17/2020 03:36 PM Ordering Location: [address] Received: 10/20/2020 11:27 AM Service Pathologist: Kevon Ott MD Specimen: Pleural, Right RIGHT PLEURAL FLUID (CYTOSPINS AND CELL BLOCK): - POSITIVE FOR MALIGNANCY POORLY DIFFERENTIATED ADENOCARCINOMA, MOST COMPATIBLE WITH LUNG ADENOCARCINOMA Signing Pathologist Direct Phone Line: [phone] signed by Kevon Ott MD on 10/23/2020 at 11:55 AMPreliminary result electronically signed by Kevon Ott MD on 10/21/2020 at 1:51 PMThe immunoprofile suggests adenocarcinoma:POSITIVE staining: TTF-1, MOC-31NEGATIVE staining: Calretinin, KAHLIL 3, ER, GCDFP, PAX- 8, S-100, CDX-2, WT-1, p40, Napsin A.The Mucicarmine stain is negative in the tumor cells. Please see surgical pathology case [id number], 70300, 38756, 71113 x 11, [id number] pleural effusion, previous pleural fluid cytology showed malignant cells, consistent with metastatic carcinoma RIGHT PLEURAL [id number] mls brown fluid; 4 cytospins, cell block (A2) (collodion bag)Performed. SatisfactoryThe interpretation of this case included the use of immunohistochemistry or special stains.Control Slides Examined: In-house known positive controls were evaluated along with the test tissue. These control slides run alongside of the patients sample show appropriate staining. Internal positive and negative controls when available are evaluated Immunohistochemistry technical testing was performed at [facility], Pathology Laboratory where it was developed and [...] qualified to perform high complexity clinical laboratory testing.[facility], Department of Pathology, [address] [place] [address], [facility], Department of Pathology, [address] [place] [address], [facility], Department of Pathology, [address] [place] [address], ZXRXELUS [id number] 13:00:00 Test Item Value Reference Range Interpretation Comments Cytology (test code = See Separate Report 2629) [facility]RAD[facility]ST, 1 VIEW, NON [id number] 02:24:00 Reason for exam:->s/p pleurx catheter placementShould this be performed at the bedside?->Yes [facility] : 1960 Sex: FFINAL REPORT [...] is no pneumothoraxor acute bony abnormality. Signed: Ema Still [facility] Verified Date/Time: 10/18/2020 02:24:00 Type and [id number] 15:01:00 Test Item Value Reference Range Interpretation Comments Ab Scrn (test code = 890-4) NEGATIVE peg ABO Grouping (test code = 2588) AB Rh Factor (test code = 2589) POS [facility] HospitalCT, BRAIN, [id number] 20:23:00Unlisted Reason for Exam - Click Yes and Enter Reason Below->No [facility] : 1960 Sex: [...] to as low as reasonably achievable. 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 Signed: Kathie Espinozaort Verified Date/Time: 10/16/2020 20:23:04 CT brain without & with IV [id number] 20:23:00Interface, External Ris In - 10/16/2020 8:25 [...] dose to as low as reasonably achievable. COMPARISON:[employer] Glass Technician images from attempted MRI 10/15/2020 FINDINGS: Intracranial: [...] the artifact seen on attempted MRI. Signed: Kathie Espinoza MDRreeceort Verified Date/Time: 10/16/2020 20:23:04 [facility] CT, [id number] 08:19:00Unlisted Reason for Exam - Click Yes and Enter Reason Below->YesUnlisted Reason for Exam->preop planningWill this procedure require oral contrast?->No [facility] : 1960 Sex: FFINAL REPORT [...] MDReport Verified Date/Time: 10/16/2020 08:19:04 Reading Location: [facility] Diagnostic Imaging Reading Room - [place] [address] CT abdomen/pelvis with IV [id number] 08:19:00Interface, External Ris In - 10/16/2020 8:21 [...] MDReport Verified Date/Time: 10/16/2020 08:19:04 Reading Location: [facility] Diagnostic Imaging Reading Room - [place] [address] [facility] Echo W/Doppler(CW/PW/Color)2020-10-16 07:42:56Ejection FractionSLEH ECHO HEARTLAB MKCKESSON CPACSInterface, External Ris In - 10/16/2020 7:43 AM CSTTransthoracic Echocardiography Report (TTE) Demographics Patient Name KAYKAY FERRIS Date of Study 10/15/2020 CARLOS Gender Female Visit Number [id number] Race Unknown Room Number [facility]4 Number Date of 1960 Referring Physician Ewa Bhakta NP Age 60 year(s) Medical Practice Assistant Carol Charles [facility] Interpreting Yasmany Lopez MD Physician Procedure Type [...] TR Velocity: 2.82 m/s TR Gradient: 31.91 mmHgFountain Valley Regional Hospital and Medical CenterARS-CoV2/RT-PCR (Asymptomatic ONLY)2020-10-15 21:51:00 Test Item Value Reference Range Interpretation Comments SARS-COV2/RT-PCR Negative Not Detected, (test code = Negative, See 47026-4) external report for linked test SARS-COV-2 [facility] PERFORMING LAB (test code = 45414-6) LINDSAY (test code = Negative result for [...] of the Act. Fact Sheet for Healthcare Providers:https://www.StylePuzzle idel.[employer]/sites/default/f chandrika/product/documents/F act_Sheet_HC_Providers_L cfw_JQLT-IpT-8.pdf Fact Sheet for Healthcare Patients:https://www.joan del.[employer]/sites/default/fi les/product/documents/Fa ct_Sheet_Patients_Lyra_S ARS-CoV-2.pdf Performing Laboratory:[facility] [place] [address] [facility] Medical CenterARS-COV2/RT-PCR ([facility])2020-10-15 21:51:00 Test Item Value Reference Range Interpretation Comments SARS-COV2/RT-PCR (test Negative Not Detected, Negative, code = 1973028) See external report for linked test SARS-COV-[address] [facility] (test code = 1126952) Negative result for this test determines that [...] 564(g) of the Act.Fact Sheet for Healthcare Providers:https://www.StylePuzzleidel.com/sites/default/files/product/documents/Fact_Shee y_RL_Xxmoirugs_Kuho_RRSC-PkE-0.pdfFact Sheet for Healthcare Patients:https://www.[employer]/sites/default/files/product/ documents/Wwsh_Ctqzl_Gugdbjrd_Nhkq_XTGZ-AzA-9.pdfPerforming Laboratory:[place] [address], [place] [address]Ebihnxwdku A1c 2020-10-15 09:19:00 Test Item Value Reference Range Interpretation Comments Hemoglobin A1C (test code = 4548-4) 5.8 % 4.3-6.1 Lab Interpretation (test code = Normal 84133-4) [facility] HospitalHEMOGLOBIN [id number] 09:19:00 Test Item Value Reference Range Interpretation Comments HEMOGLOBIN A1C (BEAKER) (test code = 5.8 % 4.3-6.1 368) RAD, CHEST, 1 VIEW, NON [id number] 07:47:00Reason for exam:->pleural effusionIs the patient ?->NoShould this be performed at the [facility]?->Yes[facility] : 1960 Sex: FFINAL REPORT [...] MDReport Verified Date/Time: 10/15/2020 07:47:34 Reading Location: [facility] Radiology Reading Room BASIC METABOLIC [id number] 07:10:00 Test Item Value Reference Range Interpretation [...] 697) EGFR (BEAKER) (test 95 mL/min/1.73 ESTIMA LIZZY GFR IS code = 1092) sq m NOT ACCURATE CREATININE CLEARANCE IN PREDICTING GLOMERULAR FILTRATION RATE . ESTIMATED GFR I S NOT APPLICABLE FOR DIALYSIS PATIEN TS. Hedis Analyst ID - [id number] 07:10:00 Test Item Value Reference Range Interpretation Comments MAGNESIUM (BEAKER) (test code = 1.9 mg/dL 1.6-2.6 627) Hedis Analyst ID - [id number] 07:10:00 Test Item Value Reference Range Interpretation Comments PHOSPHORUS (BEAKER) (test code = 3.7 mg/dL 2.3-4.7 604) Hedis Analyst ID - EDASIHEPATIC FUNCTION [id number] 07:10:00 Test Item Value Reference Range Interpretation [...] (test code = 7 U/L 6-55 347) Hedis Analyst ID - EDASIProthrombin time/[id number] 06:59:00 Test Item Value Reference Interpretation Comments [...] valves. Lab Interpretation Normal (test code = 07865-9) [facility] HospitalPROTHROMBIN TIME/[id number] 06:59:00 Test Item Value Reference Range Interpretation [...] is2.5-3.5 for patients wiht mechanical heart valves.CBC W/PLT COUNT & AUTO [id number] 06:49:00 Test Item Value Reference Range Interpretation [...] code = 2801) PERMANENT LAB REPORT - [id number] 00:00:00Ordered by an unspecified provider.[facility]
[2021-01-25] MEDS ORDERED: ALBUTEROL 2.5 MG/3 ML NEB SOL ONE (10:04)
[2021-01-25] MEDS ORDERED: IPRATROPIUM BROM 0.5MG/2.5ML ONE (10:04)
[2021-01-25] MEDS ORDERED: METHYLPREDNISOLONE 125 MG INJ ONE (10:04)
--- NOTE | 2021-01-25 10:45 | RAD REPORT ---
EXAM DESCRIPTION: CT - Chest For Pe Angio - 01/25/2021 10:26 am CLINICAL HISTORY: CHEST PAIN, known history of lung cancer COMPARISON: Thorax W/ Con dated 12/02/2020; Chest Single View dated 12/22/2020; Chest Single View date d 12/01/2020 TECHNIQUE: Dynamically enhanced 3 mm thick images of the chest were obtained during administration o f approximately 150mL Isovue 370 IV contrast. Coronal and oblique MIP reconstruction images were gene rated and reviewed. Exam utilizes a protocol to evaluate the pulmonary arterial tree. All CT scans are performed using dose optimization technique as appropriate and may include automated exposure control or mA/KV adjustment according to patient size. FINDINGS: Pulmonary emboli are present in the segmental branches supplying the lingula of the left u pper lobe. Emboli are present at the left lower lobe bifurcation into multiple segmental branches. Em bolus extends into the segmental pulmonary arteries. Subsegmental extension is suspected in the media l posterior aspect. No saddle embolus. No right-sided pulmonary emboli identifiable. Patient has a mo derate size left pleural effusion that is new from prior imaging. Partial atelectasis of the left low er lobe is present. Small right pleural effusion is present. Consolidated right upper lung field malignant mass lesion is again noted. This encircles the right upper lobe and right mainstem bronchi. There is not creased ma ss density in the azygoesophageal recess. There is increased opacification of the right lower lobe. T his could be tumor infiltration edema or pneumonia. Right-side chest tube has not changed. Tip is in the posterior gutter. No pneumothorax. The aorta as imaged shows no acute or suspicious finding. Minimal pericardial effusion similar to com parison. Heart size is stable. No left-sided pneumothorax. No chest wall masses or abnormal axillary lymphadenopathy. IMPRESSION: Multiple pulmonary emboli are present in the segmental branches of the left lower lobe a nd in the segmental branches supplying the lingula of the left upper lobe. No right-sided pulmonary emboli or saddle embolus. New moderate size left pleural effusion. Worsening soft tissue mass around the right hilum and azygoesophageal recess. Worsening consolidation of the right lower lobe. This could be extension of tumor, pneumonia, edema o r a combination. No other significant or suspicious findings.
[2021-01-25] MEDS ORDERED: ONDANSETRON 4 MG/2 ML VIAL ONE (11:02)
[2021-01-25] MEDS ORDERED: MORPHINE 4 MG/ML SYR ONE (11:02)
[2021-01-25] MEDS ORDERED: NA CHLORIDE 0.9% 1,000 ML ONE ×2 (11:03→18:57)
[2021-01-25 11:07] LABS: Absolute Lymphocytes (CBC) 1.9 K/uL (0.7-4.9); Basophils % 0.6 % (0-1.3); Hematocrit 32.4 % (36.0-45.0); Lymphocytes % 14.8 % (15.3-44.8); MPV 8.4 fL (7.6-11.3); RBC Red Blood Cell Count 4.04 M/uL (3.86-4.86)
[2021-01-25 11:19] LABS: ALT/SGPT 8 U/L (12-78); AST/SGOT 13 U/L (15-37); Albumin 1.8 g/dL (3.4-5.0); Alkaline Phosphatase 96 U/L (45-117); BUN Blood Urea Nitrogen 5 mg/dL (7-18); Bicarbonate 27 mmol/L (21-32); Bilirubin Direct 0.1 mg/dL (0-0.2); Bilirubin Total 0.3 mg/dL (0.2-1.0); CKMB Creatine Kinase MB < 1.0 ng/mL (0.3-3.6); Creatine Phosphokinase 19 U/L (26-192); Glucose Level 87 mg/dL (74-106); Lipase 39 U/L (73-393); Magnesium 1.9 mg/dL (1.8-2.4); NT PRO-BNP 575 pg/mL (<125); Potassium 3.6 mmol/L (3.5-5.1); Protein, Total 6.1 g/dL (6.4-8.2); Sodium Level 139 mmol/L (136-145); Troponin (Emerg Dept Use Only) < 0.02 ng/mL (0.0-0.045)
[2021-01-25 11:56] LABS: Protime INR 1.43
--- NOTE | 2021-01-25 12:28 | ER ---
Nurse's Notes [facility] Name: Amie Joseph Age: 60 yrs Sex: Female : 1960 Arrival Date: 01/25/2021 Time: 09:36 Bed 14 Private MD: Diagnosis: Pulmonary embolism;Hypoxemia Presentation: 01/25 09:25 Chief complaint: EMS states: SOB x 3 days. Coronavirus screen: Client denies travel out kg of the [place] in the last 14 days. Ebola Screen: Patient negative for fever greater than or equal to 101.5 degrees Fahrenheit, and additional compatible Ebola Virus Disease symptoms Patient denies exposure to infectious person. Patient denies travel to an Ebola-affected area in the 21 days before illness onset. 09:25 Method Of Arrival: EMS: [facility] kg 09:25 Initial Sepsis Screen: Does the patient meet any 2 criteria? RR > 20 per min. HR > 90 kg bpm. Yes Does the patient have a suspected source of infection? No. Patient's initial sepsis screen is negative. Risk Assessment: Do you want to hurt yourself or someone else? Patient reports no desire to harm self or others. Onset of symptoms was January 22, 2021. 09:25 Acuity: JACEK 3 kg Triage Assessment: 11:39 General: Appears distressed, uncomfortable, slender, Behavior is cooperative, tr6 appropriate for age, anxious. Pain: Complains of pain in c/o cp and right sided pain. EENT: No deficits noted. Neuro: No deficits noted. Cardiovascular: Heart tones S1 S2 Rhythm is sinus tachycardia HR 120s. Respiratory: Reports shortness of breath cough that is labored breathing pain with cough pain with respiration since worsening over the past 3 days. Respiratory: Onset: The symptoms/episode began/occurred gradually, the patient has severe shortness of breath Parent/caregiver reports the patient having. GI: No deficits noted. : No deficits noted. Derm: No deficits noted. Musculoskeletal: No deficits noted. Historical: - PMHx: 10:00 Lung CA; kg - Immunization history:: Adult Immunizations not up to date, Client reports having NOT received the Covid vaccine. Pneumococcal vaccine is up to date, Flu vaccine is not up to date. It has been more than one year since last vaccine. - Social history:: Patient/guardian denies using alcohol, street drugs, The patient lives with family, Smoking status: Patient denies any tobacco usage or history of. - Family history:: not pertinent. - Hospitalizations: : No recent hospitalization is reported. Screenin:57 Abuse screen: Denies threats or abuse. Denies injuries from another. Nutritional kg screening: No deficits noted. Tuberculosis screening: No symptoms or risk factors identified. Fall Risk No fall in past 12 months (0 pts). No secondary diagnosis (0 pts). IV access (20 points). Ambulatory Aid- None/Bed Rest/Nurse Assist (0 pts). Gait- Weak (10 pts.). Mental Status- Oriented to own ability (0 pts). Total Goff Fall Scale indicates No Risk (0-24 pts). Assessment: 09:58 Respiratory: Airway is patent Respiratory effort is labored, gasping, using tripod kg position. 11:41 Cardiovascular: Capillary refill < 3 seconds JVD is absent Patient's skin is warm and tr6 dry. Respiratory: right sided lung sounds diminished with expiratory wheeze. left side dimished. Vital Signs: 09:25 BP 139 / 101; Pulse 117; Resp 22; Temp 98.2(A); Pulse Ox 96% on 10% Non-rebreather kg mask; Weight 68.95 kg; Height 5 ft. 4 in. (162.56 cm); Pain 6/10; 11:59 Pulse Ox 86% on NC; tr6 09:25 Body Mass Index 26.09 (68.95 kg, 162.56 cm) kg 11:59 pt desat on 4L. pt increased to 10L and now at 97%. pt comfortable in bed. breathing tr6 less labored than arrival to ED ED Course: 09:36 Patient arrived in ED. am2 09:36 Stephanie Malone, NINA is Primary Nurse. tr6 09:37 Roman Law MD is Attending Physician. ma2 09:57 Triage completed. kg 10:00 Arm band placed on right wrist. kg 10:26 CT Chest For PE Angio In Process Unspecified. EDMS 11:45 [facility] transfer center contacted to initiate transfer on this pt; transfer em1 center was forced to decline to due to bed unavailability. 12:00 No provider procedures requiring assistance completed. tr6 12:01 Patient has correct armband on for positive identification. Fall risk band placed. tr6 Placed in gown. Bed in low position. Call light in reach. Side rails up X2. daughter at bedside. 12:27 Alex Piper DO is Hospitalizing Provider. [facility] 19:18 Primary Nurse role handed off by Stephanie Malone, NINA mw2 01/27 15:29 Patient admitted, IV remains in place. vg1 Administered Medications: 01/25 10:47 Drug: SOLU-Medrol (methylPrednisoLONE) 125 mg Route: IVP; Site: left hand; tr6 12:11 Follow up: Response: No adverse reaction; Pain is decreased; Anxiety decreased tr6 11:01 Drug: AtroVENT (ipratropium) Aerosol 0.5 mg Route: Inhalation; tr6 11:01 Drug: NS 0.9% 1000 ml Route: IV; Rate: 125 ml/hr; Site: left hand; tr6 11:22 Drug: Albuterol 2.5 mg Route: Inhalation; tr6 11:37 Drug: AtroVENT (ipratropium) Aerosol 0.5 mg Route: Inhalation; tr6 11:58 Drug: Albuterol 2.5 mg Route: Inhalation; tr6 12:10 Drug: AtroVENT (ipratropium) Aerosol 0.5 mg Route: Inhalation; tr6 12:56 Drug: Albuterol 2.5 mg Route: Inhalation; tr6 13:29 Drug: Lovenox (enoxaparin) 70 mg Route: Sub-Q; Site: abdomen; tr6 13:29 Drug: AZITHromycin 500 mg Route: PO; tr6 Outcome: 12:27 Decision to Hospitalize by Provider. [facility] 01/27 15:28 Admitted to ICU accompanied by nurse, with chart, Report called to NINA Baez vg1 Condition: stable Instructed on the need for admit. 15:39 Patient left the ED. vg1 Signatures: Dispatcher [employer] YAHAIRAMS Marcos Garcia em1 Aurora Gonzalez Mohammad, MD MD ma2 Logan Carter mw2 Kriss Ny RN RN vg1 Stephanie Malone RN RN tr6 Ashley Rowe kg
--- NOTE | 2021-01-25 12:28 | EDPHYS ---
Physician Documentation [facility] Name: Amie Joseph Age: 60 yrs Sex: Female : 1960 Arrival Date: 01/25/2021 Time: 09:36 Bed 14 Private MD: ED Physician Roman Law HPI: 01/25 12:20 This 60 yrs old Female presents to ER via EMS with complaints of Breathing ma2 Difficulty. 12:20 The patient has shortness of breath at rest. Onset: The symptoms/episode began/occurred ma2 gradually, 2 day(s) ago. Associated signs and symptoms: Pertinent negatives: productive cough, dizziness, hemoptysis, loss of consciousness, nausea. Severity of symptoms: At their worst the symptoms were mild in the emergency department the symptoms are unchanged. The patient has not experienced similar symptoms in the past. has hx of lung cancer . Historical: - PMHx: 10:00 Lung CA; kg - Immunization history:: Adult Immunizations not up to date, Client reports having NOT received the Covid vaccine. Pneumococcal vaccine is up to date, Flu vaccine is not up to date. It has been more than one year since last vaccine. - Social history:: Patient/guardian denies using alcohol, street drugs, The patient lives with family, Smoking status: Patient denies any tobacco usage or history of. - Family history:: not pertinent. - Hospitalizations: : No recent hospitalization is reported. ROS: 12:20 Constitutional: Negative for fever, chills, and weight loss. ma2 12:20 All other systems are negative. Exam: 12:20 Constitutional: This is a well developed, well nourished patient who is awake, alert, ma2 and in no acute distress. Head/Face: Normocephalic, atraumatic. Eyes: Pupils equal round and reactive to light, extra-ocular motions intact. Lids and lashes normal. Conjunctiva and sclera are non-icteric and not injected. Cornea within normal limits. Periorbital areas with no swelling, redness, or edema. ENT: Nares patent. No nasal discharge, no septal abnormalities noted. Tympanic membranes are normal and external auditory canals are clear. Oropharynx with no redness, swelling, or masses, exudates, or evidence of obstruction, uvula midline. Mucous membranes moist. Neck: Trachea midline, no thyromegaly or masses palpated, and no cervical lymphadenopathy. Supple, full range of motion without nuchal rigidity, or vertebral point tenderness. No Meningismus. Chest/axilla: Normal chest wall appearance and motion. Nontender with no deformity. No lesions are appreciated. Cardiovascular: Regular rate and rhythm with a normal S1 and S2. No gallops, murmurs, or rubs. Normal PMI, no JVD. No pulse deficits. Abdomen/GI: Soft, non-tender, with normal bowel sounds. No distension or tympany. No guarding or rebound. No evidence of tenderness throughout. Back: No spinal tenderness. No costovertebral tenderness. Full range of motion. Skin: Warm, dry with normal turgor. Normal color with no rashes, no lesions, and no evidence of cellulitis. MS/ Extremity: Pulses equal, no cyanosis. Neurovascular intact. Full, normal range of motion. Neuro: Awake and alert, GCS 15, oriented to person, place, time, and situation. Cranial nerves II-XII grossly intact. Motor strength 5/5 in all extremities. Sensory grossly intact. Cerebellar exam normal. Normal gait. 12:20 Respiratory: moderate respiratory distress is noted, Respirations: labored breathing, Breath sounds: rales, that are moderate, are heard in the left lower lobe. Vital Signs: 09:25 BP 139 / 101; Pulse 117; Resp 22; Temp 98.2(A); Pulse Ox 96% on 10% Non-rebreather kg mask; Weight 68.95 kg; Height 5 ft. 4 in. (162.56 cm); Pain 6/10; 11:59 Pulse Ox 86% on NC; tr6 09:25 Body Mass Index 26.09 (68.95 kg, 162.56 cm) kg 11:59 pt desat on 4L. pt increased to 10L and now at 97%. pt comfortable in bed. breathing tr6 less labored than arrival to ED MDM: 09:37 Patient medically screened. ma2 12:20 Differential diagnosis: Anemia asthma, Bronchitis reactive airway disease. Data ma2 reviewed: vital signs, nurses notes. Counseling: I had a detailed discussion with the patient and/or guardian regarding: the historical points, exam findings, and any diagnostic results supporting the discharge/admit diagnosis, the presence of at least one elevated blood pressure reading (>120/80) during this emergency department visit, the need for further work-up and treatment in the hospital. ED course: patient has PE and lung cancer and pleural effusion. . 12:28 ED course: patient want to be transferred to the [facility] as she has been there before [facility] and she want a continuity of care. We did nathen them and they states that they have no bed and they are on diversion at this time. . 01/25 09:38 Order name: Blood Culture Adult (2) [facility] 01/25 09:38 Order name: BMP [facility] 01/25 09:38 Order name: CBC with Diff; Complete Time: 11:25 [facility] 01/25 09:38 Order name: Ckmb; Complete Time: 11:25 [facility] 01/25 09:38 Order name: CPK; Complete Time: 11:25 [facility] 01/25 09:38 Order name: D-Dimer [facility] 01/25 09:38 Order name: Hepatic Function; Complete Time: 11:25 [facility] 01/25 09:38 Order name: Lipase; Complete Time: 11:25 [facility] 01/25 09:38 Order name: Magnesium; Complete Time: 11:25 [facility] 01/25 09:38 Order name: NT PRO-BNP; Complete Time: 11:25 [facility] 01/25 09:38 Order name: PT-INR [facility] 01/25 09:38 Order name: Ptt, Activated [facility] 01/25 09:38 Order name: Troponin (emerg Dept Use Only); Complete Time: 11:25 [facility] 01/25 09:39 Order name: Blood Culture [facility] 01/25 09:40 Order name: Basic Metabolic Panel; Complete Time: 11:25 [facility] 01/25 10:18 Order name: Lactate; Complete Time: 11:01 6 01/25 12:44 Order name: SARS-COV-2 RT PCR [facility] 01/25 18:00 Order name: Urine Dipstick-Ancillary [facility] 01/25 18:15 Order name: Urinalysis [facility] 01/25 20:24 Order name: Procalcitonin [facility] 01/25 20:35 Order name: Protime (+INR) [facility] 01/25 20:50 Order name: NT PRO-BNP [facility] 01/25 20:50 Order name: Transferrin Sat/Iron Binding [facility] 01/25 20:50 Order name: Ferritin EDMS 01/25 20:50 Order name: Vitamin B12 Level EDMS 01/25 23:03 Order name: PTT, Activated Partial Thromb EDMS 01/26 01:20 Order name: Troponin I EDMS 01/26 01:27 Order name: PTT, Activated Partial Thromb EDMS 01/25 09:38 Order name: CT Chest For PE Angio; Complete Time: 11:01 ma2 01/25 09:38 Order name: EKG; Complete Time: 09:40 ma2 01/25 09:38 Order name: Cardiac monitoring; Complete Time: 09:43 ma2 01/25 09:38 Order name: EKG - Nurse/Tech; Complete Time: 11:59 ma2 01/25 09:38 Order name: IV Saline Lock; Complete Time: 10:19 ma2 01/25 09:38 Order name: Labs collected and sent; Complete Time: 10:19 ma2 01/25 09:38 Order name: O2 Per Protocol; Complete Time: 09:43 ma2 01/25 09:38 Order name: O2 Sat Monitoring; Complete Time: 09:43 ma2 01/25 10:37 Order name: Labs - recollect needed: recollect all except lactate please; Complete em1 Time: 11:00 01/25 17:19 Order name: CT EDMS 01/26 07:51 Order name: RAD EDMS 01/26 09:07 Order name: PTT, Activated Partial Thromb EDMS 01/26 09:08 Order name: Platelet Count EDMS 01/26 09:10 Order name: Basic Metabolic Panel EDMS 01/26 09:26 Order name: CREATININE WHOLE BLOOD EDMS 01/26 09:46 Order name: Labs - recollect needed; Complete Time: 20:32 sv 01/26 13:42 Order name: Gram Stain--Anaerobic Bottle EDMS 01/26 16:35 Order name: Magnesium EDMS 01/27 05:27 Order name: Platelet Count EDMS 01/27 05:40 Order name: Troponin I EDMS Administered Medications: 10:47 Drug: SOLU-Medrol (methylPrednisoLONE) 125 mg Route: IVP; Site: left hand; tr6 12:11 Follow up: Response: No adverse reaction; Pain is decreased; Anxiety decreased tr6 11:01 Drug: AtroVENT (ipratropium) Aerosol 0.5 mg Route: Inhalation; tr6 11:01 Drug: NS 0.9% 1000 ml Route: IV; Rate: 125 ml/hr; Site: left hand; tr6 11:22 Drug: Albuterol 2.5 mg Route: Inhalation; tr6 11:37 Drug: AtroVENT (ipratropium) Aerosol 0.5 mg Route: Inhalation; tr6 11:58 Drug: Albuterol 2.5 mg Route: Inhalation; tr6 12:10 Drug: AtroVENT (ipratropium) Aerosol 0.5 mg Route: Inhalation; tr6 12:56 Drug: Albuterol 2.5 mg Route: Inhalation; tr6 13:29 Drug: Lovenox (enoxaparin) 70 mg Route: Sub-Q; Site: abdomen; tr6 13:29 Drug: AZITHromycin 500 mg Route: PO; tr6 Disposition: 01/25/21 12:27 Hospitalization ordered by Alex Piper for Inpatient Admission. Preliminary diagnosis are Pulmonary embolism, Hypoxemia. - [facility]. - Status is Inpatient Admission. vg1 - Condition is Stable. - Problem is new. - Symptoms are unchanged. Signatures: Dispatcher [employer] EDIN Lillian Jordan RN Marcos Saleh em1 Apoorva Clifton RN RN aa5 Roman Law MD MD ma2 Kriss Ny RN RN vg1 Stephanie Malone RN RN tr6 Ashley Rowe kg Corrections: (The following items were deleted from the chart) 12:00 11:44 CORONAVIRUS+MR.LAB.BRZ ordered. EDIN EDIN 15:18 12:27 Hospitalization Ordered by Alex Piper DO for Inpatient Admission. Preliminary aa5 diagnosis is Pulmonary embolism; Hypoxemia. Bed requested for Telemetry/MedSurg (Inpatient). Status is Inpatient Admission. Condition is Stable. Problem is new. Symptoms are unchanged. ma2 01/27 15:39 01/25 15:18 01/25/2021 12:27 Hospitalization Ordered by Alex Piper DO for Inpatient vg1 Admission. Preliminary diagnosis is Pulmonary embolism; Hypoxemia. Bed [facility]. Status is Inpatient Admission. Condition is Stable. Problem is new. Symptoms are unchanged. aa5
[2021-01-25] MEDS ORDERED: HEPARIN/D5W 25,000 UNIT/500 ML BAG IV PRN (13:35)
[2021-01-25] MEDS ORDERED: ENOXAPARIN 80 MG/0.8 ML SQ ONE (13:41)
[2021-01-25] MEDS ORDERED: AZITHROMYCIN 250 MG TAB ONE (13:41)
--- NOTE | 2021-01-25 13:42 | P.HP ---
Certification for Inpatient With expected LOS: >2 Midnights Patient will require the following post-hospital care: None Practitioner: I am a practitioner with admitting privileges, knowledge of patient current condition, hospital course, and medical plan of care. Services: Services provided to patient in accordance with Admission requirements found in Title 42 Section 412.3 of the Code of Federal Regulations Patient History Date of Service: 01/25/21 Reason for admission: SOB History of Present Illness: Patient is a 60-year-old female with a past medical history significant for stage 4 lung cancer and COPD who presents with c\o of sob that has been ongoing for the past 1 month. Patient reports worsening of sob in the last 2 days. Patient is on home O2 therapy at 4L\min. Patient reported that she was seen at [facility] last month for pleural effusion. Patient reported that she had a pericardial window and thoracentesis in that admission and was discharged home with O2 therapy. Patient also reports chest pain located in the left chest wall. Patient rated pain as 10/10 and described pain as squeezing in quality. Patient also reports chronic low back pain. Patient reports associated signs and symptoms of Cough. Patient denies any other signs and symptoms. Symptoms are aggravated by exertion and relieved by nothing. Patient decided to present to the hospital due to worsening symptoms. Allergies No Known Drug Allergies Allergy (Verified 09/15/20 08:00) Unknown No Known Allergies Allergy (Uncoded 02/06/16 15:26) Unknown Home medications list reviewed: Yes Home Medications: Amox/Clavulanate [Augmentin 875-125 Tab] 875 mg PO BID 7 Days #14 tab 09/16/20 traMADol HCL [Ultram*] 50 mg PO Q6H PRN #10 tab 09/16/20 - Past Medical/Surgical History Diabetic: No -: HTN -: Stage IV lung cancer -: Pleurx catheter to the right lung with prior pleural effusion -: Hysterectomy -: Cholecystectomy -: Pleurx catheter Psychosocial/ Personal History: Patient is a - Social History Smoking Status: Never smoker Alcohol use: Yes CD- Drugs: No Caffeine use: Yes Place of Residence: Home Review of Systems General: Unremarkable Eyes: Unremarkable ENT: Unremarkable Respiratory: Cough, Shortness of Breath Cardiovascular: Unremarkable Gastrointestinal: Unremarkable Genitourinary: Unremarkable Musculoskeletal: Unremarkable Integumentary: Unremarkable Neurological: Unremarkable Physical Examination - Physical Exam General: Alert, In no apparent distress, Oriented x3 HEENT: Atraumatic, PERRLA, Mucous membr. moist/pink, EOMI, Sclerae nonicteric Neck: Supple, 2+ carotid pulse no bruit, No LAD, Without JVD or thyroid abnormality Respiratory: Normal air movement, Diminished Cardiovascular: No edema, Regular rate/rhythm, Normal S1 S2 Capillary refill: <2 Seconds Gastrointestinal: Normal bowel sounds, No tenderness Musculoskeletal: No clubbing, No tenderness Integumentary: No rashes Neurological: Normal gait, Normal speech, Normal tone, Normal affect Lymphatics: No axilla or inguinal lymphadenopathy External genitalia: Deferred Rectal: Deferred - Studies Laboratory Data (last 24 hrs) 01/25/21 10:57: PT 16.5 H, INR 1.43, APTT 25.1 01/25/21 10:57: WBC 12.80 H, Hgb 10.0 L, Hct 32.4 L, Plt Count 229 01/25/21 10:57: Sodium 139, Potassium 3.6, BUN 5 L, Creatinine 0.24 L, Glucose 87, Magnesium 1.9, Total Bilirubin 0.3, AST 13 L, ALT 8 L, Alkaline Phosphatase 96, Lipase 39 L Assessment and Plan - Plan --Pulmonary embolism. As noted on CT imaging. Supervisor Landscape consulted . Patient started on heparin drip. Will await further recommendations from multiple games dealer. --Stage IV lung cancer. Oncologist consulted. Patient was recently diagnosed with cancer 4 months ago and has been trying to follow up with an oncologist outpatient but with no success. We will await further recommendations from oncologist. --Left Pleural effusion. Independent Living Instructor consult. Patient placed on Lasix IV. Patient has a hx of history of thoracotomy and Pleurx catheter. Will await further recommendations from credit risk officer. --Chest pain. Likely atypical. Will trend troponin. Telemetry to monitor for any significant arrhythmia. --Acute on chronic COPD Exacerbation. Neb tx with albuterol. Continue O2 therapy and supportive care. --Tachycardia. Labetalol prn --HTN. Stable. Will manage BP with labetalol prn. --Chronic pain syndrome. Will manage pain with current pain medication regimen. --DVT prophylaxis with Heparin drip. Discharge Plan: Home Plan to discharge in: Greater than 2 days - Advance Directives Does patient have a Living Will: No Does patient have a Durable POA for Healthcare: No - Code Status/Comfort Care Code Status Assessed: Yes Code Status: Full Code Critical Care: No
[2021-01-25] MEDS: HYDROCODONE/APAP 10/325 TAB PO PRN ×2 (14:29→20:00)
[2021-01-25] MEDS ORDERED: ACETAMINOPHEN 500 MG TAB PO PRN (14:30)
[2021-01-25] MEDS ORDERED: HYDROCODONE/APAP 10/325 TAB ONE ×2 (14:30→20:07)
[2021-01-25] MEDS ORDERED: IPRATROPIUM BROM 0.5MG/2.5ML NEB SCH (14:30)
[2021-01-25] MEDS ORDERED: ALBUTEROL 2.5 MG/3 ML NEB SOL NEB SCH (14:30)
[2021-01-25] MEDS ORDERED: ONDANSETRON 4 MG/2 ML VIAL IV PRN (14:30)
[2021-01-25] MEDS ORDERED: HEPARIN 5000 UNIT/ML 1 ML VIAL ONE (15:21)
[2021-01-25] MEDS ORDERED: HEPARIN/D5W 25,000 UNIT/500 ML BAG IV ONE (15:22)
[2021-01-25] MEDS ORDERED: FUROSEMIDE 20 MG/ 2ML VIAL ONE (15:41)
[2021-01-25] MEDS ORDERED: FUROSEMIDE 20 MG/ 2ML VIAL IV SCH (17:00)
--- NOTE | 2021-01-25 17:18 | RAD REPORT ---
EXAM DESCRIPTION: CT - Head Brain Wo Cont - 01/25/2021 4:54 pm CLINICAL HISTORY: Stage 4 lung cancer. Rule out mets COMPARISON: HEAD BRAIN W O CONTRAST dated 08/10/2007 TECHNIQUE: Axial 5 mm thick images of the head were obtained without IV contrast. All CT scans are performed using dose optimization technique as appropriate and may include automated exposure control or mA/KV adjustment according to patient size. FINDINGS: No intracranial hemorrhage, mass, edema or shift of mid-line structures. No acute infarcti on changes seen. No abnormal extra-axial fluid collections. Ventricles are normal. Physiologic calci fications are present. Intracranial findings are similar to comparison. Mastoid air cells and visualized portions of the paranasal sinuses are clear. No acute bony findings. IMPRESSION: Noncontrast CT study shows no acute intracranial finding. No findings suggesting metastatic disease. Small punctate metastatic lesions, best visualized with co ntrast MRI imaging, would still be possible.
[2021-01-25 18:00] LABS: Urine Blood Trace-intact (Negative); Urine Glucose Negative (Negative); Urine Protein Negative (Negative); Urine Specific Gravity <=1.005 (1.005-1.030); Urine pH 5.5 (5.0-7.0)
[2021-01-25 18:02] LABS: Urine Appearance CLEAR (Clear); Urine Bilirubin NEGATIVE (Negataive); Urine Blood NEGATIVE (Negative); Urine Color YELLOW (Yellow); Urine Glucose NEGATIVE (Negative); Urine Protein NEGATIVE (Negative); Urine Specific Gravity >=1.030 (1.005-1.030); Urine Urobilinogen 0.2 mg/dL (0.2-1.0); Urine pH 5.5 (5.0-7.0)
[2021-01-25 18:14] LABS: Urine Microscopic Reflex NO UMIC
[2021-01-25] MEDS ORDERED: LABETALOL 20 MG/4ML SYRINGE IV PRN (19:54)
[2021-01-25 20:27] LABS: Protime INR 1.45
[2021-01-25 20:49] LABS: Ferritin 258.6 ng/mL (8-388)
[2021-01-26] MEDS ORDERED: HYDROCODONE/APAP 10/325 TAB ONE ×3 (04:16→18:19)
--- NOTE | 2021-01-26 07:50 | RAD REPORT ---
EXAM DESCRIPTION: Ilene Single View01/26/2021 6:46 am CLINICAL HISTORY: Lung cancer COMPARISON: December 2020 FINDINGS: Opacification the right hemithorax. Small moderate left and small left pleural effusions . Mild left lung opacities IMPRESSION: Opacification of the right hemithorax represents a combination of mostly atelectasis an d mass. Small to moderate left and small right pleural effusions
--- NOTE | 2021-01-26 08:19 | P.CNS ---
Date of Consult: 01/26/21 Reason for Consult: Pulmonary emboli Chief Complaint: SOB History of Present Illness: Patient is 58 years of age with a history of stage IV lung cancer COPD admitted with worsening dyspnea over the past month she has gotten worse in the past 2 days has oxygen at home history of PleurX catheter on the right side which is scheduled to be removed history of pericardial window discharge home on oxygen therapy has some chest pain patient is currently stable feeling very weak Allergies No Known Drug Allergies Allergy (Verified 09/15/20 08:00) Unknown No Known Allergies Allergy (Uncoded 02/06/16 15:26) Unknown Home Medications: traMADol HCL [Ultram*] 50 mg PO Q6H PRN #10 tab 09/16/20 Gabapentin 200 mg PO TID 01/25/21 Metoprolol Tartrate [Lopressor*] 12.5 mg PO TID 01/25/21 - Past Medical/Surgical History Diabetic: No -: HTN -: Stage IV lung cancer -: Pleurx catheter to the right lung with prior pleural effusion -: Pericardial window for pericardial effusion -: Hysterectomy -: Cholecystectomy -: Pleurx catheter Psychosocial/ Personal History: Patient is a - Social History Smoking Status: Never smoker Alcohol use: Yes CD- Drugs: No Caffeine use: Yes Place of Residence: Home Review of Systems General: Weakness Respiratory: Cough, Shortness of Breath Physical Examination Temp Pulse Resp BP Pulse Ox 98.5 F 108 H 30 H 128/91 H 100 01/26/21 04:00 01/26/21 07:45 01/26/21 07:45 01/26/21 07:45 01/26/21 07:45 General: Alert, Mild distress Respiratory: Diminished (Diminished on the right side), Expiratory wheezes Cardiovascular: No edema, Regular rate/rhythm, Abnormal S3 Gastrointestinal: Normal bowel sounds, Soft and benign Laboratory Data (last 24 hrs) 01/25/21 10:57: PT 16.5 H, INR 1.43, APTT 25.1 01/25/21 10:57: WBC 12.80 H, Hgb 10.0 L, Hct 32.4 L, Plt Count 229 01/25/21 10:57: Sodium 139, Potassium 3.6, BUN 5 L, Creatinine 0.24 L, Glucose 87, Magnesium 1.9, Total Bilirubin 0.3, AST 13 L, ALT 8 L, Alkaline Phosphatase 96, Lipase 39 L - Problems (1) Pulmonary embolism Current Visit: Yes Status: Acute Plan: Patient is 60 years of age with stage IV lung cancer admitted with pulmonary emboli she is currently stable change to p.o. Xarelto labs reviewed white count is mildly elevated patient was scheduled to have a PleurX catheter removed from the right side hemodynamically stable no evidence of mets to the brain prognosis very poor echo ordered patient was scheduled to have treatment for her lung cancer chest x-ray significant opacification of the right lung CT scan presumed extensive lung cancer narrowing of the bronchus also has a pleural effusion on the left side Qualifiers: Chronicity: acute
[2021-01-26] MEDS: GABAPENTIN 100 MG CAP PO SCH ×3 (09:00→21:00)
[2021-01-26] MEDS ORDERED: ENOXAPARIN 40 MG/0.4 ML SQ SCH (09:00)
[2021-01-26] MEDS: FOLIC ACID 1 MG TABLET PO SCH (09:00)
[2021-01-26] MEDS: RIVAROXABAN 15 MG TABLET PO SCH ×2 (09:00→21:00)
[2021-01-26] MEDS: THIAMINE HCL 100 MG TABLET PO SCH (09:00)
[2021-01-26 09:01] LABS: MPV 8.9 fL (7.6-11.3)
[2021-01-26] MEDS ORDERED: THIAMINE HCL 100 MG TABLET ONE (09:02)
[2021-01-26] MEDS ORDERED: FOLIC ACID 1 MG TABLET ONE (09:03)
[2021-01-26] MEDS: HYDROCODONE/APAP 10/325 TAB PO PRN ×2 (09:05→18:00)
[2021-01-26 09:06] LABS: BUN Blood Urea Nitrogen 6 mg/dL (7-18); Bicarbonate 31 mmol/L (21-32); Glucose Level 141 mg/dL (74-106); Potassium 4.1 mmol/L (3.5-5.1); Sodium Level 138 mmol/L (136-145)
[2021-01-26 09:23] LABS: Platelet Estimate ADEQ
[2021-01-26] MEDS: TRAMADOL HCL 50 MG TAB PO PRN (15:49)
[2021-01-26] MEDS ORDERED: TRAMADOL HCL 50 MG TAB ONE (16:10)
[2021-01-26] MEDS: ARFORMOTEROL TARTRATE 15 MCG/2 ML VIAL.NEB NEB SCH (20:10)
[2021-01-26] MEDS: IPRATROPIUM BROM 0.5MG/2.5ML NEB PRN (20:10)
[2021-01-26] MEDS: ALBUTEROL 2.5 MG/3 ML NEB SOL NEB PRN (20:10)
[2021-01-26] MEDS ORDERED: ALBUTEROL 2.5 MG/3 ML NEB SOL ONE (20:17)
[2021-01-26] MEDS ORDERED: IPRATROPIUM BROM 0.5MG/2.5ML ONE (20:17)
[2021-01-26] MEDS ORDERED: ARFORMOTEROL TARTRATE 15 MCG/2 ML VIAL.NEB ONE (20:17)
[2021-01-27] MEDS: HYDROCODONE/APAP 10/325 TAB PO PRN (01:23)
[2021-01-27] MEDS ORDERED: HYDROCODONE/APAP 10/325 TAB ONE (01:42)
[2021-01-27 05:19] LABS: MPV 8.4 fL (7.6-11.3)
[2021-01-27 05:27] LABS: Platelet Estimate ND
[2021-01-27] MEDS ORDERED: TRAMADOL HCL 50 MG TAB ONE (07:40)
[2021-01-27] MEDS: TRAMADOL HCL 50 MG TAB PO PRN (08:30)
[2021-01-27] MEDS: FOLIC ACID 1 MG TABLET PO SCH (09:00)
[2021-01-27] MEDS: RIVAROXABAN 15 MG TABLET PO SCH (09:00)
[2021-01-27] MEDS: GABAPENTIN 100 MG CAP PO SCH ×3 (09:00→20:31)
[2021-01-27] MEDS: THIAMINE HCL 100 MG TABLET PO SCH (09:00)
[2021-01-27] MEDS ORDERED: FOLIC ACID 1 MG TABLET ONE (09:30)
[2021-01-27] MEDS ORDERED: THIAMINE HCL 100 MG TABLET ONE (09:30)
[2021-01-27] MEDS ORDERED: BISACODYL E.C. 5 MG TAB PO ONE ×2 (09:55→10:51)
[2021-01-27] MEDS ORDERED: BISACODYL 10 MG RECTAL SUPP PR PRN (09:55)
[2021-01-27] MEDS ORDERED: MAGNESIUM CITRATE 300 ML BOT PO ONE (10:00)
[2021-01-27] MEDS: ARFORMOTEROL TARTRATE 15 MCG/2 ML VIAL.NEB NEB SCH ×3 (10:29→20:00)
[2021-01-27] MEDS ORDERED: MAGNESIUM CITRATE 300 ML BOT ONE (10:52)
[2021-01-27] MEDS: MORPHINE 4 MG/ML SYR IV PRN ×3 (11:00→20:51)
[2021-01-27] MEDS ORDERED: MORPHINE 4 MG/ML SYR ONE ×3 (11:13→21:08)
--- NOTE | 2021-01-27 14:17 | P.PN ---
Subjective Date of Service: 01/27/21 Chief Complaint: SOB No change feeling weak.Pt very depressed weeping Review of Systems General: Weakness Respiratory: Shortness of Breath Physical Examination - Vital Signs Temperature: 97.9 F Blood Pressure: 131/78 Pulse: 107 Respirations: 24 Pulse Ox (%): 90 - Physical Exam General: Alert, Moderate distress Respiratory: Diminished (R sided) Cardiovascular: No edema, Regular rate/rhythm Assessment & Plan - Problems (Diagnosis) (1) Pulmonary embolism Current Visit: Yes Status: Acute Plan: Prognosis very poor. BAKARI Watson for removal of PLeuRX cather. Change to Lovenox for now and plan to hold am dose on Tuesday before removal LAbs reviewed. BAKARI patient abouth DNR Qualifiers: Chronicity: acute
[2021-01-27 18:37] LABS: Absolute Lymphocytes (CBC) 1.4 K/uL (0.7-4.9); Basophils % 0.6 % (0-1.3); Hematocrit 33.7 % (36.0-45.0); MPV 7.9 fL (7.6-11.3); RBC Red Blood Cell Count 4.18 M/uL (3.86-4.86)
[2021-01-27] MEDS: ENOXAPARIN 80 MG/0.8 ML SQ SCH (20:17)
[2021-01-27] MEDS ORDERED: ENOXAPARIN 80 MG/0.8 ML SQ ONE (20:22)
[2021-01-27] MEDS ORDERED: GABAPENTIN 400 MG CAP ONE (20:28)
[2021-01-27] MEDS ORDERED: GABAPENTIN 100 MG CAP ONE ×2 (20:44→20:47)
[2021-01-28] MEDS: TRAMADOL HCL 50 MG TAB PO PRN (03:06)
[2021-01-28] MEDS ORDERED: TRAMADOL 37.5mg/APAP 325mg PER TAB ONE (03:19)
[2021-01-28] MEDS ORDERED: TRAMADOL HCL 50 MG TAB ONE (03:23)
[2021-01-28 05:53] LABS: RBC Red Blood Cell Count 3.97 M/uL (3.86-4.86)
[2021-01-28 06:07] LABS: BUN Blood Urea Nitrogen 6 mg/dL (7-18); Bicarbonate 31 mmol/L (21-32); Glucose Level 103 mg/dL (74-106); Magnesium 2.1 mg/dL (1.8-2.4); Phosphorus 2.5 mg/dL (2.5-4.9); Sodium Level 136 mmol/L (136-145)
[2021-01-28] MEDS: ENOXAPARIN 80 MG/0.8 ML SQ SCH ×2 (08:46→20:39)
[2021-01-28] MEDS: THIAMINE HCL 100 MG TABLET PO SCH (08:46)
[2021-01-28] MEDS: FOLIC ACID 1 MG TABLET PO SCH (08:47)
[2021-01-28] MEDS ORDERED: FOLIC ACID 1 MG TABLET ONE (08:59)
[2021-01-28] MEDS ORDERED: THIAMINE HCL 100 MG TABLET ONE (08:59)
[2021-01-28] MEDS ORDERED: ENOXAPARIN 80 MG/0.8 ML SQ ONE ×2 (08:59→20:36)
[2021-01-28] MEDS: GABAPENTIN 100 MG CAP PO SCH ×3 (09:19→20:40)
--- NOTE | 2021-01-28 09:36 | ECHO ---
HEIGHT: 6 ft 1 in WEIGHT: 285 lb 0 oz DATE OF STUDY: 01/27/[address]: Alex Piper DO 2-DIMENSIONAL: YES M.MODE: YES DOPPLER: YES COLOR FLOW: YES TDS: PORTABLE: DEFINITY: BUBBLE STUDY: DIAGNOSIS: PULMONARY EMBOLI, STAGE 4 LUNG CANCER CARDIAC HISTORY: CATHERIZATION: NO SURGERY: NO PROSTHETIC VALVE: NO PACEMAKER: NO MEASUREMENTS (cm) DIASTOLIC (NORMALS) SYSTOLIC (NORMALS) IVSd 1.0 (0.6-1.2) LA Diam 2.5 (1.9-4.0) LVEF 58% LVIDd 4.0 (3.5-5.7) LVIDs 2.8 (2.0-3.5) %FS 30% LVPWd 1.1 (0.6-1.2) Ao Diam 2.6 (2.0-3.7) 2 DIMENSIONAL ASSESSMENT: RIGHT ATRIUM: NORMAL LEFT ATRIUM: NORMAL RIGHT VENTRICLE: NORMAL LEFT VENTRICLE: NORMAL TRICUSPID VALVE: NORMAL MITRAL VALVE: NORMAL PULMONIC VALVE: NORMAL AORTIC VALVE: NORMAL PERICARDIAL EFFUSION: NONE AORTIC ROOT: NORMAL LEFT VENTRICULAR WALL MOTION: NORMAL DOPPLER/COLOR FLOW: MILD TRICUSPID REGURGITATION. COMMENTS: NORMAL LEFT VENTRICULAR SIZE AND FUNCTION. MODERATE PULMONARY HYPERTENSION - 49 mmHg RIGHT VENTRICULAR SYSTOLIC PRESSURE. NO EFFUSION. TECHNOLOGIST: ALFREDA FLEMING
--- NOTE | 2021-01-28 10:21 | CON ---
Date of Consultation: 01/27/2021 Brief History Of Present Illness: The patient is a 60-year-old female with a past medical history of COPD and stage IV lung cancer, who presents to the hospital with shortness of breath. She has had multiple episodes of shortness of breath before in the past, at which point, she was diagnos ed some time ago with metastatic stage IV lung cancer. She ultimately had a PleurX catheter placed i n the right thoracic space for this in the [facility] and as of the last few weeks, it has been unabl e to drain. She states that at her oncologist, she was unable to express any fluid as well and as hilliard ch, she is requesting removal of the tube as it continues to cause some irritation and pain at the in sertion site. She has not been able to get any fluid out of it on the past 3-4 applications and was only getting scant amounts before that. She has not had any other significant issues with respect to the tube. She now presents with recurrent complaints of shortness of breath. She did have an admis phuong at [facility] in the [facility] where she had a pleural effusion, pericardial window, thoracentesi s and she was discharged home oxygen therapy. During her workup here, she was noted to have a pulmon ronnie embolism as noted on CT imaging. She was started on heparin drip and Hematology was consulted. I am requested to see the patient for removal of the PleurX catheter as it is no longer functional. Past Medical History: Significant for hypertension, COPD, stage IV lung cancer. Past Surgical History: Includes a PleurX catheter in the right thoracic space, hysterectomy, cholecy stectomy. Allergies: NO KNOWN DRUG ALLERGIES. Home Medications: Include tramadol and Augmentin. Social History: She denies smoking. She drinks alcohol recreationally. No recreational drug use. Review of Systems: Ten-point review of systems other than HPI, she denies. Physical Examination: Vital Signs: At the time of my examination; her BMI is 37.6, her heart rate was 109, blood pressure 126/69, respiratory rate 18, temperature 98.5, SpO2 91% on nasal cannula. HEENT: She is normocephalic. Her sclerae anicteric. Mucous membranes are moist. Oropharynx is alexa ar. Neck: Supple without JVD. Chest: Normal expansion and excursion. Cardiovascular: Tachycardic, but otherwise regular rhythm. Pulmonary: Decreased breath sounds bilaterally. There is a PleurX catheter in the right thoracic sp jasiel. Skin: Otherwise warm and dry. Laboratory Data: She had a laboratory exam, which reveals a white blood cell count of 17.3, hemoglob in is 10.3, hematocrit of 33.7, platelet count is 331. Her coags showed a PTT of 63 on anticoagulati on. Her electrolytes showed a sodium 138, potassium 4.1, chloride 101, carbon dioxide 31, BUN 6, cre atinine 0.36. Her glucose is 141. Her magnesium is 2.4. Troponin less than 0.02. She had imaging performed, which included a CT thoracic, which showed multiple pulmonary emboli present in the subseg mental branches of the left lower lobe and then the segmental branches supplying the lingula of the l eft upper lobe. No right-sided pulmonary embolus or saddle embolus. New moderate sized left pleural effusion, worsening soft tissue mass around the hilum and esophageal recess, worsening consolidation of right lower lobe. This could be extension of tumor, pneumonia, edema, or combination. No suspic ious findings. The right-sided chest tube is unchanged. The tip is in the posterior gutter. Assessment And Plan: This is a 60-year-old female, who comes in with a pulmonary embolus superimpose d on stage IV lung cancer with a right PleurX catheter in place. 1.Continue medical management with anticoagulation. 2.Bridge the patient off anticoagulation for removal of PleurX catheter per the patient's request. I have explained the risks, benefits, and alternatives of stopping her blood thinner including worsen ing pulmonary edema, with respect to remove the PleurX catheter; however, she stresses the araceli re for removal of this PleurX catheter as it is a continual source of pain to her and as such we will bridge her to short-acting anticoagulation, remove the PleurX catheter, and initiate anticoagulation as rapidly as possible. I have explained the risks, benefits, and alternatives of the above stated plan. The patient agrees to proceed as indicated. GERSON/MAILE Voice ID: [id number] Report ID: [id number]
--- NOTE | 2021-01-28 10:26 | P.PN ---
Subjective Date of Service: 01/26/21 Patient with generalized weakness. Patient's clinical conditions deteriorating over the last few months. She has gotten really weak. PleurX catheter needs to be removed. Patient scheduled to start chemotherapy in 1 month. However, if her pain does not improve then her with long-term prognosis remains very poor. Review of Systems 10-point ROS is otherwise unremarkable Physical Examination - Vital Signs Temperature: 98.1 F Blood Pressure: 128/92 Pulse: 108 Respirations: 16 Pulse Ox (%): 91 - Physical Exam General: Alert, In no apparent distress, Oriented x3 Respiratory: Diminished, Expiratory wheezes, Other (Diminished breath sounds right base is) Cardiovascular: Regular rate/rhythm, Normal S1 S2, No murmurs Gastrointestinal: Normal bowel sounds, Soft and benign, Non-distended, No tenderness Musculoskeletal: No clubbing, No swelling, No tenderness Neurological: Normal strength at 5/5 x4 extr, Sensation intact, Cranial nerves 3-12 intact - Studies Medications List Reviewed: Yes Assessment & Plan - Problems (Diagnosis) (1) Metastatic lung cancer (metastasis from lung to other site) Current Visit: Yes Status: Acute (2) Pulmonary embolism Current Visit: Yes Status: Acute Qualifiers: Chronicity: acute (3) Chest pain Current Visit: No Status: Active (4) Hypertension Current Visit: No Status: Acute - Plan Plan: 1. Continue with gentle hydration 2. Continue with anti coagulation 3. Physical therapy evaluation 4. Monitor electrolytes closely 5. GI and DVT prophylaxis Discharge Plan: Home Plan to discharge in: Greater than 2 days - Advance Directives Does patient have a Living Will: No Does patient have a Durable POA for Healthcare: No - Code Status/Comfort Care Code Status: Full Code Critical Care: No Time Spent Managing PTS Care (In Minutes): 45
--- NOTE | 2021-01-28 10:32 | P.PN ---
Date of Service: 01/27/21 Subjective Patient still not feeling well. Patient clinical symptoms not really improved much. Still short of breath and also with airway congestion. Hopefully patient's strength will improve and we can work on discharge planning. If not patient may need to consider hospice care. Review of Systems 10-point ROS is otherwise unremarkable Physical Examination - Vital Signs reviewed - Physical Exam General: Alert, In no apparent distress, Oriented x3 Respiratory: Diminished, Expiratory wheezes, Other (Diminished breath sounds right base is) Cardiovascular: Regular rate/rhythm, Normal S1 S2, No murmurs Gastrointestinal: Normal bowel sounds, Soft and benign, Non-distended, No tenderness Musculoskeletal: No clubbing, No swelling, No tenderness Neurological: Patient with generalized weakness - Studies Medications List Reviewed: Yes Assessment & Plan - Problems (Diagnosis) (1) Metastatic lung cancer (metastasis from lung to other site) Current Visit: Yes Status: Acute (2) Pulmonary embolism Current Visit: Yes Status: Acute Qualifiers: Chronicity: acute (3) Chest pain Current Visit: No Status: Active (4) Hypertension Current Visit: No Status: Acute - Plan Plan: Continue with plan of care as mentioned below 1. Continue with gentle hydration 2. Continue with anti coagulation 3. Physical therapy evaluation 4. Monitor electrolytes closely 5. GI and DVT prophylaxis Discharge Plan: Home Plan to discharge in: Greater than 2 days - Advance Directives Does patient have a Living Will: No Does patient have a Durable POA for Healthcare: No - Code Status/Comfort Care Code Status: Full Code Critical Care: No Time Spent Managing PTS Care (In Minutes): 45
--- NOTE | 2021-01-28 10:37 | P.PN ---
Date of Service: 01/28/21 Subjective Patient was seen by General surgery. Possibly removed PleurX catheter on Tuesday. Patient continues on anti coagulation. Review of Systems 10-point ROS is otherwise unremarkable Physical Examination - Vital Signs reviewed - Physical Exam General: Alert, In no apparent distress, Oriented x3 Respiratory: Diminished, Expiratory wheezes, Other (Diminished breath sounds right base is) Cardiovascular: Regular rate/rhythm, Normal S1 S2, No murmurs Gastrointestinal: Normal bowel sounds, Soft and benign, Non-distended, No tenderness Musculoskeletal: No clubbing, No swelling, No tenderness Neurological: Patient with generalized weakness - Studies Medications List Reviewed: Yes Assessment & Plan - Problems (Diagnosis) (1) Metastatic lung cancer (metastasis from lung to other site) Current Visit: Yes Status: Acute (2) Pulmonary embolism Current Visit: Yes Status: Acute Qualifiers: Chronicity: acute (3) Chest pain Current Visit: No Status: Active (4) Hypertension Current Visit: No Status: Acute - Plan Plan: Continue with plan of care as mentioned below 1. Diet as tolerated 2. Continue with anticoagulation; will switch to Lovenox until surgery 3. Physical therapy evaluation pending; if strength is not improved then may co nsider hospice care 4. Monitor electrolytes closely 5. GI and DVT prophylaxis Discharge Plan: Home Plan to discharge in: Greater than 2 days - Advance Directives Does patient have a Living Will: No Does patient have a Durable POA for Healthcare: No - Code Status/Comfort Care Code Status: Full Code Critical Care: No Time Spent Managing PTS Care (In Minutes): 45
[2021-01-28] MEDS: ARFORMOTEROL TARTRATE 15 MCG/2 ML VIAL.NEB NEB SCH ×2 (11:32→19:30)
[2021-01-28] MEDS: MORPHINE 4 MG/ML SYR IV PRN (13:01)
[2021-01-28] MEDS ORDERED: MORPHINE 4 MG/ML SYR ONE (13:20)
[2021-01-28] MEDS: HYDROCODONE/APAP 10/325 TAB PO PRN (17:18)
[2021-01-28] MEDS ORDERED: HYDROCODONE/APAP 10/325 TAB ONE (17:37)
[2021-01-28] MEDS: ALBUTEROL 2.5 MG/3 ML NEB SOL NEB PRN (19:30)
[2021-01-28] MEDS: IPRATROPIUM BROM 0.5MG/2.5ML NEB PRN (19:30)
[2021-01-28] MEDS ORDERED: IPRATROPIUM BROM 0.5MG/2.5ML ONE (19:33)
[2021-01-28] MEDS ORDERED: ARFORMOTEROL TARTRATE 15 MCG/2 ML VIAL.NEB ONE (19:33)
[2021-01-28] MEDS ORDERED: ALBUTEROL 2.5 MG/3 ML NEB SOL ONE (19:33)
[2021-01-28] MEDS ORDERED: GABAPENTIN 100 MG CAP ONE (20:41)
[2021-01-29] MEDS: MORPHINE 4 MG/ML SYR IV PRN ×4 (00:18→19:15)
[2021-01-29] MEDS ORDERED: MORPHINE 4 MG/ML SYR ONE ×4 (00:34→19:31)
[2021-01-29 04:54] VITALS: BMI 26.1
[2021-01-29 05:31] LABS: MPV 8.8 fL (7.6-11.3)
[2021-01-29] MEDS ORDERED: HYDROCODONE/APAP 10/325 TAB ONE (07:52)
[2021-01-29] MEDS: FOLIC ACID 1 MG TABLET PO SCH (08:30)
[2021-01-29] MEDS: THIAMINE HCL 100 MG TABLET PO SCH (08:30)
[2021-01-29] MEDS: ARFORMOTEROL TARTRATE 15 MCG/2 ML VIAL.NEB NEB SCH ×2 (08:41→21:15)
[2021-01-29] MEDS ORDERED: THIAMINE HCL 100 MG TABLET ONE (08:48)
[2021-01-29] MEDS ORDERED: FOLIC ACID 1 MG TABLET ONE (08:48)
[2021-01-29] MEDS: GABAPENTIN 100 MG CAP PO SCH ×3 (09:27→20:15)
[2021-01-29] MEDS: HYDROCODONE/APAP 10/325 TAB PO PRN ×2 (09:27→23:05)
[2021-01-29] MEDS ORDERED: GABAPENTIN 100 MG CAP ONE (20:12)
[2021-01-29] MEDS: ALBUTEROL 2.5 MG/3 ML NEB SOL NEB PRN (21:15)
[2021-01-29] MEDS: IPRATROPIUM BROM 0.5MG/2.5ML NEB PRN (21:15)
[2021-01-29] MEDS ORDERED: ALBUTEROL 2.5 MG/3 ML NEB SOL ONE (21:22)
[2021-01-29] MEDS ORDERED: IPRATROPIUM BROM 0.5MG/2.5ML ONE (21:22)
[2021-01-30] MEDS: MORPHINE 4 MG/ML SYR IV PRN ×3 (05:51→20:03)
[2021-01-30 08:08] LABS: BUN Blood Urea Nitrogen 8 mg/dL (7-18); Bicarbonate 29 mmol/L (21-32); Glucose Level 102 mg/dL (74-106); Magnesium 2.1 mg/dL (1.8-2.4); NT PRO-BNP 551 pg/mL (<125); Phosphorus 4.1 mg/dL (2.5-4.9); Potassium 4.3 mmol/L (3.5-5.1); Sodium Level 136 mmol/L (136-145)
[2021-01-30 08:18] LABS: MPV 8.3 fL (7.6-11.3)
[2021-01-30 08:19] LABS: Absolute Lymphocytes (CBC) 1.1 K/uL (0.7-4.9); Basophils % 0.2 % (0-1.3); Hematocrit 35.4 % (36.0-45.0); Lymphocytes % 7.5 % (15.3-44.8); MPV 8.5 fL (7.6-11.3); RBC Red Blood Cell Count 4.36 M/uL (3.86-4.86)
[2021-01-30 08:30] LABS: Platelet Estimate ADEQ
[2021-01-30] MEDS: IPRATROPIUM BROM 0.5MG/2.5ML NEB PRN ×3 (08:35→19:57)
[2021-01-30] MEDS: ARFORMOTEROL TARTRATE 15 MCG/2 ML VIAL.NEB NEB SCH ×2 (08:35→20:00)
[2021-01-30] MEDS: ALBUTEROL 2.5 MG/3 ML NEB SOL NEB PRN ×3 (08:35→19:58)
--- NOTE | 2021-01-30 08:50 | RAD REPORT ---
EXAM DESCRIPTION: RAD - Chest Single View - 01/30/2021 4:38 am CLINICAL HISTORY: pneumonia Chest pain. COMPARISON: Chest Single View dated 01/26/2021; Chest Single View dated 12/22/2020; Chest Single View dated 12/01/2020; Chest Single View dated 10/14/2020; Chest For Pe Angio dated 01/25/2021 FINDINGS: Portable technique limits examination quality. Little overall change is seen in the appearance of the chest since 01/26/2021. Small left pleural eff usion with right-sided hemithorax opacification appear stable. The heart size is mildly enlarged.
[2021-01-30] MEDS ORDERED: Ringers Lactate 1,000 ML IV ONE (09:07)
[2021-01-30] MEDS ORDERED: CEFAZOLIN/SWI 1gm 1 GM/10 ML SYR ONE (09:51)
[2021-01-30] MEDS ORDERED: FENTANYL CITR 100 MCG/2 ML ONE (10:18)
[2021-01-30] MEDS ORDERED: propofoL 200 MG/20 ML VIAL IV ONE (10:18)
[2021-01-30] MEDS ORDERED: LIDOCAINE 1% MPF 5 ML VIAL ONE (10:19)
[2021-01-30] MEDS ORDERED: MIDAZOLAM HCL 2 MG/2 ML INJ ONE (10:19)
[2021-01-30] MEDS ORDERED: MORPHINE 4 MG/ML SYR ONE (10:26)
[2021-01-30] MEDS ORDERED: BUPIVACAINE 0.25% PF 30 ML VIAL ONE (10:29)
--- NOTE | 2021-01-30 10:39 | P.OP ---
Preoperative diagnosis: RIGHT PleurX Thoracic catheter dysfunction Postoperative diagnosis: RIGHT PleurX Thoracic catheter dysfunction Primary procedure: Removal of RIGHT pleur-X catheter Anesthesia: MAC + Local Estimated blood loss: <5cc Specimen: catheter tip for culture Findings: tube obstructed with adiopose tissue Complications: None Transferred to: Recovery Room Condition: Good
[2021-01-30] MEDS ORDERED: FLUMAZENIL 0.1 MG/ML (5 mL VIAL) IV ONE (10:56)
--- NOTE | 2021-01-30 11:01 | RAD REPORT ---
EXAM DESCRIPTION: RAD - Chest Single View - 01/30/2021 10:53 am CLINICAL HISTORY: pt in pacu Chest pain. COMPARISON: Chest Single View dated 01/30/2021; Chest Single View dated 01/26/2021; Chest Single View dated 12/22/2020; Chest Single View dated 12/01/2020 FINDINGS: Portable technique limits examination quality. No significant change in lung aeration is seen. Moderate left pleural effusion with pleural and paren chymal right hemithorax opacification is unchanged. No pneumothorax. Heart size is mildly prominent.
[2021-01-30] MEDS: FOLIC ACID 1 MG TABLET PO SCH (12:17)
[2021-01-30] MEDS: GABAPENTIN 100 MG CAP PO SCH ×3 (12:17→22:06)
[2021-01-30] MEDS: THIAMINE HCL 100 MG TABLET PO SCH (12:18)
[2021-01-30 13:55] LABS: Absolute Lymphocytes (CBC) 1.4 K/uL (0.7-4.9); Basophils % 0.6 % (0-1.3); Hematocrit 36.2 % (36.0-45.0); Lymphocytes % 7.3 % (15.3-44.8); MPV 8.1 fL (7.6-11.3); RBC Red Blood Cell Count 4.49 M/uL (3.86-4.86)
--- NOTE | 2021-01-30 20:32 | OP ---
Date of Procedure: 01/30/2021 Surgeon: Robert Ramos MD, Preoperative Diagnosis: Right PleurX thoracic catheter dysfunction. Postoperative Diagnosis: Right PleurX thoracic catheter dysfunction. Procedure Performed: Removal of a right PleurX catheter. Anesthesia: MAC plus local with 0.25% Marcaine. Estimated Blood Loss: Less than 5 mL. Specimen: Catheter tip for culture. Findings: Tube obstructed with adipose tissue. Complications: None. Disposition: The patient transferred to recovery room in good condition. Procedure In Detail: After informed consent was obtained, the patient was brought to the operating r oom, prepped and draped in the usual sterile fashion. After adequate anesthesia was achieved with lo nathen and IV sedation, I dilated the tract at the access site until the cuff was delivered into the vis ual field. At this point, I used sharp dissection to circumferentially remove the tissue around the cuff of the PleurX catheter. At this point once it was freed up, I then pulled the PleurX catheter o ut without evidence of complication and held pressure over the site. The area and tract were copious ly irrigated with sterile saline several times until completely dry and a single [id number] 3-0 nylon suture was used to close the exit site at this point and a sterile dressing placed over top. T he patient tolerated the procedure well without evidence of complication. The PleurX catheter will h ave the tip sent for culture. The patient tolerated the procedure well without evidence of complicat ion and transferred to PACU in good condition. All counts were correct at the end of the case. A stat chest x-ray will be performed. GERSON/MAILE Voice ID: [id number] Report ID: [id number]
[2021-01-30] MEDS: ENOXAPARIN 80 MG/0.8 ML SQ SCH (22:06)
[2021-01-31] MEDS: MORPHINE 4 MG/ML SYR IV PRN ×5 (02:45→22:00)
[2021-01-31] MEDS: ALBUTEROL 2.5 MG/3 ML NEB SOL NEB PRN ×4 (04:14→20:05)
[2021-01-31] MEDS: IPRATROPIUM BROM 0.5MG/2.5ML NEB PRN ×4 (04:14→20:05)
[2021-01-31 07:08] LABS: MPV 8.7 fL (7.6-11.3)
[2021-01-31] MEDS: ENOXAPARIN 80 MG/0.8 ML SQ SCH ×2 (08:16→20:37)
[2021-01-31] MEDS: THIAMINE HCL 100 MG TABLET PO SCH (08:17)
[2021-01-31] MEDS: GABAPENTIN 100 MG CAP PO SCH ×3 (08:17→20:37)
[2021-01-31] MEDS: FOLIC ACID 1 MG TABLET PO SCH (08:17)
[2021-01-31 08:24] LABS: Platelet Estimate ADEQ
[2021-01-31] MEDS: ARFORMOTEROL TARTRATE 15 MCG/2 ML VIAL.NEB NEB SCH ×2 (08:29→20:05)
[2021-02-01] MEDS: MORPHINE 4 MG/ML SYR IV PRN ×6 (02:32→23:10)
--- NOTE | 2021-02-01 02:59 | P.PN ---
Date of Service: 01/29/21 Subjective Patient clinically is doing well. Scheduled for PleurX catheter removal in the morning. Patient is planning on trying to do chemotherapy and radiation when she gets her insurance in February. However, she has gotten really weak and she is not getting out of bed. Patient gets very tachycardic from moving. Patient's prognosis is very poor. I do not believe she will be able to tolerate chemotherapy. Review of Systems 10-point ROS is otherwise unremarkable Physical Examination - Vital Signs reviewed - Physical Exam General: Alert, In no apparent distress, Oriented x3 Respiratory: Diminished, Expiratory wheezes, Other (Diminished breath sounds right base is) Cardiovascular: Tachycardic Gastrointestinal: Normal bowel sounds, Soft and benign, Non-distended, No tenderness Musculoskeletal: No clubbing, No swelling, No tenderness Neurological: Patient with generalized weakness - Studies Medications List Reviewed: Yes Assessment & Plan - Problems (Diagnosis) (1) Metastatic lung cancer (metastasis from lung to other site) Current Visit: Yes Status: Acute (2) Pulmonary embolism Current Visit: Yes Status: Acute Qualifiers: Chronicity: acute (3) Chest pain Current Visit: No Status: Active (4) Hypertension Current Visit: No Status: Acute - Plan Plan: Continue with plan of care as mentioned below 1. NPO after midnight for removal a PleurX catheter in the morning 2. Continue with anticoagulation; will switch to Lovenox until surgery; start long-acting anti coagulation with Eliquis 3. Physical therapy evaluation pending; patient not really doing much. Patient with significant weakness. 4. Monitor electrolytes closely 5. GI and DVT prophylaxis
--- NOTE | 2021-02-01 03:03 | P.PN ---
Date of Service: 01/31/21 Subjective Patient clinical condition is not really improving. Still with significant weakness and shortness of breath. Patient remains tachycardic. Arranging for discharge once patient's strength improves. If her strength is not improving then she may need to consider hospice care. Had a long conversation with family as well and family has decided that patient will be a [id number]. Considering DNR but at this time they have not decided on the DNaR status. She does not want to be on mechanical ventilation so we will make a patient a do not intubate Review of Systems 10-point ROS is otherwise unremarkable Physical Examination - Vital Signs reviewed - Physical Exam General: Alert, In no apparent distress, Oriented x3 Respiratory: Diminished, Expiratory wheezes, Other (Diminished breath sounds right base is) Cardiovascular: Regular rate/rhythm, Normal S1 S2, No murmurs Gastrointestinal: Normal bowel sounds, Soft and benign, Non-distended, No tenderness Musculoskeletal: No clubbing, No swelling, No tenderness Neurological: Patient with generalized weakness - Studies Medications List Reviewed: Yes Assessment & Plan - Problems (Diagnosis) (1) Metastatic lung cancer (metastasis from lung to other site) Current Visit: Yes Status: Acute (2) Pulmonary embolism Current Visit: Yes Status: Acute Qualifiers: Chronicity: acute (3) Chest pain Current Visit: No Status: Active (4) Hypertension Current Visit: No Status: Acute - Plan Plan: Continue with plan of care as mentioned below 1. Advanced diet as tolerated; ensure with with protein to help build her strength along with therapy 2. Continue with anticoagulation; may be switched over to Eliquis 5 mg b.i.d. 3. She has really not able to participate with physical therapy. Family has not decided on hospice care but this is a possibility if her strength is not imp roving 4. Monitor electrolytes closely 5. GI and DVT prophylaxis Discharge Plan: Home Plan to discharge in: Greater than 2 days - Advance Directives Does patient have a Living Will: No Does patient have a Durable POA for Healthcare: No - Code Status/Comfort Care Code Status: DNI Critical Care: No Time Spent Managing PTS Care (In Minutes): 45
--- NOTE | 2021-02-01 03:05 | P.PN ---
Date of Service: 01/30/21 Subjective Patient remains short of breath. PleurX catheter was removed. Patient remains tachycardic as well. Review of Systems 10-point ROS is otherwise unremarkable Physical Examination - Vital Signs reviewed - Physical Exam General: Alert, In no apparent distress, Oriented x3 Respiratory: Diminished, Expiratory wheezes, Other (Diminished breath sounds bilaterally) Cardiovascular: Regular rate/rhythm, Normal S1 S2, No murmurs Gastrointestinal: Normal bowel sounds, Soft and benign, Non-distended, No tenderness Musculoskeletal: No clubbing, No swelling, No tenderness Neurological: Patient with generalized weakness - Studies Medications List Reviewed: Yes Assessment & Plan - Problems (Diagnosis) (1) Metastatic lung cancer (metastasis from lung to other site) Current Visit: Yes Status: Acute (2) Pulmonary embolism Current Visit: Yes Status: Acute Qualifiers: Chronicity: acute (3) Chest pain Current Visit: No Status: Active (4) Hypertension Current Visit: No Status: Acute - Plan Plan: Continue with plan of care as mentioned below 1. Advanced diet as tolerated; ensure plus with protein to help build her strength along with therapy 2. Continue with anticoagulation; continue with Lovenox at this time; status post PleurX catheter removal 3. She has really not able to participate with physical therapy. Encourage patient to start participating 4. Monitor electrolytes closely 5. GI and DVT prophylaxis Discharge Plan: Home Plan to discharge in: Greater than 2 days - Advance Directives Does patient have a Living Will: No Does patient have a Durable POA for Healthcare: No - Code Status/Comfort Care Code Status: DNI Critical Care: No Time Spent Managing PTS Care (In Minutes): 35
[2021-02-01 07:33] LABS: BUN Blood Urea Nitrogen 9 mg/dL (7-18); Bicarbonate 30 mmol/L (21-32); Glucose Level 109 mg/dL (74-106); Magnesium 2.1 mg/dL (1.8-2.4); Potassium 4.6 mmol/L (3.5-5.1); Sodium Level 138 mmol/L (136-145)
[2021-02-01 08:17] LABS: Absolute Lymphocytes (CBC) 1.3 K/uL (0.7-4.9); Basophils % 0.6 % (0-1.3); Hematocrit 35.1 % (36.0-45.0); Lymphocytes % 8.9 % (15.3-44.8); MPV 8.6 fL (7.6-11.3); RBC Red Blood Cell Count 4.34 M/uL (3.86-4.86)
[2021-02-01] MEDS: FOLIC ACID 1 MG TABLET PO SCH (08:41)
[2021-02-01] MEDS: THIAMINE HCL 100 MG TABLET PO SCH (08:41)
[2021-02-01] MEDS: ENOXAPARIN 80 MG/0.8 ML SQ SCH ×2 (08:42→20:06)
[2021-02-01] MEDS: GABAPENTIN 100 MG CAP PO SCH ×3 (08:42→20:09)
[2021-02-01] MEDS: ARFORMOTEROL TARTRATE 15 MCG/2 ML VIAL.NEB NEB SCH ×2 (08:50→20:14)
[2021-02-01] MEDS: IPRATROPIUM BROM 0.5MG/2.5ML NEB PRN ×2 (08:50→20:14)
[2021-02-01] MEDS: ALBUTEROL 2.5 MG/3 ML NEB SOL NEB PRN (08:50)
[2021-02-01] MEDS ORDERED: MAGNESIUM HYDROXIDE 8% 30 ML PO ONE (16:32)
--- NOTE | 2021-02-02 01:38 | P.PN ---
Date of Service: 02/01/21 Subjective Spoke with family and decision was made to proceed with do not intubate. Patient's open she can get a little bit stronger tolerate chemotherapy. However, her prognosis is poor. She will need to work really hard to get to that point. If she is not able to then she really needs to proceed with hospice care. I do not think she strong enough to go home. May need placement. Review of Systems 10-point ROS is otherwise unremarkable Physical Examination - Vital Signs reviewed - Physical Exam General: Alert, In no apparent distress, Oriented x3 Respiratory: Diminished, Expiratory wheezes, Other (Diminished breath sounds bilaterally) Cardiovascular: Regular rate/rhythm, Normal S1 S2, No murmurs Gastrointestinal: Normal bowel sounds, Soft and benign, Non-distended, No tenderness Musculoskeletal: No clubbing, No swelling, No tenderness Neurological: Patient with generalized weakness - Studies Medications List Reviewed: Yes Assessment & Plan - Problems (Diagnosis) (1) Metastatic lung cancer (metastasis from lung to other site) Current Visit: Yes Status: Acute (2) Pulmonary embolism Current Visit: Yes Status: Acute Qualifiers: Chronicity: acute (3) Chest pain Current Visit: No Status: Active (4) Hypertension Current Visit: No Status: Acute - Plan Plan: Continue with plan of care as mentioned below 1. Advanced diet as tolerated; ensure plus with protein to help build her strength along with therapy 2. Continue with anticoagulation; continue with Lovenox at this time; status post PleurX catheter removal; may add Eliquis 3. She is really not able to participate with physical therapy. Encourage patient to start participating; if not able to then may need to proceed with hospice care 4. Monitor electrolytes closely 5. GI and DVT prophylaxis Discharge Plan: Home Plan to discharge in: Greater than 2 days - Advance Directives Does patient have a Living Will: No Does patient have a Durable POA for Healthcare: No - Code Status/Comfort Care Code Status: DNI Critical Care: No Time Spent Managing PTS Care (In Minutes): 35
[2021-02-02] MEDS: IPRATROPIUM BROM 0.5MG/2.5ML NEB PRN ×2 (02:55→08:28)
[2021-02-02] MEDS: ALBUTEROL 2.5 MG/3 ML NEB SOL NEB PRN ×2 (02:55→08:28)
[2021-02-02] MEDS: MORPHINE 4 MG/ML SYR IV PRN ×4 (03:14→15:08)
[2021-02-02] MEDS: ENOXAPARIN 80 MG/0.8 ML SQ SCH (07:17)
[2021-02-02] MEDS: THIAMINE HCL 100 MG TABLET PO SCH (07:18)
[2021-02-02] MEDS: GABAPENTIN 100 MG CAP PO SCH ×2 (07:18→13:56)
[2021-02-02] MEDS: FOLIC ACID 1 MG TABLET PO SCH (07:18)
[2021-02-02] MEDS: ARFORMOTEROL TARTRATE 15 MCG/2 ML VIAL.NEB NEB SCH (08:28)
[2021-02-02 09:21] VITALS: O2SAT 94
--- NOTE | 2021-02-02 10:12 | P.PN ---
Subjective Date of Service: 02/02/21 Chief Complaint: SOB Subjective: Other (Patient on Ventimask. Family at bedside.) Physical Examination - Vital Signs Temperature: 97.3 F Blood Pressure: 131/58 Pulse: 84 Respirations: 17 Pulse Ox (%): 95 - Physical Exam General: Alert, Cooperative HEENT: Atraumatic Neck: Supple Respiratory: Crackles/rales (Crackles to the bases), Expiratory wheezes, Inspiratory wheezes Cardiovascular: Regular rate/rhythm Gastrointestinal: Normal bowel sounds, No masses, No rebound, No guarding Neurological: Other (Muscle wasting to the upper and lower extremities.) - Studies Medications List Reviewed: Yes Assessment & Plan Discharge Plan: Home (With hospice) Plan to discharge in: 24 Hours Physician Review Additional Text: Impression: Acute respiratory failure with hypoxia secondary to pulmonary embolism complicated with stage IV lung cancer COPD Chronic pain Hypertension Plan: Patient on Ventimask. Continue with COPD medication. Continue with Lovenox for PE treatment. Advanced care directives addressed in detail with patient and family at bedside. Advanced care minutes. Patient understands that her current condition and prognosis is poor. Patient understands that her stage IV lung cancer is terminal. After much discussion, patient wishes to be DNR. Also discussed the possibility of hospice at home. Patient wants to be home with hospice around family. We will continue with pain medication. Will arrange for hospice at home. If able this may be able to be done as early as today with possible discharge to hospice. Time Spent Managing Pts Care (In Minutes): 55
--- NOTE | 2021-02-02 10:29 | P.DS ---
Admission Date: 01/25/21 Discharge Date: 02/02/21 Primary Care Provider: unknown Disposition: HOSPICE-HOME Discharge Condition: GOOD Reason for Admission: SOB Consultations: Pulmonary-Dr. Wyatt Procedures: COVID: Negative CT scan: COMPARISON: Thorax W/ Con dated 12/02/2020; Chest Single View dated 12/22/2020; Chest Single View dated 12/01/2020 TECHNIQUE: Dynamically enhanced 3 mm thick images of the chest were obtained during administration of approximately 150mL Isovue 370 IV contrast. Coronal and oblique MIP reconstruction images were generated and reviewed. Exam utilizes a protocol to evaluate the pulmonary arterial tree. All CT scans are performed using dose optimization technique as appropriate and may include automated exposure control or mA/KV adjustment according to patient size. FINDINGS: Pulmonary emboli are present in the segmental branches supplying the lingula of the left upper lobe. Emboli are present at the left lower lobe bifurcation into multiple segmental branches. Embolus extends into the segmental pulmonary arteries. Subsegmental extension is suspected in the medial posterior aspect. No saddle embolus. No right-sided pulmonary emboli identifiable. Patient has a moderate size left pleural effusion that is new from prior imaging. Partial atelectasis of the left lower lobe is present. Small right pleural effusion is present. Consolidated right upper lung field malignant mass lesion is again noted. This encircles the right upper lobe and right mainstem bronchi. There is not creased mass density in the azygoesophageal recess. There is increased opacification of the right lower lobe. This could be tumor infiltration edema or pneumonia. Right-side chest tube has not changed. Tip is in the posterior gutter. No pneumothorax. The aorta as imaged shows no acute or suspicious finding. Minimal pericardial effusion similar to comparison. Heart size is stable. No left-sided pneumothorax. No chest wall masses or abnormal axillary lymphadenopathy. IMPRESSION: ECHO: CARDIAC HISTORY: CATHERIZATION: NO SURGERY: NO PROSTHETIC VALVE: NO PACEMAKER: NO MEASUREMENTS (cm) DIASTOLIC (NORMALS) SYSTOLIC (NORMALS) IVSd 1.0 (0.6-1.2) LA Diam 2.5 (1.9-4.0) LVEF 58% LVIDd 4.0 (3.5-5.7) LVIDs 2.8 (2.0-3.5) %FS 30% LVPWd 1.1 (0.6-1.2) Ao Diam 2.6 (2.0-3.7) 2 DIMENSIONAL ASSESSMENT: RIGHT ATRIUM: NORMAL LEFT ATRIUM: NORMAL RIGHT VENTRICLE: NORMAL LEFT VENTRICLE: NORMAL TRICUSPID VALVE: NORMAL MITRAL VALVE: NORMAL PULMONIC VALVE: NORMAL AORTIC VALVE: NORMAL PERICARDIAL EFFUSION: NONE AORTIC ROOT: NORMAL LEFT VENTRICULAR WALL MOTION: NORMAL DOPPLER/COLOR FLOW: MILD TRICUSPID REGURGITATION. COMMENTS: NORMAL LEFT VENTRICULAR SIZE AND FUNCTION. MODERATE PULMONARY HYPERTENSION 49 mmHg RIGHT VENTRICULAR SYSTOLIC PRESSURE. NO EFFUSION. Procedure: Date of Procedure: 01/30/2021 Surgeon: Robert Ramos MD, Preoperative Diagnosis: Right PleurX thoracic catheter dysfunction. Postoperative Diagnosis: Right PleurX thoracic catheter dysfunction. Procedure Performed: Removal of a right PleurX catheter. Anesthesia: MAC plus local with 0.25% Marcaine. Estimated Blood Loss: Less than 5 mL. Specimen: Catheter tip for culture. Findings: Tube obstructed with adipose tissue. Complications: None. CXR: COMPARISON: Chest Single View dated 01/30/2021; Chest Single View dated 01/26/2021; Chest Single View dated 12/22/2020; Chest Single View dated 12/01/2020 FINDINGS: Portable technique limits examination quality. No significant change in lung aeration is seen. Moderate left pleural effusion with pleural and parenchymal right hemithorax opacification is unchanged. No pneumothorax. Heart size is mildly prominent. Medical problem list: Acute respiratory failure with hypoxia secondary to multiple pulmonary emboli present in the segmental branches of the left lower lobe and in the segmental branches supplying the lingula of the left upper lobe complicated with moderate size left pleural effusion and worsening stage IV lung cancer with noted soft tissue mass in the right hilum/azygoesophageal recess and consolidation of the right lower lobe likely related to the extension of tumor COPD Chronic pain Moderate pulmonary hypertension Status post removal of right Pleurx catheter Brief History of Present Illness: 60-year-old female with history of stage IV lung cancer, COPD, pulmonary hypertension. Patient reported increasing shortness of breath. Patient was seen at [facility] last month for pleural effusion. She was also found to have pericardial effusion at the time. Patient required pericardial window and thoracentesis. A Pleurx catheter was placed at that time. In the ER patient was evaluated. Patient found to have pulmonary embolism with worsening stage IV lung cancer. Patient admitted for further evaluation and treatment. Hospital Course: Patient presented with acute respiratory failure with hypoxia. Patient recently hospitalized for pleural effusion, pericardial window and worsening stage IV lung cancer. On this admission patient was found to have multiple pulmonary emboli present in the segmental branches of the left lower lobe and in the segmental branches supplying the lingula of the left upper lobe. This was complicated with moderate size left pleural effusion and worsening stage IV lung cancer. CT scan showed the soft tissue mass in the right hilum/azygoesophageal recess and consolidation of the right lower lobe likely related to the extension of tumor. Patient was treated in the course of her stay. Her condition has not improved. Surgery removed the right Pleurx catheter as this was not functioning. Advanced directives and advanced care planning addressed in detail with the patient and family. Due to patient's current condition and prognosis patient has decided to be DNR. Patient also wishes to go home with hospice. Patient will continue with comfort measures at home. Arrangements for hospice at home arranged. Vital Signs/Physical Exam: Temp Pulse Resp BP Pulse Ox 97.3 F 84 17 131/58 L 95 02/02/21 10:12 02/02/21 10:12 02/02/21 10:12 02/02/21 10:12 02/02/21 10:12 General: Alert, Cooperative HEENT: Atraumatic Neck: Supple Respiratory: Diminished (To the bases), Expiratory wheezes, Inspiratory wheezes Cardiovascular: Normal pulses Gastrointestinal: Normal bowel sounds, No masses, No rebound, No guarding Integumentary: No tenderness/swelling Neurological: Other (Muscle wasting to the upper and lower extremities. Patient becomes tachycardic when moving.) Laboratory Data at Discharge: WBC 14.20 K/uL (4.3-10.9) H D 02/01/21 07:57 Hgb 10.7 g/dL (12.0-15.0) L 02/01/21 07:57 Hct 35.1 % (36.0-45.0) L 02/01/21 07:57 Plt Count 319 K/uL (152-406) D 02/01/21 07:57 PT 16.7 SECONDS (9.5-12.5) H 01/25/21 19:36 INR 1.45 01/25/21 19:36 APTT 46.8 SECONDS (24.3-36.9) H 01/26/21 08:37 Sodium 138 mmol/L (136-145) 02/01/21 06:52 Potassium 4.6 mmol/L (3.5-5.1) 02/01/21 06:52 BUN 9 mg/dL (7-18) 02/01/21 06:52 Creatinine 0.27 mg/dL (0.55-1.3) L 02/01/21 06:52 Glucose 109 mg/dL (74-106) H 02/01/21 06:52 Phosphorus 4.1 mg/dL (2.5-4.9) D 01/30/21 06:53 Magnesium 2.1 mg/dL (1.8-2.4) 02/01/21 06:52 Total Bilirubin 0.3 mg/dL (0.2-1.0) 01/25/21 10:57 AST 13 U/L (15-37) L 01/25/21 10:57 ALT 8 U/L (12-78) L 01/25/21 10:57 Alkaline Phosphatase 96 U/L (45-117) 01/25/21 10:57 Troponin I < 0.02 ng/mL (0.0-0.045) 01/27/21 05:02 Lipase 39 U/L (73-393) L 01/25/21 10:57 Home Medications: traMADol HCL [Ultram*] 50 mg PO Q6H PRN #10 tab 09/16/20 Gabapentin 200 mg PO TID 01/25/21 Metoprolol Tartrate [Lopressor*] 12.5 mg PO TID 01/25/21 Physician Discharge Instructions: Patient will go home with hospice. Continue comfort measures. Diet: Comfort Activity: Bedrest Followup: NONE,NONE [Primary Care Provider] - Time spent managing pt's care (in minutes): 55
[2021-02-02] MEDS ORDERED: METOPROLOL TAR 25 MG TAB PO SCH (14:00)
[2021-02-02 14:08] LABS: Basophils % 0.8 % (0-1.3); Hematocrit 32.1 % (36.0-45.0); MPV 8.8 fL (7.6-11.3); RBC Red Blood Cell Count 3.99 M/uL (3.86-4.86)
[2021-02-02 16:02] VITALS: BP 117/63; TEMP 97.3
== END 2021-02-02 17:41 | disposition hospice, home (50) | DRG 175 ==
LOC: ER 09:29 → ERHOLD 12:52 → 4TH 01-29 22:54
PROVIDERS: ADMIT Family Medicine; ATTEND Family Medicine
PROC: 0WP Anatomical Regions, General, Removal (ICD-10-PCS; principal; 2021-01-30 11:00)
DX: I26.99 Other pulmonary embolism without acute cor pulmonale (principal); J96.01 Acute respiratory failure with hypoxia; C34.90 Malignant neoplasm of unspecified part of unspecified bronchus or lung; J90 Pleural effusion, not elsewhere classified; J44.1 Chronic obstructive pulmonary disease with (acute) exacerbation; I27.20 Pulmonary hypertension, unspecified; I10 Essential (primary) hypertension; M54.5 Low back pain; G89.4 Chronic pain syndrome; R07.89 Other chest pain; R00.0 Tachycardia, unspecified; Z79.899 Other long term (current) drug therapy; Z90.710 Acquired absence of both cervix and uterus; Z66 Do not resuscitate; Z85.118 Personal history of other malignant neoplasm of bronchus and lung; Z90.49 Acquired absence of other specified parts of digestive tract; Z20.822 Contact with and (suspected) exposure to COVID-19
CPT/HCPCS: 36415; 70450; 71045; 71275; 80048; 80076; 81003; 82550; 82553; 82565; 82607; 82728; 83540; 83605; 83690; 83735; 83880; 84100; 84145; 84466; 84484; 85025; 85027; 85049; 85379; 85610; 85730; 87040; 87070; 87077; 87186; 87205; 93005; 93306; 94760; 96372; 96374; 97110; 97161; 99285; J0690; J1644; J1940; J2250; J2405; J2704; J2930; J3010; J7030; J7120; J7605; Q9967; U0003